=== PATIENT | female | born 1950 | race Caucasian/White ===

== ENCOUNTER 2022-01-20 09:20 | Outpatient (CLI) | payer MEDICARE, SELFPAY | END 2022-01-20 09:21 | disposition home or self-care (01) | LOC: FBOREF 09:20 | PROVIDERS: PCP Family Medicine; Visit Provider Family Medicine | DX: N39.0 Urinary tract infection, site not specified (principal); R30.0 Dysuria | CPT/HCPCS: 87086; 87186 ==

== ENCOUNTER 2022-02-18 11:13 | Outpatient (RCR) | payer MEDICARE, SELFPAY ==
[2022-02-18 11:55] LABS: Creatinine* 0.9 mg/dL (0.5-1.5); Est. Creatinine Clearance* 36.53; Estimated Glomerular Filt Rate 68 ml/min
[2022-02-18 11:56] LABS: Calcium* 9.9 mg/dL (8.4-10.6)
[2022-02-18] MEDS: DENOSUMAB 60 MG/ML SYRINGE SUBCUT (12:21)
== END 2022-08-17 23:59 | disposition home or self-care (01) ==
LOC: CCIC 11:13
PROVIDERS: PCP Family Medicine; Referring Provider Family Medicine; Visit Provider Family Medicine
DX: M81.0 Age-related osteoporosis without current pathological fracture (principal)
CPT/HCPCS: 36415; 82310; 82565; 96372; J0897

== ENCOUNTER 2022-03-12 14:23 | Outpatient (CLI) | payer MEDICARE, SELFPAY ==
--- NOTE | 2022-02-12 09:32 | ONC.NURNOTE ---
Diagnosis: Osteoporosis
--- NOTE | 2022-03-12 14:40 | CRLHL7_ITS ---
For Patients: As a result of the Century Cures Act, medical imaging exams and procedure reports are released immediately into your electronic medical record. You may view this report before your referring provider. If you have questions, please contact your health care provider. BILATERAL SCREENING MAMMOGRAM WITH COMPUTER-AIDED DETECTION TECHNIQUE: CC and MLO views were obtained. These mammographic images have been obtained using full-field digital technique. These mammographic images were interpreted with the benefit of computer-aided detection. COMPARISON FILM: 12/03/20, 08/02/18, 08/08/17. FINDINGS: There are scattered areas of fibroglandular density IMPRESSION: There is no radiographic evidence for malignancy. ASSESSMENT: BI-RADS Category 1: Negative RECOMMENDATION: Routine screening mammogram in 1 year. A lay language report of this examination will be provided to the patient. Chris Paez M.D. Diagnostic Radiologist [email or web address] KATI/gerry Transcribed: 7:44 p.m. ANABELA/Dictated by: Chris Paez MD @ 03/16/2022 11:46:00 AM (Electronically Signed)
== END 2022-03-12 14:24 | disposition home or self-care (01) ==
LOC: MAMMO 14:24
PROVIDERS: PCP Family Medicine; Referring Provider Family Medicine; Visit Provider Family Medicine
DX: Z12.31 Encounter for screening mammogram for malignant neoplasm of breast (principal)
CPT/HCPCS: 77067

== ENCOUNTER 2022-08-24 06:18 | Day surgery (SDC) | payer BC, SELFPAY ==
[2022-08-24] VITALS (11 sets, daily range): BP systolic 129–157; BP diastolic 71–83; PULSE 59–69; RESP 16–20; TEMP 36.9–37; O2SAT 94–97; BMI 31.0
[2022-08-24] MEDS: lidocaine HCL 2 % MULTIDOSE 20 ML VIAL INJECTION (07:20)
[2022-08-24] MEDS: BUPIVACAINE 0.5% 30 ML INJECTION (07:20)
--- NOTE | 2022-08-24 07:51 | PM.ORPRC ---
Procedure Note Date of procedure: 08/24/22 Procedure: Preop diagnosis: Right upper extremity carpal tunnel syndrome, right hand middle finger stenosing tenosynovitis Postop diagnosis: Right upper extremity carpal tunnel syndrome, right hand middle finger stenosing tenosynovitis Procedure: Right upper extremity carpal tunnel release, right hand middle finger A1 rj release Anesthesia: Local Surgeon: Leonardo Jaffe MD operations administrative assistant: NARESH Van EBL: 5 mL Complications: None Specimens: None Drains: None Indications: The patient has a history of right upper extremity carpal tunnel syndrome symptoms. Additionally, there is painful catching and locking of the middle finger. Despite appropriate nonoperative management consisting of nighttime bracing and occupational therapy they continue to have symptoms. Operative intervention was recommended. The risks, benefits alternatives and expected outcomes were discussed in detail. These included but were not limited to: Infection, bleeding, injury to blood vessel or nerve, venous thromboembolism. All questions were answered to their satisfaction. The patient was placed supine on the operating room table. Local anesthesia was established with 0.5% Marcaine without epinephrine and 2% lidocaine without epinephrine. The hand was prepped and draped in usual sterile fashion. The limb was elevated the forearm pneumatic tourniquet was inflated to 250 mm of mercury. A longitudinal incision was made centered over the radial border of the ring finger at the base of the palm. Subcutaneous dissection was sharply taken through the palmar fascia and the palmaris brevis to the transverse carpal ligament. The ligament was divided in line with the incision. Proximal and distal dissection was carried with tenotomy and Metzenbaum scissors for a wide decompression of the carpal tunnel. Attention was then turned to the middle finger. A transverse incision was made centered over the base of the middle finger in the distal palmar crease. Subcutaneous dissection was taken through the palmar fascia to the flexor tendons with the tenotomy scissors. The A1 rj was released with the 15 blade and a tenotomy scissors. Active flexion and extension of the finger shows no catching or locking, no bowstringing of the flexor tendons. The tourniquet was released , bleeding was controlled with direct pressure. The wounds were closed with a 3-0 nylon. A bulky dry dressing was applied, sponge and needle counts were correct x 2. The patient tolerated the procedure well, there were no apparent complications. They were sent to same day surgery in satisfactory condition. Plan: Use of the hand as tolerates. Discontinue the intraoperative dressing on postoperative day 3 and may get the wound wet as tolerates. Follow up in the office in 2 weeks for a wound check and suture removal.
== END 2022-08-24 08:30 | disposition home or self-care (01) ==
PROVIDERS: PCP Family Medicine; Visit Provider Orthopaedic Surgery
PROC: (CPT 64721; principal; 2022-08-24 07:15)
DX: G56.01 Carpal tunnel syndrome, right upper limb (principal); M65.331 Trigger finger, right middle finger; M65.841 Other synovitis and tenosynovitis, right hand
CPT/HCPCS: 64721; 26055; J3490

== ENCOUNTER 2022-09-16 15:18 | Outpatient (CLI) | payer BC, MEDICARE, SELFPAY ==
--- NOTE | 2022-09-16 15:30 | CRLHL7_ITS ---
For Patients: As a result of the Century Cures Act, medical imaging exams and procedure reports are released immediately into your electronic medical record. You may view this report before your referring provider. If you have questions, please contact your health care provider. DXA BONE MINERAL DENSITY STUDY Reason for exam: Osteoporosis. History of spinal rods and left wrist fracture. Current height (in): 59.0 Weight (lb): 155.0. Menopause age: 35 Ethnicity: White 1. Have you had a previous hip or vertebral fracture? No. 2. Have you had any fractures during your adult life which did not result from significant trauma (e.g., auto accident)? Yes. 3. Did either of your parents have a hip fracture? No. 4. Do you smoke? No. 5. Have you ever taken Glucocorticoids? No. 6. Do you have rheumatoid arthritis? No. 7. Do you have secondary osteoporosis? No. 8. Do you drink 3 or more alcoholic drinks per day? No. 9. Are you being treated for osteoporosis? Yes. 10. Have you ever taken any of the following medications: Actonel, Evista, Fosamax, Miacalcin, Reclast, Boniva, Forteo, HRT (i.e. estrogen/hormone therapy), Protelos, Prolia, Vitamin D, Calcium, other ??? please specify. ANSWER: Yes, Fosamax, vitamin D, Prolia, Calcium, Tymlos. 11. Do you have any of the following medical conditions: Anorexia or bulimia, asthma or emphysema, end stage renal disease, hyperparathyroidism, any seizure disorders, cancer, inflammatory bowel diseases, hysterectomy, other ??? please specify. ANSWER: Yes, hysterectomy. 12. What was your maximum height (inches)? 60.5. 13. Do you perform weight bearing exercise regularly? No. 14. Do you regularly consume dairy products? Yes. 15. Do you drink caffeinated beverages? Yes. 16. At what age did your period start? 11. 17. Are you premenopausal? No. 18. How many full term pregnancies have you had? 4 19. Have you ever missed your period for more than 6 months in a row (not including or menopause)? No. TECHNIQUE: Bone mineral density study was performed using the [employer]. FINDINGS: The results of the study expressed as bone mineral density (BMD) are as follows: Neck Left: BMD: 0.673 g/cm2. T-score: -1.6. Z-score: 0.4. Right: BMD: 0.746 g/cm2. T-score: -0.9. Z-score: 1.0. Total Left: BMD: 0.849 g/cm2. T-score: -0.8. Z-score: 0.9. Right: BMD: 0.884 g/cm2. T-score: -0.5. Z-score: 1.2 Radius Right 05/04: BMD: 0.559 g/cm2. T-score: -2.3. Z-score: 0.1 IMPRESSION: Osteopenia. *Comparison exams done prior to 10/2019 were performed on different unit, [facility]. Chris Paez M.D. Diagnostic Radiologist [email or web address] KATI/ti PT/Dictated by: Chris Paez MD @ 09/17/2022 8:50:00 AM (Electronically Signed)
== END 2022-09-16 15:19 | disposition home or self-care (01) ==
PROVIDERS: PCP Family Medicine; Visit Provider Family Medicine
DX: M81.0 Age-related osteoporosis without current pathological fracture (principal)
CPT/HCPCS: 77080

== ENCOUNTER 2022-10-21 14:53 | Outpatient (RCR) | payer BC, SELFPAY ==
--- NOTE | 2022-08-20 14:27 | ONC.NURNOTE ---
Insurance denied prolia injection. Primary care office notified. Will await further instruction.
--- NOTE | 2022-09-29 16:01 | PC.NURSE ---
Called pt today to let her know that [facility] continues to work with Dr. Toledo's office regarding Prolia coverage. Pt shared that she is actually going to see Dr. Lyndsey Palacios, original prescriber of Prolia, [facility]. Pt is hoping that MD can clarify her need for Prolia and make sure all is documented correctly to get this drug covered for her. Maria A would prefer to have infusions at [facility] but will have them done at [facility] if that is what it will take. Supportive listening provided. Will check in next week.
--- NOTE | 2022-10-04 14:12 | PC.NURSE ---
Called pt today in follow-up after [facility] appt. Maria A shares that she is going to have an infusion at the [facility] and will have a repeat DEXA scan in 2 years. Pt has no care needs at [facility] at this time. Will cancel the PA for Prolia. Support offered.
--- NOTE | 2022-10-11 15:52 | URNOTE ---
Request received for authorization for?Zoledronic Acid (Reclast) ([id number]). Prior authorization is approved Reclast 5mg/100ml quintin. billable 5units from 10/08/22 to 10/08/23, Ref#[id number].
--- NOTE | 2022-10-12 14:27 | ONC.NURNOTE ---
Called patient to scheduled Reclast. Patient will need calcium and creatinine prior to infusion. She is coming in on 10/20 for these labs per her request. Patient will come on 10/21 for infusion.
[2022-10-20 14:39] LABS: Estimated Glomerular Filt Rate 60 ml/min
[2022-10-21 10:37] VITALS: BP 115/69; PULSE 71; RESP 18; TEMP 36.6; O2SAT 96
[2022-10-21 11:24] VITALS: BP 129/69; PULSE 57; RESP 16; O2SAT 96
== END 2023-04-18 23:59 | disposition home or self-care (01) ==
LOC: CCIC 14:53
PROVIDERS: PCP Family Medicine; Referring Provider Family Medicine; Visit Provider Family Medicine
DX: M81.0 Age-related osteoporosis without current pathological fracture (principal)
CPT/HCPCS: 36415; 82310; 82565; 96365; J3489

== ENCOUNTER 2022-11-09 10:52 | Outpatient (CLI) | payer BC, SELFPAY | END 2022-11-09 10:53 | disposition home or self-care (01) | LOC: NFLDREF 11-10 09:54 | PROVIDERS: PCP Family Medicine; Referring Provider Family Medicine; Visit Provider Family Medicine | DX: E78.5 Hyperlipidemia, unspecified (principal) | CPT/HCPCS: 80061 ==

== ENCOUNTER 2023-03-25 14:17 | Outpatient (CLI) | payer BC, SELFPAY ==
--- NOTE | 2023-03-25 14:40 | CRLHL7_ITS ---
For Patients: As a result of the Century Cures Act, medical imaging exams and procedure reports are released immediately into your electronic medical record. You may view this report before your referring provider. If you have questions, please contact your health care provider. BILATERAL SCREENING MAMMOGRAM WITH COMPUTER-AIDED DETECTION TECHNIQUE: CC and MLO views were obtained. These mammographic images have been obtained using full-field digital technique. These mammographic images were interpreted with the benefit of computer-aided detection. COMPARISON FILM: 03/12/22, 12/03/20, 12/03/19. FINDINGS: There are scattered areas of fibroglandular density IMPRESSION: There is no radiographic evidence for malignancy. ASSESSMENT: BI-RADS Category 2: Benign RECOMMENDATION: Routine screening mammogram in 1 year. A lay language report of this examination will be provided to the patient. Jack Yeh M.D. Diagnostic/Nuclear Medicine Radiologist [email or web address] ANABELA/Dictated by: Jack Yeh MD @ 03/28/2023 8:25:00 AM (Electronically Signed)
== END 2023-03-25 14:18 | disposition home or self-care (01) ==
LOC: MAMMO 14:18
PROVIDERS: PCP Family Medicine; Visit Provider Family Medicine
DX: Z12.31 Encounter for screening mammogram for malignant neoplasm of breast (principal)
CPT/HCPCS: 77067

== ENCOUNTER 2023-09-01 08:44 | Outpatient (CLI) | payer BC, SELFPAY ==
--- OUTSIDE RECORDS SUMMARY | 2023-09-01 08:49 | XMS_ITS | Encounter Summary ---
Author Name Unknown Organization [place] Address [address] [facility] [place] [address] Care Team Providers Care Code Clerk Name Role Phone Chris Toledo MD Primary Care Provider Beba Munoz PA-C Unavailable [phone] Chris Gilbert MD Unavailable [phone] Ivette Rasmussen RN Unavailable Evelyn Alvarado MD Unavailable [phone] Lyndsey Palacios MD PhD Unavailable + [phone] Lyndsey Palacios MD PhD Unavailable + [phone] Ivon De Leon [facility] Unavailable Chris Burroughs PA-C Unavailable [phone] Encounter Details Date Type Department Care Team (Latest Contact Info) Description 07/30/2023 Travel Social History Tobacco Use Types Packs/Day Years Used Date Smoking Tobacco: Never Smokeless Tobacco: Never Alcohol Use Standard Drinks/Week Comments Yes 0 (1 standard drink = 0.6 oz pur e alcohol) rare PHQ-2 Answer Date Recorded PHQ-2 Score 1 10/04/2022 Exercise Vital Sign Answer Date Recorde d On average, how many days pe r week do you engage in moderate to strenuous exercise (like a brisk walk)? 0 days 07/05/2023 On average, how many minutes do you engage in exercise at this level? 0 min 07/05/2023 Adolescent Education Answer Date Record ed Getting School Help Needed Not on file 02/15 Sex and Gender Information Value Date Recorded Sex Assigned at Female 06/26/2019 9:26 AM IV TECHNICIAN Gender Identity Female 06/26/2019 9:25 AM IV TECHNICIAN Sexual Orientation Straight 06/26/2019 9: 25 AM IV TECHNICIAN documented as of this encounter Plan of Treatment Upcoming Encounters Date Type Department Care Team (Late st Contact Info) Description 09/06/2023 1:20 PM CDT Office Visit [facility] [place] [address] [place] [address] [place] [address] [place] [address] documented as of this encounter Visit Diagnoses Not on filedocumented in this encounter Additional Health Concerns Assessment Noted Time PHQ-9 Depression Total Score: 4 06/04/19 20 1:21 PM IV TECHNICIAN documented as of this encounter Care Teams Code Clerk Relationship Specialty Start Date End Date Chris Toledo MD PCP - General Family Practice 12/07/17 Beba Munoz PA-C [facility] [address] [facility] [address] [place] [address] Physician Braze Operator Physician Braze Operator 12/07/17 Chris Gilbert MD [address] [place] [address] Orthopedics 12/07/17 Ivette Rasmussen, RN Registered Nurse Nurse 01/12/18 Evelyn Alvarado MD [address] [place], [place] [id number] Family Medicine - Sports Medicine 01/08/19 Lyndsey Palacios MD PhD [address] [place] [id number] Assigned PCP 08/08/20 Lyndsey Palacios MD PhD [address] [place] [id number] Family Medicine 09/29/22 Ivon De Leon, [facility] [address] [address] Pharmacist Pharmacist 10/07/22 Chris Burroughs PA-C [address] [place] [id number] Assigned Musculoskeletal Provider 07/15/23 documented as of this encounter
--- OUTSIDE RECORDS SUMMARY | 2023-09-01 08:49 | XMS_ITS | Encounter Summary ---
Author Name Unknown Organization [facility] [place] Address [address] [facility] [place] [address] Care Team Providers Care Stone Repairer Name Role Phone Chris Toledo MD Primary Care Provider Beba Munoz PA-C Unavailable [phone] Chris Gilbert MD Unavailable [phone] Ivette Rasmussen RN Unavailable Evelyn Alvarado MD Unavailable [phone] Lyndsey Palacios MD PhD Unavailable + [phone] Lyndsey Palacios MD PhD Unavailable + [phone] Ivno De Leon [facility] Unavailable Chris Burroughs PA-C Unavailable [phone] Encounter Details Date Type Department Care Team (Latest Contact Info) Description 08/17/2023 Travel Social History Tobacco Use Types Packs/Day [...] Sex Assigned at Female 06/26/2019 9:26 AM TIRE BAGGER Gender Identity Female 06/26/2019 9:25 AM TIRE BAGGER Sexual Orientation Straight 06/26/2019 9: 25 AM TIRE BAGGER documented as of this encounter Plan of Treatment Upcoming Encounters Date Type Department Care Team (Late st Contact Info) Description 09/06/2023 1:20 PM CDT Office Visit [facility] [place] [address] [place] [address] [place] [address] [place] [address] documented as of this encounter Visit Diagnoses Not on filedocumented in this encounter Additional Health Concerns Assessment Noted Time PHQ-9 Depression Total Score: 4 06/04/19 20 1:21 PM TIRE BAGGER documented as of this encounter Care Teams Stone Repairer Relationship Specialty Start Date End Date Chris Toledo MD PCP - General Family Practice 12/07/17 Beba Munoz PA-C [facility] [address] [facility] [address] [place] [address] Physician Senior Data Integration Developer Physician Senior Data Integration Developer 12/07/17 Chris Gilbert MD [address] [place] [address] Orthopedics 12/07/17 Ivette Rasmussen, RN Registered Nurse Nurse 01/12/18 Evelyn Alvarado MD [address] [place], [place] [address] Family Medicine - Sports Medicine 01/08/19 Lyndsey Palacios MD PhD [address] [place] [id number] Assigned PCP 08/08/20 Lyndsey Palacios MD PhD [address] [place] [id number] Family Medicine 09/29/22 Ivon De Leon, [facility] [address] [address] Pharmacist Pharmacist 10/07/22 Chris Burroughs PA-C [address] [place] [id number] Assigned Musculoskeletal Provider 07/15/23 documented as of this encounter
--- OUTSIDE RECORDS SUMMARY | 2023-09-01 08:49 | XMS_ITS | Clinical Summary ---
Author Name Unknown Organization [facility] Address [address] [facility] [place] [address] Care Team Providers Care Clinical Psychology Teacher Name Role Phone Chris Toledo MD Primary Care Provider Beba Munoz PA-C Unavailable [phone] Chris Gilbert MD Unavailable [phone] Ivette Rasmussen RN Unavailable Evelyn Alvarado MD Unavailable [phone] Lyndsey Palacios MD PhD Unavailable Lyndsey Palacios MD PhD Unavailable Ivon De Leon [facility] Unavailable [phone] Chris Burroughs PA-C Unavailable [phone] Allergies Active Allergy Reactions Criticality Noted Date Comments Other (Do Not Use) Unknown 07/08/2019 cough Shellfish Allergy 08/16/2022 Simvastatin Muscle Pain (Myalgia) 10/02/2006 Medications Medication Sig Dispensed Refills Start Date End Date Status albuterol (PROAIR HFA/PROVENTIL HFA/VENTOLIN HFA) 108 (90 Base) MCG/ACT inhaler Inhale 2 puffs into the lungs every 4 hours as needed 06/22/2013 Active azelastine (ASTELIN) 0.1 % nasal spray Yancey 2 sprays into both nostrils 2 times daily 3 01/17/2018 Active cetirizine (ZYRTEC) 10 MG tablet Take 10 mg by mouth every evening 03/30/2011 Active cycloSPORINE (RESTASIS) 0.05 % ophthalmic emulsion Place 1 drop into both eyes every morning 06/22/2013 Active EPINEPHrine (EPIPEN/ADRENACLIC K/OR ANY BX GENERIC EQUIV) 0.3 MG/0.3ML injection 2-pack Inject 0.3 mg into the muscle as needed 2 06/16/2017 Active fluticasone (FLOVENT HFA) 110 MCG/ACT inhaler Inhale 1 puff into the lungs 2 times daily 08/05/2015 Active fluticasone (FLONASE) 50 MCG/ACT nasal spray Yancey 2 sprays into both nostrils 2 times daily 03/29/2012 Active montelukast (SINGULAIR) 10 MG tablet Take 10 mg by mouth At Bedtime 11/15/2012 Active omeprazole (PRILOSEC) [address] capsule Take 20 mg by mouth every morning 09/23/2006 Active calcium carbonate 600 mg-vitamin D 400 units (CALTRATE) 600-400 MG-UNIT per tablet Take 1 tablet by mouth 2 times daily Active melatonin 5 MG tablet Take 5 mg by mouth At Bedtime Active [place]-3 Fatty Acids (FISH OIL) 1200 MG capsule Take 1,200 mg by mouth daily Active cholecalciferol (VITAMIN D3) 5000 units (125 mcg) capsule Take 5,000 Units by mouth every evening Active lisinopril (PRINIVIL/ZESTRIL) 10 MG tablet Take 10 mg by mouth every morning Active medical cannabis (Patient's own supply) Take 1 Dose by mouth 2 times daily (The purpose of this order is to document that the patient reports taking medical cannabis. This is not a prescription, and is not used to certify that the patient has a qualifying medical condition.) Active acetaminophen (TYLENOL) 325 MG tabletIndications: H/O Spinal surgery Take 2 tablets (650 mg) by mouth every 4 hours as needed for pain 100 tablet 1 08/24/2018 Active gabapentin (NEURONTIN) 600 MG tabletIndications: H/O Spinal surgery Take 1 tablet (600 mg) by mouth 3 times daily 90 tablet 08/24/2018 Active Additional Information Patient taking differently:600 mg Oral2 TIMES DAILY, Reported on 08/18/2020 HYDROcodone-acetam inophen (NORCO) 7.5-325 MG per tablet Take 1 tablet by mouth At Bedtime 0 07/31/2018 Active atorvastatin (LIPITOR) 10 MG tablet Take 10 mg by mouth daily Active diclofenac (VOLTAREN) 1 % topical gelIndications: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 Place 2 g onto the skin 2 times daily as needed for moderate pain (knuckles) 100 g 10/11/2019 Active Additional Information Patient not taking.Reported on 07/05/2023 UNABLE TO FIND MEDICATION NAME: focous 1 tab twice daily Active fenofibrate (TRIGLIDE/LOFIBRA) 160 MG tablet Take 1 tablet by mouth daily at 2 pm 08/10/2022 Active potassium 99 MG TABS 08/04/2020 Active Cyanocobalamin (VITAMIN B 12) 100 MCG LOZG 08/01/2020 Active celecoxib (CELEBREX) 200 MG capsule Take 200 mg by mouth 2 times daily Active predniSONE (DELTASONE) 20 MG tabletIndications: Bilateral hip pain Take 3 tabs by mouth daily x 3 days, then 2 tabs daily x 3 days, then 1 tab daily x 3 days, then 1/2 tab daily x 3 days. 20 tablet 07/05/2023 Active Hospital, Clinic, or Other Facility Administered Medication Ordered Dose Route Frequency Start Date End Date Status lidocaine (PF) (XYLOCAINE) 1 % injection 6 mLIndications:Bursitis of pelvic region, right 6 mL 10/04/2018 Acti ve triamcinolone (KENALOG-40) injection 20 mgIndications:Bursitis of pelvic region, right 20 mg 10/04/2018 Acti ve lidocaine (PF) (XYLOCAINE) 1 % injection 2 mLIndications:Hamstring tendinitis at origin 2 mL 12/07/2018 Acti ve lidocaine (PF) (XYLOCAINE) 1 % injection 2 mLIndications:Hamstring tendinitis at origin 2 mL 10/11/2019 Acti ve lidocaine 1 % injection 8 mLIndications:Primary osteoarthritis of right hip 8 mL 08/23/2023 Active methylPREDNISolone (DEPO-Medrol) injection 40 mgIndications:Primary osteoarthritis of right hip 40 mg 08/23/2023 Active 4 mL ropivacaine (NAROPIN) injection 5 mg/mLIndications:Primary osteoarthritis of right hip 4 mL 08/23/2023 Active Active Problems Problem Noted Date Diagnosed Date Senile osteoporosis 06/04/2019 Flatback syndrome 05/11/2018 Severe scoliosis 05/11/2018 Osteoporosis 05/11/2018 Essential hypertension 12/19/2017 Issue of repeat prescription 06/24/2015 Allergic rhinitis due to pollen 05/03/2015 Controlled substance agreement signed 05/03/2015 Osteoarthrosis 03/31/2015 Sensorineural hearing loss (SNHL) 08/05/2010 Adjustment disorder with mixed anxiety and depre ssed mood 06/23/2008 Hyperlipidemia 07/27/2006 Encounters Date Type Department Care Team Description 08/23/2023 1:20 PM CDT Office Visit [facility] [address] [address] Sylvester Joe MD Primary osteoarthritis of right hip (Primary Dx); Primary localized osteoarthritis of left hip; Hx of spinal surgery-thoracic and lumbar Walsh rods for scoliosis age 50 and 68; Osteoarthritis of left sacroiliac joint (H24); Osteoarthritis of right sacroiliac joint (H24) 08/23/2023 Travel 08/17/2023 Travel 07/30/2023 Travel 07/27/2023 Telephone [facility] [address] [phone] Chris Burroughs PA-C Call Back 07/07/2023 Telephone [facility] [place] [id number] [phone] Chris Burroughs PA-C 07/05/2023 1:30 PM PARTS DATA WRITER Ancillary Procedure [facility] [address] [address] Chris Burroughs PA-C Bilateral hip pain 07/05/2023 1:20 PM PARTS DATA WRITER Office Visit [facility] [address] [address] Chris Burroughs PA-C Bilateral hip pain (Primary Dx); Hx of spinal surgery-thoracic and lumbar Walsh rods for scoliosis age 50 and 68; Osteopenia, unspecified location 07/05/2023 Travel 07/01/2023 Travel 06/30/2023 MyC Medical Advice [facility] [address] 4[address] [place] [address] Chris Gilbert MD Clinic Care Coordination - Follow-up from Last 3 Months Immunizations Name Administration Dates Next Due COVID-19 MONOVALENT 12+ (Pfizer) 022,01/30/2021,07/25/2020,2020 DTaP, Unspecified 09/01/2012 A6p2-86 Novel Flu 05/22/2009 Influenza (H1N1) 05/22/2009 Influenza (High Dose) 3 enmanuel nt vaccine 02/13/2019,03/08/2018,03/18/2017,2015,01/13/2015,01/05/2014 Influenza (IIV3) PF 01/04/2014, 3,01/19/2012,2009,01/22/2010,02/05/2009,02/21/2008,1 ,03/07/2006,02/24/2005, 003 Influenza Vaccine 65+ (FLUAD) 01/05/2022, 021,01/29/2020 Influenza Vaccine >6 months,quad, PF 09/2021,01/30/2021,01/29/2020,2018,03/08/2018,03/18/2017,02/14/2016,0 12/22/2015,01/23/2015,01/13/2015, 014,01/16/2013,01/19/2012,02/09/2011,,05/22/2009,02/05/2009,02/21/20 08,02/22/2007,02/24/2005,02/20/2003 Influenza, seasonal, injectable, PF 02/09/2011,0 01/22/2010 Pneumo Conj 13-V (2010&after) 10/05/2016 Pneumococcal 23 valent 04/28/2015 TDAP (Adacel,Boostrix) 09/01/2012 Td (Adult), Adsorbed 02/20/2003 Zoster recombinant adjuvante d (SHINGRIX) 01/22/2019,11/20/2018 Zoster vaccine, live 08/08/2014 Family History Medical History Relation Comments Cancer Father kidney, mets to the lung and brain Other - See Comments Mother heart valve issue Ovarian Cancer Mother Relation Status Comments Father Mother Social History Tobacco Use Types Packs/Day Years [...] Sex Assigned at Female 06/26/2019 9:26 AM PARTS DATA WRITER Gender Identity Female 06/26/2019 9:25 AM PARTS DATA WRITER Sexual Orientation Straight 06/26/2019 9: 25 AM PARTS DATA WRITER Last Filed Vital Signs Vital Sign Reading Time Taken Comments Blood Pressure 137/88 08/23/2023 1:13 PM CDT Pulse 81 10/04/2022 9:52 AM CDT Temperature 36.9 ??C (98.4 ??F) 06/29/2019 8:58 AM CS T Respiratory Rate 16 11/17/2018 1:29 PM CDT Oxygen Saturation 93% 06/29/2019 8:58 AM PARTS DATA WRITER Inhaled Oxygen Concentration - - Weight 73.9 kg (163 lb) 08/23/2023 1:13 PM CDT Height 152.4 cm (5') 08/23/2023 1:13 PM CDT Body Mass Index 31.83 08/23/2023 1:13 PM CDT Plan of Treatment Upcoming Encounters Date Type Department Care Team (Late st Contact Info) Description 09/06/2023 1:20 PM CDT Office Visit [facility] [id number] [place] [address] [address] [place] [address] [place] [address] [address] [place], [place] [phone] Health Maintenance Due Date Last Done Comments ADVANCE CARE PLANNING 1950 ANNUAL REVIEW OF HM ORDERS 1950 CT COLONOGRAPHY 1950 FIT 1950 FLEX SIG 1950 LIPID 1950 sDNA (Cologuard) 1950 HEPATITIS C SCREENING 01/02/1968 RSV VACCINE ( & 60+) (1 - 1-dose 60+ series) 2010 FALL RISK ASSESSMENT 2015 MEDICARE ANNUAL WELLNESS VISIT 2015 DTAP/TDAP/TD IMMUNIZATION (3 - Td or Tdap) 09/01/2022 09/01/2012, 09/01/2012, 02/20/2003 GLUCOSE 01/24/2023 01/25/2020, 08/01, 08/23/2018, Additional history exists PHQ-2 (once per calendar year) 2023 10/04/2022, 09/03/2021, 08/18/2020, Additional history exists COVID-19 Vaccine ( season) 2023 02/02/2023, 01/05/2022, 08/08/2021, Additional history exists MAMMO SCREENING 03/12/2024 03/12/2022, 0807/2020, 12/03/2019, Additional history exists COLONOSCOPY 06/30/2026 06/30/2016 COLORECTAL CANCER SCREENING 06/30/2026 DEXA 09/16/2037 09/16/2022, 06/02, 06/12/2020, Additional history exists Pneumococcal Vaccine: 65+ Years Completed 10/05/2016, 04/28/2015 ZOSTER IMMUNIZATION Completed 01/22/2019, 11/20/2018, 08/08/2014 INFLUENZA VACCINE Completed 02/01/2023, , 01/05/2022, Additional history exists HPV IMMUNIZATION Aged Out No longer e ligible based on patient's age to complete this topic IPV IMMUNIZATION Aged Out No longer e ligible based on patient's age to complete this topic MENINGITIS IMMUNIZATION Aged Out No l onger eligible based on patient's age to complete this topic RSV MONOCLONAL ANTIBODY Aged Out No l onger eligible based on patient's age to complete this topic Medical Devices Implanted Type Area Advertising Supervisor Device Identifier Shelf Expiration Date Model / Serial / Lot Graft Bone Crush Canc 30ml [id number] Implanted:Qty : 1 on 08/21/2018 by Chris Gilbert MD at [facility] Bone/Tissu e/Biologic N/A: Spine Lumbar MUSCULOSKELETAL CAMPOS 04/28/2021 [id number] / [id number] / Graft Bone Crush Canc 30ml [id number] Implanted:Qty : 1 on 08/21/2018 by Chris Gilbert MD at [facility] Bone/Tissu e/Biologic N/A: Spine Lumbar MUSCULOSKELETAL CAMPOS 06/02/2021 [id number] / [id number] Imp Scr Medt 5.5/6.0mm Solera 6.5x55mm Ma [id number] Implanted:Qty : 2 on 08/21/2018 by Chris Gilbert MD at [facility] Metallic Hardware/A nchor N/A: Spine Lumbar [employer] [id number] / / [id number] Imp Scr Medt 5.5/6.0mm Solera 5.5x50mm Ma [id number] Implanted:Qty : 2 on 08/21/2018 by Chris Gilbert MD at [facility] Metallic Hardware/A nchor N/A: Spine Lumbar [employer] [id number] / / [id number] Imp Scr Medt 5.5/6.0mm Solera 5.5x55mm Ma [id number] Implanted:Qty : 2 on 08/21/2018 by Chris Gilbert MD at [facility] Metallic Hardware/A nchor N/A: Spine Lumbar [employer] [id number] / / [id number] Imp Scr Medt 5.5/6.0mm Solera 6.5x45mm Ma [id number] Implanted:Qty : 2 on 08/21/2018 by Chris Gilbert MD at [facility] Metallic Hardware/A nchor N/A: Spine Lumbar [employer] [id number] / / [id number] Imp Scr Medt 5.5/6.0mm Solera 6.5x40mm Ma [id number] Implanted:Qty : 1 on 08/21/2018 by Chris Gilbert MD at [facility] Metallic Hardware/A nchor N/A: Spine Lumbar [employer] [id number] / / [id number] Imp Scr Medt 5.5/6.0mm Solera 5.5x40mm Ma [id number] Implanted:Qty : 3 on 08/21/2018 by Chris Gilbert MD at [facility] Metallic Hardware/A nchor N/A: Spine Lumbar [employer] [id number] / / [id number] Imp Scr Medt 5.5/6.0mm Solera 5.0x35mm Ma [id number] Implanted:Qty : 1 on 08/21/2018 by Chris Gilbert MD at [facility] Metallic Hardware/A nchor N/A: Spine Lumbar [employer] [id number] / / [id number] Imp Scr Medt 5.5/6.0mm Solera 4.5x35mm Ma [id number] Implanted:Qty : 1 on 08/21/2018 by Chris Gilbert MD at [facility] Metallic Hardware/A nchor N/A: Spine Lumbar [employer] [id number] / / [id number] Imp Scr Medt 5.5/6.0mm Solera 5.0x40mm Ma [id number] Implanted:Qty : 1 on 08/21/2018 by Chris Gilbert MD at [facility] Metallic Hardware/A nchor N/A: Spine Lumbar [employer] [id number] / / [id number] Imp Scr Medt 5.5/6.0mm Solera 4.5x40mm Ma [id number] Implanted:Qty : 1 on 08/21/2018 by Chris Gilbert MD at [facility] Metallic Hardware/A nchor N/A: Spine Lumbar [employer] [id number] / / [id number] Imp Dao Medt Solera Lined 5.9a998mz Chr [id number] Implanted:Qty : 3 on 08/21/2018 by Chris Gilbert MD at [facility] Metallic Hardware/A nchor N/A: Spine Lumbar [employer] [id number] / / [id number] Imp Scr Set Medt Solera Break Off 5.5mm Ti [id number] Implanted:Qty : 26 on 08/21/2018 by Chris Gilbert MD at [facility] Metallic Hardware/A nchor N/A: Spine Lumbar [employer] [id number] / [id number] / Imp Scr Medt 5.5/6.0mm Solera 7.5x40mm Ma [id number] Implanted:Qty : 2 on 08/21/2018 by Chris Gilbert MD at [facility] Metallic Hardware/A nchor N/A: Spine Lumbar [employer] [id number] / / [id number] Imp Scr Medt 5.5/6.0mm Solera 7.5x50mm Ma [id number] Implanted:Qty : 4 on 08/21/2018 by Chris Gilbert MD at [facility] Metallic Hardware/A nchor N/A: Spine Lumbar [employer] [id number] / / [id number] Imp Scr Medt 5.5/6.0mm Solera 7.5x55mm Ma [id number] Implanted:Qty : 2 on 08/21/2018 by Chris Gilbert MD at [facility] Metallic Hardware/A nchor N/A: Spine Lumbar [employer] [id number] / / [id number] Ballast Screw Implanted:Qty : 1 on 08/21/2018 by Chris Gilbert MD at [facility] N/A: Spine Lumbar [id number] / / [id number] Ballast Screw 9.5 X 90 Mm Implanted:Qty : 1 on 08/21/2018 by Chris Gilbert MD at [facility] N/A: Spine Lumbar [id number] / / [id number] Variable Angle [place] Implanted:Qty : 2 on 08/21/2018 by Janel Guillory MD at [facility] N/A: Spine Lumbar 07/14/2023 [id number] / / [id number] Capstone Control 10 X 22 Implanted:Qty : 1 on 08/21/2018 by Chris Gilbert MD at [facility] N/A: Spine Lumbar [employer] [id number] / / Explanted Type Area Advertising Supervisor Device Identifier Shelf Expiration Date Model / Serial / Lot Imp Scr Set Medt Solera Break Off 5.5mm Ti [id number] Explanted:Qty: 3 on 08/21/2018 at [facility] Metallic Hardware/Anc hor N/A: Spine Lumbar [employer] [id number] / / [id number] [place] Screws Explanted:Qty: 1 on 08/21/2018 by Chris Gilbert MD at [facility] Bilateral : Spine Lumbar Description:ALL ISOLA SPINE HARDWARE REMOVED LUMBAR AND THORACIC. Procedures Procedure Name Priority Date/Time Associated Diagnosis Comments VT ARTHROCENTESIS ASPIR&/INJ MAJOR JT/BURSA W/US Routine 08/23/2023 1:57 PM CDT Primary osteoarthritis of right hip XR PELVIS AND HIP BILATERAL 1 VIEW Routine 07/05/2023 1:50 PM PARTS DATA WRITER Bilateral hip pain DEXA - HIM SCAN 09/16/2022 12:00 AM CDT MA EXTERNAL IMAGING 2D SCREENING Routine 03/12/2022 12:00 AM PARTS DATA WRITER BASIC METABOLIC PANEL Routine 01/25/2020 10:57 AM CDT Senile osteoporosis from Last 3 Months or Most Recently Relevant to Health Maintenance Results * VT ARTHROCENTESIS ASPIR&/INJ MAJOR JT/BURSA W/US (08/23/2023 1:57 PM CDT) Narrative Sylvester Joe MD - 08/23/2023 1:57 PM CDT Sylvester Joe MD ? 08/23/2023 ??5:07 PM Large Joint Injection/Arthocentesis: R hip joint Date/Time: 08/23/2023 1:57 PM Performed by: Sylvester Joe MD Authorized by: Sylvester Joe MD ?? Indications: ??Pain and osteoarthritis Needle Size: ??22 G Guidance: ultrasound ?? Approach: ??Anterior Location: ??Hip Site: ??R hip joint Medications: ??40 mg methylPREDNISolone 40 MG/ML; 8 mL lidocaine 1 %; 4 mL ROPivacaine 5 MG/ML Outcome: ??Tolerated well, no immediate complications Procedure discussed: discussed risks, benefits, and alternatives ?? Consent Given by: ??Patient Timeout: timeout called immediately prior to procedure ?? Prep: patient was prepped and draped in usual sterile fashion ?? Ultrasound was used to ensure safe and accurate needle placement and injection. Ultrasound images of the procedure were permanently stored. Sylvester Joe MD PROCEDURE/MINOR SURG ICAL ORDERABLES * XR Pelvis and Hip Bilateral 1 View (07/05/2023 1:50 PM PARTS DATA WRITER) Anatomical Region Laterality Modality Pelvis Bilateral Computed Radiogr aphy Impressions 07/05/2023 3:26 PM PARTS DATA WRITER IMPRESSION: There are mild arthritic changes involving both hips. Prior lumbosacral fusion. There is no evidence of an acute displaced fracture on either side. No dislocation. 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 BENJA ZULUAGA MD SYSTEM ID: ??[id number] Narrative 07/05/2023 3:26 PM PARTS DATA WRITER PELVIS AND BILATERAL HIPS, ONE VIEW 07/05/2023 1:50 PM HISTORY: Bilateral hip pain. COMPARISON: 11/21/2018 MRI. Procedure Note Benja Zuluaga MD - 07/05/2023 PELVIS AND BILATERAL HIPS, ONE VIEW 07/05/2023 1:50 PM HISTORY: Bilateral hip pain. COMPARISON: 11/21/2018 MRI. IMPRESSION: There are mild arthritic changes involving both hips. Prior lumbosacral fusion. There is no evidence of an acute displaced fracture on either side. No dislocation. 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 BENJA ZULUAGA MD SYSTEM ID: [id number] Chris Burroughs PA-C IMG DIAGNOSTIC IM AGING ORDERABLES * DEXA - HIM SCAN (09/16/2022 12:00 AM CDT) Anatomical Region Laterality Modality Other 09/16/2022 Provider Outside IMG DEXA ORDERABLES * MA External Imaging 2D Screening (03/12/2022 12:00 AM PARTS DATA WRITER) Narrative Service Account, Ob Barbiek - 10/14/2022 3:18 PM CDT Images were obtained from an external facility. ??Click PACS Images hyperlink to view images. ??Textual results have been scanned into the media tab. Radiology Non-Fv Credentialed Provider I MG EXTERNAL IMAGING ORDERABLES * (ABNORMAL) Basic Metabolic Panel (01/25/2020 10:57 AM CDT) Sodium 139 133 - 144 mmol/L 01/25/2020 11:23 AM CDT [facility] Potassium 4.2 3.4 - 5.3 mmol/L 01/25/2020 11:23 AM CDT [facility] Chloride 108 94 - 109 mmol/L 01/25/2020 11:23 AM CDT [facility] Carbon Dioxide 24 20 - 32 mmol/L 01/25/2020 11:29 AM CDT [facility] Anion Gap 7 3 - 14 mmol/L 01/25/2020 11:29 AM CDT [facility] Glucose 106(H) 70 - 99 mg/dL 01/25/2020 11:29 AM CDT [facility] Urea Nitrogen 15 7 - 30 mg/dL 01/25/2020 11:29 AM CDT [facility] Creatinine 0.92 0.52 - 1.04 mg/dL 01/25/2020 11:29 AM CDT [facility] GFR Estimate 63 >60 mL/min/{1 .73_m2} 01/25/2020 11:29 AM CDT [facility] Comment: Non GFR Calc Starting 04/18/2018, serum creatinine based estimated GFR (eGFR) will be calculated using the Chronic Kidney Disease Epidemiology Collaboration (CKD-EPI) equation. GFR Estimate If Black 73 >60 mL/min/{1 .73_m2} 01/25/2020 11:29 AM CDT [facility] Comment: GFR Calc Starting 04/18/2018, serum creatinine based estimated GFR (eGFR) will be calculated using the Chronic Kidney Disease Epidemiology Collaboration (CKD-EPI) equation. Calcium 9.6 8.5 - 10.1 mg/dL 01/25/2020 11:29 AM CDT [facility] Blood specimen (specimen) 01/25/2020 10:57 AM CDT 01/25/2020 10:58 AM CDT Lyndsey Palacios MD PhD LAB - BLOOD OR DERABLES [facility] [address] [place] [address] from Last 3 Months or Most Recently Relevant to Health Maintenance Care Teams Clinical Psychology Teacher Relationship Specialty Start Date End Date Chris Toledo MD PCP - General Family Practice 12/07/17 Beba Munoz PA-C [facility] [address] [place] [address] Physician Gang Mower Operator Physician Gang Mower Operator 12/07/17 Chris Gilbert MD [facility] [id number] [place] [address] Orthopedics 12/07/17 Ivette Rasmussen, RN Registered Nurse Nurse 01/12/18 Evelyn Alvarado MD [address] [place] [address] [id number] Family Medicine - Sports Medicine 01/08/19 Lyndsey Palacios MD PhD [address] [place] [address] [id number] Assigned PCP 08/08/20 Lyndsey Palacios MD PhD [address] [place] [address] [id number] Family Medicine 09/29/22 Ivon De Leon, [facility] [facility] [address] [place] [address] Pharmacist Pharmacist 10/07/22 Chris Burroughs PA-C [facility] [address] [address] Assigned Musculoskeletal Provider 07/15/23
--- OUTSIDE RECORDS SUMMARY | 2023-09-01 08:49 | XMS_ITS | Encounter Summary ---
Author Name Unknown Organization [facility] Address [address] [facility] [place] [address] Care Team Providers Care Plaster Machine Operator Name Role Phone Chris Toledo MD Primary Care Provider Beba Munoz PA-C Unavailable [phone] Chris Gilbert MD Unavailable Ivette Rasmussen RN Unavailable Donovan ePterson RN Unavailable Evelyn Alvarado MD Unavailable [phone] Lyndsey Palacios MD PhD Unavailable [phone] Lyndsey Palacios MD PhD Unavailable [phone] Ivon De Leon [facility] Unavailable Encounter Details Date Type Department Care Team (Late st Contact Info) Description 07/07/2023 Telephone [facility] [place] [address] [facility] [address] [place] [address] Chris Burroughs PA-C [address] [place] [address] Social History Tobacco Use Types Packs/Day Years [...] Sex Assigned at Female 06/26/2019 9:26 AM CRIME PREVENTION WORKER Gender Identity Female 06/26/2019 9:25 AM CRIME PREVENTION WORKER Sexual Orientation Straight 06/26/2019 9: 25 AM CRIME PREVENTION WORKER documented as of this encounter Plan of Treatment Upcoming Encounters Date Type Department Care Team (Late st Contact Info) Description 09/06/2023 1:20 PM CDT Office Visit [facility] [address] [place] [address] [place] [address] [facility] [address] [place] [address] documented as of this encounter Visit Diagnoses Not on filedocumented in this encounter Additional Health Concerns Assessment Noted Time PHQ-9 Depression Total Score: 4 06/04/19 20 1:21 PM CRIME PREVENTION WORKER documented as of this encounter Care Teams Plaster Machine Operator Relationship Specialty Start Date End Date Chris Toledo MD PCP - General Family Practice 12/07/17 Beba Munoz PA-C [facility] [address] [facility] [address] [place] [address] Physician Equipment Operat0R Physician Equipment Operat0R 12/07/17 Chris Gilbert MD [address] [place] [address] Orthopedics 12/07/17 Ivette Rasmussen, RN Registered Nurse Nurse 01/12/18 Donovan Peterson, RN Specialty Revenue Cycle Specialist Neurological Surgery 05/29/18 07/07/23 Evelyn Alvarado MD [address] [place] [address] [id number] Family Medicine - Sports Medicine 01/08/19 Lyndsey Palacios MD PhD [address] [place] [address] [phone] Assigned PCP 08/08/20 Lyndsey Palacios MD PhD [address] [place] [address] [id number] Family Medicine 09/29/22 Ivon De Leon, [facility] [address] [place] [address] [phone] Pharmacist Pharmacist 10/07/22 documented as of this encounter
--- OUTSIDE RECORDS SUMMARY | 2023-09-01 08:49 | XMS_ITS | Encounter Summary ---
Author Name Unknown Organization [place] Address [address] [facility] [place] [address] Care Team Providers Care Rental Clerk Tool And Equipment Name Role Phone Chris Toledo MD Primary Care Provider Beba Munoz PA-C Unavailable [phone] Chris Gilbert MD Unavailable [phone] Ivette Rasmussen RN Unavailable Evelyn Alvarado MD Unavailable [phone] Lyndsey Palacios MD PhD Unavailable + [phone] Lyndsey Palacios MD PhD Unavailable [phone] Ivon De Leon [facility] Unavailable [phone] Chris Burroughs PA-C Unavailable [phone] Encounter Details Date Type Department Care Team (Latest Contact Info) Description 08/23/2023 Travel Social History Tobacco Use Types Packs/Day [...] Sex Assigned at Female 06/26/2019 9:26 AM REGISTERED VASCULAR TECHNOLOGIST (RVT) Gender Identity Female 06/26/2019 9:25 AM REGISTERED VASCULAR TECHNOLOGIST (RVT) Sexual Orientation Straight 06/26/2019 9: 25 AM REGISTERED VASCULAR TECHNOLOGIST (RVT) documented as of this encounter Plan of Treatment Upcoming Encounters Date Type Department Care Team (Late st Contact Info) Description 09/06/2023 1:20 PM CDT Office Visit [facility] [place] [address] [place] [address] [place] [address] [place] [address] documented as of this encounter Visit Diagnoses Not on filedocumented in this encounter Additional Health Concerns Assessment Noted Time PHQ-9 Depression Total Score: 4 06/04/19 20 1:21 PM REGISTERED VASCULAR TECHNOLOGIST (RVT) documented as of this encounter Care Teams Rental Clerk Tool And Equipment Relationship Specialty Start Date End Date Chris Toledo MD PCP - General Family Practice 12/07/17 Beba Munoz PA-C [facility] [address] [facility] [address] [place] [address] Physician Oil Field Equipment Mechanic Supervisor Physician Oil Field Equipment Mechanic Supervisor 12/07/17 Chris Gilbert MD [address] [place] [address] Orthopedics 12/07/17 Ivette Rasmussen, RN Registered Nurse Nurse 01/12/18 Evelyn Alvarado MD [address] [place], [place] [address] Family Medicine - Sports Medicine 01/08/19 Lyndsey Palacios MD PhD [address] [place] [address] Assigned PCP 08/08/20 Lyndsey Palacios MD PhD [address] [place] [address] Family Medicine 09/29/22 Ivon De Leon, [facility] [address] [address] Pharmacist Pharmacist 10/07/22 Chris Burroughs PA-C [address] [place] [address] Assigned Musculoskeletal Provider 07/15/23 documented as of this encounter
--- OUTSIDE RECORDS SUMMARY | 2023-09-01 08:49 | XMS_ITS | Encounter Summary ---
Author Name Unknown Organization [place] Address [address] [facility] [place] [address] Care Team Providers Care Policy Checker Name Role Phone Chris Toledo MD Primary Care Provider [phone] Beba Munoz PA-C Unavailable [phone] Chris Gilbert MD Unavailable Ivette Rasmussen RN Unavailable Evelyn Alvarado MD Unavailable Lyndsey Palacios MD PhD Unavailable [phone] Lyndsey Palacios MD PhD Unavailable [phone] Ivon De Leon [facility] Unavailable Chris Mendoza PA-C Unavailable [phone] Reason for Visit * Reason Comments Follow Up Follow Up * Consultation (Routine) - Pending Review Specialty Diagnoses / Procedures Referred By Rishabh t Referred To Contact Diagnoses Bilateral hip pain Chris Gilbert MD [address] [place] [address] Chris Mendoza PA-C [facility] [address] [place] [id number] Referral ID Status Reason Start Date Expiration Date V isits Requested Visits Authorized [id number] Pending Review 07/01/2023 06/30/2024 1 1 Encounter Details Date Type Department Care Team (Late st Contact Info) Description 08/23/2023 1:20 PM CDT Office Visit [facility] [place] [address] [facility] [address] [place] [address] [place] [address] [place] [address] Primary osteoarthritis of right hip (Primary Dx); Primary localized osteoarthritis of left hip; Hx of spinal surgery-thoracic and lumbar Walsh rods for scoliosis age 50 and 68; Osteoarthritis of left sacroiliac joint (H24); Osteoarthritis of right sacroiliac joint (H24) Social History Tobacco Use Types Packs/Day Years [...] Sex Assigned at Female 06/26/2019 9:26 AM CORRECTIONS OFFICER Gender Identity Female 06/26/2019 9:25 AM CORRECTIONS OFFICER Sexual Orientation Straight 06/26/2019 9: 25 AM CORRECTIONS OFFICER documented as of this encounter Last Filed Vital Signs Vital Sign Reading Time Taken Comments Blood Pressure 137/88 08/23/2023 1:13 PM CDT Pulse - - Temperature - - Respiratory Rate - - Oxygen Saturation - - Inhaled Oxygen Concentration - - Weight 73.9 kg (163 lb) 08/23/2023 1:13 PM CDT Height 152.4 cm (5') 08/23/2023 1:13 PM CDT Body Mass Index 31.83 08/23/2023 1:13 PM CDT documented in this encounter Patient Instructions * Patient Instructions* Sylvester Joe MD - 08/23/2023 1:20 PM CDT 1. Primary osteoarthritis of right hip 2. Primary localized osteoarthritis of left hip 3. Hx of spinal surgery-thoracic and lumbar Walsh rods for scoliosis age 50 and 68 4. Osteoarthritis of left sacroiliac joint (H24) 5. Osteoarthritis of right sacroiliac joint (H24) -Patient has chronic bilateral posterior and lateral glutes pain likely due to referred pain from her hip joints, as well as bursitis and possibly radiation from the lumbar spine and SI joint -I reviewed patient's previous notes with Chris mendoza and discussed with the patient. -Patient has multiple potential pain generators for her ongoing pain -Patient had received trochanteric bursa cortisone injections in her hips which improved part of her pain but not all of her pain -Patient was referred to try hip joint injections to be both diagnostic and therapeutic. After thorough discussion of all her treatment options, patient decided to proceed with a diagnostic and therapeutic cortisone injection of the right hip today. -Patient tolerated right hip intra-articular cortisone injections today without complications. Patient was given postprocedure instructions. Patient reports her pain to be 0 after the procedure -Patient will follow-up in 1 to 2 weeks to administer a left hip intra-articular cortisone injection -Call direct clinic number [[phone]] at any time with questions or concerns. Sylvester Joe MD [facility] Orth[facility]ics and Sports Medicine [facility] [place] documented in this encounter Progress Notes * Sylvester Joe MD - 08/23/2023 1:20 PM CDTAssociated Order(s): Large Joint Injection/Arthocentesis: R hip joint Post-Procedure Diagnose(s): Primary osteoarthritis of right hip ASSESSMENT & PLAN Patient Instructions 1. Primary osteoarthritis of right hip 2. Primary localized osteoarthritis of left hip 3. Hx of spinal surgery-thoracic and lumbar Walsh rods for scoliosis age 50 and 68 4. Osteoarthritis of left sacroiliac joint (H24) 5. Osteoarthritis of right sacroiliac joint (H24) -Patient has chronic bilateral posterior and lateral glutes pain likely due to referred pain from her hip joints, as well as bursitis and possibly radiation from the lumbar spine and SI joint -I reviewed patient's previous notes with Chris mendoza and discussed with the patient. -Patient has multiple potential pain generators for her ongoing pain -Patient had received trochanteric bursa cortisone injections in her hips which improved part of her pain but not all of her pain -Patient was referred to try hip joint injections to be both diagnostic and therapeutic. After thorough discussion of all her treatment options, patient decided to proceed with a diagnostic and therapeutic cortisone injection of the right hip today. -Patient tolerated right hip intra-articular cortisone injections today without complications. Patient was given postprocedure instructions. Patient reports her pain to be 0 after the procedure -Patient will follow-up in 1 to 2 weeks to administer a left hip intra-articular cortisone injection -Call direct clinic number [[phone]] at any time with questions or concerns. Sylvester Joe MD [facility] Orthopedics and Sports [facility] ----- SUBJECTIVE: Giselle Esposito is a 73 year old female who is seen in follow-up for bilateral hip pain.They were last seen 07/05/2023 by Chris Mendoza PA-C. Since their last visit reports 0% - (About the same as last time). They indicate that their currentpain level is 6/10. They have tried rest/activity avoidance, Tylenol, Celebrex, and Hydrocodone. They note that they had been walking more due to their being in the hospital. They noticed increased pain when carrying weight such as a backpack. They report feelings of instability on their right hip. The patient is seen by themselves. Patient's past medical, surgical, social, and family histories were reviewed today and no changes are noted. REVIEW OF SYSTEMS: Constitutional: NEGATIVE for fever, chills, change in weight Skin: NEGATIVE for worrisome rashes, moles or lesions GI/: NEGATIVE for bowel or bladder changes Neuro: NEGATIVE for weakness, dizziness or paresthesias OBJECTIVE: BP 137/88 Ht 1.524 m (5') Wt 73.9 kg (163 lb) BMI 31.83 kg/m?? General: healthy, alert and in no distress HEENT: no scleral icterus or conjunctival erythema Skin: no suspicious lesions or rash. No jaundice. CV: regular rhythm by palpation, no pedal edema Resp: normal respiratory effort without conversational dyspnea Psych: normal mood and affect Gait: normal steady gait with appropriate coordination and balance Neuro: normal light touch sensory exam of the extremities. MSK: BILATERAL HIP Inspection: No swelling, bruising, discoloration, or obvious deformity or asymmetry Palpation: Tender about the anterior groin/joint line and greater trochanteric region. Otherwise all other landmarks are nontender. Crepitus is Absent Active Range of Motion: Flexion limited slightly by pain, extension within normal limits / IR within normal limits / ER within normal limits Strength: Flexion grossly intact / extension grossly intact / adduction grossly intact / abduction grossly intact Special Tests: Positive: none Negative: Logroll, resisted gluteus medius provocation, GABE, anterior impingement (FADIR), posterior impingement (EX/AB/ER) Independent visualization of the below image: Results for orders placed or performed in visit on 07/05/23 XR Pelvis and Hip Bilateral 1 View Narrative PELVIS AND BILATERAL HIPS, ONE VIEW 07/05/2023 1:50 PM HISTORY: Bilateral hip pain. COMPARISON: 11/21/2018 MRI. Impression IMPRESSION: There are mild arthritic changes involving both hips. Prior lumbosacral fusion. There is no evidence of an acute displaced fracture on either side. No dislocation. 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 DARRIUS ZULUAGA MD SYSTEM ID: [id number] Large Joint Injection/Arthocentesis: R hip joint Date/Time: 08/23/2023 1:57 PM Performed by: Sylvester Joe MD Authorized by: Sylvester Joe MD Indications: Pain and osteoarthritis Needle Size: 22 G Guidance: ultrasound Approach: Anterior Location: Hip Site: R hip joint Medications: 40 mg methylPREDNISolone 40 MG/ML; 8 mL lidocaine 1 %; 4 mL ROPivacaine 5 MG/ML Outcome: Tolerated well, no immediate complications Procedure discussed: discussed risks, benefits, and alternatives Consent Given by: Patient Timeout: timeout called immediately prior to procedure Prep: patient was prepped and draped in usual sterile fashion Ultrasound was used to ensure safe and accurate needle placement and injection. Ultrasound images of the procedure were permanently stored. Sylvester Joe MD, CAQ[facility] documented in this encounter Plan of Treatment Upcoming Encounters Date Type Department Care Team (Late st Contact Info) Description 09/06/2023 1:20 PM CDT Office Visit [facility] [address] [facility] [address] [place] [address] [place] [address] [place] [address] documented as of this encounter Procedures Procedure Name Priority Date/Time Associated Diagnosis Comments AL ARTHROCENTESIS ASPIR&/INJ MAJOR JT/BURSA W/US Routine 08/23/2023 1:57 PM CDT Primary osteoarthritis of right hip documented in this encounter Results * AL ARTHROCENTESIS ASPIR&/INJ MAJOR JT/BURSA W/US (08/23/2023 1:57 [...] Sylvester Joe MD PROCEDURE/MINOR SURG ICAL ORDERABLES documented in this encounter Visit Diagnoses Diagnosis Primary osteoarthritis of right hip- Primary Primary localized osteoarthrosis, pelvic region and thigh Primary localized osteoarthritis of left hip Hx of spinal surgery-thoracic and lumbar Walsh rods for scoliosis age 50 and 68 Other postprocedural status 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) documented in this encounter Administered Medications Active Administered Medications - up to 3 most recent administrations Medication Order MAR Action Action Date Dose Rate Site 4 mL ropivacaine (NAROPIN) injection 5 mg/mL 4 mL, Starting on Tue08/23/23 at 1357 $Given 08/23/2023 1:57 PM CDT 4 mLs lidocaine 1 % injection 8 mL 8 mL, Starting on Tue08/23/23 at 1357 $Given 08/23/2023 1:57 PM CDT 8 mLs methylPREDNISolone (DEPO-Medrol) injection 40 mg 40 mg, Starting on Tue08/23/23 at 1357 $Given 08/23/2023 1:57 PM CDT 40 mg documented in this encounter Additional Health Concerns Assessment Noted Time PHQ-9 Depression Total Score: 4 06/04/19 20 1:21 PM CORRECTIONS OFFICER documented as of this encounter Care Teams Policy Checker Relationship Specialty Start Date End Date Chris Toledo MD PCP - General Family Practice 12/07/17 Beba Munoz PA-C [facility] [address] [place] [address] Physician Casework Specialist Physician Casework Specialist 12/07/17 Chris Gilbert MD [address] [place], [place] [id number] [place], [place] [address] Orthopedics 12/07/17 Ivette Rasmussen, JACKIE Registered Nurse Nurse 01/12/18 Evelyn Alvarado MD [address] [place] [address] Family Medicine - Sports Medicine 01/08/19 Lyndsey Palacios MD PhD [address] [place] [address] Assigned PCP 08/08/20 Lyndsey Palacios MD PhD [address] [place] [address] Family Medicine 09/29/22 Ivon De Leon [facility] [address] [place] [id number] Pharmacist Pharmacist 10/07/22 Chris Mendoza PA-C [address] [place] [address] Assigned Musculoskeletal Provider 07/15/23 documented as of this encounter
--- OUTSIDE RECORDS SUMMARY | 2023-09-01 08:49 | XMS_ITS | Referral Summary ---
Author Name Unknown Organization [place] Address [address] [place] [address] Care Team Providers Care Tax Intern Name Role Phone Chris Toledo MD Primary Care Provider [phone] Beba Munoz PA-C Unavailable [phone] Chris Gilbert MD Unavailable [phone] Ivette Rasmussen RN Unavailable Evelyn Alvarado MD Unavailable [phone] Lyndsey Palacios MD PhD Unavailable + [phone] Lyndsey Palacios MD PhD Unavailable [phone] Ivon De Leon [facility] Unavailable Chris Burroughs PA-C Unavailable [phone] Encounters Date Type Department Care Team Description 08/23/2023 Travel 08/23/2023 1:20 PM CDT Office Visit [facility] [place] [address] [address] [place] [address] Sylvester Joe MD Primary osteoarthritis of right hip (Primary Dx); Primary localized osteoarthritis of left hip; Hx of spinal surgery-thoracic and lumbar Walsh rods for scoliosis age 50 and 68; Osteoarthritis of left sacroiliac joint (H24); Osteoarthritis of right sacroiliac joint (H24) 08/17/2023 Travel 07/30/2023 Travel 07/27/2023 Telephone [facility] [address] [phone] Chris Burroughs PA-C Call Back 07/07/2023 Telephone [facility] [address] [phone] Chris Burroughs PA-C 07/05/2023 1:30 PM SOLAR SALES Ancillary Procedure [facility] [place] [address] [address] [place] [address] Chris Burroughs PA-C Bilateral hip pain 07/05/2023 Travel 07/05/2023 1:20 PM SOLAR SALES Office Visit [facility] [place] [address] [place] [address] Chris Burroughs PA-C Bilateral hip pain (Primary Dx); Hx of spinal surgery-thoracic and lumbar Walsh rods for scoliosis age 50 and 68; Osteopenia, unspecified location 07/01/2023 Travel 06/30/2023 MyC Medical Advice [facility] [address] [phone] Chris Gilbert MD Clinic Care Coordination - Follow-up from Last 3 Months Allergies Active Allergy Reactions Criticality Noted Date Comments Other (Do Not Use) Unknown 07/08/2019 cough Shellfish Allergy 08/16/2022 Simvastatin Muscle Pain (Myalgia) 10/02/2006 Medications Medication Sig Dispensed Refills Start Date End Date Status albuterol (PROAIR HFA/PROVENTIL HFA/VENTOLIN HFA) 108 (90 Base) MCG/ACT inhaler Inhale 2 puffs into the lungs every 4 hours as needed 06/22/2013 Active azelastine (ASTELIN) 0.1 % nasal spray [place] 2 sprays into both nostrils 2 times [...] Active fluticasone (FLONASE) 50 MCG/ACT nasal spray [place] 2 sprays into both nostrils 2 times [...] 5 mg by mouth At Bedtime Active [place]-3 Fatty Acids (FISH OIL) 1200 MG capsule [...] on 07/05/2023 UNABLE TO FIND MEDICATION NAME: jeb 1 tab twice daily Active fenofibrate (TRIGLIDE/LOFIBRA) [...] and depre ssed mood 06/23/2008 Hyperlipidemia 07/27/2006 Immunizations Name Administration Dates Next Due COVID-19 MONOVALENT 12+ (Pfizer) 022,01/30/2021,07/25/2020,2020 DTaP, Unspecified 09/01/2012 [id number] Novel Flu 05/22/2009 Influenza (H1N1) 05/22/2009 Influenza [...] d (SHINGRIX) 01/22/2019,11/20/2018 Zoster vaccine, live 08/08/2014 Social History Tobacco Use Types Packs/Day Years [...] Sex Assigned at Female 06/26/2019 9:26 AM SOLAR SALES Gender Identity Female 06/26/2019 9:25 AM SOLAR SALES Sexual Orientation Straight 06/26/2019 9: 25 AM SOLAR SALES Last Filed Vital Signs Vital Sign Reading Time Taken Comments Blood Pressure 137/88 08/23/2023 1:13 PM CDT Pulse 81 10/04/2022 9:52 AM CDT Temperature 36.9 ??C (98.4 ??F) 06/29/2019 8:58 AM CS T Respiratory Rate 16 11/17/2018 1:29 PM CDT Oxygen Saturation 93% 06/29/2019 8:58 AM SOLAR SALES Inhaled Oxygen Concentration - - Weight 73.9 kg (163 lb) 08/23/2023 1:13 PM CDT Height 152.4 cm (5') 08/23/2023 1:13 PM CDT Body Mass Index 31.83 08/23/2023 1:13 PM CDT Plan of Treatment Upcoming Encounters Date Type Department Care Team (Late st Contact Info) Description 09/06/2023 1:20 PM CDT Office Visit [facility] [place] [id number] [place] [address] [address] [place], [place] [phone] [place] [address] [place], [place] [address] Medical Devices Implanted Type Area School Clerk Device Identifier Shelf Expiration Date Model / Serial / Lot Graft Bone Crush Canc 30ml [id number] Implanted:Qty : 1 on 08/21/2018 by Chris Gilbert MD at [facility] Bone/Tissu e/Biologic N/A: Spine Lumbar MUSCULOSKELETAL CAMPOS 04/28/2021 [id number] / [id number] / Graft Bone Crush Canc 30ml [id number] Implanted:Qty : 1 on 08/21/2018 by Chris Gilbert MD at [facility] Bone/Tissu e/Biologic N/A: Spine Lumbar MUSCULOSKELETAL CAMPOS 06/02/2021 [id number] / [id number] / [id number] Imp Scr Medt 5.5/6.0mm Solera 6.5x55mm Ma [id number] Implanted:Qty : 2 on 08/21/2018 by Chris Gilbert MD at [facility] Metallic Hardware/A nchor N/A: Spine Lumbar [employer] [id number] / / [id number] Imp Scr Medt 5.5/6.0mm Solera 5.5x50mm Ma [id number] Implanted:Qty : 2 on 08/21/2018 by Chris Gilbert MD at [facility] Metallic Hardware/A nchor N/A: Spine Lumbar [employer] [id number] / / [id number] Imp Scr Medt 5.5/6.0mm Solera 5.5x55mm Ma [id number] Implanted:Qty : 2 on 08/21/2018 by Chris Gilbert MD at [facility] Metallic Hardware/A nchor N/A: Spine Lumbar [employer] [id number] / / [id number] Imp Scr Medt 5.5/6.0mm Solera 6.5x45mm Ma [id number] Implanted:Qty : 2 on 08/21/2018 by Chris Gilbert MD at [facility] Metallic Hardware/A nchor N/A: Spine Lumbar [employer] [id number] / / [id number] Imp Scr Medt 5.5/6.0mm Solera 6.5x40mm Ma [id number] Implanted:Qty : 1 on 08/21/2018 by Chris Gilbert MD at [facility] Metallic Hardware/A nchor N/A: Spine Lumbar [employer] [id number] / / [id number] Imp Scr Medt 5.5/6.0mm Solera 5.5x40mm Ma [id number] Implanted:Qty : 3 on 08/21/2018 by Chris Gilbert MD at [facility] Metallic Hardware/A nchor N/A: Spine Lumbar [employer] [id number] / / [id number] Imp Scr Medt 5.5/6.0mm Solera 5.0x35mm Ma [id number] Implanted:Qty : 1 on 08/21/2018 by Chris Gilbert MD at [facility] Metallic Hardware/A nchor N/A: Spine Lumbar [employer] [id number] / / [id number] Imp Scr Medt 5.5/6.0mm Solera 4.5x35mm Ma [id number] Implanted:Qty : 1 on 08/21/2018 by Chris Gilbert MD at [facility] Metallic Hardware/A nchor N/A: Spine Lumbar [employer] [id number] / / [id number] Imp Scr Medt 5.5/6.0mm Solera 5.0x40mm Ma [id number] Implanted:Qty : 1 on 08/21/2018 by Chris Gilbert MD at [facility] Metallic Hardware/A nchor N/A: Spine Lumbar [employer] [id number] / / [id number] Imp Scr Medt 5.5/6.0mm Solera 4.5x40mm Ma [id number] Implanted:Qty : 1 on 08/21/2018 by Chris Gilbert MD at [facility] Metallic Hardware/A nchor N/A: Spine Lumbar [employer] [id number] / / [id number] Imp Dao Medt Solera Lined 5.4e136wi Chr [id number] Implanted:Qty : 3 on 08/21/2018 by Chris Gilbert MD at [facility] Metallic Hardware/A nchor N/A: Spine Lumbar [employer] [id number] / / [id number] Imp Scr Set Medt Solera Break Off 5.5mm Ti [id number] Implanted:Qty : 26 on 08/21/2018 by Chris Gilbert MD at [facility] Metallic Hardware/A nchor N/A: Spine Lumbar [employer] [id number] / [id number] / Imp Scr Medt 5.5/6.0mm Solera 7.5x40mm Ma [id number] Implanted:Qty : 2 on 08/21/2018 by Chris Gilbert MD at [facility] Metallic Hardware/A nchor N/A: Spine Lumbar [employer] [id number] / / [id number] Imp Scr Medt 5.5/6.0mm Solera 7.5x50mm Ma [id number] Implanted:Qty : 4 on 08/21/2018 by Chris Gilbert MD at [facility] Metallic Hardware/A nchor N/A: Spine Lumbar [employer] [id number] / / [id number] Imp Scr Medt 5.5/6.0mm Solera 7.5x55mm Ma [id number] Implanted:Qty : 2 on 08/21/2018 by Chris Gilbert MD at [facility] Metallic Hardware/A nchor N/A: Spine Lumbar [employer] [id number] / / [id number] Ballast Screw Implanted:Qty : 1 on 08/21/2018 by Chris Gilbert MD at [facility] N/A: Spine Lumbar [id number] / / [id number] Ballast Screw 9.5 X 90 Mm Implanted:Qty : 1 on 08/21/2018 by Chris Gilbert MD at [facility] N/A: Spine Lumbar [id number] / / [id number] Variable Angle [place] Implanted:Qty : 2 on 08/21/2018 by Janel Guillory MD at [facility] N/A: Spine Lumbar 07/14/2023 [id number] / / [id number] Capstone Control 10 X 22 Implanted:Qty : 1 on 08/21/2018 by Chris Gilbert MD at [facility] N/A: Spine Lumbar [employer] [id number] / / Explanted Type Area School Clerk Device Identifier Shelf Expiration Date Model / Serial / Lot Imp Scr Set Medt Solera Break Off 5.5mm Ti [id number] Explanted:Qty: 3 on 08/21/2018 at [facility] Metallic Hardware/Anc hor N/A: Spine Lumbar [employer] [id number] / / [id number] [place] Screws Explanted:Qty: 1 on 08/21/2018 by Chris Gilbert MD at [facility] Bilateral : Spine Lumbar Description:ALL ISOLA SPINE HARDWARE REMOVED LUMBAR AND THORACIC. Procedures Procedure Name Priority Date/Time Associated Diagnosis Comments [place] ARTHROCENTESIS ASPIR&/INJ MAJOR JT/BURSA W/US Routine 08/23/2023 1:57 PM CDT Primary osteoarthritis of right hip XR PELVIS AND HIP BILATERAL 1 VIEW Routine 07/05/2023 1:50 PM [employer]AR SALES Bilateral hip pain DEXA - HIM SCAN 09/16/2022 12:00 AM CDT MA EXTERNAL IMAGING 2D SCREENING Routine 03/12/2022 12:00 AM [employer] SALES BASIC METABOLIC PANEL Routine 01/25/2020 10:57 AM CDT Senile osteoporosis from Last 3 Months or Most Recently Relevant to Health Maintenance Results * IL ARTHROCENTESIS ASPIR&/INJ MAJOR JT/BURSA W/US (08/23/2023 1:57 [...] Hip Bilateral 1 View (07/05/2023 1:50 PM [employer] SALES) Anatomical Region Laterality Modality Pelvis Bilateral Computed Radiogr aphy Impressions 07/05/2023 3:26 PM [employer] SALES IMPRESSION: There are mild arthritic changes involving both hips. Prior lumbosacral fusion. There is no evidence of an acute displaced fracture on either side. No dislocation. 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 BENJA ZULUAGA MD SYSTEM ID: ??[id number] Narrative 07/05/2023 3:26 PM SOLAR SALES PELVIS AND BILATERAL HIPS, ONE VIEW 07/05/2023 [...] pubic symphysis. BENJA ZULUAGA MD SYSTEM ID: [id number] Chris Burroughs PA-C IMG DIAGNOSTIC IM AGING ORDERABLES * DEXA - HIM SCAN (09/16/2022 12:00 AM CDT) Anatomical Region Laterality Modality Other 09/16/2022 Provider Outside IMG DEXA ORDERABLES * MA External Imaging 2D Screening (03/12/2022 12:00 AM [employer] SALES) Narrative Service Account, Ob Sue - 10/14/2022 3:18 PM CDT Images were obtained from an external facility. ??Click PACS Images hyperlink to view images. ??Textual results have been scanned into the media tab. Radiology Non-Fv Credentialed Provider I MG EXTERNAL IMAGING ORDERABLES * (ABNORMAL) Basic Metabolic Panel (01/25/2020 10:57 AM CDT) Sodium 139 133 - 144 mmol/L 01/25/2020 11:23 AM CDT [facility] Potassium 4.2 3.4 - 5.3 mmol/L 01/25/2020 11:23 AM CDT [facility] Chloride 108 94 - 109 mmol/L 01/25/2020 11:23 AM CDT [facility] Carbon Dioxide 24 20 - 32 mmol/L 01/25/2020 11:29 AM CDT [facility] Anion Gap 7 3 - 14 mmol/L 01/25/2020 11:29 AM T [facility] Glucose 106(H) 70 - 99 mg/dL 01/25/2020 11:29 AM CDT [facility] Urea Nitrogen 15 7 - 30 mg/dL 01/25/2020 11:29 AM CDT [facility] Creatinine 0.92 0.52 - 1.04 mg/dL 01/25/2020 11:29 AM T [facility] GFR Estimate 63 >60 mL/min/{1 .73_m2} 01/25/2020 11:29 AM CDT [facility] Comment: Non GFR Calc Starting 04/18/2018, serum creatinine based estimated GFR (eGFR) will be calculated using the Chronic Kidney Disease Epidemiology Collaboration (CKD-EPI) equation. GFR Estimate If Black 73 >60 mL/min/{1 .73_m2} 01/25/2020 11:29 AM CDT [facility] Comment: GFR Calc Starting 04/18/2018, serum creatinine based estimated GFR (eGFR) will be calculated using the Chronic Kidney Disease Epidemiology Collaboration (CKD-EPI) equation. Calcium 9.6 8.5 - 10.1 mg/dL 01/25/2020 11:29 AM CDT [facility] Blood specimen (specimen) 01/25/2020 10:57 AM CDT 01/25/2020 10:58 AM CDT Lyndsey Palacios MD PhD LAB - BLOOD OR DERABLES [facility] [address] [place] [address] from Last 3 Months or Most Recently Relevant to Health Maintenance Care Teams Tax Intern Relationship Specialty Start Date End Date Chris Toledo MD PCP - General Family Practice 12/07/17 Beba Munoz PA-C [facility] [address] [place] [address] Physician Fruit Packer Face And Fill Physician Fruit Packer Face And Fill 12/07/17 Chris Gilbert MD [address] [place] [address] [address] [place] [address] Orthopedics 12/07/17 Ivette Rasmussen, RN Registered Nurse Nurse 01/12/18 Evelyn Alvarado MD [address] [place] [phone] Family Medicine - Sports Medicine 01/08/19 Lyndsey Palacios MD PhD [address] [place] [id number] Assigned PCP 08/08/20 Lyndsey Palacios MD PhD [address] [place] [id number] Family Medicine 09/29/22 Ivon De Leon, [facility] [address] [place] [address] Pharmacist Pharmacist 10/07/22 Chris Burroughs PA-C [address] [place] [id number] Assigned Musculoskeletal Provider 07/15/23
--- OUTSIDE RECORDS SUMMARY | 2023-09-01 08:49 | XMS_ITS | Encounter Summary ---
Author Name Unknown Organization [place] Address [address] [facility] [place] [address] Care Team Providers Care Insurance Adviser Name Role Phone Chris Toledo MD Primary Care Provider [phone] Beba Munoz PA-C Unavailable Chris Gilbert MD Unavailable [phone] Ivette Rasmussen RN Unavailable Donovan Peterson RN Unavailable Evelyn Alvarado MD Unavailable [phone] Lyndsey Palacios MD PhD Unavailable [phone] Lyndsey Palacios MD PhD Unavailable [phone] Ivon De Leon [facility] Unavailable Reason for Visit * Diagnostic Imaging XR (Routine) - Pending Review Specialty Diagnoses / Procedures Referred By Contac t Referred To Contact Radiology. Diagnoses Bilateral hip pain Procedures XR Pelvis and Hip Bilateral 1 View Chris Burroughs PA-C [address] [place] [address] Referral ID Status Reason Start Date Expiration Date V isits Requested Visits Authorized [id number] Pending Review 07/05/2023 07/04/2024 1 1 Encounter Details Date Type Department Care Team (Latest Contact Info) Description 07/05/2023 1:30 PM POWERHOUSE LABORER Ancillary Procedure [facility] [employer] [address] [address] [place] [address] Chris Burroughs PA-C [address] [place] [address] Bilateral hip pain Social History Tobacco Use Types Packs/Day Years [...] Sex Assigned at Female 06/26/2019 9:26 AM POWERHOUSE LABORER Gender Identity Female 06/26/2019 9:25 AM POWERHOUSE LABORER Sexual Orientation Straight 06/26/2019 9: 25 AM POWERHOUSE LABORER documented as of this encounter Plan of Treatment Upcoming Encounters Date Type Department Care Team (Late st Contact Info) Description 09/06/2023 1:20 PM CDT Office Visit [facility] [address] [place] [address] [place] [id number] [place] [address] [address] [place] [address] documented as of this encounter Procedures Procedure Name Priority Date/Time Associated Diagnosis Comments XR PELVIS AND HIP BILATERAL 1 VIEW Routine 07/05/2023 1:50 PM POWERHOUSE LABORER Bilateral hip pain documented in this encounter Results * XR Pelvis and Hip Bilateral 1 View (07/05/2023 1:50 PM POWERHOUSE LABORER) Anatomical Region Laterality Modality Pelvis Bilateral Computed Radiogr aphy Impressions 07/05/2023 3:26 PM POWERHOUSE LABORER IMPRESSION: There are mild arthritic changes involving both hips. Prior lumbosacral fusion. There is no evidence of an acute displaced fracture on either side. No dislocation. 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 BENJA ZULUAGA MD SYSTEM ID: ??[id number] Narrative 07/05/2023 3:26 PM POWERHOUSE LABORER PELVIS AND BILATERAL HIPS, ONE VIEW 07/05/2023 [...] pubic symphysis. BENJA ZULUAGA MD SYSTEM ID: [id number] Chris Burroughs PA-C IMG DIAGNOSTIC IM AGING ORDERABLES documented in this encounter Visit Diagnoses Diagnosis Bilateral hip pain Pain in joint, pelvic region and thigh documented in this encounter Additional Health Concerns Assessment Noted Time PHQ-9 Depression Total Score: 4 06/04/19 20 1:21 PM POWERHOUSE LABORER documented as of this encounter Care Teams Insurance Adviser Relationship Specialty Start Date End Date Chris Toledo MD PCP - General Family Practice 12/07/17 Beba Munoz PA-C [facility] [address] [place] [address] Physician Stone Banker Physician Stone Banker 12/07/17 Chris Gilbert MD [address] [place] [address] Orthopedics 12/07/17 Ivette Rasmussen RN Registered Nurse Nurse 01/12/18 Donovan Peterson, RN Specialty Quality Engineer Medical Device Neurological Surgery 05/29/18 07/07/23 Evelyn Alvarado MD [address] [place] [phone] Family Medicine - Sports Medicine 01/08/19 Lyndsey Palacios MD PhD [address] [place] [address] [phone] Assigned PCP 08/08/20 Lyndsey Palacios MD PhD [address] [place] [address] [phone] Family Medicine 09/29/22 Ivon De Leon, [facility] [address] [place] [phone] Pharmacist Pharmacist 10/07/22 documented as of this encounter
--- OUTSIDE RECORDS SUMMARY | 2023-09-01 08:49 | XMS_ITS | Clinical Summary ---
Author Name Unknown Organization [facility] Address [place], [place] [address] Care Team Providers Care Computed Tomography Technologist Name Role Phone Chris Toledo MD Primary Care Provider + Allergies Active Allergy Reactions Criticality Noted Date Comments Simvastatin Myalgia 10/02/2006 Medications Medication Sig Dispensed Refills Start Date End Date Status MELATONIN 300 MCG TAB 1 at bedtime 0 09/23/2006 A ctive PRILOSEC 20 MG CAP take 1 capsule (20 mg) by oral route once daily before a meal 0 09/23/2006 Active GLUCOSAMINE-CHONDROITI N 500 MG-400 MG CAP twice daily 0 06/01/2007 Acti ve calcium 600 mg capsule Take 1 capsule by mouth 2 times daily with meals. 0 09/04/2009 Active omega-3 fatty acids-vitamin E (FISH OIL) 1,000 mg Cap Take by mouth. 0 06/12/2010 Act lamar cetirizine (ZYRTEC) 10 mg tablet Take 1 tablet by mouth once daily. 30 tablet 12 03/30/2011 Active fluticasone, 50 mcg per actuation, nasal (FLONASE) spray Inhale 2 Sprays into both nostrils 2 times daily. 1 Bottle 0 03/29/2012 Active montelukast (SINGULAIR) 10 mg tabletIndications:Javier rgic rhinitis,Wheezing Take 1 tablet by mouth at bedtime. 30 tablet 0 11/15/2012 Active cycloSPORINE (RESTASIS) 0.05 % ophthalmic emulsion 1 Drop every 12 hours. 0 06/22/2013 Active albuterol HFA (VENTOLIN HFA) 90 mcg/actuation inhalerIndications:Cou gh Inhale 2 Puffs by mouth every 4 hours if needed. 1 Inhaler 4 06/22/2013 Active azelastine 137 mcg/actuation (ASTELIN) nasal spray Inhale 1 [place] in the nostril(s) 2 times daily. 1 Bottle 2 12/10/2014 Active fluticasone (FLOVENT HFA) 110 mcg/Actuation inhaler Inhale 1 Puff by mouth 2 times daily. 0 08/05/2015 Active lisinopril-hydrochloro thiazide 20-12.5 mg tablet (PRINZIDE)Indications: Essential hypertension Take 0.5 tablets by mouth once daily. 45 tablet 1 03/06/2018 Active HYDROcodone-acetaminop hen, 7.5-325 mg, (NORCO 7.5-325) 7.5-325 mg per tabletIndications:Oste oarthritis, unspecified osteoarthritis type, unspecified site Take 1 tablet by mouth every 6 hours if needed Earliest Fill Date: 05/12/18 150 tablet 05/12/2018 Active gabapentin (NEURONTIN) 600 mg tabletIndications:Solutions Specialist bennett bilateral low back pain without sciatica Take 1 tablet by mouth 3 times daily. 270 tablet 3 05/15/2018 Active fenofibrate 160 mg tabletIndications:Hype rlipidemia, unspecified hyperlipidemia type TAKE ONE TABLET BY MOUTH EVERY DAY WITH A MEAL 30 tablet 08/22/2018 Active atorvastatin (LIPITOR) 20 mg tabletIndications:Hype rlipidemia TAKE ONE TABLET BY MOUTH EVERY DAY 90 tablet 06/14/2019 Active TYMLOS 80 mcg (3,120 mcg/1.56 mL) pnij 05/30/2019 Active acetaminophen (TYLENOL) 325 mg tablet Take 650 mg by mouth. 08/24/2018 Active calcium carbonate-vit D3, 600 mg-400 units, (CALTRATE PLUS 600 MG-400 UNIT TABLET) tablet Take 1 Tab by mouth. Active cholecalciferol (VITAMIN D3) 5,000 unit capsule Take 5,000 Units by mouth. Active EPINEPHrine (EPIPEN) 0.3 mg/0.3 mL injection Inject 0.3 mg intramuscular. 06/16/2017 Active hydroxyzine HCL (ATARAX) 25 mg tablet TAKE ONE TABLET BY MOUTH EVERY 6 HOURS NEEDED FOR ADJUVANT PAIN, MUSCLE SPASM 11/01/2018 Active lisinopril (PRINIVIL; ZESTRIL) 10 mg tablet 06/13/2019 Act lamar Insulin Ashley, Disposable, (BD INSULIN PEN NEEDLE UF MINI) 31 gauge x 3/16 Use once daily as directed with Tymlos 05/18/2019 Active sennosides-docusate, 8.6-50 mg, (SENOKOT S) 8.6-50 mg tablet Take 2 Tabs by mouth. 08/24/2018 Active benzonatate (TESSALON) 100 mg capsuleIndications:Fev er, unspecified fever cause Take 1-2 capsules by mouth 3 times daily if needed for Cough. 30 capsule 06/26/2019 Active medication order composer Take 1 Dose by mouth. medical cannibus Active Active Problems Problem Noted Date Diagnosed Date Essential hypertension 12/19/2017 Issue of repeat prescription 06/24/2015 Allergic rhinitis due to pollen 05/03/2015 Controlled substance agreement signed 05/03/2015 Osteoarthritis 03/31/2015 Sensorineural hearing loss, bilateral 08/05/2010 Adjustment disorder with mixed anxiety and depre ssed mood 06/23/2008 Hyperlipidemia 07/27/2006 Resolved Problems Problem Noted Date Diagnosed Date Resolved Date Hypertension 01/22/2017 12/19/2017 Controlled substance agreeme nt signed and scanned 10/03/13 02/11/2014 05/03/2015 Issue of repeat prescriptions 12/02/2010 05/03/2015 Overview: OSTEOARTHRITIS - taking Vicodin ES Routine general medical exam ination at a health care facility 10/02/2006 05/03/2015 Overview: Colonoscopy due 06/18 Osteoarthrosis, unspecified whether generalized or localized, unspecified site 07/27/2006 03/31/2015 Esophageal reflux 07/27/2006 04/28/2015 Allergic rhinitis 07/27/2006 05/03/2015 Immunizations Name Administration Dates Next Due AMB Influenza, IIV3 (Age 6-3 5 mos) Preserve Free (Flu Clinic Only) 02/09/2011 AMB Influenza, IIV3 (Age >=3 years)(Flu Clinic Only) 01/19/2012,02/05/2009,02/21/2008 Influenza A (H1N1), Inactiva radha (Age >=3 Years) 05/22/2009 Influenza, High-dose Inactivated 03/18/2017,09/2013 Influenza, IIV3 (Age >=3 years) 01/06/20 14,01/17/2013,02/13/2010,2009,02/22/2007,03/07/2006 Influenza, IIV4 02/14/2016,01/23/2015,01/13/2015 Pneumococcal Poly,23-Valent (Pneumovax) 04/28/2015 Pneumococcal conj 13-Valent (Prevnar 13) 10/05/2016 Td (Age >=7 Years) 01/30/2003 Tdap 09/01/2012 Zoster (Zostavax-ZVL, live) 08/08/2014 Family History Medical History Relation Name Comments Allergies Brother Asthma Brother Hyperlipidemia Brother Good Health Daughter 1 Hyperlipidemia Daughter 1 Good Health Daughter 2 Hyperlipidemia Daughter 2 Cancer Father Renal Cell Diabetes Maternal Grandfather Diabetes Maternal Grandmother Cancer Mother Ovarian Heart Disease Mother Valvular Thyroid Disease Mother Hypo Asthma Sister 1 Hypertension Sister 1 Allergies Sister 2 Arthritis Sister 3 Good Health Son Hyperlipidemia Son Cancer-breast No Family History Relation Name Status Comments Brother Alive Daughter 1 Alive Daughter 2 Alive Father Maternal Grandfather Maternal Grandmother Mother Sister 1 Alive Sister 2 Alive Sister 3 Alive Son Alive Social History Tobacco Use Types Packs/Day Years Used Date Smoking Tobacco: Never Smokeless Tobacco: Never Tobacco Cessation:Counseling Given: Yes Alcohol Use Standard Drinks/Week Comments No 0 (1 standard drink = 0.6 oz pur e alcohol) PHQ-2 Answer Date Recorded PHQ-2 Score 0 07/01/2018 Sex and Gender Information Value Date Recorded Sex Assigned at Not on file Gender Identity Not on file Sexual Orientation Not on file Obstetrics History Last Filed Vital Signs Vital Sign Reading Time Taken Comments Blood Pressure 124/80 01/31/2022 12:40 PM CDT Pulse 64 01/31/2022 12:40 PM CDT Temperature 36.3 ??C (97.3 ??F) 01/31/2022 12:40 PM C DT Respiratory Rate 16 01/31/2022 12:40 PM CDT Oxygen Saturation 97% 01/31/2022 12:40 PM CDT Inhaled Oxygen Concentration - - Weight 74.1 kg (163 lb 6.4 oz) 01/31/2022 12:40 PM CDT Height 149.9 cm (4' 11.02) 05/15/2018 2:[address] Body Mass Index 32.98 05/15/2018 2:17 PM MOBILE SALES EXPERT Plan of Treatment Health Maintenance Due Date Last Done Comments Hepatitis C screening for ag e 18-79 01/02/1968 Zoster (shingles) series for age 50+ (2 of 3) 10/03/2014 08/08/2014 Mammogram for age 45-75 08/08/2018 08/09/19 18, 08/06/2016, 08/05/2015, Additional history exists Medicare Wellness for age 65+ 12/02/2018 12/01/2017, 04/28/2015 Depression screening for age 12+ 02/07/2019 02/07/2018, 12/01/2017, 12/01/2017, Additional history exists BMI (ht and wt on same day) for age 18+ 05/15/2019 05/15/2018, 02/07/2018, 12/01/2017, Additional history exists Lipids for age 45-75 04/18/2022 04/18/2017, 06/23/2016, 04/28/2015, Additional history exists Tetanus booster 09/01/2022 09/01/2012, 01/30/2003 COVID-19 vaccine series ( season) 2022 01/05/2022, 08/08/2021, 01/30/2021, Additional history exists Influenza for age 65+ 2024 03/18/2017 , 02/14/2016, 01/23/2015 (Completed outside of [facility]), Additional history exists Colonoscopy through age 75 06/30/202606/30, 06/30/2016, 06/30/2016, Additional history exists Tdap Completed 09/01/2012 DEXA/DXA scan for age 65+ Completed 04/28/2015 Pneumococcal series for age 65+ Completed 7, 04/28/2015 Goals Goal Patient Goal Type Associated Problems Recent Progress Patient-Stated? Author Housing - Increase Stability General Lidya Nieto, RN Note: Goal identified during: Initial Screening Status: In Progress Barriers to goal achievement: waiting to close on [place]. Patient steps toward goal achievement: In process of purchasing [employer]. Navigator steps to support goal achievement: Advised patient if she has concerns about house to contact clinic. Patient has no concerns for housing currently. Proposed timeline for goal completion: December 2017 is anticipated move in to her [place]. Notes: Patient has no housing concerns currently. She is staying with friends temporarily during divorce process. She is in process of buying town home and anticipates moving into [place] in the next 4 to 6 weeks. Date of follow up: no follow up needed. Patient will contact clinic if she has housing issues/concerns. Lidya Taveras RN ............... 12/01/2017 12:49 PM Procedures Procedure Name Priority Date/Time Associated Diagnosis Comments XR MAMMO BILAT SCREENING Routine 08/08/2017 9:21 AM CDT Screening breast examination LIPID PANEL W REFLEX MEASURED LDL Routine 04/18/2017 11:23 AM MOBILE SALES EXPERT Hyperlipidemia, unspecified hyperlipidemia type COLONOSCOPY SCREENING Routine 06/30/2016 Screening XR DXA BONE DENSITY 2 SITES AXIAL Routine 04/28/2015 10:50 AM MOBILE SALES EXPERT Osteoporosis from Last 3 Months or Most Recently Relevant to Health Maintenance Results * XR MAMMO BILAT SCREENING (08/08/2017 9:21 AM CDT) Anatomical Region Laterality Modality BREASTS, Breast Left, Breast Right Bilateral Mammography Impressions 08/08/2017 1:33 PM CDT ??There is no radiographic evidence for malignancy. ??Recommend annual mammograms. A lay language report of this examination will be provided to the patient. MAMMOGRAM ASSESSMENT: ??ACR 2 Benign Narrative 08/08/2017 1:33 PM CDT XR MAMMO BILAT SCREENING [[id number]] CLINICAL HISTORY: ??This is an asymptomatic 67 y.o. patient. INDICATION FOR EXAM: Mammogram Screening. TECHNIQUE: CC & MLO views were obtained. ??This digital study was evaluated with the assistance of Computer-Aided Detection. COMPARISON FILMS: Yes 08/06/16 [facility] FINDINGS: ??Mammographically, the breast tissue is almost entirely fat. No suspicious masses or microcalcifications. ??Benign appearing calcifications within both breasts. Chris Toledo MD MAMMO * LIPID PANEL W REFLEX MEASURED LDL (04/18/2017 11:23 AM MOBILE SALES EXPERT) CHOLESTEROL,TOTAL 163 100 - 199 mg/dL 04/18/2017 12:19 PM MOBILE SALES EXPERT [facility] TRIGLYCERIDES 135 <150 mg/dL 04/18/2017 12:19 PM MOBILE SALES EXPERT [facility] HDL CHOLESTEROL 59 >40 mg/dL 7 12:19 PM MOBILE SALES EXPERT [facility] NON-HDL CHOLESTEROL 104 <145 mg/dl 04/18/2017 12:19 PM MOBILE SALES EXPERT [facility] CHOL/HDL RATIO 2.76 <4.50 04/18/2017 12:19 PM MOBILE SALES EXPERT [facility] LDL CHOLESTEROL 77 <=130 mg/dL 04/18/2017 12:19 PM MOBILE SALES EXPERT [facility] PROVIDER ORDERED STATUS RANDOM 04/18/2017 12:19 PM MOBILE SALES EXPERT [facility] Blood BLOOD SPECIMEN / Unknown Venipuncture / Unknown 04/18/2017 11:23 AM MOBILE SALES EXPERT 04/18/2017 11:23 AM MOBILE SALES EXPERT Chris Toledo MD CHEMISTRY [facility] [address] [place] [address] * COLONOSCOPY SCREENING (06/30/2016) Edgar Acuna MD GI PROCEDURE ORD * (ABNORMAL) XR DXA BONE DENSITY 2 SITES (04/28/2015 10:50 AM MOBILE SALES EXPERT) Anatomical Region Laterality Modality Spine, HIPS, HIPL, HIPR Bone Den sitometry Narrative 04/30/2015 1:55 PM MOBILE SALES EXPERT Please see scanned document for results of this study. Chris Toledo MD DEXA from Last 3 Months or Most Recently Relevant to Health Maintenance Advance Directives Documents on File Type Date Recorded Patient Grievance Coordinator Expl anation Healthcare Directive 08/18/2017 3:34 PM Healthcare Directive 06/28/2016 4:48 PM Healthcare Directive 12/21/2011 12:00 AM A DVANCED DIRECTIVE Healthcare Directive 05/29/2009 12:00 AM A DVANCE DIRECTIVE Care Teams Computed Tomography Technologist Relationship Specialty Start Date End Date Chris Toledo MD [address] [place] [address] PCP - General Family Practice 10/11/18
--- OUTSIDE RECORDS SUMMARY | 2023-09-01 08:49 | XMS_ITS | Encounter Summary ---
Author Name Unknown Organization [place] Address [address] [facility] [place] [address] Care Team Providers Care Mortgage Processing Manager Name Role Phone Chris Toledo MD Primary Care Provider Beba Munoz PA-C Unavailable Chris Gilbert MD Unavailable [phone] Ivette Rasmussen RN Unavailable Evelyn Alvarado MD Unavailable Lyndsey Palacios MD PhD Unavailable [phone] Lyndsey Palacios MD PhD Unavailable Ivon De Leon [facility] Unavailable Chris Burroughs PA-C Unavailable [phone] Reason for Visit * Reason Onset Date Comments Call Back 07/27/2023 Encounter Details Date Type Department Care Team (Late st Contact Info) Description 07/27/2023 Telephone [facility] [place] [address] [facility] [address] 4th [place] [address] Chris Burroughs PA-C [address] [place], [place] [id number] Call Back Social History Tobacco Use Types Packs/Day Years [...] Sex Assigned at Female 06/26/2019 9:26 AM SIGNAL CIRCUIT DESIGNER Gender Identity Female 06/26/2019 9:25 AM SIGNAL CIRCUIT DESIGNER Sexual Orientation Straight 06/26/2019 9: 25 AM SIGNAL CIRCUIT DESIGNER documented as of this encounter Miscellaneous Notes * Telephone Encounter - Gloria Calvillo ATC - 07/27/2023 12:33 PM CDT Rescheduled patient with Dr. Joe for 08/05/23 at 1:00 pm. Gloria Calvillo ATC * Telephone Encounter - Mare Roberson - 07/27/2023 12:25 PM CDT [facility] Call Center Phone Message May a detailed message be left on voicemail: yes Reason for Call: Other: Patient is returning our call to reschedule appointment. The schedule for Chris SOLOMON does not pull for [facility] no solutions. Patient would prefer to schedule there if possible. Please call her back at [phone]. Action Taken: Message routed to: Other: [phone] Travel Screening: Not Applicable documented in this encounter Plan of Treatment Upcoming Encounters Date Type Department Care Team (Late st Contact Info) Description 09/06/2023 1:20 PM CDT Office Visit [facility] [id number] [place] [address] [place] [address] [place] [address] [address] [place] [address] documented as of this encounter Visit Diagnoses Not on filedocumented in this encounter Additional Health Concerns Assessment Noted Time PHQ-9 Depression Total Score: 4 06/04/19 20 1:21 PM SIGNAL CIRCUIT DESIGNER documented as of this encounter Care Teams Mortgage Processing Manager Relationship Specialty Start Date End Date Chris Toledo MD PCP - General Family Practice 12/07/17 Beba Munoz PA-C [facility] [address] [facility] [address] [place], [place] [id number] Physician Robotype Operator Physician Robotype Operator 12/07/17 Chris Gilbert MD [address] [place], [place] [address] [place] [address] Orthopedics 12/07/17 Ivette Rasmussen, RN Registered Nurse Nurse 01/12/18 Evelyn Alvarado MD [address] [place] [address] Family Medicine - Sports Medicine 01/08/19 Lyndsey Palacios MD PhD [address] [place] [address] Assigned PCP 08/08/20 Lyndsey Palacios MD PhD [address] [place] [address] Family Medicine 09/29/22 Ivon De Leon, [facility] [address] [place] [address] Pharmacist Pharmacist 10/07/22 Chris Burroughs PA-C [address] [place] [address] [id number] Assigned Musculoskeletal Provider 07/15/23 documented as of this encounter
--- OUTSIDE RECORDS SUMMARY | 2023-09-01 08:50 | XMS_ITS | Encounter Summary ---
Author Name Unknown Organization [place] Address [address] [facility] [place] [address] Care Team Providers Care Aluminum Boats Assembler Name Role Phone Chris Toledo MD Primary Care Provider Beba Munoz PA-C Unavailable [phone] Chris Gilbert MD Unavailable [phone] Ivette Rasmussen RN Unavailable Kirsten Pardo RN Unavailable Donovan Peterson RN Unavailable Evelyn Alvarado MD Unavailable [phone] Chris Gilbert MD Unavailable [phone] Lyndsey Palacios MD PhD Unavailable + [phone] Chris Gilbert MD Unavailable [phone] Lyndsey Palacios MD PhD Unavailable [phone] Ivon De Leon [facility] Unavailable Chris Burroughs PA-C Unavailable [phone] Reason for Visit * Reason Onset Date Comments Appointment 04/10/2018 Urodynamics - pr e surgery Encounter Details Date Type Department Care Team (Late st Contact Info) Description 04/10/2018 Telephone [facility]rology and [facility] for Prostate and Urologic Cancers [address] [facility] 4th [place] [address] None Appointment (Urodynamics - pre surgery) Social History Tobacco Use Types Packs/Day Years Used Date Smoking Tobacco: Never Assessed Sex and Gender Information Value Date Recorded Sex Assigned at Female 06/26/2019 9:26 AM FOREST FIRE PREVENTION MANAGER Gender Identity Female 06/26/2019 9:25 AM FOREST FIRE PREVENTION MANAGER Sexual Orientation Straight 06/26/2019 9: 25 AM FOREST FIRE PREVENTION MANAGER documented as of this encounter Miscellaneous Notes * Telephone Encounter - Dionne Plaza - 04/10/2018 8:55 AM CST [facility] Call Center Phone Message May a detailed message be left on voicemail: yes Reason for Call: Other: Patient called in to make an appointment prior to a surgery she said she issupposed to have sometime in May with Dr. Gilbert in orthopedics. Referral for Urodynamic Flow Study Fluroscopy in Epic. Pt asked me to send a message to the care team for any possible appts in Decor May since we are booked out a ways. Please call pt to discuss/schedule. Thank you. Action Taken: Message routed to: [facility] Urology ST FIRE PREVENTION MANAGER documented in this encounter Plan of Treatment Upcoming Encounters Date Type Department Care Team (Late st Contact Info) Description 09/06/2023 1:20 PM CDT Office Visit [facility] Sports Medicine [address] [place] [address] Sylvester Joe MD [address] [place] [address] [address] documented as of this encounter Visit Diagnoses Not on filedocumented in this encounter Care Teams Aluminum Boats Assembler Relationship Specialty Start Date End Date Chris Toledo MD PCP - General Family Practice 12/07/17 Beba Munoz PA-C [facility] [address] [place] [address] Physician Motor Coach Tour Operator Physician Motor Coach Tour Operator 12/07/17 Chris Gilbert MD [facility] [address] Orthopedics 12/07/17 Ivette Rasmussen, RN Registered Nurse Nurse 01/12/18 Kirsten Pardo, RN Registered Nurse Urology 04/12/18 12/01/21 Donovan Peterson, RN Specialty Floorleader Neurological Surgery 05/29/18 07/07/23 Evelyn Alvarado MD [address] [place] [address] Family Medicine - Sports Medicine 01/08/19 Chris Gilbert MD [facility] [address] [address] Assigned Musculoskeletal Provider 02/22/20 04/25/21 Lyndsey Palacios MD PhD [address] [place] [address] Assigned PCP 08/08/20 Chris Gilbert MD [address] [address] Assigned Musculoskeletal Provider 09/06/21 03/11/23 Lyndsey Palacios MD PhD [address] [place] [address] Family Medicine 09/29/22 Ivon De Leon, [facility] [address] [address] Pharmacist Pharmacist 10/07/22 Chris Burroughs PA-C [address] [address] Assigned Musculoskeletal Provider 07/15/23 documented as of this encounter
--- OUTSIDE RECORDS SUMMARY | 2023-09-01 08:50 | XMS_ITS | Encounter Summary ---
Author Name Unknown Organization [place] Address [address] [facility] [place] [address] Care Team Providers Care Pick Pack Worker Name Role Phone Chris Toledo MD Primary Care Provider Beba Munoz PA-C Unavailable [phone] Chris Gilbert MD Unavailable [phone] Ivette Rasmussen RN Unavailable Kirsten Pardo RN Unavailable Donovan Peterson RN Unavailable Evelyn Alvarado MD Unavailable [phone] Lyndesy Palacios MD PhD Unavailable [phone] Chris Gilbert MD Unavailable [phone] Lyndsey Palacios MD PhD Unavailable [phone] Ivon De Leon [facility] Unavailable Chris Burroughs PA-C Unavailable [phone] Encounter Details Date Type Department Care Team (Late st Contact Info) Description 08/27/2021 MyC Medical Advice [facility] [address] 4th [place] [address] Lo Watkins LPN Social History Tobacco Use Types Packs/Day Years Used Date Smoking Tobacco: Never Smokeless Tobacco: Never Alcohol Use Standard Drinks/Week Comments Yes 0 (1 standard drink = 0.6 oz pur e alcohol) rare PHQ-2 Answer Date Recorded PHQ-2 Score 0 08/18/2020 Sex and Gender Information Value Date Recorded Sex Assigned at Female 06/26/2019 9:26 AM CHILDREN TEACHER Gender Identity Female 06/26/2019 9:25 AM CHILDREN TEACHER Sexual Orientation Straight 06/26/2019 9: 25 AM CHILDREN TEACHER COVID-19 Exposure Response Date Recorded In the last 10 days, have kristen u been in contact with someone who was confirmed or suspected to have Coronavirus/COVID-19? No / Unsure 08/27/2021 10:01 AM CDT documented as of this encounter Plan of Treatment Upcoming Encounters Date Type Department Care Team (Late st Contact Info) Description 09/06/2023 1:20 PM CDT Office Visit [facility] [place] [id number] [place] [address] [address] [place] [address] [place] [address] [facility] [address] [place] [address] documented as of this encounter Visit Diagnoses Not on filedocumented in this encounter Additional Health Concerns Assessment Noted Time PHQ-9 Depression Total Score: 4 06/04/19 20 1:21 PM CHILDREN TEACHER documented as of this encounter Care Teams Pick Pack Worker Relationship Specialty Start Date End Date Chris Toledo MD PCP - General Family Practice 12/07/17 Beba Munoz PA-C [facility] [address] [place] [address] Physician Mold Runner Physician Mold Runner 12/07/17 Chris Gilbert MD [address] [place] [address] Orthopedics 12/07/17 Ivette Rasmussen, RN Registered Nurse Nurse 01/12/18 Kirsten Pardo, RN Registered Nurse Urology 04/12/18 12/01/21 Donovan Peterson, RN Specialty Pharmacy Order Entry Technician Neurological Surgery 05/29/18 07/07/23 Evelyn Alvarado MD [address] [place] [address] Family Medicine - Sports Medicine 01/08/19 Lyndsey Palacios MD PhD [address] [place] [address] Assigned PCP 08/08/20 Chris Gilbert MD [address] [place] [address] Assigned Musculoskeletal Provider 09/06/21 03/11/23 Lyndsey Palacios MD PhD [address] [place] [address] Family Medicine 09/29/22 Ivon De Leon, [facility] [address] [place] [address] Pharmacist Pharmacist 10/07/22 Chris Burroughs PA-C [facility] [address] [address] Assigned Musculoskeletal Provider 07/15/23 documented as of this encounter
--- OUTSIDE RECORDS SUMMARY | 2023-09-01 08:50 | XMS_ITS | Encounter Summary ---
Author Name Unknown Organization [place] Address [address] [facility] [place] [address] Care Team Providers Care Import Manager Name Role Phone Chris Toledo MD Primary Care Provider Beba Munoz PA-C Unavailable [phone] Chris Gilbert MD Unavailable [phone] Ivette Rasmussen RN Unavailable Kirsten Pardo RN Unavailable Donovan Peterson RN Unavailable Evelyn Alvarado MD Unavailable [phone] Chris Gilbert MD Unavailable [phone] Lyndsey Palacios MD PhD Unavailable + [phone] Chris Gilbert MD Unavailable [phone] Lyndsey Palacios MD PhD Unavailable [phone] Ivon De Leon [facility] Unavailable Chris Burroughs PA-C Unavailable [phone] Reason for Visit * Reason Onset Date Comments Medication Question 01/08/2019 Patient's ph ysican wants her to start prednisone. Encounter Details Date Type Department Care Team (Late st Contact Info) Description 01/08/2019 Telephone [facility] Orthopaedic Clinic [address] [facility] 4th [place] [phone] Evelyn Alvarado MD [address] [place] [id number] Medication Question (Patient's physican wants her to start prednisone.) Social History Tobacco Use Types Packs/Day Years Used Date Smoking Tobacco: Never Smokeless Tobacco: Never Alcohol Use Standard Drinks/Week Comments Yes 0 (1 standard drink = 0.6 oz pur e alcohol) rare PHQ-2 Answer Date Recorded PHQ-2 Score 1 10/04/2018 Sex and Gender Information Value Date Recorded Sex Assigned at Female 06/26/2019 9:26 AM NAPHTHALENE STILL OPERATOR Gender Identity Female 06/26/2019 9:25 AM NAPHTHALENE STILL OPERATOR Sexual Orientation Straight 06/26/2019 9: 25 AM NAPHTHALENE STILL OPERATOR documented as of this encounter Miscellaneous Notes * Telephone Encounter - Nessa Carrasquillo ATC - 01/10/2019 9:12 AM CDT I informed patient that Dr. Alvarado states that prednisone would not be indicated for flat back syndrome if that is why its being prescribed. I relayed message that she can take prednisone for otherissues and provided some side effects. The patient states that she has flare of pain in her fingers, and she had lab work done to determine if she has RA, and prednisone was prescribed for the flare.I instructed patient to follow up with her PCP on the labs and further treatment. Will let Dr. Alvarado know if she has anything further to say. The patient would also like to mention to Dr. Douglass she has been walking without a cane since receiving the PRP injection. * Telephone Encounter - Evelyn Alvarado MD - 01/10/2019 8:38 AM CDT If it's for other issues she can take prednisone. There are possible side effects such as increasedglucoses, increased appetite, lack of sleep etc. * Telephone Encounter - Loren Alcantara - 01/08/2019 11:09 AM CDT [facility] Call Center Phone Message May a detailed message be left on voicemail: yes Reason for Call: Other: Patient called as her physician wants her to start prednisone, due to some arthritis issues. He wanted her to check with Dr. Alvarado to make sure that would be okay. Please follow up with patient. Thank you! Action Taken: Message routed to: [facility] documented in this encounter Plan of Treatment Upcoming Encounters Date Type Department Care Team (Late st Contact Info) Description 09/06/2023 1:20 PM CDT Office Visit [facility] Sports Medicine [address] [place] [address] [place] [id number] [place] [address] [address] [place] [address] documented as of this encounter Visit Diagnoses Not on filedocumented in this encounter Additional Health Concerns Assessment Noted Time PHQ-9 Depression Total Score: 7 05/29/19 19 10:09 AM NAPHTHALENE STILL OPERATOR documented as of this encounter Care Teams Import Manager Relationship Specialty Start Date End Date Chris Toledo MD PCP - General Family Practice 12/07/17 Beba Munoz PA-C [facility] [address] [place] [address] Physician Administrative Technician Physician Administrative Technician 12/07/17 Chris Gilbert MD [address] [place] [address] Orthopedics 12/07/17 Ivette Rasmussen, RN Registered Nurse Nurse 01/12/18 Kirsten Pardo, RN Registered Nurse Urology 04/12/18 12/01/21 Donovan Peterson, RN Specialty Developmental Behavioral Physician Neurological Surgery 05/29/18 07/07/23 Evelyn Alvarado MD [address] [place] [address] Family Medicine - Sports Medicine 01/08/19 Chris Gilbert MD [address] [place] [address] Assigned Musculoskeletal Provider 02/22/20 04/25/21 Lyndsey Palacios MD PhD [address] [place] [address] Assigned PCP 08/08/20 Chris Gilbert MD [address] [place] [address] Assigned Musculoskeletal Provider 09/06/21 03/11/23 Lyndsey Palacios MD PhD [address] [place] [address] Family Medicine 09/29/22 Ivon De Leon, [facility] [address] [place] [address] Pharmacist Pharmacist 10/07/22 Chris Burroughs PA-C [facility] [address] [address] Assigned Musculoskeletal Provider 07/15/23 documented as of this encounter
--- OUTSIDE RECORDS SUMMARY | 2023-09-01 08:50 | XMS_ITS | Encounter Summary ---
Author Name Unknown Organization [place] Address [address] [facility] [place] [address] Care Team Providers Care Upholstery Covers Inspector Name Role Phone Chris Toledo MD Primary Care Provider Beba Munoz PA-C Unavailable [phone] Chris Gilbert MD Unavailable Ivette Rasmussen RN Unavailable Kirsten Pardo RN Unavailable Donovan Peterson RN Unavailable Evelyn Alvarado MD Unavailable [phone] Chris Gilbert MD Unavailable [phone] Lyndsey Palacios MD PhD Unavailable + [phone] Chris Gilbert MD Unavailable [phone] Lyndsey Palacios MD PhD Unavailable [phone] Ivon De Leon [facility] Unavailable Chris Burroughs PA-C Unavailable [phone] Reason for Visit * Reason Onset Date Comments Prior Auth - Medication 09/05/2018 hydrOXYz ine (ATARAX) 25 MG tablet-PA approved Encounter Details Date Type Department Care Team (Late st Contact Info) Description 09/05/2018 Telephone [facility] Orthopaedic Clinic [address] [facility] 4th [place] [address] Surendra Adams MD [address] [place], [place] 114[address] Prior Auth - Medication (hydrOXYzine (ATARAX) 25 MG tablet-PA approved) Social History Tobacco Use Types Packs/Day Years Used Date Smoking Tobacco: Never Smokeless Tobacco: Never Alcohol Use Standard Drinks/Week Comments Yes 0 (1 standard drink = 0.6 oz pur e alcohol) rare PHQ-2 Answer Date Recorded PHQ-2 Score 2 05/09/2018 Sex and Gender Information Value Date Recorded Sex Assigned at Female 06/26/2019 9:26 AM MATRIX REPAIRER Gender Identity Female 06/26/2019 9:25 AM MATRIX REPAIRER Sexual Orientation Straight 06/26/2019 9: 25 AM MATRIX REPAIRER documented as of this encounter Miscellaneous Notes * Telephone Encounter - Shobha Lancaster - 09/07/2018 9:10 AM CDT Images from the original note were not included. Prior Authorization Approval Authorization Effective Date: 04/30/2018 Authorization Expiration Date: 05/01/2019 Medication: hydrOXYzine (ATARAX) 25 MG tablet-PA approved Approved Dose/Quantity: Reference #: Insurance Company: [employer] [phone] Expected CoPay: CoPay Card Available: Foundation Assistance Needed: Which Pharmacy is filling the prescription (Not needed for infusion/clinic administered): [facility] [place] [facility] [address] Pharmacy Notified: Yes Patient Notified: No-Pharmacy will contact * Telephone Encounter - Shobha Lancaster - 09/06/2018 2:36 PM CDT Provided additional information to insurance via phone. * Telephone Encounter - Shobha Lancaster - 09/06/2018 11:37 AM CDT Images from the original note were not included. Central Prior Authorization Team PA Initiation Medication: hydrOXYzine (ATARAX) 25 MG tablet-PA initiated Insurance Company: [employer] Income - Pharmacy Filling the Rx: [facility], [place] - [address] Filling Pharmacy Filling Pharmacy Fax: Start Date: 09/06/2018 * Telephone Encounter - Dafne Harris - 09/05/2018 3:56 PM CDT Images from the original note were not included. Central Prior Authorization Team documented in this encounter Plan of Treatment Upcoming Encounters Date Type Department Care Team (Late st Contact Info) Description 09/06/2023 1:20 PM CDT Office Visit [facility] [place] [address] [facility] [address] [place] [address] [place] [address] [facility] [address] [place] [address] documented as of this encounter Visit Diagnoses Not on filedocumented in this encounter Additional Health Concerns Assessment Noted Time PHQ-9 Depression Total Score: 7 05/29/19 19 10:09 AM MATRIX REPAIRER documented as of this encounter Care Teams Upholstery Covers Inspector Relationship Specialty Start Date End Date Chris Toledo MD PCP - General Family Practice 12/07/17 Beba Munoz PA-C [facility] [address] [facility] [address] [place] [address] Physician Material Damage Appraiser Physician Material Damage Appraiser 12/07/17 Chris Gilbert MD [address] [place] [address] Orthopedics 12/07/17 Ivette Rasmussen, RN Registered Nurse Nurse 01/12/18 Kirsten Pardo, RN Registered Nurse Urology 04/12/18 12/01/21 Donovan Peterson, RN Specialty Log Haul Chain Feeder Neurological Surgery 05/29/18 07/07/23 Evelyn Alvarado MD [address] [place] [address] Family Medicine - Sports Medicine 01/08/19 Chris Gilbert MD [facility] [address] [address] Assigned Musculoskeletal Provider 02/22/20 04/25/21 Lyndsey Palacios MD PhD [address] [place] [address] Assigned PCP 08/08/20 Chris Gilbert MD [address] [address] Assigned Musculoskeletal Provider 09/06/21 03/11/23 Lyndsey Palacios MD PhD [address] [place] [address] Family Medicine 09/29/22 Ivon De Leon, [facility] [address] [place] [address] Pharmacist Pharmacist 10/07/22 Chris Burroughs PA-C [address] [place] [address] 746164 Assigned Musculoskeletal Provider 07/15/23 documented as of this encounter
--- OUTSIDE RECORDS SUMMARY | 2023-09-01 08:50 | XMS_ITS | Encounter Summary ---
Author Name Unknown Organization [place] Address [address] [facility] [place] [address] Care Team Providers Care International Account Manager Name Role Phone Chris Toledo MD Primary Care Provider Beba Munoz PA-C Unavailable [phone] Chris Gilbert MD Unavailable Ivette Rasmussen RN Unavailable Kirsten Pardo RN Unavailable Donovan Peterson RN Unavailable Evelyn Alvarado MD Unavailable [phone] Chris Gilbert MD Unavailable [phone] Lyndsey Palacios MD PhD Unavailable + [phone] Chris Gilbert MD Unavailable [phone] Lyndsey Palacios MD PhD Unavailable [phone] Ivon De Leon [facility] Unavailable Chris Burroughs PA-C Unavailable [phone] Reason for Visit * Reason Onset Date Comments Forms 08/16/2018 Additional clini paola information needed for PA Encounter Details Date Type Department Care Team (Late st Contact Info) Description 08/16/2018 Telephone [facility] Orthopaedic Clinic [address] [facility] [address] 4th [place] [phone] Chris Gilbert MD [address] [place] [address] Forms (Additional clinical information needed for PA) Social History Tobacco Use Types Packs/Day Years Used Date Smoking Tobacco: Never Smokeless Tobacco: Never Alcohol Use Standard Drinks/Week Comments Yes 0 (1 standard drink = 0.6 oz pur e alcohol) rare PHQ-2 Answer Date Recorded PHQ-2 Score 2 05/09/2018 Sex and Gender Information Value Date Recorded Sex Assigned at Female 06/26/2019 9:26 AM DESILVERIZER Gender Identity Female 06/26/2019 9:25 AM DESILVERIZER Sexual Orientation Straight 06/26/2019 9: 25 AM DESILVERIZER documented as of this encounter Miscellaneous Notes * Telephone Encounter - Alla Teixeira - 08/16/2018 3:18 PM CDT [facility] Call Center Phone Message May a detailed message be left on voicemail: yes Reason for Call: Other: Lillian with pt's insurance company calling to f/u on a letter they had sentearlier this week regarding a PA for pt's surgery. She states they received a request from the clinic and had needed additional information. Lillian requests their form be filled out and faxed to [facility] [phone], attn Precertification. Please advise. Action Taken: Message routed to: [facility] Ortho documented in this encounter Plan of Treatment Upcoming Encounters Date Type Department Care Team (Late st Contact Info) Description 09/06/2023 1:20 PM CDT Office Visit [facility] Sports Medicine Clinic [place] [address] [facility] [address] [place] [address] [place] [address] [place] [address] documented as of this encounter Visit Diagnoses Not on filedocumented in this encounter Additional Health Concerns Assessment Noted Time PHQ-9 Depression Total Score: 7 05/29/19 19 10:09 AM DESILVERIZER documented as of this encounter Care Teams International Account Manager Relationship Specialty Start Date End Date Chris Toledo MD PCP - General Family Practice 12/07/17 Beba Munoz PA-C [facility] [address] [place] [address] Physician Distribution Specialist Physician Distribution Specialist 12/07/17 Chris Gilbert MD [facility] [place] [address] Orthopedics 12/07/17 Ivette Rasmussen, RN Registered Nurse Nurse 01/12/18 Kirsten Pardo, RN Registered Nurse Urology 04/12/18 12/01/21 Donovan Peterson, RN Specialty Area Representative Neurological Surgery 05/29/18 07/07/23 Evelyn Alvarado MD [address] [place] [address] Family Medicine - Sports Medicine 01/08/19 Chris Gilbert MD [address] [place] [address] Assigned Musculoskeletal Provider 02/22/20 04/25/21 Lyndsey Palacios MD PhD [address] [place] [address] Assigned PCP 08/08/20 Chris Gilbert MD [facility] [address] [place] [address] Assigned Musculoskeletal Provider 09/06/21 03/11/23 Lyndsey Palacios MD PhD [address] [place] [address] Family Medicine 09/29/22 Ivon De Leon, [facility] [address] [place] [address] Pharmacist Pharmacist 10/07/22 Chris Burroughs PA-C [facility] [address] [address] Assigned Musculoskeletal Provider 07/15/23 documented as of this encounter
--- OUTSIDE RECORDS SUMMARY | 2023-09-01 08:50 | XMS_ITS | Encounter Summary ---
Author Name Unknown Organization [place] Address [address] [facility] [place] [address] Care Team Providers Care Garden Equipment Mechanic Name Role Phone Chris Toledo MD Primary Care Provider Beba Munoz PA-C Unavailable [phone] Chris Gilbert MD Unavailable [phone] Ivette Rasmussen RN Unavailable Donovan Peterson RN Unavailable Evelyn Alvarado MD Unavailable [phone] Lyndsey Palacios MD PhD Unavailable [phone] Lyndsey Palacios MD PhD Unavailable [phone] Ivon De Leon [facility] Unavailable Reason for Referral * Consultation (Routine) - Pending Review Specialty Diagnoses / Procedures Referred By Contshira t Referred To Contact Diagnoses Bilateral hip pain Chris Gilbert MD [address] [place] [address] Chris Burroughs PA-C [facility] [address] [place] [address] Referral ID Status Reason Start Date Expiration Date V isits Requested Visits Authorized [id number] Pending Review 07/01/2023 06/30/2024 1 1 Question Answer Consult Type: Hip Type: Non-Surgical Ortho/Sports Med My clinical question is: Bilat Hip pain relieved by injections by Primary provider Scheduling Instructions: [facility] Orthopedic Utility Accounts Director will call you to coordinate your care as prescribed by your provider. A student services representative will call you within 2 business days to help you schedule your appointment, or you may contact the Utility Accounts Director Fiscal Clerk at: . Comments Please be aware that coverage of these services is subject to the terms and limitations of your health insurance plan. Call member services at your health plan with any benefit or coverage questions. [facility] Orthopedic Utility Accounts Director will call you to coordinate your care as prescribed by your provider. A student services representative will call you within 2 business days to help you schedule your appointment, or you may contact the Utility Accounts Director Fiscal Clerk at: . T OFFICER Reason for Visit * Reason Onset Date Comments Clinic Care Coordination - Follow-up 06/30/2023 Encounter Details Date Type Department Care Team (Latest Contact Info) Description 06/30/2023 MyC Medical Advice [facility] [place] [address] [facility] [address] 4th [place] [address] Chris Gilbert MD [address] [place] [address] Clinic Care Coordination - Follow-up Social History Tobacco Use Types Packs/Day Years Used Date Smoking Tobacco: Never Smokeless Tobacco: Never Alcohol Use Standard Drinks/Week Comments Yes 0 (1 standard drink = 0.6 oz pur e alcohol) rare PHQ-2 Answer Date Recorded PHQ-2 Score 1 10/04/2022 Adolescent Education Answer Date Record ed Getting School Help Needed Not on file 02/15 Sex and Gender Information Value Date Recorded Sex Assigned at Female 06/26/2019 9:[address] OFFICER Gender Identity Female 06/26/2019 9:[address] OFFICER Sexual Orientation Straight 06/26/2019 9: [address] OFFICER documented as of this encounter Miscellaneous Notes * Telephone Encounter - Ivette Rasmussen RN - 07/01/2023 4:35 PM CST See My Chart message from pt C/O Bilat Hip pain relieved by Hip injections by Primary provider. I called pt & informed pt that is retiring this year & transferring pts to his partners. Pt not seen since 2021. I informed pt that should see a nonoperative provider for eval of Hips since pt has not had any XR of hips done & pt agreed & will call [phone] to schedule with sports provider. I informed pt I will place consult order. Call back prn. Pt agreed. Ivette Rasmussen RN. T OFFICER documented in this encounter Plan of Treatment Upcoming Encounters Date Type Department Care Team (Late st Contact Info) Description 09/06/2023 1:20 PM CDT Office Visit [facility] Medicine [facility] [place] [address] [place] [address] [address] [place], [place] [address] [place] [address] [facility] [address] [place] [address] Scheduled Referrals Name Type Priority Associated Diagnoses Orde r Schedule Orthopedic Utility Accounts Director Referral Referral Routine Bilateral hip pain Expected: 07/01/2023 (Approximate), Expires: 06/30/2024 documented as of this encounter Visit Diagnoses Diagnosis Bilateral hip pain- Primary Pain in joint, pelvic region and thigh documented in this encounter Additional Health Concerns Assessment Noted Time PHQ-9 Depression Total Score: 4 06/04/19 20 1:[address] OFFICER documented as of this encounter Care Teams Garden Equipment Mechanic Relationship Specialty Start Date End Date Chris Toledo MD PCP - General Family Practice 12/07/17 Beba Munoz PA-C [facility] [address] [facility] [address] [place] [address] Physician Input Output Clerk Physician Input Output Clerk 12/07/17 Chris Gilbert MD [address] [place] [address] Orthopedics 12/07/17 Ivette Rasmussen, RN Registered Nurse Nurse 01/12/18 Donovan Peterson, RN Specialty Ornament Setter Neurological Surgery 05/29/18 07/07/23 Evelyn Alvarado MD [address] [place] [address] 444585 Family Medicine - Sports Medicine 01/08/19 Lyndsey Palacios MD PhD [address] [place] [address] [phone] Assigned PCP 08/08/20 Lyndsey Palacios MD PhD [address] [place] [address] 880635 Family Medicine 09/29/22 Ivon De Leon, [facility] [address] [place], [place] [phone] [place], [place] [address] Pharmacist Pharmacist 10/07/22 documented as of this encounter
--- OUTSIDE RECORDS SUMMARY | 2023-09-01 08:50 | XMS_ITS | Encounter Summary ---
Author Name Unknown Organization [place] Address [address] [facility] [place] [address] Care Team Providers Care Business Architect Name Role Phone Chris Toledo MD Primary Care Provider Beba Munoz PA-C Unavailable [phone] Chris Gilbert MD Unavailable [phone] Ivette Rasmussen RN Unavailable Donovan Peterson RN Unavailable Evelyn Alvarado MD Unavailable [phone] Lyndsey Palacios MD PhD Unavailable + [phone] Lyndsey Palacios MD PhD Unavailable [phone] Ivon De Leon [facility] Unavailable Encounter Details Date Type Department Care Team (Latest Contact Info) Description 07/05/2023 Travel Social History Tobacco Use Types Packs/Day [...] Sex Assigned at Female 06/26/2019 9:26 AM ECONOMIC ANALYST Gender Identity Female 06/26/2019 9:25 AM ECONOMIC ANALYST Sexual Orientation Straight 06/26/2019 9: 25 AM ECONOMIC ANALYST documented as of this encounter Plan of Treatment Upcoming Encounters Date Type Department Care Team (Late st Contact Info) Description 09/06/2023 1:20 PM CDT Office Visit [facility] Sports Medicine [facility] [address] [place] [address] [place] [address] [place] [address] [place] [address] documented as of this encounter Visit Diagnoses Not on filedocumented in this encounter Additional Health Concerns Assessment Noted Time PHQ-9 Depression Total Score: 4 06/04/19 20 1:21 PM ECONOMIC ANALYST documented as of this encounter Care Teams Business Architect Relationship Specialty Start Date End Date Chris Toledo MD PCP - General Family Practice 12/07/17 Beba Munoz PA-C [facility] [address] [place] [address] Physician Supervisor Final Physician Supervisor Final 12/07/17 Chris Gilbert MD [address] [facility] [address] [place] [address] Orthopedics 12/07/17 Ivette Rasmussen, RN Registered Nurse Nurse 01/12/18 Donovan Peterson, JACKIE Specialty Watch Engineer Neurological Surgery 05/29/18 07/07/23 Evelyn Alvarado MD [address] [place] [address] Family Medicine - Sports Medicine 01/08/19 Lyndsey Palacios MD PhD [address] [place] [address] 543015 Assigned PCP 08/08/20 Lyndsey Palacios MD PhD [address] [place] [address] 500695 Family Medicine 09/29/22 Ivon De Leon, [facility] [address] [place] [address] Pharmacist Pharmacist 10/07/22 documented as of this encounter
--- OUTSIDE RECORDS SUMMARY | 2023-09-01 08:50 | XMS_ITS | Encounter Summary ---
Author Name Unknown Organization [place] Address [address] [facility] [place] [address] Care Team Providers Care Sound Designer Name Role Phone Chris Toledo MD Primary Care Provider Beba Munoz PA-C Unavailable [phone] Chris Gilbert MD Unavailable Ivette Rasmussen RN Unavailable Donovan Peterson RN Unavailable Evelyn Alvarado MD Unavailable [phone] Lyndsey Palcaios MD PhD Unavailable + [phone] Chris Gilbert MD Unavailable [phone] Lyndsey Palacios MD PhD Unavailable + [phone] Ivon De Leon [facility] Unavailable Chris Burroughs PA-C Unavailable [phone] Encounter Details Date Type Department Care Team (Late st Contact Info) Description 10/07/2022 [facility] PROFESSIONAL BLD [address] [place] [address] Ivon De Leon, [facility] [address] [place] [address] Social History Tobacco Use Types Packs/Day Years Used Date Smoking Tobacco: Never Smokeless Tobacco: Never Alcohol Use Standard Drinks/Week Comments Yes 0 (1 standard drink = 0.6 oz pur e alcohol) rare PHQ-2 Answer Date Recorded PHQ-2 Score 1 10/04/2022 Sex and Gender Information Value Date Recorded Sex Assigned at Female 06/26/2019 9:26 AM ALARM INSTALLER Gender Identity Female 06/26/2019 9:25 AM ALARM INSTALLER Sexual Orientation Straight 06/26/2019 9: 25 AM ALARM INSTALLER COVID-19 Exposure Response Date Recorded In the last 10 days, have yo u been in contact with someone who was confirmed or suspected to have Coronavirus/COVID-19? No / Unsure 10/04/2022 9:14 AM CDT documented as of this encounter Plan of Treatment Upcoming Encounters Date Type Department Care Team (Late st Contact Info) Description 09/06/2023 1:20 PM CDT Office Visit [facility] Sports Medicine [facility] [address] [place] [address] [place] [address] [facility] [address] [place] [address] documented as of this encounter Visit Diagnoses Not on filedocumented in this encounter Additional Health Concerns Assessment Noted Time PHQ-9 Depression Total Score: 4 06/04/19 20 1:21 PM ALARM INSTALLER documented as of this encounter Care Teams Sound Designer Relationship Specialty Start Date End Date Chris Toledo MD PCP - General Family Practice 12/07/17 Beba Munoz PA-C [facility] [address] [place] [address] Physician Mica Miner Blasting Physician Mica Miner Blasting 12/07/17 Chris Gilbert MD [facility] [place] [address] Orthopedics 12/07/17 Ivette Rasmussen, RN Registered Nurse Nurse 01/12/18 Donovan Peterson, RN Specialty Mall Manager Neurological Surgery 05/29/18 07/07/23 Evelyn Alvarado MD [address] [place] [address] [id number] Family Medicine - Sports Medicine 01/08/19 Lyndsey Palacios MD PhD [address] [place] [address] [id number] Assigned PCP 08/08/20 Chris Gilbert MD [facility] [place] [address] [id number] Assigned Musculoskeletal Provider 09/06/21 03/11/23 Lyndsey Palacios MD PhD [address] [place] [address] [id number] Family Medicine 09/29/22 Ivon De Leon, [facility] [address] [place] [address] [phone] Pharmacist Pharmacist 10/07/22 Chris Burroughs PA-C [address] [place] [id number] Assigned Musculoskeletal Provider 07/15/23 documented as of this encounter
--- OUTSIDE RECORDS SUMMARY | 2023-09-01 08:50 | XMS_ITS | Encounter Summary ---
Author Name Unknown Organization [place] Address [address] [address] [place] [address] Care Team Providers Care Sodder Name Role Phone Chris Toledo MD Primary Care Provider Beba Munoz PA-C Unavailable [phone] Chris Gilbert MD Unavailable [phone] Ivette Rasmussen RN Unavailable Kirsten Pardo RN Unavailable Donovan Peterson RN Unavailable Evelyn Alvarado MD Unavailable [phone] Lyndsey Palacios MD PhD Unavailable + [phone] Chris Gilbert MD Unavailable [phone] Lyndsey Palacios MD PhD Unavailable [phone] Ivon De Leon [facility] Unavailable Chris Burroughs PA-C Unavailable [phone] Encounter Details Date Type Department Care Team (Late st Contact Info) Description 08/27/2021 MyC Medical Advice Initial Department Khalif Castillo Social History Tobacco Use Types Packs/Day Years Used Date Smoking Tobacco: Never Smokeless Tobacco: Never Alcohol Use Standard Drinks/Week Comments Yes 0 (1 standard drink = 0.6 oz pur e alcohol) rare PHQ-2 Answer Date Recorded PHQ-2 Score 0 08/18/2020 Sex and Gender Information Value Date Recorded Sex Assigned at Female 06/26/2019 9:26 AM CERAMIC ENGINEER Gender Identity Female 06/26/2019 9:25 AM CERAMIC ENGINEER Sexual Orientation Straight 06/26/2019 9: 25 AM CERAMIC ENGINEER COVID-19 Exposure Response Date Recorded In the last 10 days, have yo u been in contact with someone who was confirmed or suspected to have Coronavirus/COVID-19? No / Unsure 08/27/2021 10:01 AM CDT documented as of this encounter Plan of Treatment Upcoming Encounters Date Type Department Care Team (Late st Contact Info) Description 09/06/2023 1:20 PM CDT Office Visit [facility] [place] [id number] [place] [address] [address] [place], [place] [address] [place] [address] [facility] [address] [place], [place] [phone] documented as of this encounter Visit Diagnoses Not on filedocumented in this encounter Additional Health Concerns Assessment Noted Time PHQ-9 Depression Total Score: 4 06/04/19 20 1:21 PM CERAMIC ENGINEER documented as of this encounter Care Teams Sodder Relationship Specialty Start Date End Date Chris Toledo MD PCP - General Family Practice 12/07/17 Beba Munoz PA-C [facility] [address] [place] [address] Physician Reliability Technician Physician Reliability Technician 12/07/17 Chris Gilbert MD [facility][note 3][address] [facility] [address] [place], [place] [phone] Orthopedics 12/07/17 Ivette Rasmussen, RN Registered Nurse Nurse 01/12/18 Kirsten Pardo RN Registered Nurse Urology 04/12/18 12/01/21 Donovan Peterson, RN Specialty Internet Ecommerce Specialist Neurological Surgery 05/29/18 07/07/23 Evelyn Alvarado MD [address] [place], [place] [id number] Family Medicine - Sports Medicine 01/08/19 Lyndsey Palacios MD PhD [address] [place] [address] [id number] Assigned PCP 08/08/20 Chris Gilbert MD [facility][note 3][address] [id number] Assigned Musculoskeletal Provider 09/06/21 03/11/23 Lyndsey Palacios MD PhD [address] [place] [address] [id number] Family Medicine 09/29/22 Ivon De Leon, [facility] [address] [place] [address] [address] [place], [place] [phone] Pharmacist Pharmacist 10/07/22 Chris Burroughs PA-C [facility][note 3][address] [place] [id number] Assigned Musculoskeletal Provider 07/15/23 documented as of this encounter
--- OUTSIDE RECORDS SUMMARY | 2023-09-01 08:50 | XMS_ITS | Encounter Summary ---
Author Name Unknown Organization [place] Address [address] [facility] [place] [address] Care Team Providers Care Accounting Software Specialist Name Role Phone Chris Toledo MD Primary Care Provider Beba Munoz PA-C Unavailable [phone] Chris Gilbert MD Unavailable Ivette Rasmussen RN Unavailable Donovan Peterson RN Unavailable Evelyn Alvarado MD Unavailable Lyndsey Palacios MD PhD Unavailable Lyndsey Palacios MD PhD Unavailable [phone] Ivon De Leon [facility] Unavailable Reason for Referral * Diagnostic Imaging XR (Routine) - Pending Review Specialty Diagnoses / Procedures Referred By Contac t Referred To Contact Radiology. Diagnoses Bilateral hip pain Procedures XR Pelvis and Hip Bilateral 1 View Chris Burroughs PA-C [address] [place] [address] Referral ID Status Reason Start Date Expiration Date V isits Requested Visits Authorized [id number] Pending Review 07/05/2023 07/04/2024 1 1 INUOUS PROCESS TANNER ROTARY DRUM Reason for Visit * Reason Comments Pain Pain * Consultation (Routine) - Pending Review Specialty Diagnoses / Procedures Referred By Contshira t Referred To Contact Diagnoses Bilateral hip pain Chris Gilbert MD [address] [place] [address] Chris Burroughs PA-C [facility] [address] [place] [address] Referral ID Status Reason Start Date Expiration Date V isits Requested Visits Authorized [id number] Pending Review 07/01/2023 06/30/2024 1 1 Encounter Details Date Type Department Care Team (Late st Contact Info) Description 07/05/2023 1:20 PM CONTINUOUS PROCESS TANNER ROTARY DRUM Office Visit [facility] [place] [id number] [place] [address] [address] [place] [address] Chris Burroughs PA-C [address] [place] [address] Bilateral hip pain (Primary Dx); Hx of spinal surgery-thoracic and lumbar Walsh rods for scoliosis age 50 and 68; Osteopenia, unspecified location Social History Tobacco Use Types Packs/Day Years [...] Sex Assigned at Female 06/26/2019 9:26 AM CONTINUOUS PROCESS TANNER ROTARY DRUM Gender Identity Female 06/26/2019 9:25 AM CONTINUOUS PROCESS TANNER ROTARY DRUM Sexual Orientation Straight 06/26/2019 9: 25 AM CONTINUOUS PROCESS TANNER ROTARY DRUM documented as of this encounter Last Filed Vital Signs Vital Sign Reading Time Taken Comments Blood Pressure 110/65 07/05/2023 1:09 PM CONTINUOUS PROCESS TANNER ROTARY DRUM Pulse - - Temperature - - Respiratory Rate - - Oxygen Saturation - - Inhaled Oxygen Concentration - - Weight 72.1 kg (159 lb) 07/05/2023 1:09 PM CONTINUOUS PROCESS TANNER ROTARY DRUM Height 152.4 cm (5') 07/05/2023 1:09 PM CONTINUOUS PROCESS TANNER ROTARY DRUM Body Mass Index 31.05 07/05/2023 1:09 PM CONTINUOUS PROCESS TANNER ROTARY DRUM documented in this encounter Patient Instructions * Patient Instructions* Chris Burroughs PA-C - 07/05/2023 1:20 PM CONTINUOUS PROCESS TANNER ROTARY DRUM Today we discussed the underlying etiology/pathology of patient's 1. Bilateral hip pain 2. Hx of spinal surgery-thoracic and lumbar Walsh rods for scoliosis age 50 and 68 3. Osteopenia, unspecified location -We discussed the patient has a very long history in regards to her spine with Walsh rods placed x 2. This has also resulted in stabilization/fusion of her SI joints bilaterally with complete fusion on the left and incomplete fusion on the right side noted inferiorly radiographically. Patient has not seen her spine provider since probably 2019. - Her acute symptoms began about 6 weeks ago with what she describes as left knee pain. X-rays wereobtained showing some arthritis but no particular treatment was done. Subsequently she was having left hemipelvic pain and was injected with corticosteroid in the left hip bursa and was told to rest.She states some of her symptoms improved but she did not rest. - She describes some numbness and tingling affecting her lower extremities at times. - Now she has symptoms involving her right side hemipelvic region. - Exam shows decreased internal rotation of her right hip consistent with osteoarthritis with hemipelvic pain reproducible with rotation of her hip. Previous advanced imaging of her pelvis in 2019 already showed moderate bilateral hip DJD. X-rays today do not show significant advancement and arthrit ic findings. - Patient also is diffusely tender over the left hip greater trochanter as well as along the IT band distally on the left side. She shows some hemipelvic tenderness around the low back region. -At this time I believe patient is likely having an osteoarthritic flare of bilateral hips. She certainly may be having some radicular component causing some numbness and tingling of her lower extremities. - Patient is already on chronic narcotics using hydrocodone nightly, gabapentin 300 mg twice daily,medical cannabis and Celebrex 200 mg daily. - At this time we will place the patient on oral prednisone taper to help try to decrease inflammation and get her through her trip to [place] that she leaves for on Tuesday - I like to see her back when she returns to the [facility] for repeat assessment. We did discuss that with the complete fusion of her thoracic and lumbar spine including her SI joints that this will transmit a huge amount of stress to her pelvis and hip joints. Advanced imaging of her pelvis and hips may be warranted if she does not get appropriate response from prednisone taper or consideration forintra-articular ultrasound-guided cortisone injection for diagnostic and therapeutic purposes couldbe utilized. - Patient already has osteopenia and understood that oral prednisone will have some side effects associated with increased risk of osteoporosis, skin thinning, weight gain, etc. Chris Burroughs PA-C [facility] INUOUS PROCESS TANNER ROTARY DRUM documented in this encounter Progress Notes * Chris Burroughs PA-C - 07/05/2023 1:20 PM CST ASSESSMENT & PLAN Today we discussed the underlying etiology/pathology of patient's 1. Bilateral hip pain 2. Hx of spinal surgery-thoracic and lumbar Walsh rods for scoliosis age 50 and 68 3. Osteopenia, unspecified location -We discussed the patient has a very long history in regards to her spine with Walsh rods placed x 2. This has also resulted in stabilization/fusion of her SI joints bilaterally with complete fusion on the left and incomplete fusion on the right side noted inferiorly radiographically. Patient has not seen her spine provider since probably 2019. - Her acute symptoms began about 6 weeks ago with what she describes as left knee pain. X-rays wereobtained showing some arthritis but no particular treatment was done. Subsequently she was having left hemipelvic pain and was injected with corticosteroid in the left hip bursa and was told to rest.She states some of her symptoms improved but she did not rest. - She describes some numbness and tingling affecting her lower extremities at times. - Now she has symptoms involving her right side hemipelvic region. - Exam shows decreased internal rotation of her right hip consistent with osteoarthritis with hemipelvic pain reproducible with rotation of her hip. Previous advanced imaging of her pelvis in 2019 already showed moderate bilateral hip DJD. X-rays today do not show significant advancement and arthrit ic findings. - Patient also is diffusely tender over the left hip greater trochanter as well as along the IT band distally on the left side. She shows some hemipelvic tenderness around the low back region. -At this time I believe patient is likely having an osteoarthritic flare of bilateral hips. She certainly may be having some radicular component causing some numbness and tingling of her lower extremities. - Patient is already on chronic narcotics using hydrocodone nightly, gabapentin 300 mg twice daily,medical cannabis and Celebrex 200 mg daily. - At this time we will place the patient on oral prednisone taper to help try to decrease inflammation and get her through her trip to [place] that she leaves for on Tuesday - I like to see her back when she returns to the [facility] for repeat assessment. We did discuss that with the complete fusion of her thoracic and lumbar spine including her SI joints that this will transmit a huge amount of stress to her pelvis and hip joints. Advanced imaging of her pelvis and hips may be warranted if she does not get appropriate response from prednisone taper or consideration forintra-articular ultrasound-guided cortisone injection for diagnostic and therapeutic purposes couldbe utilized. - Patient already has osteopenia and understood that oral prednisone will have some side effects associated with increased risk of osteoporosis, skin thinning, weight gain, etc. Chris Burroughs PA-C [facility] SUBJECTIVE Giselle Esposito is a/an 73 year old female who is seen in consultation at the request of Chris Gilbert M.D. for evaluation of bilateral hip pain. The patient is seen with their . Onset: 1-2 month(s) ago. Patient describes injury as cleaning her son's apartment for one week recently and reports being on her knees and on stairs a lot while cleaning and carrying heavy bags whichmay have produced the pain. Pt was previously very active and has now become more sedentary due to pain. Pt and are leaving on 07/08/23 to go to [place] for 3 weeks. Patient currently is utilizing a single-point cane in her right hand to help offload her left hip. Patient initially thought her symptoms began in her left knee. She saw her PCP and x-rays were obtained showing some osteoarthritic findings but nothing severe. Subsequently she was developing some left hemipelvic pain and was diagnosed with a left hip greater trochanter bursitis and received a cortisone injection which did relieve some of her symptoms. She was told to rest but patient did not rest. She now is developed right hemipelvic pain also. Patient uses chronic hydrocodone nightly for chronic back pain. She has had Walsh rods x 2 with improvement of her chronic flatback syndrome with second surgery done at age 68. She has not had follow-up with her spine provider since 2019. Patient also chronically is on Celebrex 200 mg daily, gabapentin 300 mg twice daily as well as medical cannabis. Location of Pain: bilateral hip - lateral hips and middle buttocks (R>L); mild groin pain bilaterally; radiating pain on anterior thigh and into the tailbone; mild tingling into the upper leg and occasionally the toes/feet Rating of Pain at worst: 9/10 Rating of Pain Currently: 6/10 sitting; 8/10 walking Worsened by: walking, stairs, turning the torso, stepping to the side with one leg, stairs, sleeping on sides or back, Better with: recliner with feet up, switching sides while sleeping Treatments tried: rest/activity avoidance, elevation, heat, Tylenol, and other medications: Hydrocodone/Acetaminophen (Vicodin/[place]) and cannabis tablets at night, CSI L hip bursa on 05/2023 with PCP with mild relief of symptoms from Dr. Cruz at [facility]. Patient also has had PRP injections to the right ischial tuberosity for partial hamstring tearing without any significant improvement after documentation of partial hamstring injury noted in 2019 on MRI. Quality: constant aching, occasional sharp, stabbing, shooting pricking Associated symptoms: swelling, tingling, weakness of the legs/hip with ambulation, and feeling of instability Orthopedic history: NO Relevant surgical history: YES - Date: 07/2018 - posterior spinal fusion Thoracic 3-Pelvis Social history: social history: retired; active with house, neighborhood, druze, community kitchen Past Medical History: Diagnosis Date Adjustment disorder with mixed anxiety and depressed mood Allergic rhinitis Asthma Flat back syndrome Hyperlipidemia Hypertension Osteoarthrosis Other osteoporosis without current pathological fracture Other secondary scoliosis, thoracolumbar region Sensorineural hearing loss, bilateral Social History Socioeconomic History Marital status: Tobacco Use Smoking status: Never Smokeless tobacco: Never Substance and Sexual Activity Alcohol use: Yes Comment: rare Drug use: No Patient's past medical, surgical, social, and family histories were personally reviewed today and no changes are noted. REVIEW OF SYSTEMS: 10 point ROS is negative other than symptoms noted above in HPI, Past Medical History or as stated below Constitutional: NEGATIVE for fever, chills, change in weight Skin: NEGATIVE for worrisome rashes, moles or lesions GI/: NEGATIVE for bowel or bladder changes Neuro: NEGATIVE for weakness, dizziness or paresthesias OBJECTIVE: Vital signs as noted in EPIC for 07/05/2023 General: healthy, alert and in no distress HEENT: no scleral icterus or conjunctival erythema Skin: no suspicious lesions or rash. No jaundice. CV: no pedal edema Resp: normal respiratory effort without conversational dyspnea Psych: normal mood and affect Gait: normal steady gait with appropriate coordination and balance Neuro: Normal light sensory exam of lower extremity MSK: Exam shows well-nourished 73-year-old female who ambulates full weightbearing with a single collapsible cane in her right hand. She is accompanied by her . Patient is alert and orientated x 3.Patient spine shows previous surgical incisions consistent with Walsh jovita procedure. In a seated position patient grossly states that she is neurovascularly intact normal sensation symmetricallyfrom L2-S1 bilaterally. No significant lower extremity edema. Here has been removed secondary to shaving. In a seated position patient has decreased internal rotation of the right hip reproducing right hemipelvic pain but she is able to cross her right leg over her left leg as well as has pain-freeexternal rotation of the right hip. Left hip shows adequate internal and external rotation in neutral position but with impingement testing this reproduces left hemipelvic pain. Both times pain is largely in the groin as well as the low back region. Hip flexion against resistance generates hemipelvic pain bilaterally. Adequate motor tone is noted on the right but slightly decreased active hip flexion noted on the left. Patient is tender on the left hip greater trochanter tissue and nontender onthe right. Tenderness is noted along the distal IT band of the left thigh but not on the right. Slight tenderness noted on the left iliac crest and to a lesser degree in the right iliac crest. Independent visualization of the below image: 2 view x-ray of the patient's pelvis and right hip are obtained and reviewed showing mild degenerative changes of bilateral hips. Pubic symphysis degeneration noted. Hardware is noted of the lumbar spine crossing over the SI joints with complete fusion of the left SI joint and incomplete fusion of the right side with inferior aspect still noted joint space. No evidence of acute fracture or dislocation. Patient does have sclerotic line noted across the right femoral head neck junction which likely is physeal scar. No evidence of lytic lesion or AVN. Patient's conditions were thoroughly discussed during today's visit with total time reviewing patient's previous medical records/history/radiology, [id number] examination and discussion and plan ofcare with the patient and documentation being 60 minutes. Chris Burroughs PA-C [facility] This note was completed in part using a voice recognition software, any grammatical or context distortion are unintentional and inherent to the software. INUOUS PROCESS TANNER ROTARY DRUM documented in this encounter Plan of Treatment Upcoming Encounters Date Type Department Care Team (Late st Contact Info) Description 09/06/2023 1:20 PM CDT Office Visit [facility] [place] [id number] [place] [address] [address] [place], [place] [id number] [place] [address] [place] [address] documented as of this encounter Results * XR Pelvis and Hip Bilateral 1 View (07/05/2023 1:50 PM CONTINUOUS PROCESS TANNER ROTARY DRUM) Anatomical Region Laterality Modality Pelvis Bilateral Computed Radiogr aphy Impressions 07/05/2023 3:26 PM CONTINUOUS PROCESS TANNER ROTARY DRUM IMPRESSION: There are mild arthritic changes involving both hips. Prior lumbosacral fusion. There is no evidence of an acute displaced fracture on either side. No dislocation. 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 BENJA ZULUAGA MD SYSTEM ID: ??[id number] Narrative 07/05/2023 3:26 PM CONTINUOUS PROCESS TANNER ROTARY DRUM PELVIS AND BILATERAL HIPS, ONE VIEW 07/05/2023 [...] pubic symphysis. BENJA ZULUAGA MD SYSTEM ID: [id number] Chris Burroughs PA-C [facility]ST[facility] IM AGING ORDERABLES documented in this encounter Visit Diagnoses Diagnosis Bilateral hip pain- Primary Pain in joint, pelvic region and thigh Hx of spinal surgery-thoracic and lumbar Walsh rods for scoliosis age 50 and 68 Other postprocedural status Osteopenia, unspecified location Bilateral hip pain Pain in joint, pelvic region and thigh documented in this encounter Additional Health Concerns Assessment Noted Time PHQ-9 Depression Total Score: 4 06/04/19 20 1:21 PM CONTINUOUS PROCESS TANNER ROTARY DRUM documented as of this encounter Care Teams Accounting Software Specialist Relationship Specialty Start Date End Date Chris Toledo MD PCP - General Family Practice 12/07/17 Beba Munoz PA-C [facility] [address] [place] [address] Physician Vice Admiral Physician Vice Admiral 12/07/17 Chris Gilbert MD [facility] [facility] [address] [place] [address] Orthopedics 12/07/17 Ivette Rasmussen, RN Registered Nurse Nurse 01/12/18 Donovan Peterson, RN Specialty Interior Plant Caretaker Neurological Surgery 05/29/18 07/07/23 Evelyn Alvarado MD [address] [place] [id number] Family Medicine - Sports Medicine 01/08/19 Lyndsey Palacios MD PhD [address] [place] [address] [id number] Assigned PCP 08/08/20 Lyndsey Palacios MD PhD [address] [place] [address] [id number] Family Medicine 09/29/22 Ivon De Leon, [facility] [address] [place] [id number] Pharmacist Pharmacist 10/07/22 documented as of this encounter
--- OUTSIDE RECORDS SUMMARY | 2023-09-01 08:50 | XMS_ITS | Encounter Summary ---
Author Name Unknown Organization [place] Address [address] [facility] [place] [address] Care Team Providers Care Oil Inspector Name Role Phone Chris Toledo MD Primary Care Provider [phone] Beba Munoz PA-C Unavailable [phone] Chris Gilbert MD Unavailable [phone] Ivette Rasmussen RN Unavailable Kirsten Pardo RN Unavailable Donovan Peterson RN Unavailable Evelyn Alvarado MD Unavailable [phone] Lyndsey Palacios MD PhD Unavailable [phone] Chris Gilbert MD Unavailable [phone] Lyndsey Palacios MD PhD Unavailable Ivon De Leon [facility] Unavailable Chris Burroughs PA-C Unavailable [phone] Reason for Visit * Reason Onset Date Comments Injections 06/25/2021 Prolia Encounter Details Date Type Department Care Team (Late st Contact Info) Description 06/25/2021 Telephone [facility] [address] [facility] [address] [place] [phone] Education, [facility] Nurse Injections (Prolia) Social History Tobacco Use Types Packs/Day Years Used Date Smoking Tobacco: Never Smokeless Tobacco: Never Alcohol Use Standard Drinks/Week Comments Yes 0 (1 standard drink = 0.6 oz pur e alcohol) rare PHQ-2 Answer Date Recorded PHQ-2 Score 0 08/18/2020 Sex and Gender Information Value Date Recorded Sex Assigned at Female 06/26/2019 9:26 AM TIGHT BARREL INSPECTOR Gender Identity Female 06/26/2019 9:25 AM TIGHT BARREL INSPECTOR Sexual Orientation Straight 06/26/2019 9: 25 AM TIGHT BARREL INSPECTOR documented as of this encounter Miscellaneous Notes * Telephone Encounter - BrownIvette - 06/25/2021 1:37 PM CST [facility] Phone Message May a detailed message be left on voicemail: yes Reason for Call: Patient would like to schedule her prolia injection. Please reach out to patient. Action Taken: Message routed to: [facility] Travel Screening: Not Applicable T BARREL INSPECTOR documented in this encounter Plan of Treatment Upcoming Encounters Date Type Department Care Team (Late st Contact Info) Description 09/06/2023 1:20 PM CDT Office Visit [facility] [id number] [place] [address] [address] [place] [address] [place] [address] [facility] [address] [place] [address] documented as of this encounter Visit Diagnoses Not on filedocumented in this encounter Additional Health Concerns Assessment Noted Time PHQ-9 Depression Total Score: 4 06/04/19 20 1:21 PM TIGHT BARREL INSPECTOR documented as of this encounter Care Teams Oil Inspector Relationship Specialty Start Date End Date Chris Toledo MD PCP - General Family Practice 12/07/17 Beba Munoz PA-C [facility] [address] [facility] [address] [place] [address] Physician Hot Box Operator Physician Hot Box Operator 12/07/17 Chris Gilbert MD [address] [place] [id number] Orthopedics 12/07/17 Ivette Rasmussen, RN Registered Nurse Nurse 01/12/18 Kirsten Pardo, RN Registered Nurse Urology 04/12/18 12/01/21 Donovan Peterson, RN Specialty Wood Turning Lathe Operator Neurological Surgery 05/29/18 07/07/23 Evelyn Alvarado MD [address] [place] [address] Family Medicine - Sports Medicine 01/08/19 Lyndsey Palacios MD PhD [address] [place] [address] [id number] Assigned PCP 08/08/20 Chris Gilbert MD [address] [address] Assigned Musculoskeletal Provider 09/06/21 03/11/23 Lyndsey Palacios MD PhD [address] [place] [address] Family Medicine 09/29/22 Ivon De Leon, [facility] [address] [facility] [place] [address] Pharmacist Pharmacist 10/07/22 Chris Burroughs PA-C [address] [place] [id number] Assigned Musculoskeletal Provider 07/15/23 documented as of this encounter
--- OUTSIDE RECORDS SUMMARY | 2023-09-01 08:50 | XMS_ITS | Encounter Summary ---
Author Name Unknown Organization [place] Address [address] [facility] [place] [address] Care Team Providers Care Laundry Washer Name Role Phone Chris Toledo MD Primary Care Provider Beba Munoz PA-C Unavailable [phone] Chris Gilbert MD Unavailable [phone] Ivette Rasmussen RN Unavailable Donovan Peterson RN Unavailable Evelyn Alvarado MD Unavailable [phone] Lyndsey Palacios MD PhD Unavailable [phone] Lyndsey Palacios MD PhD Unavailable + [phone] Ivon De Leon [facility] Unavailable Encounter Details Date Type Department Care Team (Latest Contact Info) Description 07/01/2023 Travel Social History Tobacco Use Types Packs/Day [...] Sex Assigned at Female 06/26/2019 9:26 AM CROWN PERFORATOR OPERATOR Gender Identity Female 06/26/2019 9:25 AM CROWN PERFORATOR OPERATOR Sexual Orientation Straight 06/26/2019 9: 25 AM CROWN PERFORATOR OPERATOR documented as of this encounter Plan of Treatment Upcoming Encounters Date Type Department Care Team (Late st Contact Info) Description 09/06/2023 1:20 PM CDT Office Visit [facility] [address] [place] [address] [place] [address] [facility] [address] [place] [address] documented as of this encounter Visit Diagnoses Not on filedocumented in this encounter Additional Health Concerns Assessment Noted Time PHQ-9 Depression Total Score: 4 06/04/19 20 1:21 PM CROWN PERFORATOR OPERATOR documented as of this encounter Care Teams Laundry Washer Relationship Specialty Start Date End Date Chris Toledo MD PCP - General Family Practice 12/07/17 Beba Munoz PA-C [facility] [address] [facility] [address] [place] [address] Physician Cloth Folder Machine Physician Cloth Folder Machine 12/07/17 Chris Gilbert MD [id number] [place] [address] Orthopedics 12/07/17 Ivette Rasmussen, RN Registered Nurse Nurse 01/12/18 Donovan Peterson, RN Specialty Training And Development Project Leader Neurological Surgery 05/29/18 07/07/23 Evelyn Alvarado MD [address] [place] [address] Family Medicine - Sports Medicine 01/08/19 Lyndsey Palacios MD PhD [address] [place] [address] Assigned PCP 08/08/20 Lyndsey Palacios MD PhD [address] [place] [address] Family Medicine 09/29/22 Ivon De Leon, [facility] [address] [place] [address] Pharmacist Pharmacist 10/07/22 documented as of this encounter
--- OUTSIDE RECORDS SUMMARY | 2023-09-01 08:50 | XMS_ITS | Encounter Summary ---
Author Name Unknown Organization [place] Address [address] [facility] [place] [address] Care Team Providers Care General Utility Maintenance Repairer Name Role Phone Chris Toledo MD Primary Care Provider Beba Munoz PA-C Unavailable [phone] Chris Gilbert MD Unavailable Ivette Rasmussen RN Unavailable Kirsten Pardo RN Unavailable Donovan Peterson RN Unavailable Evelyn Alvarado MD Unavailable Chris Gilbert MD Unavailable [phone] Lyndsey Palacios MD PhD Unavailable + [phone] Chris Gilbert MD Unavailable [phone] Lyndsey Palacios MD PhD Unavailable [phone] Ivon De Leon [facility] Unavailable [phone] Chris Burroughs PA-C Unavailable [phone] Encounter Details Date Type Department Care Team (Late st Contact Info) Description 05/30/2018 [facility] [address] [facility] [address] 4[address] [place] [address] Lyndsey Palacios MD PhD [address] [place] [address] Social History Tobacco Use Types Packs/Day Years Used Date Smoking Tobacco: Never Smokeless Tobacco: Never PHQ-2 Answer Date Recorded PHQ-2 Score 2 05/09/2018 Sex and Gender Information Value Date Recorded Sex Assigned at Female 06/26/2019 9:26 AM STEAM TURBINE OPERATOR Gender Identity Female 06/26/2019 9:25 AM STEAM TURBINE OPERATOR Sexual Orientation Straight 06/26/2019 9: 25 AM STEAM TURBINE OPERATOR documented as of this encounter Plan of Treatment Upcoming Encounters Date Type Department Care Team (Late st Contact Info) Description 09/06/2023 1:20 PM CDT Office Visit [facility] [id number] [place] [address] [address] [place] [address] [place] [address] [facility] [address] [place] [address] documented as of this encounter Visit Diagnoses Not on filedocumented in this encounter Additional Health Concerns Assessment Noted Time PHQ-9 Depression Total Score: 7 05/29/19 19 10:09 AM STEAM TURBINE OPERATOR documented as of this encounter Care Teams General Utility Maintenance Repairer Relationship Specialty Start Date End Date Chris Toledo MD PCP - General Family Practice 12/07/17 Beba Munoz PA-C [facility] [address] [facility] [address] [place] [address] Physician Cook Dessert Physician [facility] 12/07/17 Chris Gilbert MD [id number] [place] [address] Orthopedics 12/07/17 Ivette Rasmussen, JACKIE Registered Nurse Nurse 01/12/18 Kirsten Pardo RN Registered Nurse Urology 04/12/18 12/01/21 Donovan Peterson, RN Specialty Socket Welder Helper Neurological Surgery 05/29/18 07/07/23 Evelyn Alvarado MD [address] [place] [address] Family Medicine - Sports Medicine 01/08/19 Chris Gilbert MD [facility] [place] [address] Assigned Musculoskeletal Provider 02/22/20 04/25/21 Lyndsey Palacios MD PhD [address] [place] [address] Assigned PCP 08/08/20 Chris Gilbert MD [facility] [place] [address] Assigned Musculoskeletal Provider 09/06/21 03/11/23 Lyndsey Palacios MD PhD [address] [place] [address] Family Medicine 09/29/22 Ivon De Leon, [facility] [address] Pharmacist Pharmacist 10/07/22 Chris Burroughs PA-C [address] [place] [address] Assigned Musculoskeletal Provider 07/15/23 documented as of this encounter
== END 2023-09-01 08:45 | disposition home or self-care (01) ==
PROVIDERS: PCP Family Medicine; Visit Provider Family Medicine
DX: R60.0 Localized edema (principal); R79.89 Other specified abnormal findings of blood chemistry
CPT/HCPCS: 80048; 83880; 85379

== ENCOUNTER 2023-09-05 10:58 | Outpatient (CLI) | payer MEDICARE, SELFPAY ==
--- OUTSIDE RECORDS SUMMARY | 2023-09-05 11:03 | XMS_ITS | Clinical Summary ---
Author Name Unknown Organization [facility] Address [place], [place] [address] Care Team Providers Care Vault Person Name Role Phone Chris Toledo MD Primary [...] 137 mcg/actuation (ASTELIN) nasal spray Inhale 1 [place] in the nostril(s) 2 times daily. 1 [...] tablet 05/12/2018 Active gabapentin (NEURONTIN) 600 mg tabletIndications:Autism Motor Specialist bennett bilateral low back pain without [...] 10 mg tablet 06/13/2019 Act lamar Insulin [place], Disposable, (BD INSULIN PEN NEEDLE UF MINI) [...] Body Mass Index 32.98 05/15/2018 2:17 PM SANDER MACHINE Plan of Treatment Health Maintenance Due Date [...] 03/18/2017 , 02/14/2016, 01/23/2015 (Completed outside of [facility]), Additional history exists Colonoscopy through age 75 [...] to goal achievement: waiting to close on [email or web address]. Patient steps toward goal achievement: In process of purchasing [email or web address]. Navigator steps to support goal achievement: Advised patient if she has concerns about house to contact clinic. Patient has no concerns for housing currently. Proposed timeline for goal completion: December 2017 is anticipated move in to her [place]. Notes: Patient has no housing concerns currently. She is staying with friends temporarily during divorce process. She is in process of buying town home and anticipates moving into town [place] in the next 4 to 6 weeks. Date of follow up: no follow up needed. Patient will contact clinic if she has housing issues/concerns. Lidya Taveras RN ............... 12/01/2017 12:49 PM Procedures Procedure Name Priority Date/Time Associated Diagnosis Comments XR MAMMO BILAT SCREENING Routine 08/08/2017 9:21 AM CDT Screening breast examination LIPID PANEL W REFLEX MEASURED LDL Routine 04/18/2017 11:23 AM SANDER MACHINE Hyperlipidemia, unspecified hyperlipidemia type COLONOSCOPY SCREENING Routine 06/30/2016 Screening XR DXA BONE DENSITY 2 SITES AXIAL Routine 04/28/2015 10:50 AM SANDER MACHINE Osteoporosis from Last 3 Months or Most [...] 1:33 PM CDT XR MAMMO BILAT SCREENING [[id number]] CLINICAL HISTORY: ??This is an asymptomatic 67 y.o. patient. INDICATION FOR EXAM: Mammogram Screening. TECHNIQUE: CC & MLO views were obtained. ??This digital study was evaluated with the assistance of Computer-Aided Detection. COMPARISON FILMS: Yes 08/06/16 [facility] FINDINGS: ??Mammographically, the breast tissue is almost entirely fat. No suspicious masses or microcalcifications. ??Benign appearing calcifications within both breasts. Chris Toledo MD MAMMO * LIPID PANEL W REFLEX MEASURED LDL (04/18/2017 11:23 AM SANDER MACHINE) CHOLESTEROL,TOTAL 163 100 - 199 mg/dL 04/18/2017 12:19 PM SANDER MACHINE [facility] TRIGLYCERIDES 135 <150 mg/dL 04/18/2017 12:19 PM SANDER MACHINE [facility] HDL CHOLESTEROL 59 >40 mg/dL 7 12:19 PM SANDER MACHINE [facility] NON-HDL CHOLESTEROL 104 <145 mg/dl 04/18/2017 12:19 PM SANDER MACHINE [facility] CHOL/HDL RATIO 2.76 <4.50 04/18/2017 12:19 PM SANDER MACHINE [facility] LDL CHOLESTEROL 77 <=130 mg/dL 04/18/2017 12:19 PM SANDER MACHINE [facility] PROVIDER ORDERED STATUS RANDOM 04/18/2017 12:19 PM SANDER MACHINE [facility] Blood BLOOD SPECIMEN / Unknown Venipuncture / Unknown 04/18/2017 11:23 AM SANDER MACHINE 04/18/2017 11:23 AM SANDER MACHINE Chris Toledo MD CHEMISTRY [facility] [address] [place] [address] * COLONOSCOPY SCREENING (06/30/2016) Edgar Acuna MD GI PROCEDURE ORD * (ABNORMAL) XR DXA BONE DENSITY 2 SITES (04/28/2015 10:50 AM SANDER MACHINE) Anatomical Region Laterality Modality Spine, HIPS, HIPL, HIPR Bone Den sitometry Narrative 04/30/2015 1:55 PM SANDER MACHINE Please see scanned document for results of this study. Chris Toledo MD DEXA from Last 3 Months or Most Recently Relevant to Health Maintenance Advance Directives Documents on File Type Date Recorded Patient Chop Saw Operator Expl anation Healthcare Directive 08/18/2017 3:34 PM Healthcare Directive 06/28/2016 4:48 PM Healthcare Directive 12/21/2011 12:00 AM A DVANCED DIRECTIVE Healthcare Directive 05/29/2009 12:00 AM A DVANCE DIRECTIVE Care Teams Vault Person Relationship Specialty Start Date End Date Chris Toledo MD [address] [place] [address] PCP - General Family Practice 10/11/18
--- NOTE | 2023-09-05 11:15 | US_ITS ---
Patient: KATE MARKS Facility:?[facility] Patient ID:?[id number] Site Patient ID:?[id number]. Site :?[id number] Study:?US-Extremity Bilateral venous-09/05/2023 11:58:47 AM Ordering Physician:Chris Waldron Final Report: INDICATION: Lower extremity edema TECHNIQUE: Sandoval-scale two-dimensional ultrasound without and with compression as well as color-flow and spectral Doppler of the lower extremity veins bilaterally. COMPARISON: None. FINDINGS: Normal compressibility of and flow within the common femoral, superficial femoral, popliteal, posterior tibial, profunda, and greater saphenous veins is demonstrated bilaterally. No thrombus is identified. IMPRESSION: Negative bilateral lower extremity venous Doppler study. Dictated by Ryne Shirley MD @ 09/05/2023 4:44:34 PM Signed by:?Ryne Shirley MD @09/05/2023 4:44:34 PM (Electronic Signature)
== END 2023-09-05 10:59 | disposition home or self-care (01) ==
PROVIDERS: PCP Family Medicine; Visit Provider Family Medicine
DX: R60.9 Edema, unspecified (principal); R79.89 Other specified abnormal findings of blood chemistry
CPT/HCPCS: 93970

== ENCOUNTER 2023-09-12 12:48 | Outpatient (CLI) | payer MEDICARE, SELFPAY ==
--- OUTSIDE RECORDS SUMMARY | 2023-09-12 12:54 | XMS_ITS | Clinical Summary ---
Author Name Unknown Organization [facility] Address [place], [place] [address] Care Team Providers Care Platen Press Operator Name Role Phone Chris Toledo MD [...] 0 03/29/2012 Active montelukast (SINGULAIR) 10 mg tabletIndications:Javeir rgic rhinitis,Wheezing Take 1 tablet by mouth at bedtime. 30 tablet 0 11/15/2012 Active cycloSPORINE (RESTASIS) 0.05 % ophthalmic emulsion 1 Drop every 12 hours. 0 06/22/2013 Active albuterol HFA (VENTOLIN HFA) 90 mcg/actuation inhalerIndications:Cou gh Inhale 2 Puffs by mouth every 4 hours if needed. 1 Inhaler 4 06/22/2013 Active azelastine 137 mcg/actuation (ASTELIN) nasal spray Inhale 1 [place] in the nostril(s) 2 times daily. 1 [...] tablet 05/12/2018 Active gabapentin (NEURONTIN) 600 mg tabletIndications:Correctional Captain bennett bilateral low back pain without sciatica [...] 10 mg tablet 06/13/2019 Act lamar Insulin [place], Disposable, (BD INSULIN PEN NEEDLE UF MINI) [...] Value Date Recorded Sex Assigned at Female 09/10/2023 11:07 AM CDT Gender Identity Female 09/10/2023 11:07 AM CDT Sexual Orientation Straight 09/10/2023 11 :07 AM CDT Obstetrics History Last Filed Vital Signs Vital [...] Body Mass Index 32.98 05/15/2018 2:17 PM COUNTY PROGRAM TECHNICIAN Plan of Treatment Upcoming Encounters Date Type Department Care Team (Late st Contact Info) Description 09/12/2023 1:00 PM CDT Ancillary Procedure [facility] [address] [place] [address] Health Maintenance Due Date Last Done Comments [...] 03/18/2017 , 02/14/2016, 01/23/2015 ([facility] Additional history exists Colonoscopy through age 75 06/30/202606/30, 06/30/2016, 06/30/2016, Additional history exists Tdap Completed 09/01/2012 DEXA/DXA scan for age 65+ Completed 04/28/2015 Pneumococcal series for age 65+ Completed 7, 04/28/2015 Goals Goal Patient Goal Type Associated Problems Recent Progress Patient-Stated? Author Housing - Increase Stability General No Lidya Taveras RN Note: Goal identified during: Initial Screening Status: In Progress Barriers to goal achievement: waiting to close on [place]. Patient steps toward goal achievement: In process of purchasing [place] [employer]. Navigator steps to support goal achievement: Advised patient if she has concerns about house to contact clinic. Patient has no concerns for housing currently. Proposed timeline for goal completion: December 2017 is anticipated move in to her townhouse. Notes: Patient has no housing concerns currently. She is staying with friends temporarily during divorce process. She is in process of buying town home and anticipates moving into town [place] in the next 4 to 6 weeks. Date of follow up: no follow up needed. Patient will contact clinic if she has housing issues/concerns. Liday Taveras RN ............... 12/01/2017 12:49 PM Procedures Procedure Name Priority Date/Time Associated Diagnosis Comments XR MAMMO BILAT SCREENING Routine 08/08/2017 9:21 AM CDT Screening breast examination LIPID PANEL W REFLEX MEASURED LDL Routine 04/18/2017 11:23 AM COUNTY PROGRAM TECHNICIAN Hyperlipidemia, unspecified hyperlipidemia type COLONOSCOPY SCREENING Routine 06/30/2016 Screening XR DXA BONE DENSITY 2 SITES AXIAL Routine 04/28/2015 10:50 AM COUNTY PROGRAM TECHNICIAN Osteoporosis from Last 3 Months or Most [...] 1:33 PM CDT XR MAMMO BILAT SCREENING [[id number]] CLINICAL HISTORY: ??This is an asymptomatic 67 y.o. patient. INDICATION FOR EXAM: Mammogram Screening. TECHNIQUE: CC & MLO views were obtained. ??This digital study was evaluated with the assistance of Computer-Aided Detection. COMPARISON FILMS: Yes 08/06/16 [facility] FINDINGS: ??Mammographically, the breast tissue is almost entirely fat. No suspicious masses or microcalcifications. ??Benign appearing calcifications within both breasts. Chris Toledo MD MAMMO * LIPID PANEL W REFLEX MEASURED LDL (04/18/2017 11:23 AM COUNTY PROGRAM TECHNICIAN) CHOLESTEROL,TOTAL 163 100 - 199 mg/dL 04/18/2017 12:19 PM COUNTY PROGRAM TECHNICIAN [facility] TRIGLYCERIDES 135 <150 mg/dL 04/18/2017 12:19 PM COUNTY PROGRAM TECHNICIAN [facility] HDL CHOLESTEROL 59 >40 mg/dL 7 12:19 PM COUNTY PROGRAM TECHNICIAN [facility] NON-HDL CHOLESTEROL 104 <145 mg/dl 04/18/2017 12:19 PM COUNTY PROGRAM TECHNICIAN [facility] CHOL/HDL RATIO 2.76 <4.50 04/18/2017 12:19 PM COUNTY PROGRAM TECHNICIAN [facility] LDL CHOLESTEROL 77 <=130 mg/dL 04/18/2017 12:19 PM COUNTY PROGRAM TECHNICIAN [facility] PROVIDER ORDERED STATUS RANDOM 04/18/2017 12:19 PM COUNTY PROGRAM TECHNICIAN [facility] Blood BLOOD SPECIMEN / Unknown Venipuncture / Unknown 04/18/2017 11:23 AM COUNTY PROGRAM TECHNICIAN 04/18/2017 11:23 AM COUNTY PROGRAM TECHNICIAN Chris Toledo MD CHEMISTRY Performing Organization Address City/State/[facility] [place] [address] * COLONOSCOPY SCREENING (06/30/2016) Edgar Acuna MD GI PROCEDURE ORD * (ABNORMAL) XR DXA BONE DENSITY 2 SITES (04/28/2015 10:50 AM COUNTY PROGRAM TECHNICIAN) Anatomical Region Laterality Modality Spine, HIPS, HIPL, HIPR Bone Den sitometry Narrative 04/30/2015 1:55 PM COUNTY PROGRAM TECHNICIAN Please see scanned document for results of this study. Chris Toledo MD DEXA from Last 3 Months or Most Recently Relevant to Health Maintenance Advance Directives Documents on File Type Date Recorded Patient Media Aid Expl anation Healthcare Directive 08/18/2017 3:34 PM Healthcare Directive 06/28/2016 4:48 PM Healthcare Directive 12/21/2011 12:00 AM A DVANCED DIRECTIVE Healthcare Directive 05/29/2009 12:00 AM A DVANCE DIRECTIVE Care Teams Platen Press Operator Relationship Specialty Start Date End Date Chris Toledo MD [address] [place] [address] PCP - General Family Practice 10/11/18
--- OUTSIDE RECORDS SUMMARY | 2023-09-12 12:55 | XMS_ITS | Referral Summary ---
Author Name Unknown Organization [place] Address [address] [facility] [place] [address] Care Team Providers Care Lab Pack Chemist Name Role Phone Chris Toledo MD Primary Care Provider Beba Munoz PA-C Unavailable [phone] Chris Gilbert MD Unavailable Ivette Rasmussen RN Unavailable Evelyn Alvarado MD Unavailable [phone] Lyndsey Palacios MD PhD Unavailable [phone] Lyndsey Palacios MD PhD Unavailable [phone] Ivon De Leon [facility] Unavailable [phone] Chris Burroughs PA-C Unavailable [phone] Encounters Date Type Department Care Team Description 09/06/2023 Travel 09/06/2023 1:20 PM CDT Office Visit [address] [id number] Sylvester Joe MD Primary localized osteoarthritis of left hip (Primary Dx) 09/05/2023 Travel 08/23/2023 Travel 08/23/2023 1:20 PM CDT Office Visit [address] [place] [address] Sylvester Joe MD Primary osteoarthritis of right hip (Primary Dx); Primary localized osteoarthritis of left hip; Hx of spinal surgery-thoracic and lumbar Walsh rods for scoliosis age 50 and 68; Osteoarthritis of left sacroiliac joint (H24); Osteoarthritis of right sacroiliac joint (H24) 08/17/2023 Travel 07/30/2023 Travel 07/27/2023 Telephone [facility] [address] [phone] Chris Burroughs PA-C Call Back 07/07/2023 Telephone [facility] [address] [phone] Chris Burroughs PA-C 07/05/2023 1:30 PM RIM FIRE PRIMING OPERATOR Ancillary Procedure [facility] [address] [place] [address] Chris Burroughs PA-C Bilateral hip pain 07/05/2023 Travel 07/05/2023 1:20 PM RIM FIRE PRIMING OPERATOR Office Visit [facility] [address] [place] [address] Chris Burroughs PA-C Bilateral hip pain (Primary Dx); Hx of spinal surgery-thoracic and lumbar Walsh rods for scoliosis age 50 and 68; Osteopenia, unspecified location 07/01/2023 Travel 06/30/2023 MyC Medical Advice [facility] [address] [phone] Chris Gilbert MD Clinic Care Coordination - [...] Active azelastine (ASTELIN) 0.1 % nasal spray Higden 2 sprays into both nostrils 2 times [...] Active fluticasone (FLONASE) 50 MCG/ACT nasal spray Higden 2 sprays into both nostrils 2 times [...] 5 mg by mouth At Bedtime Active [place]-3 Fatty Acids (FISH OIL) 1200 MG capsule [...] of right hip 4 mL 08/23/2023 Active lidocaine 1 % injection 8 mLIndications:Primary localized osteoarthritis of left hip 8 mL 09/06/2023 Active methylPREDNISolone (DEPO-Medrol) injection 40 mgIndications:Primary localized osteoarthritis of left hip 40 mg 09/06/2023 Active 4 mL ropivacaine (NAROPIN) injection 5 mg/mLIndications:Primary localized osteoarthritis of left hip 4 mL 09/06/2023 Active Active Problems Problem Noted Date Diagnosed [...] MONOVALENT 12+ (Pfizer) 022,01/30/2021,07/25/2020,2020 DTaP, Unspecified 09/01/2012 X0p3-22 Novel Flu 05/22/2009 Influenza (H1N1) 05/22/2009 Influenza [...] Sex Assigned at Female 06/26/2019 9:26 AM RIM FIRE PRIMING OPERATOR Gender Identity Female 06/26/2019 9:25 AM RIM FIRE PRIMING OPERATOR Sexual Orientation Straight 06/26/2019 9: 25 AM RIM FIRE PRIMING OPERATOR Last Filed Vital Signs Vital Sign Reading Time Taken Comments Blood Pressure 137/88 08/23/2023 1:13 PM CDT Pulse 81 10/04/2022 9:52 AM CDT Temperature 36.9 ??C (98.4 ??F) 06/29/2019 8:58 AM CS T Respiratory Rate 16 11/17/2018 1:29 PM CDT Oxygen Saturation 93% 06/29/2019 8:58 AM RIM FIRE PRIMING OPERATOR Inhaled Oxygen Concentration - - Weight 73.9 kg (163 lb) 08/23/2023 1:13 PM CDT Height 152.4 cm (5') 08/23/2023 1:13 PM CDT Body Mass Index 31.83 08/23/2023 1:13 PM CDT Plan of Treatment Not on file Medical Devices Implanted Type Area Art Therapy Certified Supervisor Device Identifier Shelf Expiration Date Model / Serial / Lot Graft Bone Crush Canc 30ml [id number] Implanted:Qty : 1 on 08/21/2018 by Chris Gilbert MD at [facility] Bone/Tissu e/Biologic N/A: Spine Lumbar MUSCULOSKELETAL CAMPOS 04/28/2021 [id number] / [id number] / Graft Bone Crush Canc 30ml [id number] Implanted:Qty : 1 on 08/21/2018 by Chris Gilbert MD at [facility] Bone/Tissu e/Biologic N/A: Spine Lumbar MUSCULOSKELETAL CAMPOS 06/02/2021 [id number] / [id number] / [id number] Imp Scr Medt 5.5/6.0mm Solera 6.5x55mm Ma [id number] Implanted:Qty : 2 on 08/21/2018 by Chris Gilbert MD at [facility] Metallic Hardware/A nchor N/A: Spine Lumbar [employer] [id number] / / [id number] Imp Scr Medt 5.5/6.0mm Solera 5.5x50mm Ma [id number] Implanted:Qty : 2 on 08/21/2018 by Chris Gilbert MD at [facility] Metallic Hardware/A nchor N/A: Spine Lumbar [employer] [id number] / / [id number] Imp Scr Medt 5.5/6.0mm Solera 5.5x55mm Ma [id number] Implanted:Qty : 2 on 08/21/2018 by Chris Gilbert MD at [facility] Metallic Hardware/A nchor N/A: Spine Lumbar [employer] [id number] / / [id number] Imp Scr Medt 5.5/6.0mm Solera 6.5x45mm Ma [id number] Implanted:Qty : 2 on 08/21/2018 by Chris Gilbert MD at [facility] Metallic Hardware/A nchor N/A: Spine Lumbar [employer] [id number] / / [id number] Imp Scr Medt 5.5/6.0mm Solera 6.5x40mm Ma [id number] Implanted:Qty : 1 on 08/21/2018 by Chris Gilbert MD at [facility] Metallic Hardware/A nchor N/A: Spine Lumbar [employer] [id number] / / [id number] Imp Scr Medt 5.5/6.0mm Solera 5.5x40mm Ma [id number] Implanted:Qty : 3 on 08/21/2018 by Chris Gilbert MD at [facility] Metallic Hardware/A nchor N/A: Spine Lumbar [employer] [id number] / / [id number] Imp Scr Medt 5.5/6.0mm Solera 5.0x35mm Ma [id number] Implanted:Qty : 1 on 08/21/2018 by Chris Gilbert MD at [facility] Metallic Hardware/A nchor N/A: Spine Lumbar [employer] [id number] / / [id number] Imp Scr Medt 5.5/6.0mm Solera 4.5x35mm Ma [id number] Implanted:Qty : 1 on 08/21/2018 by Chris Gilbert MD at [facility] Metallic Hardware/A nchor N/A: Spine Lumbar [employer] [id number] / / [id number] Imp Scr Medt 5.5/6.0mm Solera 5.0x40mm Ma [id number] Implanted:Qty : 1 on 08/21/2018 by Chris Gilbert MD at [facility] Metallic Hardware/A nchor N/A: Spine Lumbar [employer] [id number] / / [id number] Imp Scr Medt 5.5/6.0mm Solera 4.5x40mm Ma [id number] Implanted:Qty : 1 on 08/21/2018 by Chris Gilbert MD at [facility] Metallic Hardware/A nchor N/A: Spine Lumbar [employer] [id number] / / [id number] Imp Dao Medt Solera Lined 5.1i872dr Chr [id number] Implanted:Qty : 3 on 08/21/2018 by Chris Gilbert MD at [facility] Metallic Hardware/A nchor N/A: Spine Lumbar [employer] [id number] / / [id number] Imp Scr Set Medt Solera Break Off 5.5mm Ti [id number] Implanted:Qty : 26 on 08/21/2018 by Chris Gilbert MD at [facility] Metallic Hardware/A nchor N/A: Spine Lumbar [employer] [id number] / [id number] / Imp Scr Medt 5.5/6.0mm Solera 7.5x40mm Ma [id number] Implanted:Qty : 2 on 08/21/2018 by Chris Gilbert MD at [facility] Metallic Hardware/A nchor N/A: Spine Lumbar [employer] [id number] / / [id number] Imp Scr Medt 5.5/6.0mm Solera 7.5x50mm Ma [id number] Implanted:Qty : 4 on 08/21/2018 by Chris Gilbert MD at [facility] Metallic Hardware/A nchor N/A: Spine Lumbar [employer] [id number] / / [id number] Imp Scr Medt 5.5/6.0mm Solera 7.5x55mm Ma [id number] Implanted:Qty : 2 on 08/21/2018 by Chris Gilbert MD at [facility] Metallic Hardware/A nchor N/A: Spine Lumbar [employer] [id number] / / [id number] Ballast Screw Implanted:Qty : 1 on 08/21/2018 by Chris Gilbert MD at [facility] N/A: Spine Lumbar [id number] / / [id number] Ballast Screw 9.5 X 90 Mm Implanted:Qty : 1 on 08/21/2018 by Chris Gilbert MD at [facility] N/A: Spine Lumbar [id number] / / [id number] Variable Angle [place] Implanted:Qty : 2 on 08/21/2018 by Janel Guillory MD at [facility] N/A: Spine Lumbar 07/14/2023 [id number] / / [id number] Capstone Control 10 X 22 Implanted:Qty : 1 on 08/21/2018 by Chris Gilbert MD at [facility] N/A: Spine Lumbar [employer] [id number] / / Explanted Type Area Art Therapy Certified Supervisor Device Identifier Shelf Expiration Date Model / Serial / Lot Imp Scr Set Medt Solera Break Off 5.5mm Ti [id number] Explanted:Qty: 3 on 08/21/2018 at [facility] Metallic Hardware/Anc hor N/A: Spine Lumbar [employer] [id number] / / [id number] Bostic Screws Explanted:Qty: 1 on 08/21/2018 by Chris Gilbert MD at [facility] Bilateral : Spine Lumbar Description:ALL ISOLA SPINE HARDWARE REMOVED LUMBAR AND THORACIC. Procedures Procedure Name Priority Date/Time Associated Diagnosis Comments OR ARTHROCENTESIS ASPIR&/INJ MAJOR JT/BURSA W/US Routine 09/06/2023 1:21 PM CDT Primary localized osteoarthritis of left hip OR ARTHROCENTESIS ASPIR&/INJ MAJOR JT/BURSA W/US Routine 08/23/2023 1:57 PM CDT Primary osteoarthritis of right hip XR PELVIS AND HIP BILATERAL 1 VIEW Routine 07/05/2023 1:50 PM RIM FIRE PRIMING OPERATOR Bilateral hip pain DEXA - HIM SCAN 09/16/2022 12:00 AM CDT MA EXTERNAL IMAGING 2D SCREENING Routine 03/12/2022 12:00 AM RIM FIRE PRIMING OPERATOR BASIC METABOLIC PANEL Routine 01/25/2020 10:57 AM CDT Senile osteoporosis from Last 3 Months or Most Recently Relevant to Health Maintenance Results * OR ARTHROCENTESIS ASPIR&/INJ MAJOR JT/BURSA W/US (09/06/2023 1:21 PM CDT) Narrative Sylvester Joe MD - 09/06/2023 1:21 PM CDT Sylvester Joe MD ? 09/06/2023 ??2:47 PM Large Joint Injection/Arthocentesis: L hip joint Date/Time: 09/06/2023 1:21 PM Performed by: Sylvester Joe MD Authorized by: Sylvester Joe MD ?? Indications: ??Pain and osteoarthritis Needle Size: ??22 G Guidance: ultrasound ?? Approach: ??Anterior Location: ??Hip Site: ??L hip joint Medications: ??8 mL lidocaine 1 %; 4 mL ROPivacaine 5 MG/ML; 40 mg methylPREDNISolone 40 MG/ML Outcome: ??Tolerated well, no immediate complications [...] Joe MD PROCEDURE/MINOR SURG ICAL ORDERABLES * OR ARTHROCENTESIS ASPIR&/INJ MAJOR JT/BURSA W/US (08/23/2023 1:57 [...] Hip Bilateral 1 View (07/05/2023 1:50 PM RIM FIRE PRIMING OPERATOR) Anatomical Region Laterality Modality Pelvis Bilateral Computed Radiogr aphy Impressions 07/05/2023 3:26 PM RIM FIRE PRIMING OPERATOR IMPRESSION: There are mild arthritic changes involving both hips. Prior lumbosacral fusion. There is no evidence of an acute displaced fracture on either side. No dislocation. 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 BENJA ZULUAGA MD SYSTEM ID: ??[id number] Narrative 07/05/2023 3:26 PM RIM FIRE PRIMING OPERATOR PELVIS AND BILATERAL HIPS, ONE VIEW 07/05/2023 [...] pubic symphysis. BENJA ZULUAGA MD SYSTEM ID: [id number] Chris Burroughs PA-C IMG DIAGNOSTIC IM AGING ORDERABLES * DEXA - HIM SCAN (09/16/2022 12:00 AM CDT) Anatomical Region Laterality Modality Other 09/16/2022 Provider Outside IMG DEXA ORDERABLES * MA External Imaging 2D Screening (03/12/2022 12:00 AM RIM FIRE PRIMING OPERATOR) Narrative Service Account, Ob [place] - 10/14/2022 3:18 PM CDT Images were obtained from an external facility. ??Click PACS Images hyperlink to view images. ??Textual results have been scanned into the media tab. Radiology Non-Fv Credentialed Provider I MG EXTERNAL IMAGING ORDERABLES * (ABNORMAL) Basic Metabolic Panel (01/25/2020 10:57 AM CDT) Sodium 139 133 - 144 mmol/L 01/25/2020 11:23 AM CDT [facility] Potassium 4.2 3.4 - 5.3 mmol/L 01/25/2020 11:23 AM CDT [facility] Chloride 108 94 - 109 mmol/L 01/25/2020 11:23 AM T [facility] Carbon Dioxide 24 20 - 32 mmol/L 01/25/2020 11:29 AM T [facility] Anion Gap 7 3 - 14 mmol/L 01/25/2020 11:29 AM T [facility] Glucose 106(H) 70 - 99 mg/dL 01/25/2020 11:29 AM T [facility] Urea Nitrogen 15 7 - 30 mg/dL 01/25/2020 11:29 AM T [facility] Creatinine 0.92 0.52 - 1.04 mg/dL 01/25/2020 11:29 AM T [facility] GFR Estimate 63 >60 mL/min/{1 .73_m2} 01/25/2020 11:29 AM T [facility] Comment: Non GFR Calc Starting 04/18/2018, serum creatinine based estimated GFR (eGFR) will be calculated using the Chronic Kidney Disease Epidemiology Collaboration (CKD-EPI) equation. GFR Estimate If Black 73 >60 mL/min/{1 .73_m2} 01/25/2020 11:29 AM T [facility] Comment: GFR Calc Starting 04/18/2018, serum creatinine based estimated GFR (eGFR) will be calculated using the Chronic Kidney Disease Epidemiology Collaboration (CKD-EPI) equation. Calcium 9.6 8.5 - 10.1 mg/dL 01/25/2020 11:29 AM CDT [facility] Blood specimen (specimen) 01/25/2020 10:57 AM CDT 01/25/2020 10:58 AM CDT Lyndsey Palacios MD PhD LAB - BLOOD OR DERABLES [facility] [address] [place] [address] from Last 3 Months or Most Recently Relevant to Health Maintenance Care Teams Lab Pack Chemist Relationship Specialty Start Date End Date Chris Toledo MD PCP - General Family Practice 12/07/17 Beba Munoz PA-C [facility] [address] [place] [address] Physician Wireless Internet Installer Physician Wireless Internet Installer 12/07/17 Chris Gilbert MD [address] [place] [address] [address] [place] [address] Orthopedics 12/07/17 Ivette Rasmussen, RN Registered Nurse Nurse 01/12/18 Evelyn Alvarado MD [address] [place] [address] [phone] Family Medicine - Sports Medicine 01/08/19 Lyndsey Palacios MD PhD [address] [place] [address] [id number] Assigned PCP 08/08/20 Lyndsey Palacios MD PhD [address] [place] [phone] Family Medicine 09/29/22 Ivon De Leon, [facility] [address] [place] [phone] Pharmacist Pharmacist 10/07/22 Chris Burroughs PA-C [address] [address] Assigned Musculoskeletal Provider 07/15/23
--- OUTSIDE RECORDS SUMMARY | 2023-09-12 12:55 | XMS_ITS | Encounter Summary ---
Author Name Unknown Organization [place] Address [address] [facility] [address] Care Team Providers Care Senior Business Analyst Name Role Phone Chris Toledo MD Primary Care Provider Beba Munoz PA-C Unavailable Chris Gilbert MD Unavailable [phone] Ivette Rasmussen RN Unavailable Donovan Peterson RN Unavailable Evelyn Alvarado MD Unavailable Lyndsey Palacios MD PhD Unavailable [phone] Lyndsey Palacios MD PhD Unavailable Ivon De Leon [facility] Unavailable Reason for Visit * Diagnostic Imaging XR (Routine) - Pending Review Specialty Diagnoses / Procedures Referred By Contac t Referred To Contact Radiology. Diagnoses Bilateral hip pain Procedures XR Pelvis and Hip Bilateral 1 View Chris Burroughs PA-C [address] [place] [address] Referral ID Status Reason Start Date Expiration Date V isits Requested Visits Authorized [id number] Pending Review 07/05/2023 07/04/2024 1 1 Encounter Details Date Type Department Care Team (Latest Contact Info) Description 07/05/2023 1:30 PM BUTADIENE CONVERTOR OPERATOR Ancillary Procedure [facility] Care Dresser [address] [facility] [address] [place] [address] Chris Burroughs PA-C [address] [place] [address] Bilateral hip pain Social History Tobacco Use [...] Sex Assigned at Female 06/26/2019 9:26 AM BUTADIENE CONVERTOR OPERATOR Gender Identity Female 06/26/2019 9:25 AM BUTADIENE CONVERTOR OPERATOR Sexual Orientation Straight 06/26/2019 9: 25 AM BUTADIENE CONVERTOR OPERATOR documented as of this encounter Plan of Treatment Not on file documented as of this encounter Procedures Procedure Name Priority Date/Time Associated Diagnosis Comments XR PELVIS AND HIP BILATERAL 1 VIEW Routine 07/05/2023 1:50 PM BUTADIENE CONVERTOR OPERATOR Bilateral hip pain documented in this encounter Results * XR Pelvis and Hip Bilateral 1 View (07/05/2023 1:50 PM BUTADIENE CONVERTOR OPERATOR) Anatomical Region Laterality Modality Pelvis Bilateral Computed Radiogr aphy Impressions 07/05/2023 3:26 PM BUTADIENE CONVERTOR OPERATOR IMPRESSION: There are mild arthritic changes involving both hips. Prior lumbosacral fusion. There is no evidence of an acute displaced fracture on either side. No dislocation. 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 BENJA ZULUAGA MD SYSTEM ID: ??[id number] Narrative 07/05/2023 3:26 PM BUTADIENE CONVERTOR OPERATOR PELVIS AND BILATERAL HIPS, ONE VIEW [...] pubic symphysis. BENJA ZULUAGA MD SYSTEM ID: [id number] Chris Burroughs PA-C IMG DIAGNOSTIC IM AGING ORDERABLES documented in this encounter Visit Diagnoses Diagnosis Bilateral hip pain Pain in joint, pelvic region and thigh documented in this encounter Additional Health Concerns Assessment Noted Time PHQ-9 Depression Total Score: 4 06/04/19 20 1:21 PM BUTADIENE CONVERTOR OPERATOR documented as of this encounter Care Teams Senior Business Analyst Relationship Specialty Start Date End Date Chris Toledo MD PCP - General Family Practice 12/07/17 Beba Munoz PA-C [facility] [address] [place] [address] Physician Outpatient Dietitian Physician Outpatient Dietitian 12/07/17 Chris Gilbert MD [address] [place] [address] Orthopedics 12/07/17 Ivette Rasmussen, RN Registered Nurse Nurse 01/12/18 Donovan Peterson, JACKIE Specialty Global Vp Creative + Content Marketing Neurological Surgery 05/29/18 07/07/23 Evelyn Alvarado MD [address] [place] [address] Family Medicine - Sports Medicine 01/08/19 Lyndsey Palacios MD PhD [address] [place] [address] Assigned PCP 08/08/20 Lyndsey Palacios MD PhD [address] [place] [address] Family Medicine 09/29/22 Ivon De Leon, [facility] [address] [place] [address] Pharmacist Pharmacist 10/07/22 documented as of this encounter
--- OUTSIDE RECORDS SUMMARY | 2023-09-12 12:55 | XMS_ITS | Encounter Summary ---
Author Name Unknown Organization [place] Address [address] [facility] [place] [address] Care Team Providers Care Facility Specialist Name Role Phone Chris Toledo MD Primary Care Provider Beba Munoz PA-C Unavailable [phone] Chris Gilbert MD Unavailable [phone] Ivette Rasmussen RN Unavailable Evelyn Alvarado MD Unavailable [phone] Lyndsey Palacios MD PhD Unavailable [phone] Lyndsey Palacios MD PhD Unavailable [phone] Ivon De Leon [facility] Unavailable Chris Burroughs PA-C Unavailable [phone] Encounter Details Date Type Department Care Team (Latest Contact Info) Description 09/05/2023 Travel Social History Tobacco Use Types Packs/Day [...] Sex Assigned at Female 06/26/2019 9:26 AM LAB DIRECTOR Gender Identity Female 06/26/2019 9:25 AM LAB DIRECTOR Sexual Orientation Straight 06/26/2019 9: 25 AM LAB DIRECTOR documented as of this encounter Plan of Treatment Not on file documented as of this encounter Visit Diagnoses Not on filedocumented in this encounter Additional Health Concerns Assessment Noted Time PHQ-9 Depression Total Score: 4 06/04/19 20 1:21 PM LAB DIRECTOR documented as of this encounter Care Teams Facility Specialist Relationship Specialty Start Date End Date Chris Toledo MD PCP - General Family Practice 12/07/17 Beba Munoz PA-C [facility] [address] [facility] [address] [place] [address] Physician Addictions Counselor Assistant Physician Addictions Counselor Assistant 12/07/17 Chris Gilbert MD [address] [place] [id number] Orthopedics 12/07/17 Ivette Rasmussen, RN Registered Nurse Nurse 01/12/18 Evelny Alvarado MD [address] [place] [address] [phone] Family Medicine - Sports Medicine 01/08/19 Lyndsey Palacios MD PhD [address] [place] [address] Assigned PCP 08/08/20 Lyndsey Palacios MD PhD [address] [place] [address] Family Medicine 09/29/22 Ivon De Leon [facility] [address] [address] Pharmacist Pharmacist 10/07/22 Chris Burroughs PA-C [address] [address] Assigned Musculoskeletal Provider 07/15/23 documented as of this encounter
--- OUTSIDE RECORDS SUMMARY | 2023-09-12 12:55 | XMS_ITS | Encounter Summary ---
Author Name Unknown Organization [place] Address [address] [facility] [place] [address] Care Team Providers Care Marine Engine Machinist Apprentice Name Role Phone Chris Toledo MD Primary Care Provider Beba Munoz PA-C Unavailable Chris Gilbert MD Unavailable Ivette Rasmussen RN Unavailable Evelyn Alvarado MD Unavailable Lyndsey Palacios MD PhD Unavailable Lyndsey Palacios MD PhD Unavailable Ivon De Leon [facility] Unavailable Chris Burroughs PA-C Unavailable [phone] Reason for Visit * Reason Onset Date Comments Call Back 07/27/2023 Encounter Details Date Type Department Care Team (Late st Contact Info) Description 07/27/2023 Telephone [facility] [place] [address] [facility] [address] [place] [address] Chris Burroughs PA-C [address] [place], [place] [address] Call Back Social History Tobacco Use Types [...] Sex Assigned at Female 06/26/2019 9:26 AM INTERNATIONAL CONTROLLER Gender Identity Female 06/26/2019 9:25 AM INTERNATIONAL CONTROLLER Sexual Orientation Straight 06/26/2019 9: 25 AM INTERNATIONAL CONTROLLER documented as of this encounter Miscellaneous Notes * Telephone Encounter - Gloria Calvillo ATC - 07/27/2023 12:33 PM CDT Rescheduled patient with Dr. Joe for 08/05/23 at 1:00 pm. Gloria Calvillo ATC * Telephone Encounter - Mare Roberson - 07/27/2023 12:25 PM CDT [facility] Call Center Phone Message May a detailed message be left on voicemail: yes Reason for Call: Other: Patient is returning our call to reschedule appointment. The schedule for Chris SOLOMON does not pull for [facility] no solutions. Patient would prefer to schedule there if possible. Please call her back at [phone]. Action Taken: Message routed to: Other: [id number] Travel Screening: Not Applicable documented in this encounter Plan of Treatment Not on file documented as of this encounter Visit Diagnoses Not on filedocumented in this encounter Additional Health Concerns Assessment Noted Time PHQ-9 Depression Total Score: 4 06/04/19 20 1:21 PM INTERNATIONAL CONTROLLER documented as of this encounter Care Teams Marine Engine Machinist Apprentice Relationship Specialty Start Date End Date Chris Toledo MD PCP - General Family Practice 12/07/17 Beba Munoz PA-C [facility] [address] [place] [address] Physician Marine Fitter Physician Marine Fitter 12/07/17 Chris Gilbert MD [facility] [address] [place] [address] Orthopedics 12/07/17 Ivette Rasmussen, JACKIE Registered Nurse Nurse 01/12/18 Evelyn Alvarado MD [address] [place] [address] [phone] Family Medicine - Sports Medicine 01/08/19 Lyndsey Palacios MD PhD [address] [place] [address] [phone] Assigned PCP 08/08/20 Lyndsey Palacios MD PhD [address] [place] [address] Family Medicine 09/29/22 Ivon De Leon, [facility] [address] [facility] [address] [place] [address] Pharmacist Pharmacist 10/07/22 Chris Burroughs PA-C [facility] [address] [address] Assigned Musculoskeletal Provider 07/15/23 documented as of this encounter
--- OUTSIDE RECORDS SUMMARY | 2023-09-12 12:55 | XMS_ITS | Encounter Summary ---
Author Name Unknown Organization [place] Address [address] [facility] [place] [address] Care Team Providers Care Plant Operations Coordinator Name Role Phone Chris Toledo MD Primary Care Provider Beba Munoz PA-C Unavailable [phone] Chris Gilbert MD Unavailable [phone] Ivette Rasmussen RN Unavailable Evelyn Alvarado MD Unavailable [phone] Lyndsey Palacios MD PhD Unavailable + [phone] Lyndsey Palacios MD PhD Unavailable + [phone] Ivon De Leon [facility] Unavailable Chris Burroughs PA-C Unavailable [phone] Encounter Details Date Type Department Care Team (Latest Contact Info) Description 09/06/2023 Travel Social History Tobacco Use Types Packs/Day [...] Sex Assigned at Female 06/26/2019 9:26 AM ERCO MACHINE OPERATOR Gender Identity Female 06/26/2019 9:25 AM ERCO MACHINE OPERATOR Sexual Orientation Straight 06/26/2019 9: 25 AM ERCO MACHINE OPERATOR documented as of this encounter Plan of Treatment Not on file documented as of this encounter Visit Diagnoses Not on filedocumented in this encounter Additional Health Concerns Assessment Noted Time PHQ-9 Depression Total Score: 4 06/04/19 20 1:21 PM ERCO MACHINE OPERATOR documented as of this encounter Care Teams Plant Operations Coordinator Relationship Specialty Start Date End Date Chris Toledo MD PCP - General Family Practice 12/07/17 Beba Munoz PA-C [facility] [address] [place] [address] Physician Operations Manager Assistant Physician Operations Manager Assistant 12/07/17 Chris Gilbert MD [address] [place] [address] [id number] Orthopedics 12/07/17 Ivette Rasmussen, RN Registered Nurse Nurse 01/12/18 Evelyn Alvarado MD [address] [place] [address] 484385 Family Medicine - Sports Medicine 01/08/19 Lyndsey Palacios MD PhD [address] [place] [address] Assigned PCP 08/08/20 Lyndsey Palacios MD PhD [address] [place] [address] Family Medicine 09/29/22 Ivon De Leon [facility] [address] [address] Pharmacist Pharmacist 10/07/22 Chris Burroughs PA-C [address] [address] Assigned Musculoskeletal Provider 07/15/23 documented as of this encounter
--- OUTSIDE RECORDS SUMMARY | 2023-09-12 12:55 | XMS_ITS | Encounter Summary ---
Author Name Unknown Organization [place] Address [address] [facility] [place] [address] Care Team Providers Care Electric Milkers Installer Name Role Phone Chris Toledo MD Primary Care Provider Beba Munoz PA-C Unavailable [phone] Chrsi Gilbert MD Unavailable Ivette Rasmussen RN Unavailable Evelyn Alvarado MD Unavailable Lyndsey Palacios MD PhD Unavailable [phone] Lyndsey Palacios MD PhD Unavailable [phone] Ivon De Leon [facility] Unavailable Chris Mendoza PA-C Unavailable [phone] Reason for Visit * Reason Comments Follow Up Follow Up * Consultation (Routine) - Pending Review Specialty Diagnoses / Procedures Referred By Rishabh t Referred To Contact Diagnoses Bilateral hip pain Chris Gilbert MD [address] [place] [address] Chris Mendoza PA-C [facility] [address] [place] [address] Referral ID Status Reason Start Date Expiration Date V isits Requested Visits Authorized [id number] Pending Review 07/01/2023 06/30/2024 1 1 Encounter Details Date Type Department Care Team (Late st Contact Info) Description 08/23/2023 1:20 PM CDT Office Visit [facility] [place] [address] [facility] [address] [place] [address] [place] [address] [place] [address] Primary osteoarthritis of right hip (Primary Dx); [...] Sex Assigned at Female 06/26/2019 9:26 AM EXECUTIVE KITCHEN MANAGER Gender Identity Female 06/26/2019 9:25 AM EXECUTIVE KITCHEN MANAGER Sexual Orientation Straight 06/26/2019 9: 25 AM EXECUTIVE KITCHEN MANAGER documented as of this encounter Last Filed [...] intra-articular cortisone injection -Call direct clinic number [[phone]] at any time with questions or concerns. Sylvester Joe MD [facility] Orth[facility] and [facility] Medicine [facility] [place] documented in this encounter Progress Notes * [...] intra-articular cortisone injection -Call direct clinic number [[phone]] at any time with questions or concerns. Sylvester Joe MD [facility] Orthopedics and Sports Medicine [facility] ----- SUBJECTIVE: Giselle Esposito is a 73 [...] pubic symphysis. DARRIUS ZULUAGA MD SYSTEM ID: [id number] Large Joint Injection/Arthocentesis: R hip joint Date/Time: [...] were permanently stored. Sylvester Joe MD, CAQSM [facility] documented in this encounter Plan of Treatment Not on file documented as of this encounter Procedures Procedure Name Priority Date/Time Associated Diagnosis Comments OH ARTHROCENTESIS ASPIR&/INJ MAJOR JT/BURSA W/US Routine 08/23/2023 1:57 PM CDT Primary osteoarthritis of right hip documented in this encounter Results * OH ARTHROCENTESIS ASPIR&/INJ MAJOR JT/BURSA W/US (08/23/2023 1:57 [...] Total Score: 4 06/04/19 20 1:21 PM EXECUTIVE KITCHEN MANAGER documented as of this encounter Care Teams Electric Milkers Installer Relationship Specialty Start Date End Date Chris Toledo MD PCP - General Family Practice 12/07/17 Beba Munoz PA-C [facility] [address] [facility] [address] [place] [address] Physician Music Industry Internship Physician Music Industry Internship 12/07/17 Chris Gilbert MD [address] [place] [address] Orthopedics 12/07/17 Ivette Rasmussen, RN Registered Nurse Nurse 01/12/18 Evelyn Alvarado MD [address] [place] [address] [phone] Family Medicine - Sports Medicine 01/08/19 Lyndsey Palacios MD PhD [address] [place] [address] [phone] Assigned PCP 08/08/20 Lyndsey Palacios MD PhD [address] [place] [address] Family Medicine 09/29/22 Ivon De Leon, [facility] [address] [address] Pharmacist Pharmacist 10/07/22 Chris Mendoza PA-C [address] [place] [address] Assigned Musculoskeletal Provider 07/15/23 documented as of this encounter
--- OUTSIDE RECORDS SUMMARY | 2023-09-12 12:55 | XMS_ITS | Clinical Summary ---
Author Name Unknown Organization [place] Address [address] [facility] [address] Care Team Providers Care Tool And Die Maker Apprentice Name Role Phone Chris Toledo MD Primary Care Provider Beba Munoz PA-C Unavailable [phone] Chris Gilbert MD Unavailable Ivette Rasmussen RN Unavailable Evelyn Alvarado MD Unavailable [phone] Lyndsey Palacios MD PhD Unavailable [phone] Lyndsey Palacios MD PhD Unavailable [phone] Ivon De Leon [facility] Unavailable Chris Burroughs PA-C Unavailable [phone] Allergies Active Allergy Reactions Criticality Noted Date Comments Other (Do Not Use) Unknown 07/08/2019 cough Shellfish Allergy 08/16/2022 Simvastatin Muscle Pain (Myalgia) 10/02/2006 Medications Medication Sig Dispensed Refills Start Date End Date Status albuterol (PROAIR HFA/PROVENTIL HFA/VENTOLIN HFA) 108 (90 Base) MCG/ACT inhaler Inhale 2 puffs into the lungs every 4 hours as needed 06/22/2013 Active azelastine (ASTELIN) 0.1 % nasal spray [place] 2 sprays into both nostrils 2 times [...] Active fluticasone (FLONASE) 50 MCG/ACT nasal spray [place] 2 sprays into both nostrils 2 times [...] 5 mg by mouth At Bedtime Active Aubrey-3 Fatty Acids (FISH OIL) 1200 MG capsule [...] Date Type Department Care Team Description 09/06/2023 1:20 PM CDT Office Visit [address] [address] Sylvester Joe MD Primary localized osteoarthritis of left hip (Primary Dx) 09/06/2023 Travel 09/05/2023 Travel 08/23/2023 1:20 PM CDT Office Visit [address] [address] Sylvester Joe MD Primary osteoarthritis of right hip (Primary Dx); Primary localized osteoarthritis of left hip; Hx of spinal surgery-thoracic and lumbar Walsh rods for scoliosis age 50 and 68; Osteoarthritis of left sacroiliac joint (H24); Osteoarthritis of right sacroiliac joint (H24) 08/23/2023 Travel 08/17/2023 Travel 07/30/2023 Travel 07/27/2023 Telephone [facility] [address] [address] Chris Burroughs PA-C Call Back 07/07/[address] [address] Chris Burroughs PA-C 07/05/2023 1:30 PM PANTOGRAPH MACHINE SET UP OPERATOR Ancillary Procedure [facility] Care [address] [place] [address] Chris Burroughs PA-C Bilateral hip pain 07/05/2023 1:20 PM PANTOGRAPH MACHINE SET UP OPERATOR Office Visit [facility] [address] [place] [address] Chris Burroughs PA-C Bilateral hip pain (Primary Dx); Hx of spinal surgery-thoracic and lumbar Walsh rods for scoliosis age 50 and 68; Osteopenia, unspecified location 07/05/2023 Travel 07/01/2023 Travel 06/30/2023 MyC Medical Advice [facility] Clinic [address] 4th [place] [phone] Chris Gilbert MD Clinic Care Coordination - Follow-up from Last 3 Months Immunizations Name Administration Dates Next Due COVID-19 MONOVALENT 12+ (Pfizer) 022,01/30/2021,07/25/2020,2020 DTaP, Unspecified 09/01/2012 [id number] Novel Flu 05/22/2009 Influenza (H1N1) 05/22/2009 Influenza [...] Sex Assigned at Female 06/26/2019 9:26 AM PANTOGRAPH MACHINE SET UP OPERATOR Gender Identity Female 06/26/2019 9:25 AM PANTOGRAPH MACHINE SET UP OPERATOR Sexual Orientation Straight 06/26/2019 9: 25 AM PANTOGRAPH MACHINE SET UP OPERATOR Last Filed Vital Signs Vital Sign Reading Time Taken Comments Blood Pressure 137/88 08/23/2023 1:13 PM CDT Pulse 81 10/04/2022 9:52 AM CDT Temperature 36.9 ??C (98.4 ??F) 06/29/2019 8:58 AM CS T Respiratory Rate 16 11/17/2018 1:29 PM CDT Oxygen Saturation 93% 06/29/2019 8:58 AM PANTOGRAPH MACHINE SET UP OPERATOR Inhaled Oxygen Concentration - - Weight 73.9 kg (163 lb) 08/23/2023 1:13 PM CDT Height 152.4 cm (5') 08/23/2023 1:13 PM CDT Body Mass Index 31.83 08/23/2023 1:13 PM CDT Plan of Treatment Health Maintenance Due Date [...] 09/03/2021, 08/18/2020, Additional history exists COVID-19 Vaccine (2022- season) 2023 02/02/2023, 01/05/2022, 08/08/2021, Additional history exists MAMMO SCREENING 03/12/2024 03/12/2022, 08/0 07/2020, 12/03/2019, Additional history exists COLONOSCOPY 06/30/2026 06/30/2016 [...] this topic Medical Devices Implanted Type Area Cord Cutter Device Identifier Shelf Expiration Date Model / Serial / Lot Graft Bone Crush Canc 30ml [id number] Implanted:Qty : 1 on 08/21/2018 by Chris Gilbert MD at [facility] Bone/Tissu e/Biologic N/A: Spine Lumbar MUSCULOSKELETAL CAMPOS 04/28/2021 [id number] / [id number] / Graft Bone Crush Canc 30ml [id number] Implanted:Qty : 1 on 08/21/2018 by Chris Gilbert MD at [facility] Bone/Tissu e/Biologic N/A: Spine Lumbar MUSCULOSKELETAL CAMPOS 06/02/2021 [id number] / [id number] / [id number] Imp Scr Medt 5.5/6.0mm Solera 6.5x55mm Ma [id number] Implanted:Qty : 2 on 08/21/2018 by Chris Gilbert MD at [facility] Metallic Hardware/A nchor N/A: Spine Lumbar [employer] [id number] / / [id number] Imp Scr Medt 5.5/6.0mm Solera 5.5x50mm Ma [id number] Implanted:Qty : 2 on 08/21/2018 by Chris Gilbert MD at [facility] Metallic Hardware/A nchor N/A: Spine Lumbar [employer] [id number] / / [id number] Imp Scr Medt 5.5/6.0mm Solera 5.5x55mm Ma [id number] Implanted:Qty : 2 on 08/21/2018 by Chris Gilbert MD at [facility] Metallic Hardware/A nchor N/A: Spine Lumbar [employer] [id number] / / [id number] Imp Scr Medt 5.5/6.0mm Solera 6.5x45mm Ma [id number] Implanted:Qty : 2 on 08/21/2018 by Chris Gilbert MD at [facility] Metallic Hardware/A nchor N/A: Spine Lumbar [employer] [id number] / / [id number] Imp Scr Medt 5.5/6.0mm Solera 6.5x40mm Ma [id number] Implanted:Qty : 1 on 08/21/2018 by Chris Gilbert MD at [facility] Metallic Hardware/A nchor N/A: Spine Lumbar [employer] [id number] / / [id number] Imp Scr Medt 5.5/6.0mm Solera 5.5x40mm Ma [id number] Implanted:Qty : 3 on 08/21/2018 by Chris Gilbert MD at [facility] Metallic Hardware/A nchor N/A: Spine Lumbar [employer] [id number] / / [id number] Imp Scr Medt 5.5/6.0mm Solera 5.0x35mm Ma [id number] Implanted:Qty : 1 on 08/21/2018 by Chris Gilbert MD at [facility] Metallic Hardware/A nchor N/A: Spine Lumbar [employer] [id number] / / [id number] Imp Scr Medt 5.5/6.0mm Solera 4.5x35mm Ma [id number] Implanted:Qty : 1 on 08/21/2018 by Chris Gilbert MD at [facility] Metallic Hardware/A nchor N/A: Spine Lumbar [employer] [id number] / / [id number] Imp Scr Medt 5.5/6.0mm Solera 5.0x40mm Ma [id number] Implanted:Qty : 1 on 08/21/2018 by Chris Gilbert MD at [facility] Metallic Hardware/A nchor N/A: Spine Lumbar [employer] [id number] / / [id number] Imp Scr Medt 5.5/6.0mm Solera 4.5x40mm Ma [id number] Implanted:Qty : 1 on 08/21/2018 by Chris Gilbert MD at [facility] Metallic Hardware/A nchor N/A: Spine Lumbar [employer] [id number] / / [id number] Imp Dao Medt Solera Lined 5.6q019vp Chr [id number] Implanted:Qty : 3 on 08/21/2018 by Chris Gilbert MD at [facility] Metallic Hardware/A nchor N/A: Spine Lumbar [employer] [id number] / / [id number] Imp Scr Set Medt Solera Break Off 5.5mm Ti [id number] Implanted:Qty : 26 on 08/21/2018 by Chris Gilbert MD at [facility] Metallic Hardware/A nchor N/A: Spine Lumbar [employer] [id number] / [id number] / Imp Scr Medt 5.5/6.0mm Solera 7.5x40mm Ma [id number] Implanted:Qty : 2 on 08/21/2018 by Chris Gilbert MD at [facility] Metallic Hardware/A nchor N/A: Spine Lumbar [employer] [id number] / / [id number] Imp Scr Medt 5.5/6.0mm Solera 7.5x50mm Ma [id number] Implanted:Qty : 4 on 08/21/2018 by Chris Gilbert MD at [facility] Metallic Hardware/A nchor N/A: Spine Lumbar [employer] [id number] / / [id number] Imp Scr Medt 5.5/6.0mm Solera 7.5x55mm Ma [id number] Implanted:Qty : 2 on 08/21/2018 by Chris Gilbert MD at [facility] Metallic Hardware/A nchor N/A: Spine Lumbar [employer] [id number] / / [id number] Ballast Screw Implanted:Qty : 1 on 08/21/2018 by Chris Gilbert MD at [facility] N/A: Spine Lumbar [id number] / / [id number] Ballast Screw 9.5 X 90 Mm Implanted:Qty : 1 on 08/21/2018 by Chris Gilbert MD at [facility] N/A: Spine Lumbar [id number] / / [id number] Variable Angle [place] Implanted:Qty : 2 on 08/21/2018 by Janel Guillory MD at [facility] N/A: Spine Lumbar 07/14/2023 [id number] / / [id number] Capstone Control 10 X 22 Implanted:Qty : 1 on 08/21/2018 by Chris Gilbert MD at [facility] N/A: Spine Lumbar [employer] [id number] / / Explanted Type Area Cord Cutter Device Identifier Shelf Expiration Date Model / Serial / Lot Imp Scr Set Medt Solera Break Off 5.5mm Ti [id number] Explanted:Qty: 3 on 08/21/2018 at [facility] Metallic Hardware/Anc hor N/A: Spine Lumbar [employer] [id number] / / [id number] Eure Screws Explanted:Qty: 1 on 08/21/2018 by Chris Gilbert MD at [facility] Bilateral : Spine Lumbar Description:ALL ISOLA SPINE HARDWARE REMOVED LUMBAR AND THORACIC. Procedures Procedure Name Priority Date/Time Associated Diagnosis Comments ID ARTHROCENTESIS ASPIR&/INJ MAJOR JT/BURSA W/US Routine 09/06/2023 1:21 PM CDT Primary localized osteoarthritis of left hip ID ARTHROCENTESIS ASPIR&/INJ MAJOR JT/BURSA W/US Routine 08/23/2023 1:57 PM CDT Primary osteoarthritis of right hip XR PELVIS AND HIP BILATERAL 1 VIEW Routine 07/05/2023 1:50 PM PANTOGRAPH MACHINE SET UP OPERATOR Bilateral hip pain DEXA - HIM SCAN 09/16/2022 12:00 AM CDT MA EXTERNAL IMAGING 2D SCREENING Routine 03/12/2022 12:00 AM PANTOGRAPH MACHINE SET UP OPERATOR BASIC METABOLIC PANEL Routine 01/25/2020 10:57 AM CDT Senile osteoporosis from Last 3 Months or Most Recently Relevant to Health Maintenance Results * ID ARTHROCENTESIS ASPIR&/INJ MAJOR JT/BURSA W/US (09/06/2023 1:21 [...] Joe MD PROCEDURE/MINOR SURG ICAL ORDERABLES * ID ARTHROCENTESIS ASPIR&/INJ MAJOR JT/BURSA W/US (08/23/2023 1:57 [...] Hip Bilateral 1 View (07/05/2023 1:50 PM PANTOGRAPH MACHINE SET UP OPERATOR) Anatomical Region Laterality Modality Pelvis Bilateral Computed Radiogr aphy Impressions 07/05/2023 3:26 PM PANTOGRAPH MACHINE SET UP OPERATOR IMPRESSION: There are mild arthritic changes involving both hips. Prior lumbosacral fusion. There is no evidence of an acute displaced fracture on either side. No dislocation. 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 BENJA ZULUAGA MD SYSTEM ID: [id number] Narrative 07/05/2023 3:26 PM PANTOGRAPH MACHINE SET UP OPERATOR PELVIS AND BILATERAL HIPS, ONE VIEW [...] pubic symphysis. BENJA ZULUAGA MD SYSTEM ID: [id number] Chris Burroughs PA-C IMG DIAGNOSTIC IM AGING ORDERABLES * DEXA - HIM SCAN (09/16/2022 12:00 AM CDT) Anatomical Region Laterality Modality Other 09/16/2022 Provider Outside IMG DEXA ORDERABLES * MA External Imaging 2D Screening (03/12/2022 12:00 AM PANTOGRAPH MACHINE SET UP OPERATOR) Narrative Service Account, Zeke Rogers - 10/14/2022 3:18 PM CDT Images were obtained from an external facility. ??Click PACS Images hyperlink to view images. ??Textual results have been scanned into the media tab. Radiology Non-Fv Credentialed Provider I MG EXTERNAL IMAGING ORDERABLES * (ABNORMAL) Basic Metabolic Panel (01/25/2020 10:57 AM CDT) Sodium 139 133 - 144 mmol/L 01/25/2020 11:23 AM CDT [facility] Potassium 4.2 3.4 - 5.3 mmol/L 01/25/2020 11:23 AM CDT [facility] Chloride 108 94 - 109 mmol/L 01/25/2020 11:23 AM CDT [facility] Carbon Dioxide 24 20 - 32 mmol/L 01/25/2020 11:29 AM CDT [facility] Anion Gap 7 3 - 14 mmol/L 01/25/2020 11:29 AM CDT [facility] Glucose 106(H) 70 - 99 mg/dL 01/25/2020 11:29 AM CDT [facility] Urea Nitrogen 15 7 - 30 mg/dL 01/25/2020 11:29 AM CDT [facility] Creatinine 0.92 0.52 - 1.04 mg/dL 01/25/2020 11:29 AM CDT [facility] GFR Estimate 63 >60 mL/min/{1 .73_m2} 01/25/2020 11:29 AM CDT [facility] Comment: Non GFR Calc Starting 04/18/2018, serum creatinine based estimated GFR (eGFR) will be calculated using the Chronic Kidney Disease Epidemiology Collaboration (CKD-EPI) equation. GFR Estimate If Black 73 >60 mL/min/{1 .73_m2} 01/25/2020 11:29 AM CDT [facility] Comment: GFR Calc Starting 04/18/2018, serum creatinine based estimated GFR (eGFR) will be calculated using the Chronic Kidney Disease Epidemiology Collaboration (CKD-EPI) equation. Calcium 9.6 8.5 - 10.1 mg/dL 01/25/2020 11:29 AM CDT [facility] Blood specimen (specimen) 01/25/2020 10:57 AM CDT 01/25/2020 10:58 AM CDT Lyndsey Palacios MD PhD LAB - BLOOD OR DERABLES [facility] [address] [place] [address] from Last 3 Months or Most Recently Relevant to Health Maintenance Care Teams Tool And Die Maker Apprentice Relationship Specialty Start Date End Date Chris Toledo MD PCP - General Family Practice 12/07/17 Beba Munoz PA-C [facility] [address] [place] [address] Physician Instructor Dramatic Arts Physician Instructor Dramatic Arts 12/07/17 Chris Gilbert MD [facility] [address] [address] Orthopedics 12/07/17 Ivette Rasmussen, RN Registered Nurse Nurse 01/12/18 Evelyn Alvarado MD [address] [place] [address] Family Medicine - Sports Medicine 01/08/19 Lyndsey Palacios MD PhD [address] [place] [address] Assigned PCP 08/08/20 Lyndsey Palacios MD PhD [address] [place] [address] Family Medicine 09/29/22 Ivon De Leon, [facility] [address] [place] [address] Pharmacist Pharmacist 10/07/22 Chris Burroughs PA-C [address] [place] [address] Assigned Musculoskeletal Provider 07/15/23
--- OUTSIDE RECORDS SUMMARY | 2023-09-12 12:55 | XMS_ITS | Encounter Summary ---
Author Name Unknown Organization [place] Address [address] [facility] [place] [address] Care Team Providers Care Pin Cleaner Name Role Phone Chris Toledo MD Primary Care Provider Beba Munoz PA-C Unavailable [phone] Chris Gilbert MD Unavailable [phone] Ivette Rasmussen RN Unavailable Evelyn Alvarado MD Unavailable [phone] Lyndsey Palacios MD PhD Unavailable [phone] Lyndsey Palacios MD PhD Unavailable [phone] Ivon De Leon [facility] Unavailable Chris Burroughs PA-C Unavailable [phone] Encounter Details Date Type Department Care Team [...] Sex Assigned at Female 06/26/2019 9:26 AM RUSSET REPAIRER Gender Identity Female 06/26/2019 9:25 AM RUSSET REPAIRER Sexual Orientation Straight 06/26/2019 9: 25 AM RUSSET REPAIRER documented as of this encounter Plan of Treatment Not on file documented as of this encounter Visit Diagnoses Not on filedocumented in this encounter Additional Health Concerns Assessment Noted Time PHQ-9 Depression Total Score: 4 06/04/19 20 1:21 PM RUSSET REPAIRER documented as of this encounter Care Teams Pin Cleaner Relationship Specialty Start Date End Date Chris Toledo MD PCP - General Family Practice 12/07/17 Beba Munoz PA-C [facility] [address] [facility] [address] [place] [address] Physician Curatorial Specialist Physician Curatorial Specialist 12/07/17 Chris Gilbert MD [address] [place] [address]304 Orthopedics 12/07/17 Ivette Rasmussen, RN Registered Nurse Nurse 01/12/18 Evelyn Alvarado MD [address] [place] [address] 606195 Family Medicine - Sports Medicine 01/08/19 Lyndsey Palacios MD PhD [address] [place] [address] Assigned PCP 08/08/20 Lyndsey Palacios MD PhD [address] [place] [address] Family Medicine 09/29/22 Ivon De Leon [facility] [address] [address] Pharmacist Pharmacist 10/07/22 Chris Burroughs PA-C [address] [address] Assigned Musculoskeletal Provider 07/15/23 documented as of this encounter
--- OUTSIDE RECORDS SUMMARY | 2023-09-12 12:55 | XMS_ITS | Encounter Summary ---
Author Name Unknown Organization [place] Address [address] [place] [address] Care Team Providers Care Gun Numberer Name Role Phone Chris Toledo MD Primary Care Provider Beba Munoz PA-C Unavailable [phone] Chris Gilbert MD Unavailable Ivette Rasmussen RN Unavailable Donovan [place] RN Unavailable Evelyn Alvarado MD Unavailable [phone] Lyndsey Palacios MD PhD Unavailable [phone] Lyndsey Palacios MD PhD Unavailable + [phone] Ivon De Leon [facility] Unavailable Encounter Details Date Type Department Care Team (Late st Contact Info) Description 07/07/[address] [facility] [place] [address] [facility] [address] 4[address] [place] [address] Chris Burroughs PA-C [address] [place] [address] Social History Tobacco Use Types Packs/Day Years [...] Sex Assigned at Female 06/26/2019 9:26 AM HELMET HAT SWEATBAND PUNCHER Gender Identity Female 06/26/2019 9:25 AM HELMET HAT SWEATBAND PUNCHER Sexual Orientation Straight 06/26/2019 9: 25 AM HELMET HAT SWEATBAND PUNCHER documented as of this encounter Plan of Treatment Not on file documented as of this encounter Visit Diagnoses Not on filedocumented in this encounter Additional Health Concerns Assessment Noted Time PHQ-9 Depression Total Score: 4 06/04/19 20 1:21 PM HELMET HAT SWEATBAND PUNCHER documented as of this encounter Care Teams Gun Numberer Relationship Specialty Start Date End Date hCris Toledo MD PCP - General Family Practice 12/07/17 Beba Munoz PA-C [facility] [address] [place] [address] Physician Military Science Instructor Physician Military Science Instructor 12/07/17 Chris Gilbert MD [address] [place], [place] [id number] [place] [address] Orthopedics 12/07/17 Ivette Rasmussen, RN Registered Nurse Nurse 01/12/18 Donovan [place], JACKIE Specialty Web Publisher Neurological Surgery 05/29/18 07/07/23 Evelyn Alvarado MD [address] [place] [address] Family Medicine - Sports Medicine 01/08/19 Lyndsey Palacios MD PhD [address] [place] [address] Assigned PCP 08/08/20 Lyndsey Palacios MD PhD [address] [place] [address] Family Medicine 09/29/22 Ivon De Leon, [facility] [address] [place] [address] Pharmacist Pharmacist 10/07/22 documented as of this encounter
--- OUTSIDE RECORDS SUMMARY | 2023-09-12 12:55 | XMS_ITS | Encounter Summary ---
Author Name Unknown Organization [place] Address [address] [place] [address] Care Team Providers Care Windows Server Engineer Name Role Phone Chris Toledo MD Primary Care Provider Beba Munoz PA-C Unavailable [phone] Chris Gilbert MD Unavailable [phone] Ivette Rasmussen RN Unavailable Evelyn Alvarado MD Unavailable +[phone] Lyndsey Palacios MD PhD Unavailable + [phone] Lyndsey Palacios MD PhD Unavailable + [phone] Ivon De Leon [facility] Unavailable [phone] Chris Burroughs PA-C Unavailable [phone] Encounter Details Date Type Department Care Team [...] Sex Assigned at Female 06/26/2019 9:26 AM RFP WRITER Gender Identity Female 06/26/2019 9:25 AM RFP WRITER Sexual Orientation Straight 06/26/2019 9: 25 AM RFP WRITER documented as of this encounter Plan of Treatment Not on file documented as of this encounter Visit Diagnoses Not on filedocumented in this encounter Additional Health Concerns Assessment Noted Time PHQ-9 Depression Total Score: 4 06/04/19 20 1:21 PM RFP WRITER documented as of this encounter Care Teams Windows Server Engineer Relationship Specialty Start Date End Date Chris Toledo MD PCP - General Family Practice 12/07/17 Beba Munoz PA-C [facility] [address] [facility] [address] [place] [address] Physician Instrument Repairer Steam Plant Physician Instrument Repairer Steam Plant 12/07/17 Chris Gilbert MD [address] [place] [address] [phone] Orthopedics 12/07/17 Ivette Rasmussen, RN Registered Nurse Nurse 01/12/18 Evelyn Alvarado MD [address] [place] [address] [phone] Family Medicine - Sports Medicine 01/08/19 Lyndsey Palacios MD PhD [address] [place] [address] Assigned PCP 08/08/20 Lyndsey Palacios MD PhD [address] [place] [address] Family Medicine 09/29/22 Ivon De Leon [facility] [address] [address] Pharmacist Pharmacist 10/07/22 Chris Burroughs PA-C [address] [address] Assigned Musculoskeletal Provider 07/15/23 documented as of this encounter
--- OUTSIDE RECORDS SUMMARY | 2023-09-12 12:55 | XMS_ITS | Encounter Summary ---
Author Name Unknown Organization [place] Address [address] [facility] [place] [address] Care Team Providers Care Sewer Bricklayer Name Role Phone Chris Toledo MD Primary Care Provider Beba Munoz PA-C Unavailable [phone] Chris Gilbert MD Unavailable [phone] Ivette Rasmussen RN Unavailable Donovan [place] RN Unavailable Evelyn Alvarado MD Unavailable [phone] Lyndsey Palacios MD PhD Unavailable + [phone] Lyndsey Palacios MD PhD Unavailable + [phone] Ivon De Leon [facility] Unavailable Encounter Details Date Type Department Care [...] Sex Assigned at Female 06/26/2019 9:26 AM POLITICAL ADVISOR Gender Identity Female 06/26/2019 9:25 AM POLITICAL ADVISOR Sexual Orientation Straight 06/26/2019 9: 25 AM POLITICAL ADVISOR documented as of this encounter Plan of Treatment Not on file documented as of this encounter Visit Diagnoses Not on filedocumented in this encounter Additional Health Concerns Assessment Noted Time PHQ-9 Depression Total Score: 4 06/04/19 20 1:21 PM POLITICAL ADVISOR documented as of this encounter Care Teams Sewer Bricklayer Relationship Specialty Start Date End Date Chris Toledo MD PCP - General Family Practice 12/07/17 Beba Munoz PA-C [facility] [address] [facility] [address] [place], [place] [phone] Physician Administrative Director Physician Administrative Director 12/07/17 Chris Gilbert MD [address] [place] [address] [id number] Orthopedics 12/07/17 Ivette Rasmussen, JACKIE Registered Nurse Nurse 01/12/18 Donovan [place], JACKIE Specialty Pin Setter Neurological Surgery 05/29/18 07/07/23 Evelyn Alvarado MD [address] [place] [address] [phone] Family Medicine - Sports Medicine 01/08/19 Lyndsey Palacios MD PhD [address] [place] [address] [phone] Assigned PCP 08/08/20 Lyndsey Palacios MD PhD [address] [place] [address] Family Medicine 09/29/22 Ivon De Leon, [facility] [address] [phone] Pharmacist Pharmacist 10/07/22 documented as of this encounter
--- OUTSIDE RECORDS SUMMARY | 2023-09-12 12:55 | XMS_ITS | Encounter Summary ---
Author Name Unknown Organization [place] Address [address] [place] [address] Care Team Providers Care Real Estate Inspector Name Role Phone Chris Toledo MD Primary Care Provider Beba Munoz PA-C Unavailable Chris Gilbert MD Unavailable Ivette Rasmussen RN Unavailable Donovan [place] RN Unavailable Evelyn Alvarado MD Unavailable Lyndsey Palacios MD PhD Unavailable [phone] Lyndsey Palacios MD PhD Unavailable Ivon De Leon [facility] Unavailable Reason for Referral * Diagnostic Imaging XR (Routine) - Pending Review Specialty Diagnoses / Procedures Referred By Contac t Referred To Contact Radiology. Diagnoses Bilateral hip pain Procedures XR Pelvis and Hip Bilateral 1 View Chris Burroughs PA-C [address] [place] [address] Referral ID Status Reason Start Date Expiration Date V isits Requested Visits Authorized [id number] Pending Review 07/05/2023 07/04/2024 1 1 ET CUTTER Reason for Visit * Reason Comments Pain Pain * Consultation (Routine) - Pending Review Specialty Diagnoses / Procedures Referred By Contshira t Referred To Contact Diagnoses Bilateral hip pain Chris Gilbert MD [address] [place] [address] Crhis Burroughs PA-C [facility] [address] [facility] [place] [address] Referral ID Status Reason Start Date Expiration Date V isits Requested Visits Authorized [id number] Pending Review 07/01/2023 06/30/2024 1 1 Encounter Details Date Type Department Care Team (Late st Contact Info) Description 07/05/2023 1:20 PM BILLET CUTTER Office Visit [facility] [place] [id number] [place] [address] [address] [place] [address] Chris Burroughs PA-C [address] [place] [address] Bilateral hip pain (Primary Dx); Hx of [...] Sex Assigned at Female 06/26/2019 9:26 AM BILLET CUTTER Gender Identity Female 06/26/2019 9:25 AM BILLET CUTTER Sexual Orientation Straight 06/26/2019 9: 25 AM BILLET CUTTER documented as of this encounter Last Filed Vital Signs Vital Sign Reading Time Taken Comments Blood Pressure 110/65 07/05/2023 1:09 PM BILLET CUTTER Pulse - - Temperature - - Respiratory Rate - - Oxygen Saturation - - Inhaled Oxygen Concentration - - Weight 72.1 kg (159 lb) 07/05/2023 1:09 PM BILLET CUTTER Height 152.4 cm (5') 07/05/2023 1:09 PM BILLET CUTTER Body Mass Index 31.05 07/05/2023 1:09 PM BILLET CUTTER documented in this encounter Patient Instructions * Patient Instructions* Chris Burroughs PA-C - 07/05/2023 1:20 PM BILLET CUTTER Today we discussed the underlying etiology/pathology of [...] and get her through her trip to [place] that she leaves for on Tuesday - I like to see her back when she returns to the [facility] for repeat assessment. We did discuss [...] thinning, weight gain, etc. Chris Burroughs PA-C [facility] ET CUTTER documented in this encounter Progress Notes * [...] and get her through her trip to [place] that she leaves for on Tuesday - I like to see her back when she returns to the [facility] for repeat assessment. We did discuss [...] thinning, weight gain, etc. Chris Burroughs PA-C [facility] SUBJECTIVE Giselle Esposito [...] are leaving on 07/08/23 to go to [place] for 3 weeks. Patient currently is utilizing [...] elevation, heat, Tylenol, and other medications: Hydrocodone/Acetaminophen (Vicodin/Gomer) and cannabis tablets at night, CSI L hip bursa on 05/2023 with PCP with mild relief of symptoms from Dr. Cruz at [facility]. Patient also has had PRP injections to [...] social history: retired; active with house, neighborhood, zoroastrianism, community kitchen Past Medical History: Diagnosis Date [...] total time reviewing patient's previous medical records/history/radiology, [id number] examination and discussion and plan ofcare with the patient and documentation being 60 minutes. Chrsi Burroughs PA-C [facility] This note was completed in part using a voice recognition software, any grammatical or context distortion are unintentional and inherent to the software. ET CUTTER documented in this encounter Plan of Treatment Not on file documented as of this encounter Results * XR Pelvis and Hip Bilateral 1 View (07/05/2023 1:50 PM BILLET CUTTER) Anatomical Region Laterality Modality Pelvis Bilateral Computed Radiogr aphy Impressions 07/05/2023 3:26 PM BILLET CUTTER IMPRESSION: There are mild arthritic changes involving both hips. Prior lumbosacral fusion. There is no evidence of an acute displaced fracture on either side. No dislocation. 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 BENJA ZULUAGA MD SYSTEM ID: [id number] Narrative 07/05/2023 3:26 PM BILLET CUTTER PELVIS AND BILATERAL HIPS, ONE VIEW 07/05/2023 [...] pubic symphysis. BENJA ZULUAGA MD SYSTEM ID: [id number] Chris Burroughs PA-C IMG DIAGNOSTIC IM AGING [...] Total Score: 4 06/04/19 20 1:21 PM BILLET CUTTER documented as of this encounter Care Teams Real Estate Inspector Relationship Specialty Start Date End Date Chris Toledo MD PCP - General Family Practice 12/07/17 Beba Munoz PA-C [facility] [address] [facility] [address] [place], [place] [id number] Physician Top Lift Cutter Physician Top Lift Cutter 12/07/17 Chris Gilbert MD [address] [place] [address] [phone] Orthopedics 12/07/17 Ivette Rasmussen, JACKIE Registered Nurse Nurse 01/12/18 Donovan [place], JACKIE [facility] Neurological Surgery 05/29/18 07/07/23 Evelyn Alvarado MD [address] [place] [address] [phone] Family Medicine - Sports Medicine 01/08/19 Lyndsey Palacios MD PhD [address] [place] [address] [phone] Assigned PCP 08/08/20 Lyndsey Palacios MD PhD [address] [place] [address] Family Medicine 09/29/22 Ivon De Leon, [facility] [address] [address] Pharmacist Pharmacist 10/07/22 documented as of this encounter
--- OUTSIDE RECORDS SUMMARY | 2023-09-12 12:55 | XMS_ITS | Encounter Summary ---
Author Name Unknown Organization [place] Address [address] [facility] [address] Care Team Providers Care Cigar Wrapper Tender Automatic Name Role Phone Chris Toledo MD Primary Care Provider Beba Munoz PA-C Unavailable [phone] Chris Gilbert MD Unavailable [phone] Ivette Rasmussen RN Unavailable Evelyn Alvarado MD Unavailable Lyndsey Palacios MD PhD Unavailable [phone] Lyndsey Palacios MD PhD Unavailable [phone] Ivon De Leon [facility] Unavailable Chris Burroughs PA-C Unavailable [phone] Reason for Visit * Reason Comments Follow Up * Consultation (Routine) - Pending Review Specialty Diagnoses / Procedures Referred By Rishabh t Referred To Contact Diagnoses Bilateral hip pain Chris Gilbert MD [address] [place] [address] Chris Burroughs PA-C [facility] [address] [facility] [place] [place] [address] Referral ID Status Reason Start Date Expiration Date V isits Requested Visits Authorized [id number] Pending Review 07/01/2023 06/30/2024 1 1 Encounter Details Date Type Department Care Team (Late st Contact Info) Description 09/06/2023 1:20 PM CDT Office Visit [facility] [address] [facility] [address] [place] [address] [place] [address] [place], [place] [phone] Primary localized osteoarthritis of left hip (Primary Dx) Social History Tobacco Use Types Packs/Day Years [...] Sex Assigned at Female 06/26/2019 9:26 AM PATIENT SITTER Gender Identity Female 06/26/2019 9:25 AM PATIENT SITTER Sexual Orientation Straight 06/26/2019 9: 25 AM PATIENT SITTER documented as of this encounter Patient Instructions * Patient Instructions* Sylvester Joe MD - 09/06/2023 1:20 PM CDT 1. Primary localized osteoarthritis of left hip -Patient is following up for left hip pain due to arthritis -Patient tolerated left hip intra-articular cortisone injection today without complications. Patient was given postprocedure instructions -Patient will follow-up when pain returns -Call direct clinic number [[phone]] at any time with questions or concerns. Sylvester Joe MD [facility] documented in this encounter Progress Notes * Sylvester Joe MD - 09/06/2023 1:20 PM CDTAssociated Order(s): Large Joint Injection/Arthocentesis: L hip joint Post-Procedure Diagnose(s): Primary localized osteoarthritis of left hip ASSESSMENT & PLAN Patient Instructions 1. Primary localized osteoarthritis of left hip -Patient is following up for left hip pain due to arthritis -Patient tolerated left hip intra-articular cortisone injection today without complications. Patient was given postprocedure instructions -Patient will follow-up when pain returns -Call direct clinic number [[phone]] at any time with questions or concerns. Sylvester Joe MD [facility] Sports [facility] ----- SUBJECTIVE: Giselle Esposito is a 73 year old female who is seen for left intra articular hip injection. Patient rates pain as 7.5/10 pre-procedure. Patient rates pain as 2/10 post-procedure. Large Joint Injection/Arthocentesis: L hip joint Date/Time: 09/06/2023 1:21 PM Performed by: Sylvester Joe MD Authorized by: Sylvester Joe MD Indications: Pain and osteoarthritis Needle Size: 22 G Guidance: ultrasound Approach: Anterior Location: Hip Site: L hip joint Medications: 8 mL lidocaine 1 %; 4 mL ROPivacaine 5 MG/ML; 40 mg methylPREDNISolone 40 MG/ML Outcome: Tolerated well, no immediate complications Procedure discussed: discussed risks, benefits, and alternatives Consent Given by: Patient Timeout: timeout called immediately prior to procedure Prep: patient was prepped and draped in usual sterile fashion Ultrasound was used to ensure safe and accurate needle placement and injection. Ultrasound images of the procedure were permanently stored. Sylvester Joe MD, [facility] documented in this encounter Plan of Treatment Not on file documented as of this encounter Procedures Procedure Name Priority Date/Time Associated Diagnosis Comments IL ARTHROCENTESIS ASPIR&/INJ MAJOR JT/BURSA W/US Routine 09/06/2023 1:21 PM CDT Primary localized osteoarthritis of left hip documented in this encounter Results * IL ARTHROCENTESIS ASPIR&/INJ MAJOR JT/BURSA W/US (09/06/2023 1:21 [...] in this encounter Visit Diagnoses Diagnosis Primary localized osteoarthritis of left hip- Primary documented in this encounter Administered Medications Active Administered Medications - up to 3 most recent administrations Medication Order MAR Action Action Date Dose Rate Site 4 mL ropivacaine (NAROPIN) injection 5 mg/mL 4 mL, Starting on Tue09/06/23 at 1321 $Given 09/06/2023 1:21 PM CDT 4 mLs lidocaine 1 % injection 8 mL 8 mL, Starting on Tue09/06/23 at 1321 $Given 09/06/2023 1:21 PM CDT 8 mLs methylPREDNISolone (DEPO-Medrol) injection 40 mg 40 mg, Starting on Tue09/06/23 at 1321 $Given 09/06/2023 1:21 PM CDT 40 mg documented in this encounter Additional Health Concerns Assessment Noted Time PHQ-9 Depression Total Score: 4 06/04/19 20 1:21 PM PATIENT SITTER documented as of this encounter Care Teams Cigar Wrapper Tender Automatic Relationship Specialty Start Date End Date Chris Toledo MD PCP - General Family Practice 12/07/17 Beba Munoz PA-C [facility] [address] [place] [address] Physician Customer Care Coordinator Physician Customer Care Coordinator 12/07/17 Chris Gilbert MD [facility] [address] Orthopedics 12/07/17 Ivette Rasmussen, JACKIE Registered Nurse Nurse 01/12/18 Evelyn Alvarado MD [address] [place] [phone] Family Medicine - Sports Medicine 01/08/19 Lyndsey Palacios MD PhD [address] [place] [address] [id number] Assigned PCP 08/08/20 Lyndsey Palacios MD PhD [address] [place] [address] Family Medicine 09/29/22 Ivon De Leon, [facility] [address] [facility] [facility] [place] [address] Pharmacist Pharmacist 10/07/22 Chris Burroughs PA-C [facility] [address] [address] Assigned Musculoskeletal Provider 07/15/23 documented as of this encounter
--- OUTSIDE RECORDS SUMMARY | 2023-09-12 12:55 | XMS_ITS | Encounter Summary ---
Author Name Unknown Organization [place] Address [address] [facility] [place] [address] Care Team Providers Care Weaver [employer] Name Role Phone Chris Toledo MD Primary Care Provider Beba Munoz PA-C Unavailable [phone] Chris Gilbert MD Unavailable [phone] Ivette Rasmussen RN Unavailable Evelyn Alvarado MD Unavailable [phone] Lyndsey Palacios MD PhD Unavailable + [phone] Lyndsey Palacios MD PhD Unavailable + [phone] Ivon De Leon [facility] Unavailable Chris Burroughs PA-C Unavailable [phone] Encounter Details Date Type Department Care Team [...] Sex Assigned at Female 06/26/2019 9:26 AM TRAFFIC CONTROL OFFICER Gender Identity Female 06/26/2019 9:25 AM TRAFFIC CONTROL OFFICER Sexual Orientation Straight 06/26/2019 9: 25 AM TRAFFIC CONTROL OFFICER documented as of this encounter Plan of Treatment Not on file documented as of this encounter Visit Diagnoses Not on filedocumented in this encounter Additional Health Concerns Assessment Noted Time PHQ-9 Depression Total Score: 4 06/04/19 20 1:21 PM TRAFFIC CONTROL OFFICER documented as of this encounter Care Teams Weaver [employer] Relationship Specialty Start Date End Date Chris Toledo MD PCP - General Family Practice 12/07/17 Beba Munoz PA-C [facility] [address] [facility] [address] [place] [address] Physician Front Desk Assistant Physician Front Desk Assistant 12/07/17 Chris Gilbert MD [address] [place] [phone] Orthopedics 12/07/17 Ivette Rasmussen, RN Registered Nurse Nurse 01/12/18 Evelyn Alvarado MD [address] [place] [address] [phone] Family Medicine - Sports Medicine 01/08/19 Lyndsey Palacios MD PhD [address] [place] [address] Assigned PCP 08/08/20 Lyndsey Palacios MD PhD [address] [place] [address] Family Medicine 09/29/22 Ivon De Leon [facility] [address] [address] Pharmacist Pharmacist 10/07/22 Chris Burroughs PA-C [address] [address] Assigned Musculoskeletal Provider 07/15/23 documented as of this encounter
--- OUTSIDE RECORDS SUMMARY | 2023-09-12 12:56 | XMS_ITS | Encounter Summary ---
Author Name Unknown Organization [place] Address [address] [facility] [place] [address] Care Team Providers Care Flag Football Coach Name Role Phone Chris Toledo MD Primary Care Provider Beba Munoz PA-C Unavailable [phone] Chris Gilbert MD Unavailable Ivette Rasmussen RN Unavailable Kirsten Pardo RN Unavailable Donovan Peterson RN Unavailable Evelyn Alvarado MD Unavailable Chris Gilbert MD Unavailable [phone] Lyndsey Palacios MD PhD Unavailable + [phone] Chris Gilbert MD Unavailable [phone] Lyndsey Palacios MD PhD Unavailable [phone] Ivon De Leon [facility] Unavailable Chris Burroughs PA-C Unavailable +[phone] Encounter Details Date Type Department Care Team (Late st Contact Info) Description 05/30/2018 [facility] [address] [facility] [address] 4th [place] [address] Lyndsey Palacios MD PhD [address] [place], [place] [address] Social History Tobacco Use Types Packs/Day Years Used Date Smoking Tobacco: Never Smokeless Tobacco: Never PHQ-2 Answer Date Recorded PHQ-2 Score 2 05/09/2018 Sex and Gender Information Value Date Recorded Sex Assigned at Female 06/26/2019 9:26 AM OFFICE COMMUNICATION PROFESSOR Gender Identity Female 06/26/2019 9:25 AM OFFICE COMMUNICATION PROFESSOR Sexual Orientation Straight 06/26/2019 9: 25 AM OFFICE COMMUNICATION PROFESSOR documented as of this encounter Plan of Treatment Not on file documented as of this encounter Visit Diagnoses Not on filedocumented in this encounter Additional Health Concerns Assessment Noted Time PHQ-9 Depression Total Score: 7 05/29/19 19 10:09 AM OFFICE COMMUNICATION PROFESSOR documented as of this encounter Care Teams Flag Football Coach Relationship Specialty Start Date End Date Chris Toledo MD PCP - General Family Practice 12/07/17 Beba Munoz PA-C [facility] [address] [place] [address] Physician Physical Instructor Physician Physical Instructor 12/07/17 Chris Gilbert MD [facility] [address] [address] [address] Orthopedics 12/07/17 Ivette Rasmussen, RN Registered Nurse Nurse 01/12/18 Kirsten Pardo, RN Registered Nurse Urology 04/12/18 12/01/21 Donovan Peterson, RN Specialty Cardiac Cath Technologist Neurological Surgery 05/29/18 07/07/23 Evelyn Alvarado MD [address] [place] [address] 572957 Family Medicine - Sports Medicine 01/08/19 Chris Gilbert MD [address] [address] Assigned Musculoskeletal Provider 02/22/20 04/25/21 Lyndsey Palacios MD PhD [address] [place] [address] Assigned PCP 08/08/20 Chris Gilbert MD [facility] [address] [address] Assigned Musculoskeletal Provider 09/06/21 03/11/23 Lyndsey Palacios MD PhD [address] [place] [address] Family Medicine 09/29/22 Ivon De Leon, [facility] [address] [place] [address] Pharmacist Pharmacist 10/07/22 Chris Burroughs PA-C [address] [place] [address] Assigned Musculoskeletal Provider 07/15/23 documented as of this encounter
--- OUTSIDE RECORDS SUMMARY | 2023-09-12 12:56 | XMS_ITS | Encounter Summary ---
Author Name Unknown Organization [place] Address [address] [facility] [place] [address] Care Team Providers Care Feedlot Manager Name Role Phone Chris Toledo MD Primary Care Provider Beba Munoz PA-C Unavailable [phone] Chris Gilbert MD Unavailable Ivette Rasmussen RN Unavailable Kirsten Pardo RN Unavailable Donovan Peterson RN Unavailable Evelyn Alvarado MD Unavailable +[phone] Chris Gilbert MD Unavailable [phone] Lyndsey Palacios MD PhD Unavailable + [phone] Chris Gilbert MD Unavailable [phone] Lyndsey Palacios MD PhD Unavailable [phone] Ivon De Leon [facility] Unavailable Chris Burroughs PA-C Unavailable [phone] Reason for Visit * Reason Onset Date Comments Forms 08/16/2018 Additional clini paola information needed for PA Encounter Details Date Type Department Care Team (Late st Contact Info) Description 08/16/2018 Telephone [facility] [address] [facility] 4th [place] [address] Chris Gilbert MD [address] [place] [address] Forms (Additional clinical information needed for PA) Social History Tobacco Use Types Packs/Day Years Used Date Smoking Tobacco: Never Smokeless Tobacco: Never Alcohol Use Standard Drinks/Week Comments Yes 0 (1 standard drink = 0.6 oz pur e alcohol) rare PHQ-2 Answer Date Recorded PHQ-2 Score 2 05/09/2018 Sex and Gender Information Value Date Recorded Sex Assigned at Female 06/26/2019 9:26 AM SENIOR GOVERNMENT PROGRAM ANALYST Gender Identity Female 06/26/2019 9:25 AM SENIOR GOVERNMENT PROGRAM ANALYST Sexual Orientation Straight 06/26/2019 9: 25 AM SENIOR GOVERNMENT PROGRAM ANALYST documented as of this encounter Miscellaneous Notes * Telephone Encounter - Alla Teixeira - 08/16/2018 3:18 PM CDT [facility] Call Center Phone Message May a detailed [...] filled out and faxed to [facility] [phone], attn Precertification. Please advise. Action Taken: Message routed to: [facility] Ortho documented in this encounter Plan of Treatment Not on file documented as of this encounter Visit Diagnoses Not on filedocumented in this encounter Additional Health Concerns Assessment Noted Time PHQ-9 Depression Total Score: 7 05/29/19 19 10:09 AM SENIOR GOVERNMENT PROGRAM ANALYST documented as of this encounter Care Teams Feedlot Manager Relationship Specialty Start Date End Date Chris Toledo MD PCP - General Family Practice 12/07/17 Beba Munoz PA-C [facility] [address] [place] [address] Physician Station Usher Physician Station Usher 12/07/17 Chris Gilbert MD [facility] [address] [address] Orthopedics 12/07/17 Ivette Rasmussen, RN Registered Nurse Nurse 01/12/18 Kirsten Pardo, RN Registered Nurse Urology 04/12/18 12/01/21 Donovan Peterson, RN Specialty Pan Washer Neurological Surgery 05/29/18 07/07/23 Evelyn Alvarado MD [address] [place] [address] Family Medicine - Sports Medicine 01/08/19 Chris Gilbert MD [facility] [address] Assigned Musculoskeletal Provider 02/22/20 04/25/21 Lyndsey Palacios MD PhD [address] [place] [address] Assigned PCP 08/08/20 Chris Gilbert MD [address] [address] Assigned Musculoskeletal Provider 09/06/21 03/11/23 Lyndsey Palacios MD PhD [address] [place] [address] Family Medicine 09/29/22 Ivon De Leon, [facility] [address] [phone] Pharmacist Pharmacist 10/07/22 Chris Burroughs PA-C [address] [place] [address] Assigned Musculoskeletal Provider 07/15/23 documented as of this encounter
--- OUTSIDE RECORDS SUMMARY | 2023-09-12 12:56 | XMS_ITS | Encounter Summary ---
Author Name Unknown Organization [place] Address [address] [facility] [place] [address] Care Team Providers Care Auto Refinisher Name Role Phone Chris Toledo MD Primary Care Provider Beba Munoz PA-C Unavailable [phone] Chris Gilbert MD Unavailable [phone] Ivette Rasmussen RN Unavailable Donovan Peterson RN Unavailable Evelyn Alvarado MD Unavailable [phone] Lyndsey Palacios MD PhD Unavailable [phone] Lyndsey Palacios MD PhD Unavailable + [phone] Ivon De Leon [facility] Unavailable Reason for Referral * Consultation (Routine) - Pending Review Specialty Diagnoses / Procedures Referred By Contshira t Referred To Contact Diagnoses Bilateral hip pain Chris Gilbert MD [address] [place] [address] Chris Burroughs PA-C [facility] [address] [facility] [place] [address] Referral ID Status Reason Start Date Expiration Date V isits Requested Visits Authorized [id number] Pending Review 07/01/2023 06/30/2024 1 1 Question Answer Consult Type: Hip Type: Non-Surgical Ortho/Sports Med My clinical question is: Bilat Hip pain relieved by injections by Primary provider Scheduling Instructions: [facility] Orthopedic Supervisor Operations will call you to coordinate your care as prescribed by your provider. A sales representative raw fibers will call you within 2 business days to help you schedule your appointment, or you may contact the Supervisor Operations City Designer at: . Comments Please be aware that coverage of these services is subject to the terms and limitations of your health insurance plan. Call member services at your health plan with any benefit or coverage questions. [facility] Orthopedic Supervisor Operations will call you to coordinate your care as prescribed by your provider. A sales representative raw fibers will call you within 2 business days to help you schedule your appointment, or you may contact the Supervisor Operations City Designer at: . ICAL DATA PROGRAMMER Reason for Visit * Reason Onset Date Comments Clinic Care Coordination - Follow-up 06/30/2023 Encounter Details Date Type Department Care Team (Latest Contact Info) Description 06/30/2023 MyC Medical Advice [facility] [place] [address] [facility] [address] 4th [place] [address] Chris Gilbert MD [address] [place] [address] Clinic Care Coordination - Follow-up Social History [...] Sex Assigned at Female 06/26/2019 9:26 AM CLINICAL DATA PROGRAMMER Gender Identity Female 06/26/2019 9:25 AM CLINICAL DATA PROGRAMMER Sexual Orientation Straight 06/26/2019 9: 25 AM CLINICAL DATA PROGRAMMER documented as of this encounter Miscellaneous Notes [...] done & pt agreed & will call [phone] to schedule with sports provider. I informed pt I will place consult order. Call back prn. Pt agreed. Ivette Rasmussen RN. ICAL DATA PROGRAMMER documented in this encounter Plan of Treatment Scheduled Referrals Name Type Priority Associated Diagnoses Orde r Schedule Orthopedic Supervisor Operations Referral Referral Routine Bilateral hip pain Expected: 07/01/2023 (Approximate), Expires: 06/30/2024 documented as of this encounter Visit Diagnoses Diagnosis Bilateral hip pain- Primary Pain in joint, pelvic region and thigh documented in this encounter Additional Health Concerns Assessment Noted Time PHQ-9 Depression Total Score: 4 06/04/19 20 1:21 PM CLINICAL DATA PROGRAMMER documented as of this encounter Care Teams Auto Refinisher Relationship Specialty Start Date End Date Chris Toledo MD PCP - General Family Practice 12/07/17 Beba Munoz PA-C [facility] [address] [place] [address] Physician Senior Data Architect Physician Senior Data Architect 12/07/17 Chris Gilbert MD [facility] [facility] [address] [place] [address] Orthopedics 12/07/17 Ivette Rasmussen RN Registered Nurse Nurse 01/12/18 Donovan Peterson RN Specialty Coating Machine Operator Helper Neurological Surgery 05/29/18 07/07/23 Evelyn Alvarado MD [address] [place] [id number] Family Medicine - Sports Medicine 01/08/19 Lyndsey Palacios MD PhD [address] [place] [id number] Assigned PCP 08/08/20 Lyndsey Palacios MD PhD [address] [place] [address] [id number] Family Medicine 09/29/22 Ivon De Leon, [facility] [address] [place] [address] Pharmacist Pharmacist 10/07/22 documented as of this encounter
--- OUTSIDE RECORDS SUMMARY | 2023-09-12 12:56 | XMS_ITS | Encounter Summary ---
Author Name Unknown Organization [place] Address [address] [facility] [place] [place] [address] Care Team Providers Care Pattern Marker Name Role Phone Chris Toledo MD Primary Care Provider Beba Munoz PA-C Unavailable [phone] Chris Gilbert MD Unavailable [phone] Ivette Rasmussen RN Unavailable Donovan Peterson RN Unavailable Evelyn Alvarado MD Unavailable [phone] Lyndsey Palacios MD PhD Unavailable [phone] Lyndsey Palacios MD PhD Unavailable + [phone] Ivon De Leon [facility] Unavailable Encounter Details Date Type [...] Sex Assigned at Female 06/26/2019 9:26 AM RADIOLOGY SCHEDULER Gender Identity Female 06/26/2019 9:25 AM RADIOLOGY SCHEDULER Sexual Orientation Straight 06/26/2019 9: 25 AM RADIOLOGY SCHEDULER documented as of this encounter Plan of Treatment Not on file documented as of this encounter Visit Diagnoses Not on filedocumented in this encounter Additional Health Concerns Assessment Noted Time PHQ-9 Depression Total Score: 4 06/04/19 20 1:21 PM RADIOLOGY SCHEDULER documented as of this encounter Care Teams Pattern Marker Relationship Specialty Start Date End Date Chris Toledo MD PCP - General Family Practice 12/07/17 Beba Munoz PA-C [facility] [address] [facility] [address] [place] [address] Physician Automobile Relocation Engineer Physician Automobile Relocation Engineer 12/07/17 Chris Gilbert MD [address] [place] [address] Orthopedics 12/07/17 Ivette Rasmussen, RN Registered Nurse Nurse 01/12/18 Donovan Peterson, RN Specialty Chlorination Operator Neurological Surgery 05/29/18 07/07/23 Evelyn Alvarado MD [address] [place] [address] Family Medicine - Sports Medicine 01/08/19 Lyndsey Palacios MD PhD [address] [place] [address] Assigned PCP 08/08/20 Lyndsey Palacios MD PhD [address] [place] [address] Family Medicine 09/29/22 Ivon De Leon, [facility] [address] [address] Pharmacist Pharmacist 10/07/22 documented as of this encounter
--- OUTSIDE RECORDS SUMMARY | 2023-09-12 12:56 | XMS_ITS | Encounter Summary ---
Author Name Unknown Organization [place] Address [address] [facility] [place] [address] Care Team Providers Care Riveting Machine Operator Tape Control Name Role Phone Chris Toledo MD Primary Care Provider Beba Munoz PA-C Unavailable [phone] Chris Gilbert MD Unavailable Ivette Rasmussen RN Unavailable Kirsten Pardo RN Unavailable Donovan Peterson RN Unavailable Evelyn Alvarado MD Unavailable [phone] Chris Gilbert MD Unavailable [phone] Lyndsey Palacios MD PhD Unavailable + [phone] Chris Gilbert MD Unavailable [phone] Lyndsey Palacios MD PhD Unavailable [phone] Ivon De Leon [facility] Unavailable Chris Burroughs PA-C Unavailable [phone] Reason for Visit * Reason Onset Date Comments Appointment 04/10/2018 Urodynamics - pr e surgery Encounter Details Date Type Department Care Team (Late st Contact Info) Description 04/10/[address] [facility] Urology and [facility] [address] [facility] [address] 4th [place] [address] None Appointment (Urodynamics - pre surgery) Social History Tobacco Use Types Packs/Day Years Used Date Smoking Tobacco: Never Assessed Sex and Gender Information Value Date Recorded Sex Assigned at Female 06/26/2019 9:26 AM BUSINESS OBJECTS Gender Identity Female 06/26/2019 9:25 AM BUSINESS OBJECTS Sexual Orientation Straight 06/26/2019 9: 25 AM BUSINESS OBJECTS documented as of this encounter Miscellaneous Notes * Telephone Encounter - Dionne Plaza - 04/10/2018 8:55 AM CST [facility] Call Center Phone Message May a detailed message be left on voicemail: yes Reason for Call: Other: Patient called in to make an appointment prior to a surgery she said she issupposed to have sometime in May with Dr. Gilbert in orthopedics. Referral for Urodynamic Flow Study Fluroscopy in [facility]. Pt asked me to send a message to the care team for any possible appts in Decor May since we are booked out a ways. Please call pt to discuss/schedule. Thank you. Action Taken: Message routed to: [facility] Urology NESS OBJECTS documented in this encounter Plan of Treatment Not on file documented as of this encounter Visit Diagnoses Not on filedocumented in this encounter Care Teams Riveting Machine Operator Tape Control Relationship Specialty Start Date End Date Chris Toledo MD PCP - General Family Practice 12/07/17 Beba Munoz PA-C [facility] [address] [place] [address] Physician Glove Wrapper Physician Glove Wrapper 12/07/17 Chris Gilbert MD [address] [place] [address] Orthopedics 12/07/17 Ivette Rasmussen, RN Registered Nurse Nurse 01/12/18 Kirsten Pardo, RN Registered Nurse Urology 04/12/18 12/01/21 Donovan Peterson, RN Specialty Truck Rental Service Attendant Neurological Surgery 05/29/18 07/07/23 Evelyn Alvarado MD [address] [place] [address] Family Medicine - Sports Medicine 01/08/19 Chris Gilbert MD [address] [place] [address] Assigned Musculoskeletal Provider 02/22/20 04/25/21 Lyndsey Palacios MD PhD [address] [place] [address] 646655 Assigned PCP 08/08/20 Chris Gilbert MD [address] [place] [address] Assigned Musculoskeletal Provider 09/06/21 03/11/23 Lyndsey Palacios MD PhD [address] [place] [address] Family Medicine 09/29/22 Ivon De Leon, [facility] [address] [place] [address] Pharmacist Pharmacist 10/07/22 Chris Burroughs PA-C [address] [place] [address]644 Assigned Musculoskeletal Provider 07/15/23 documented as of this encounter
--- OUTSIDE RECORDS SUMMARY | 2023-09-12 12:56 | XMS_ITS | Encounter Summary ---
Author Name Unknown Organization [place] Address [address] [place] [address] Care Team Providers Care Blanker Press Operator Name Role Phone Chris Toledo MD Primary Care Provider [phone] Beba Munoz PA-C Unavailable [phone] Chris Gilbert MD Unavailable [phone] Ivette Rasmussen RN Unavailable Kirsten Pardo RN Unavailable Donovan Peterson RN Unavailable Evelyn Alvarado MD Unavailable +[phone] Lyndsey Palacios MD PhD Unavailable [phone] Chris Gilbert MD Unavailable [phone] Lyndsey Palacios MD PhD Unavailable Ivon De Leon [facility] Unavailable Chris Burroughs PA-C Unavailable [phone] Reason for Visit * Reason Onset Date Comments Injections 06/25/2021 Prolia Encounter Details Date Type Department Care Team (Late st Contact Info) Description 06/25/2021 Telephone [facility] [address] 3[address] Floor,[address] [facility] [address] [place] [address] Education, p [facility] Nurse Injections (Prolia) Social History Tobacco Use Types Packs/Day Years Used Date Smoking Tobacco: Never Smokeless Tobacco: Never Alcohol Use Standard Drinks/Week Comments Yes 0 (1 standard drink = 0.6 oz pur e alcohol) rare PHQ-2 Answer Date Recorded PHQ-2 Score 0 08/18/2020 Sex and Gender Information Value Date Recorded Sex Assigned at Female 06/26/2019 9:26 AM FORMING PROCESS LINE WORKER Gender Identity Female 06/26/2019 9:25 AM FORMING PROCESS LINE WORKER Sexual Orientation Straight 06/26/2019 9: 25 AM FORMING PROCESS LINE WORKER documented as of this encounter Miscellaneous Notes * Telephone Encounter - Kevin Ivette - 06/25/2021 1:37 PM [facility] Call Center Phone Message May a detailed message be left on voicemail: yes Reason for Call: Patient would like to schedule her prolia injection. Please reach out to patient. Action Taken: Message routed to: [facility] Travel Screening: Not Applicable ING PROCESS LINE WORKER documented in this encounter Plan of Treatment Not on file documented as of this encounter Visit Diagnoses Not on filedocumented in this encounter Additional Health Concerns Assessment Noted Time PHQ-9 Depression Total Score: 4 06/04/19 20 1:21 PM FORMING PROCESS LINE WORKER documented as of this encounter Care Teams Blanker Press Operator Relationship Specialty Start Date End Date Chris Toledo MD PCP - General Family Practice 12/07/17 Beba Munoz PA-C [facility] [address] [place] [address] Physician Ink Grinder Physician Ink Grinder 12/07/17 Chris Gilbert MD [address] [place] [address] Orthopedics 12/07/17 Ivette Rasmussen, RN Registered Nurse Nurse 01/12/18 Kirsten Pardo, RN Registered Nurse Urology 04/12/18 12/01/21 Donovan Peterson, RN Specialty Poiser Balance Neurological Surgery 05/29/18 07/07/23 Evelyn Alvarado MD [address] [place] [address] Family Medicine - Sports Medicine 01/08/19 Lyndsey Palacios MD PhD [address] [place] [address] Assigned PCP 08/08/20 Chris Gilbert MD [facility] [address] [address] Assigned Musculoskeletal Provider 09/06/21 03/11/23 Lyndsey Palacios MD PhD [address] [place] [address] Family Medicine 09/29/22 Ivon De Leon, [facility] [address] [place] [address] Pharmacist Pharmacist 10/07/22 Chris Burroughs PA-C [facility] [address] [address] Assigned Musculoskeletal Provider 07/15/23 documented as of this encounter
--- OUTSIDE RECORDS SUMMARY | 2023-09-12 12:56 | XMS_ITS | Encounter Summary ---
Author Name Unknown Organization [place] Address [address] [facility] [place] [address] Care Team Providers Care Assembly Member Name Role Phone Chris Toledo MD Primary Care Provider Beba Munoz PA-C Unavailable [phone] Chris Gilbert MD Unavailable Ivette Rasmussen RN Unavailable Kirsten Pardo RN Unavailable Donovan Peterson RN Unavailable Evelyn Alvarado MD Unavailable [phone] Lyndsey Palacios MD PhD Unavailable [phone] Chris Gilbert MD Unavailable [phone] Lyndsey Palacios MD PhD Unavailable [phone] Ivon De Leon [facility] Unavailable [phone] Chris Burroughs PA-C Unavailable [phone] Encounter Details Date Type Department Care Team [...] Sex Assigned at Female 06/26/2019 9:26 AM COLD STRIP FEEDER Gender Identity Female 06/26/2019 9:25 AM COLD STRIP FEEDER Sexual Orientation Straight 06/26/2019 9: 25 AM COLD STRIP FEEDER COVID-19 Exposure Response Date Recorded In the [...] Total Score: 4 06/04/19 20 1:21 PM COLD STRIP FEEDER documented as of this encounter Care Teams Assembly Member Relationship Specialty Start Date End Date Chris Toledo MD PCP - General Family Practice 12/07/17 Beba Munoz PA-C [facility] [address] [place] [address] Physician Bleach Maker Physician Bleach Maker 12/07/17 Chris Gilbert MD [facility] [address] 7509[address] Orthopedics 12/07/17 Ivette Rasmussen, RN Registered Nurse Nurse 01/12/18 Kirsten Pardo, RN Registered Nurse Urology 04/12/18 12/01/21 Donovan Peterson, RN Specialty Photogrammetric Tech Neurological Surgery 05/29/18 07/07/23 Evelyn Alvarado MD [address] [place], [place] [address] Family Medicine - Sports Medicine 01/08/19 Lyndsey Palacios MD PhD [address] [place] [address] Assigned PCP 08/08/20 Chris Gilbert MD [facility] [id number] [place] [address] Assigned Musculoskeletal Provider 09/06/21 03/11/23 Lyndsey Plaacios MD PhD [address] [place] [address] Family Medicine 09/29/22 Ivon De Leon, [facility] [address] [place] [address] Pharmacist Pharmacist 10/07/22 Chris Burroughs PA-C [facility] [address] [address] Assigned Musculoskeletal Provider 07/15/23 documented as of this encounter
--- OUTSIDE RECORDS SUMMARY | 2023-09-12 12:56 | XMS_ITS | Encounter Summary ---
Author Name Unknown Organization [place] Address [address] [facility] [place] [address] Care Team Providers Care Sweet Pickle Maker Name Role Phone Chris Toledo MD Primary Care Provider [phone] Beba uMnoz PA-C Unavailable [phone] Chris Gilbert MD Unavailable Ivette Rasmussen RN Unavailable Kirsten Pardo RN Unavailable Donovan Peterson RN Unavailable Evelyn Alvarado MD Unavailable Chris Gilbert MD Unavailable [phone] Lyndsey Palacios MD PhD Unavailable + [phone] Chris Gilbert MD Unavailable [phone] Lyndsey Palacios MD PhD Unavailable [phone] Ivon De Leon [facility] Unavailable Chris Burroughs PA-C Unavailable [phone] Reason for Visit * Reason Onset Date Comments Prior Auth - Medication 09/05/2018 hydrOXYz ine (ATARAX) 25 MG tablet-PA approved Encounter Details Date Type Department Care Team (Late st Contact Info) Description 09/05/2018 Telephone [facility] [address] [facility] [address] [place] [address] Surendra Adams MD 9 [place], [place] [id number] Prior Auth - Medication (hydrOXYzine (ATARAX) 25 [...] Sex Assigned at Female 06/26/2019 9:26 AM DICE MANAGER Gender Identity Female 06/26/2019 9:25 AM DICE MANAGER Sexual Orientation Straight 06/26/2019 9: 25 AM DICE MANAGER documented as of this encounter Miscellaneous Notes * Telephone Encounter - Shobha Lancaster - 09/07/2018 9:10 AM CDT Images from the original note were not included. Prior Authorization Approval Authorization Effective Date: 04/30/2018 Authorization Expiration Date: 05/01/2019 Medication: hydrOXYzine (ATARAX) 25 MG tablet-PA approved Approved Dose/Quantity: Reference #: Insurance Company: [employer] - [employer] [phone] Expected CoPay: CoPay Card Available: Foundation Assistance Needed: Which Pharmacy is filling the prescription (Not needed for infusion/clinic administered): [facility], [facility] [address] [facility] Pharmacy Notified: Yes Patient Notified: No-Pharmacy will contact * Telephone Encounter - Shobha Lancaster - 09/06/2018 2:36 PM CDT Provided additional information to insurance via phone. * Telephone Encounter - Shobha Lancaster - 09/06/2018 11:37 AM CDT Images from the original note were not included. Central Prior Authorization Team PA Initiation Medication: hydrOXYzine (ATARAX) 25 MG tablet-PA initiated Insurance Company: [employer] - Pharmacy Filling the Rx: [facility], [place] - [address] [facility] Filling Pharmacy Filling Pharmacy Fax: Start Date: [...] Total Score: 7 05/29/19 19 10:09 AM DICE MANAGER documented as of this encounter Care Teams Sweet Pickle Maker Relationship Specialty Start Date End Date Chris Toledo MD PCP - General Family Practice 12/07/17 Beba Munoz PA-C [facility] [address] [place] [address] Physician Community Health Navigator Physician Community Health Navigator 12/07/17 Chris Gilbert MD [facility] [place] [address] Orthopedics 12/07/17 Ivette Rasmussen, RN Registered Nurse Nurse 01/12/18 Kirsten Pardo, JACKIE Registered Nurse Urology 04/12/18 12/01/21 Donovan Peterson, RN Specialty 1St Grade Teacher Neurological Surgery 05/29/18 07/07/23 Evelyn Alvarado MD 9 [place], [place] [phone] Family Medicine - Sports Medicine 01/08/19 Chris Gilbert MD [facility] [place] [address] [id number] Assigned Musculoskeletal Provider 02/22/20 04/25/21 Lyndsey Palacios MD PhD [address] [place] [address] [id number] Assigned PCP 08/08/20 Chris Gilbert MD [facility] [place] [address] [id number] Assigned Musculoskeletal Provider 09/06/21 03/11/23 Lyndsey Palacios MD PhD [address] [place] [address] [id number] Family Medicine 09/29/22 Ivon De Leon, [facility] [address] [id number] Pharmacist Pharmacist 10/07/22 Chris Burroughs PA-C [facility] [place] [address] Assigned Musculoskeletal Provider 07/15/23 documented as of this encounter
--- OUTSIDE RECORDS SUMMARY | 2023-09-12 12:56 | XMS_ITS | Encounter Summary ---
Author Name Unknown Organization [place] Address [address] [facility] [place] [address] Care Team Providers Care Plating Inspector Name Role Phone Chris Toledo MD Primary Care Provider Beba Munoz PA-C Unavailable [phone] Chris Gilbert MD Unavailable Ivette Rasmussen RN Unavailable Donovan Peterson RN Unavailable Evelyn Alvarado MD Unavailable [phone] Lyndsey Palacios MD PhD Unavailable [phone] Chris Gilbert MD Unavailable [phone] Lyndsey Palacios MD PhD Unavailable Ivon De Leon [facility] Unavailable [phone] Chris Burroughs PA-C Unavailable Encounter Details Date Type Department Care Team (Late st Contact Info) Description 10/07/2022 [facility] Women's [facility] PROFESSIONAL BLD [address] [place] [address] Ivon De Leon, [facility] [address] [place] [address] Social History Tobacco Use Types Packs/Day Years Used Date Smoking Tobacco: Never Smokeless Tobacco: Never Alcohol Use Standard Drinks/Week Comments Yes 0 (1 standard drink = 0.6 oz pur e alcohol) rare PHQ-2 Answer Date Recorded PHQ-2 Score 1 10/04/2022 Sex and Gender Information Value Date Recorded Sex Assigned at Female 06/26/2019 9:26 AM REPLACER Gender Identity Female 06/26/2019 9:25 AM REPLACER Sexual Orientation Straight 06/26/2019 9: 25 AM REPLACER COVID-19 Exposure Response Date Recorded In the [...] Total Score: 4 06/04/19 20 1:21 PM REPLACER documented as of this encounter Care Teams Plating Inspector Relationship Specialty Start Date End Date Chris Toledo MD PCP - General Family Practice 12/07/17 Beba Munoz PA-C [facility] [address] [place] [address] Physician Research Neuropsychologist Physician Research Neuropsychologist 12/07/17 Chris Gilbert MD [facility] [place] [address] Orthopedics 12/07/17 Ivette Rasmussen, RN Registered Nurse Nurse 01/12/18 Donovan Peterson, RN Specialty Glass Presser Neurological Surgery 05/29/18 07/07/23 Evelyn Alvarado MD [address] [place] [address] Family Medicine - Sports Medicine 01/08/19 Lyndsey Palacios MD PhD [address] [place] [address] Assigned PCP 08/08/20 Chris Gilbert MD [facility] [address] Assigned Musculoskeletal Provider 09/06/21 03/11/23 Lyndsey Palacios MD PhD [address] [place] [address] Family Medicine 09/29/22 Ivon De Leon, [facility] [address] [place] [address] Pharmacist Pharmacist 10/07/22 Chris Burroughs PA-C [address] [place] [address] Assigned Musculoskeletal Provider 07/15/23 documented as of this encounter
--- OUTSIDE RECORDS SUMMARY | 2023-09-12 12:56 | XMS_ITS | Encounter Summary ---
Author Name Unknown Organization [place] Address [address] [facility] [place] [address] Care Team Providers Care Entry Level Drafter Name Role Phone Chris Toledo MD Primary Care Provider Beba Munoz PA-C Unavailable [phone] Chris Gilbert MD Unavailable Ivette Rasmussen RN Unavailable Kirsten Pardo RN Unavailable Donovan Peterson RN Unavailable Evelyn Alvarado MD Unavailable [phone] Chris Gilbert MD Unavailable [phone] Lyndsey Palacios MD PhD Unavailable [phone] Chris Gilbert MD Unavailable [phone] Lyndsey Palacios MD PhD Unavailable [phone] Ivon De Leon [facility] Unavailable Chris Burroughs PA-C Unavailable [phone] Reason for Visit * Reason Onset Date Comments Medication Question 01/08/2019 Patient's ph ysican wants her to start prednisone. Encounter Details Date Type Department Care Team (Late st Contact Info) Description 01/08/2019 Telephone [facility] [address] [facility] [address] [place] [phone] Evelyn Alvarado MD [address] [place] [address] [phone] Medication Question (Patient's physican wants her to start prednisone.) Social History Tobacco Use Types Packs/Day Years Used Date Smoking Tobacco: Never Smokeless Tobacco: Never Alcohol Use Standard Drinks/Week Comments Yes 0 (1 standard drink = 0.6 oz pur e alcohol) rare PHQ-2 Answer Date Recorded PHQ-2 Score 1 10/04/2018 Sex and Gender Information Value Date Recorded Sex Assigned at Female 06/26/2019 9:26 AM GAME AGENT Gender Identity Female 06/26/2019 9:25 AM GAME AGENT Sexual Orientation Straight 06/26/2019 9: 25 AM GAME AGENT documented as of this encounter Miscellaneous Notes [...] Loren Alcantara - 01/08/2019 11:09 AM CDT [facility] Phone Message May a [...] routed to: [facility] Orth[facility] documented in this encounter Plan of Treatment Not on file documented as of this encounter Visit Diagnoses Not on filedocumented in this encounter Additional Health Concerns Assessment Noted Time PHQ-9 Depression Total Score: 7 05/29/19 19 10:09 AM GAME AGENT documented as of this encounter Care Teams Entry Level Drafter Relationship Specialty Start Date End Date Chris Toledo MD PCP - General Family Practice 12/07/17 Beba Munoz PA-C [facility] [address] [place] [address] Physician Communications Administrator Physician Communications Administrator 12/07/17 Chris Gilbert MD [facility] [place] [address] Orthopedics 12/07/17 Ivette Rasmussen, RN Registered Nurse Nurse 01/12/18 Kirsten Pardo, RN Registered Nurse Urology 04/12/18 12/01/21 Donovan Peterson, RN Specialty Carpet Sewer Neurological Surgery 05/29/18 07/07/23 Evelyn Alvarado MD 9 [place] [address] Family Medicine - Sports Medicine 01/08/19 Chris Gilbert MD [facility] [place] [address] Assigned Musculoskeletal Provider 02/22/20 04/25/21 Lyndsey Palacios MD PhD [address] [place] [address] Assigned PCP 08/08/20 Chris Gilbert MD [facility] [address] Assigned Musculoskeletal Provider 09/06/21 03/11/23 Lyndsey Palacios MD PhD [address] [place] [address] [phone] Family Medicine 09/29/22 Ivon De Leon, [facility] [address] [place] [address] Pharmacist Pharmacist 10/07/22 Chris Burroughs PA-C [facility] [address] Assigned Musculoskeletal Provider 07/15/23 documented as of this encounter
--- OUTSIDE RECORDS SUMMARY | 2023-09-12 12:56 | XMS_ITS | Encounter Summary ---
Author Name Unknown Organization [place] Address [address] [facility] [place] [address] Care Team Providers Care Driver Helper Name Role Phone Chris Toledo MD Primary Care Provider Beba Munoz PA-C Unavailable [phone] Chris Gilbert MD Unavailable [phone] Ivette Rasmussen RN Unavailable Kirsten Pardo RN Unavailable Donovan Peterson RN Unavailable Evelyn Alvarado MD Unavailable [phone] Lyndsey Palacios MD PhD Unavailable [phone] Chris Gilbert MD Unavailable [phone] Lyndsey Palacios MD PhD Unavailable [phone] Ivon De Leon [facility] Unavailable Chris Burroughs PA-C Unavailable [phone] Encounter Details Date Type Department Care Team (Late st Contact Info) Description 08/27/2021 [facility] Medical Advice [facility] [place] [id number] [facility] [address] [place] [address] Lo Waktins LPN Social History Tobacco Use Types Packs/Day Years Used Date Smoking Tobacco: Never Smokeless Tobacco: Never Alcohol Use Standard Drinks/Week Comments Yes 0 (1 standard drink = 0.6 oz pur e alcohol) rare PHQ-2 Answer Date Recorded PHQ-2 Score 0 08/18/2020 Sex and Gender Information Value Date Recorded Sex Assigned at Female 06/26/2019 9:26 AM HAIRSPRING TRUER Gender Identity Female 06/26/2019 9:25 AM HAIRSPRING TRUER Sexual Orientation Straight 06/26/2019 9: 25 AM HAIRSPRING TRUER COVID-19 Exposure Response Date Recorded In the [...] Total Score: 4 06/04/19 20 1:21 PM HAIRSPRING TRUER documented as of this encounter Care Teams Driver Helper Relationship Specialty Start Date End Date Chris Toledo MD PCP - General Family Practice 12/07/17 Beba Munoz PA-C [facility] [address] [place] [address] Physician Receiving Associate Store Physician Receiving Associate Store 12/07/17 Chris Gilbert MD Formerly named [facility] [place] [address] Orthopedics 12/07/17 Ivette Rasmussen, RN Registered Nurse Nurse 01/12/18 Kirsten Pardo, RN Registered Nurse Urology 04/12/18 12/01/21 Donovan Peterson, RN Specialty Glassware Maker Demonstrator Neurological Surgery 05/29/18 07/07/23 Evelyn Alvarado MD 9 [place] [address] Family Medicine - Sports Medicine 01/08/19 Lyndsey Palacios MD PhD [address] [place] [address] Assigned PCP 08/08/20 Chris Gilbert MD Formerly named [facility] [place] [address] Assigned Musculoskeletal Provider 09/06/21 03/11/23 Lyndsey Palacios MD PhD [address] [place] [address] Family Medicine 09/29/22 Ivon De Leon, [facility] [address] [place] [address] [phone] Pharmacist Pharmacist 10/07/22 Chris Burroughs PA-C Formerly named [facility] [address] Assigned Musculoskeletal Provider 07/15/23 documented as of this encounter
== END 2023-09-12 12:49 | disposition home or self-care (01) ==
LOC: RAD 12:50
PROVIDERS: PCP Family Medicine; Visit Provider Family Medicine
DX: R60.9 Edema, unspecified (principal); I34.0 Nonrheumatic mitral (valve) insufficiency
CPT/HCPCS: 93306

== ENCOUNTER 2023-11-23 09:05 | Outpatient (CLI) | payer MEDICARE, SELFPAY ==
--- OUTSIDE RECORDS SUMMARY | 2023-11-25 09:16 | XMS_ITS | Clinical Summary ---
Author Organization [facility] Address [place], [place] [address] Care Team Providers Care Mobile Manager Name Role Phone Shefali Schrader MD Primary Care Provider + Allergies Active [...] 137 mcg/actuation (ASTELIN) nasal spray Inhale 1 Radisson in the nostril(s) 2 times daily. 1 [...] tablet 05/12/2018 Active gabapentin (NEURONTIN) 600 mg tabletIndications:Product Merchandiser bennett bilateral low back pain without sciatica [...] 10 mg tablet 06/13/2019 Act lamar Insulin [place], Disposable, (BD INSULIN PEN NEEDLE UF MINI) [...] reflux 07/27/2006 04/28/2015 Allergic rhinitis 07/27/2006 05/03/2015 Encounters Date Type Department Care Team Description 09/12/2023 1:00 PM CDT Ancillary Procedure [facility] [address] [address] 09/12/2023 Travel from Last 3 Months Immunizations Name Administration Dates Next Due AMB Influenza, IIV3 (Age 6-3 5 mos) Preserve Free (Flu Clinic Only) 02/09/2011 AMB Influenza, IIV3 (Age >=3 years)(Flu Clinic Only) 01/19/2012,02/05/2009,02/21/2008 Influenza A (H1N1), Inactiva radha (Age >=3 Years) 05/22/2009 Influenza, High-dose Inactivated 03/18/2017,0909/2013 Influenza, IIV3 (Age >=3 years) 01/06/20 14,01/17/2013,02/13/2010,2009,02/22/2007,03/07/2006 [...] Body Mass Index 32.98 05/15/2018 2:17 PM FOURTH MATE Plan of Treatment Health Maintenance Due Date [...] 03/18/2017 , 02/14/2016, 01/23/2015 (Completed outside of [facility] [address]), Additional history exists Colonoscopy through age 75 [...] to goal achievement: waiting to close on townhouse. Patient steps toward goal achievement: In process of purchasing [place]. Navigator steps to support goal achievement: Advised [...] town home and anticipates moving into [place] in the next 4 to 6 weeks. Date of follow up: no follow up needed. Patient will contact clinic if she has housing issues/concerns. Lidya Taveras RN ............... 12/01/2017 12:49 PM Procedures Procedure Name Priority Date/Time Associated Diagnosis Comments ECHO TTE COMPLETE WO CONTRAST Routine 09/12/2023 1:31 PM CDT Edema, unspecified XR MAMMO BILAT SCREENING Routine 08/08/2017 9:21 AM CDT Screening breast examination LIPID PANEL W REFLEX MEASURED LDL Routine 04/18/2017 11:23 AM FOURTH MATE Hyperlipidemia, unspecified hyperlipidemia type COLONOSCOPY SCREENING Routine 06/30/2016 Screening XR DXA BONE DENSITY 2 SITES AXIAL Routine 04/28/2015 10:50 AM FOURTH MATE Osteoporosis from Last 3 Months or Most Recently Relevant to Health Maintenance Results * ECHO TTE COMPLETE WO CONTRAST (09/12/2023 1:31 PM CDT) AORTIC VALVE MEAN PG 3 mmHg EJECTION FRACTION 74 % PEAK TR VELOCITY 2.8 m/s LVEDD 4.8 cm Anatomical Region Laterality Modality Ultrasound 09/12/2023 1:13 PM CDT Narrative 09/12/2023 1:48 PM CDT ECHOCARDIOGRAM KATEPRIYANKA ESPOSITO ?Accession#: ?? [id number] : ?1950 73 years Study Date: ?? 09/12/2023 1:13:00 PM Gender: F ? BP: ? 112/63 mmHg Height: 130.00 cm ? BSA: ?1.53 m? ? ? Weight: 74.00 kg ?Tech: ? MSR ?Referring MD: SHEFALI SCHRADER Site: ? [facility] Reading Location: Mobile OP Patient Location: Outpatient. Procedure: 2D, Color Doppler and Spectral Doppler. Indication for study: Edema, unspecified Cardiac Rhythm: Regular.Study quality: Final Impressions: 1. Normal left ventricular size, normal wall thickness, normal global systolic function, calculated EF of 74 %. 2. Right ventricular cavity size is normal, global systolic RV function is normal. 3. The mitral valve is normal, mild mitral regurgitation. 4. The inferior vena cava is normal sized, respiratory size variation greater than 50%. 5. No pericardial effusion. Comparison There are no prior studies on this patient for comparison purposes. Chamber Sizes and Function Normal left ventricular size, normal wall thickness, normal global systolic function, calculated EF of 74 %. No definite resting regional wall motion abnormality seen. Left atrial size is normal. Right ventricular cavity size is normal, global systolic RV function is normal. RV wall thickness is normal. The right atrium is normal. The pulmonary artery is not well visualized. The sinus of Valsalva is normal sized. The ascending aorta is normal sized. Valves, RV Pressures and Diastolic Function The aortic valve is normal in structure and trileaflet, no stenosis and no regurgitation. The mitral valve is normal in structure, mild mitral regurgitation. Indeterminate pattern of LV diastolic filling. The tricuspid valve is normal in structure. Tricuspid regurgitation is mild regurgitation. The tricuspid regurgitant velocity is 2.8 m/s, the estimated right ventricular systolic pressure is 30 mmHg plus right atrial pressure. The pulmonic valve is not well visualized. No pulmonary regurgitation. Masses, Effusion, Shunts There is no pericardial effusion. The inferior vena cava is normal sized, respiratory size variation greater than 50%. Interatrial septum is not well visualized. MEASUREMENTS AND CALCULATIONS 2-D Measurements and LV Function: LVID (d) 4.8 cm Planimetered EF 74 % LVID (s) 3.0 cm LV FS% (2D) ? 38 % IVS (d) ??0.9 cm LVOT diameter ?? 2.0 cm LVPW (d) 1.0 cm HR ?68 bpm Ao Sinus 3.8 cm LA Vol index ?26 ml/m2 Asc Ao ?? 3.2 cm RV Max 4C (d) ?? 3.5 cm Diastology: Mitral ?Tissue Doppler E Peak 0.7 m/s ??e', Septum ? 0.06 m/s A Peak 1.0 m/s ??e', Lateral ?0.09 m/s E/A ?0.7 ?E/e' Average ?? 9.30 DT ? 226 msec Aortic Valve: Vmax ? 1.2 m/s ??TONYA (V) ?? 2.95 cm? ? ? VTI ?0.28 m ?? TONYA (I) ?? 2.63 cm? ? ? LVOT V max 1.1 m/s ??Max PG ?5 mmHg LVOT VTI ?? 0.23 m ?? Mean PG ?? 3 mmHg SV ? 73 ml ?Dim Index 0.84 SV index ?? 48 ml/m? ? ? CO ?4.9 l/min ?CI ?3.2 l/min/m? ? ? Mitral Valve: MVA ?3.4 cm? ? ? MV P 1/2 66 msec Tricuspid Valve and estimated PA pressures: TR Vmax 2.8 m/s TAPSE 1.9 cm TR maxG 30 mmHg . This study was interpreted by an [facility] accredited facility. CC: [facility] (med records) [facility]. ??Final ?? Procedure Note Donavan Felder MD - 09/12/2023 ECHOCARDIOGRAM KATE ESPOSITO : 1950 73 years Study Date: 09/12/2023 1:13:00 PM Gender: F BP: 112/63 mmHg Height: 130.00 cm BSA: 1.53 m? ? ? Weight: 74.00 kg Tech: WILLOW Referring MD: SHEFALI SCHRADER Site: [facility] Reading Location: Mobile OP Patient Location: Outpatient. Procedure: 2D, Color Doppler and Spectral Doppler. Indication for study: Edema, unspecified Cardiac Rhythm: Regular.Study quality: Final Impressions: 1. Normal left ventricular size, normal wall thickness, normal globalsystolic function, calculated EF of 74 %. 2. Right ventricular cavity size is normal, global systolic RV functionis normal. 3. The mitral valve is normal, mild mitral regurgitation. 4. The inferior vena cava is normal sized, respiratory size variationgreater than 50%. 5. No pericardial effusion. Comparison There are no prior studies on this patient for comparison purposes. Chamber Sizes and Function Normal left ventricular size, normal wall thickness, normal globalsystolic function, calculated EF of 74 %. No definite resting regionalwall motion abnormality seen. Left atrial size is normal. Rightventricular cavity size is normal, global systolic RV function is normal.RV wall thickness is normal. The right atrium is normal. The pulmonaryartery is not well visualized. The sinus of Valsalva is normal sized. Theascending aorta is normal sized. Valves, RV Pressures and Diastolic Function The aortic valve is normal in structure and trileaflet, no stenosis and noregurgitation. The mitral valve is normal in structure, mild mitralregurgitation. Indeterminate pattern of LV diastolic filling. Thetricuspid valve is normal in structure. Tricuspid regurgitation is mildregurgitation. The tricuspid regurgitant velocity is 2.8 m/s, theestimated right ventricular systolic pressure is 30 mmHg plus right atrialpressure. The pulmonic valve is not well visualized. No pulmonaryregurgitation. Masses, Effusion, Shunts There is no pericardial effusion. The inferior vena cava is normal sized,respiratory size variation greater than 50%. Interatrial septum is notwell visualized. MEASUREMENTS AND CALCULATIONS 2-D Measurements and LV Function: LVID (d) 4.8 cm Planimetered EF 74 % LVID (s) 3.0 cm LV FS% (2D) 38 % IVS (d) 0.9 cm LVOT diameter 2.0 cm LVPW (d) 1.0 cm HR 68 bpm Ao Sinus 3.8 cm LA Vol index 26 ml/m2 Asc Ao 3.2 cm RV Max 4C (d) 3.5 cm Diastology: Mitral Tissue Doppler E Peak 0.7 m/s e', Septum 0.06 m/s A Peak 1.0 m/s e', Lateral 0.09 m/s E/A 0.7 E/e' Average 9.30 DT 226 msec Aortic Valve: Vmax 1.2 m/s TONYA (V) 2.95 cm? ? ? VTI 0.28 m TONYA (I) 2.63 cm? ? ? LVOT V max 1.1 m/s Max PG 5 mmHg LVOT VTI 0.23 m Mean PG 3 mmHg SV 73 ml Dim Index 0.84 SV index 48 ml/m? ? ? CO 4.9 l/min CI 3.2 l/min/m? ? ? Mitral Valve: MVA 3.4 cm? ? ? MV P 1/2 66 msec Tricuspid Valve and estimated PA pressures: TR Vmax 2.8 m/s TAPSE 1.9 cm TR maxG 30 mmHg . This study was interpreted by an [facility] accredited facility. CC: [facility] ([facility]) [facility]. Final Shefali Schrader MD ECHO ORD * XR MAMMO BILAT SCREENING (08/08/2017 9:21 AM CDT) Anatomical Region Laterality Modality BREASTS, Breast Left, Breast Right Bilateral Mammography Impressions 08/08/2017 1:33 PM CDT ??There is no radiographic evidence for malignancy. ??Recommend annual mammograms. A lay language report of this examination will be provided to the patient. MAMMOGRAM ASSESSMENT: ??ACR 2 Benign Narrative 08/08/2017 1:33 PM CDT XR MAMMO BILAT SCREENING [[id number]] CLINICAL HISTORY: ??This is an asymptomatic 67 y.o. patient. INDICATION FOR EXAM: Mammogram Screening. TECHNIQUE: CC & MLO views were obtained. ??This digital study was evaluated with the assistance of Computer-Aided Detection. COMPARISON FILMS: Yes 08/06/16 [facility] FINDINGS: ??Mammographically, the breast tissue is almost entirely fat. No suspicious masses or microcalcifications. ??Benign appearing calcifications within both breasts. Shefali Schrader MD MAMMO * LIPID PANEL W REFLEX MEASURED LDL (04/18/2017 11:23 AM FOURTH MATE) CHOLESTEROL,TOTAL 163 100 - 199 mg/dL 04/18/2017 12:19 PM FOURTH MATE [facility] TRIGLYCERIDES 135 <150 mg/dL 04/18/2017 12:19 PM [facility] HDL CHOLESTEROL 59 >40 mg/dL 7 12:19 PM [facility] NON-HDL CHOLESTEROL 104 <145 mg/dl 04/18/2017 12:19 PM FOURTH MATE [facility] CHOL/HDL RATIO 2.76 <4.50 04/18/2017 12:19 PM [facility] LDL CHOLESTEROL 77 <=130 mg/dL 04/18/2017 12:19 PM FOURTH MATE [facility] PROVIDER ORDERED STATUS RANDOM 04/18/2017 12:19 PM FOURTH MATE [facility] Blood BLOOD SPECIMEN / Unknown Venipuncture / Unknown 04/18/2017 11:23 AM FOURTH MATE 04/18/2017 11:23 AM FOURTH MATE Shefali Schrader MD CHEMISTRY [address] [address] * COLONOSCOPY SCREENING (06/30/2016) Edgar Acuna MD GI PROCEDURE ORD * (ABNORMAL) XR DXA BONE DENSITY 2 SITES (04/28/2015 10:50 AM FOURTH MATE) Anatomical Region Laterality Modality Spine, HIPS, HIPL, HIPR Bone Den sitometry Narrative 04/30/2015 1:55 PM FOURTH MATE Please see scanned document for results of this study. Shefali Schrader MD DEXA from Last 3 Months or Most Recently Relevant to Health Maintenance Advance Directives Documents on File Type Date Recorded Patient Nuclear Monitoring Technician Expl anation Healthcare Directive 08/18/2017 3:34 PM Healthcare Directive 06/28/2016 4:48 PM Healthcare Directive 12/21/2011 12:00 AM A DVANCED DIRECTIVE Healthcare Directive 05/29/2009 12:00 AM A DVANCE DIRECTIVE Care Teams Mobile Manager Relationship Specialty Start Date End Date Shefali Schrader MD [address] [place] [id number] PCP - General Family Practice 10/11/18
--- OUTSIDE RECORDS SUMMARY | 2023-11-25 09:17 | XMS_ITS | Encounter Summary ---
Author Organization [facility] Address [address] [facility] [place] [address] Care Team Providers Care Satellite Communications Operator Name Role Phone Chris Toledo MD Primary Care Provider Beba Munoz PA-C Unavailable [phone] Chris Gilbert MD Unavailable Ivette Rasmussen RN Unavailable Evelyn Alvarado MD Unavailable Lyndsey Palacios MD PhD Unavailable [phone] Lyndsey Palacios MD PhD Unavailable [phone] Ivon De Leon [facility] Unavailable Chris Mendoza PA-C Unavailable Reason for Visit * Reason Comments Follow Up Follow Up * Consultation (Routine) - Pending Review Specialty Diagnoses / Procedures Referred By Rishabh t Referred To Contact Diagnoses Bilateral hip pain Chris Gilbert MD [address] [place] [address] Chris [facility]endoza PA-C [facility] [address] [place] [address] Referral ID Status Reason Start Date Expiration Date V isits Requested Visits Authorized [id number] Pending Review 07/01/2023 06/30/2024 1 1 Encounter Details Date Type Department Care Team (Late st Contact Info) Description 08/23/2023 1:20 PM CDT Office Visit [facility] Sports Medicine [facility] [address] [facility] [address] [place] [address] [place] [address] [place], [place] [address] Primary osteoarthritis of right hip (Primary Dx); [...] Sex Assigned at Female 06/26/2019 9:26 AM RECRUITING ADMINISTRATOR Gender Identity Female 06/26/2019 9:25 AM RECRUITING ADMINISTRATOR Sexual Orientation Straight 06/26/2019 9: 25 AM RECRUITING ADMINISTRATOR documented as of this encounter Last Filed [...] intra-articular cortisone injection -Call direct clinic number [[phone]] at any time with questions or concerns. Sylvester Joe MD [facility] Orthopedics and Sports Medicine [facility] documented in this encounter Progress Notes * [...] intra-articular cortisone injection -Call direct clinic number [[phone]] at any time with questions or concerns. Sylvester Joe MD [facility] Orthopedics and Sports Medicine [facility] ----- SUBJECTIVE: Giselle Esposito is a 73 [...] pubic symphysis. DARRIUS ZULUAGA MD SYSTEM ID: [id number] Large Joint Injection/Arthocentesis: R hip joint Date/Time: [...] procedure were permanently stored. Sylvester Joe MD, [facility] documented in this encounter Plan of Treatment Upcoming Encounters Date Type Department Care Team (Late st Contact Info) Description 12/03/2023 10:00 AM CDT Office Visit [facility] [place] [address] [place] [address] [place] [address] [place] [address] 10/10/2024 1:30 PM CDT Office Visit [facility] Clinic [address] [place] [address] Lyndsey Palacios MD [address] [address] documented as of this encounter Procedures Procedure Name Priority Date/Time Associated Diagnosis Comments ID ARTHROCENTESIS ASPIR&/INJ MAJOR JT/BURSA W/US Routine 08/23/2023 1:57 PM CDT Primary osteoarthritis of right hip documented in this encounter Results * ID ARTHROCENTESIS ASPIR&/INJ MAJOR JT/BURSA [...] injection 8 mL 8 mL, Starting on Tu08/23/23 at 1357 $Given 08/23/2023 1:57 PM CDT 8 mLs methylPREDNISolone (DEPO-Medrol) injection 40 mg 40 mg, Starting on Tue08/23/23 at 1357 $Given 08/23/2023 1:57 PM CDT 40 mg documented in this encounter Additional Health Concerns Assessment Noted Time PHQ-9 Depression Total Score: 4 06/04/19 20 1:21 PM RECRUITING ADMINISTRATOR documented as of this encounter Care Teams Satellite Communications Operator Relationship Specialty Start Date End Date Chris Toledo MD PCP - General Family Practice 12/07/17 Beba Munoz PA-C [facility] [address] [place] [address] Physician Telecommunications Specialist Physician Telecommunications Specialist 12/07/17 Chris Gilbert MD [facility] [address] [place] [address] Orthopedics 12/07/17 Ivette Rasmussen, RN Registered Nurse Nurse 01/12/18 Evelyn Alvarado MD [address] [place] [address] Family Medicine - Sports Medicine 01/08/19 Lyndsey Palacios MD PhD [address] [place] [address] [id number] Assigned PCP 08/08/20 Lyndsey Palacios MD PhD [address] [place] [address] Family Medicine 09/29/22 Ivon De Leon, [facility] [address] [place] [address] Pharmacist Pharmacist 10/07/22 Chris Mendoza PA-C [address] [place] [address] Assigned Musculoskeletal Provider 07/15/23 09/21/23 documented as of this encounter
--- OUTSIDE RECORDS SUMMARY | 2023-11-25 09:17 | XMS_ITS | Encounter Summary ---
Author Organization [facility] Address [address] [place] [address] Care Team Providers Care Director Workers Compensation Name Role Phone Chris Toledo MD Primary Care Provider Beba Munoz PA-C Unavailable [phone] Chris Gilbert MD Unavailable [phone] Ivette Rasmussen RN Unavailable Evelyn Alvarado MD Unavailable Lyndsey Palacios MD PhD Unavailable [phone] Lyndsey Palacios MD PhD Unavailable [phone] Ivon De Leon [facility] Unavailable Chris Burroughs PA-C Unavailable [phone] Reason for Visit * Reason Comments Follow Up * Consultation (Routine) - Pending Review Specialty Diagnoses / Procedures Referred By Rishabh t Referred To Contact Diagnoses Bilateral hip pain Chris Gilbert MD [address] [place] [address] Chris Burroughs PA-C [facility] [address] [place] [address] Referral ID Status Reason Start Date Expiration Date V isits Requested Visits Authorized [id number] Pending Review 07/01/2023 06/30/2024 1 1 Encounter Details Date Type Department Care Team (Late st Contact Info) Description 09/06/2023 1:20 PM CDT Office Visit [facility] [place] [address] [facility] [address] [place] [address] [place] [address] [place], [place] [phone] Primary localized osteoarthritis of left hip (Primary [...] Sex Assigned at Female 06/26/2019 9:26 AM DIAMOND BLENDER Gender Identity Female 06/26/2019 9:25 AM DIAMOND BLENDER Sexual Orientation Straight 06/26/2019 9: 25 AM DIAMOND BLENDER documented as of this encounter Patient Instructions * Patient Instructions* Sylvester Joe MD - 09/06/2023 1:20 PM CDT 1. Primary localized osteoarthritis of left hip -Patient is following up for left hip pain due to arthritis -Patient tolerated left hip intra-articular cortisone injection today without complications. Patient was given postprocedure instructions -Patient will follow-up when pain returns -Call direct clinic number [[phone]] at any time with questions or concerns. Sylvester Joe MD [facility] Orthopedics and Sports Medicine [facility] documented in this encounter Progress [...] when pain returns -Call direct clinic number [[phone]] at any time with questions or concerns. Sylvester Joe MD [facility] Orthopedics and Sports Medicine [facility] ----- SUBJECTIVE: Giselle Esposito is [...] procedure were permanently stored. Sylvester Joe MD, [facility] documented in this encounter Plan of Treatment Upcoming Encounters Date Type Department Care Team (Late st Contact Info) Description 12/03/2023 10:00 AM CDT Office Visit [address] [place] [address] [place] [id number] [place], [place] [address], [place] [address] 10/10/2024 1:30 PM CDT Office Visit [facility] [address] [place] [phone] Lyndsey Palacios MD PhD [address] [place] [phone] documented as of this encounter Procedures Procedure Name Priority Date/Time Associated Diagnosis Comments [place] ARTHROCENTESIS ASPIR&/INJ MAJOR JT/BURSA W/US Routine 09/06/2023 1:21 PM CDT Primary localized osteoarthritis of left hip documented in this encounter Results * [place] ARTHROCENTESIS ASPIR&/INJ MAJOR JT/BURSA W/US (09/06/2023 1:21 [...] Total Score: 4 06/04/19 20 1:21 PM DIAMOND BLENDER documented as of this encounter Care Teams Director Workers Compensation Relationship Specialty Start Date End Date Chris Toledo MD PCP - General Family Practice 12/07/17 Beba Munoz PA-C [facility] [address] [place] [address] Physician Therapeutic Recreation Assistant Physician Therapeutic Recreation Assistant 12/07/17 Chris Gilbert MD [facility] [place] [address] [place] [address] Orthopedics 12/07/17 Ivette Rasmussen, RN Registered Nurse Nurse 01/12/18 Evelyn Alvarado MD [address] [place] [address] [phone] Family Medicine - Sports Medicine 01/08/19 Lyndsey Palacios MD PhD [address] [place] [address] [phone] Assigned PCP 08/08/20 Lyndsey Palacios MD PhD [address] [place], [place] [address] Family Medicine 09/29/22 Ivon De Leon, [facility] [address] [address] Pharmacist Pharmacist 10/07/22 Chris Burroughs PA-C [address] [place] [address] Assigned Musculoskeletal Provider 07/15/23 09/21/23 documented as of this encounter
--- OUTSIDE RECORDS SUMMARY | 2023-11-25 09:17 | XMS_ITS | Encounter Summary ---
Author Organization [place] Address [address] [facility] [place] [address] Care Team Providers Care Vocational Nurse Lvn Name Role Phone Chris Toledo MD Primary Care Provider Beba Munoz PA-C Unavailable [phone] Chris Gilbert MD Unavailable Ivette Rasmussen RN Unavailable Kirsten Pardo RN Unavailable Donovan Peterson RN Unavailable Evelyn Alvarado MD Unavailable +[phone] Lyndsey Palacios MD PhD Unavailable + [phone] Chris Gilbert MD Unavailable [phone] Lyndsey Palacios MD PhD Unavailable [phone] Ivon De Leon [facility] Unavailable [phone] Chris Burroughs PA-C Unavailable [phone] Sylvester Joe MD Unavailable Encounter Details Date Type Department Care Team (Late st Contact Info) Description 08/27/2021 [facility] Orth[facility] [address] [facility] [address] 4th [place] [address] Lo Watkins LPN Social History Tobacco Use Types Packs/Day Years Used Date Smoking Tobacco: Never Smokeless Tobacco: Never Alcohol Use Standard Drinks/Week Comments Yes 0 (1 standard drink = 0.6 oz pur e alcohol) rare PHQ-2 Answer Date Recorded PHQ-2 Score 0 08/18/2020 Sex and Gender Information Value Date Recorded Sex Assigned at Female 06/26/2019 9:26 AM CAPTAIN FIRE PREVENTION BUREAU Gender Identity Female 06/26/2019 9:25 AM CAPTAIN FIRE PRE[employer]ION [employer]UREAU Sexual Orientation Straight 06/26/2019 9: 25 AM CAPTAIN FIRE PREVENTION BUREAU COVID-19 Exposure Response Date Recorded In the last 10 days, have yo u been in contact with someone who was confirmed or suspected to have Coronavirus/COVID-19? No / Unsure 08/27/2021 10:01 AM CDT documented as of this encounter Plan of Treatment Upcoming Encounters Date Type Department Care Team (Late st Contact Info) Description 12/03/2023 10:00 AM CDT Office Visit [facility] Sports Medicine [address] [place] [address] [place] [address] [address] 10/10/2024 1:30 PM CDT Office Visit [facility] [address] [phone] Lyndsey Palacios MD [address] [id number] documented as of this encounter Visit Diagnoses Not on filedocumented in this encounter Additional Health Concerns Assessment Noted Time PHQ-9 Depression Total Score: 4 06/04/19 20 1:21 PM CAPTAIN [employer]RE [employer]UREAU documented as of this encounter Care Teams Vocational Nurse Lvn Relationship Specialty Start Date End Date Chris Toledo MD PCP - General Family Practice 12/07/[address] PA-C [facility] [address] [place] [address] Physician Heavy Machinery Operator Physician Heavy Machinery Operator 12/07/17 Chris Gilbert MD [address] [place] [address] Orthopedics 12/07/17 Ivette Rasmussen, RN Registered Nurse Nurse 01/12/18 Kirsten Pardo, RN Registered Nurse Urology 04/12/18 12/01/21 Donovan Peterson, RN Specialty Television Cabinet Finisher Neurological Surgery 05/29/18 07/07/23 Evelyn Alvarado MD [address] [place] [address] Family Medicine - Sports Medicine 01/08/19 Lyndsey Palacios MD PhD [address] [place] [address] Assigned PCP 08/08/20 Chris Gilbert MD [address] [place] [address] Assigned Musculoskeletal Provider 09/06/21 03/11/23 Lyndsey Palacios MD PhD [address] [place] [address] Family Medicine 09/29/22 Ivon De Leon, [facility] [address] [facility] [address] [place] [address] Pharmacist Pharmacist 10/07/22 Chris Burroughs PA-C [address] [place] [address] Assigned Musculoskeletal Provider 07/15/23 09/21/23 [place] [address] [place] [address] [place] [address] Assigned Musculoskeletal Provider 09/22/23 documented as of this encounter
--- OUTSIDE RECORDS SUMMARY | 2023-11-25 09:17 | XMS_ITS | Encounter Summary ---
Author Organization [place] Address [address] [facility] [place] [address] Care Team Providers Care Concession Supervisor Name Role Phone Chris Toledo MD Primary Care Provider Beba Munoz PA-C Unavailable [phone] Chris Gilbert MD Unavailable [phone] Ivette Rasmussen RN Unavailable Evelyn Alvarado MD Unavailable +[phone] Lyndsey Palacios MD PhD Unavailable + [phone] Lyndsey Palacios MD PhD Unavailable + [phone] Ivon De Leon [facility] Unavailable Chris Burroughs PA-C Unavailable [phone] Encounter Details Date Type Department Care Team [...] Sex Assigned at Female 06/26/2019 9:26 AM INSPECTOR GENERAL Gender Identity Female 06/26/2019 9:25 AM INSPECTOR GENERAL Sexual Orientation Straight 06/26/2019 9: 25 AM INSPECTOR GENERAL documented as of this encounter Plan of Treatment Upcoming Encounters Date Type Department Care Team (Late st Contact Info) Description 12/03/2023 10:00 AM CDT Office Visit [facility] [place] [address] [place] [address] [place] [address] [facility] [address] [place] [address] 10/10/2024 1:30 PM CDT Office Visit [facility] [address] 4th [place] [phone] Lyndsey Palacios MD PhD [address] [place] [id number] documented as of this encounter Visit Diagnoses Not on filedocumented in this encounter Additional Health Concerns Assessment Noted Time PHQ-9 Depression Total Score: 4 06/04/19 20 1:21 PM INSPECTOR GENERAL documented as of this encounter Care Teams Concession Supervisor Relationship Specialty Start Date End Date Chris Toledo MD PCP - General Family Practice 12/07/17 Beba Munoz PA-C [facility] [address] [facility] [address] [place] [address] Physician Integration Engineer Physician Integration Engineer 12/07/17 Chris Gilbert MD [address] [place] [address] Orthopedics 12/07/17 Ivette Rasmussen, RN Registered Nurse Nurse 01/12/18 Evelyn Alvarado MD [address] [place] [address] Family Medicine - Sports Medicine 01/08/19 Lyndsey Palacios MD PhD [address] [place] [address] Assigned PCP 08/08/20 Lyndsey Palacios MD PhD [address] [place] [address] Family Medicine 09/29/22 Ivon De Leon, [facility] [address] [place] [address] Pharmacist Pharmacist 10/07/22 Chris Burroughs PA-C [address] [place] [address] Assigned Musculoskeletal Provider 07/15/23 09/21/23 documented as of this encounter
--- OUTSIDE RECORDS SUMMARY | 2023-11-25 09:17 | XMS_ITS | Clinical Summary ---
Author Organization [place] Address [address] [facility] [place] [address] Care Team Providers Care Carbide Operator Name Role Phone Chris Toledo MD Primary Care Provider Beba Munoz PA-C Unavailable [phone] Chris Gilbert MD Unavailable Ivette Rasmussen RN Unavailable Evelyn Alvarado MD Unavailable [phone] Lyndsey Palacios MD PhD Unavailable [phone] Lyndsey Palacios MD PhD Unavailable [phone] Ivon De Leon [facility] Unavailable Sylvester Joe MD Unavailable Allergies Active Allergy Reactions Criticality Noted Date Comments Other (Do Not Use) Unknown 07/08/2019 cough Shellfish Allergy 08/16/2022 Simvastatin Muscle Pain (Myalgia) 10/02/2006 Medications Medication Sig Dispensed Refills Start Date End Date Status albuterol (PROAIR HFA/PROVENTIL HFA/VENTOLIN HFA) 108 (90 Base) MCG/ACT inhaler Inhale 2 puffs into the lungs every 4 hours as needed 06/22/2013 Active azelastine (ASTELIN) 0.1 % nasal spray [place] 2 sprays into both nostrils 2 times [...] Active fluticasone (FLONASE) 50 MCG/ACT nasal spray [place] 2 sprays into both nostrils 2 times [...] 5 mg by mouth At Bedtime Active [place]-3 Fatty Acids (FISH OIL) 1200 MG capsule [...] Encounters Date Type Department Care Team Description 11/23/2023 2:00 PM CDT Office Visit [facility] [address] [place] [address] Lyndsey Palacios MD PhD Senile osteoporosis (Primary Dx) 11/23/2023 Travel 11/18/2023 Travel 09/06/2023 1:20 PM CDT Office Visit [facility] [address] [place] [address] Sylvester Joe MD Primary localized osteoarthritis of left hip (Primary Dx) 09/06/2023 Travel 09/05/2023 Travel from Last 3 Months Immunizations Name Administration Dates Next Due COVID-19 MONOVALENT 12+ (Pfizer) 022,01/30/2021,07/25/2020,2020 COVID-19 Monovalent 12+ (Pfizer 2021) 08/08/2021 DTaP, Unspecified 09/01/2012 [id number] Novel Flu 05/22/2009 Influenza (H1N1) 05/22/2009 Influenza (High Dose) 3 enmanuel nt vaccine 02/13/2019,03/08/2018,03/18/2017,2015,01/13/2015,01/05/2014 Influenza (IIV3) PF 01/04/2014, 3,01/19/2012,2009,01/22/2010,02/05/2009,02/21/2008,1 ,03/07/2006,02/24/2005, 003 Influenza Vaccine 65+ (FLUAD) 02/01/2023 ,01/05/2022,01/30/2021,2019 Influenza Vaccine >6 months,quad, PF 09/2021,01/30/2021,01/29/2020,2018,03/08/2018,03/18/2017,02/14/2016,0 12/22/2015,01/23/2015,01/13/2015, 014,01/16/2013,01/19/2012,02/09/2011,,05/22/2009,02/05/2009,02/21/20 08,02/22/2007,02/24/2005,02/20/2003 Influenza, seasonal, injectable, PF 02/09/2011,0 01/22/2010 Pneumo Conj 13-V (2010&after) 10/05/2016 Pneumococcal 23 valent 04/28/2015 RSV Vaccine (Abrysvo) 03/04/2023 TDAP (Adacel,Boostrix) 09/01/2012 Td (Adult), Adsorbed 02/20/2003 [...] PHQ-2 Answer Date Recorded PHQ-2 Score 2 11/23/2023 Exercise Vital Sign Answer Date Recorde d On average, how many days pe r week do you engage in moderate to strenuous exercise (like a brisk walk)? 0 days 07/05/2023 On average, how many minutes do you engage in exercise at this level? 0 min 07/05/2023 Adolescent Education Answer Date Record ed Getting School Help Needed Not on file 02/15 Interpersonal Safety Answer Date Record ed Do you feel physically and e motionally safe where you currently live? Yes 11/23/2023 Within the past 12 months, h ave you been hit, slapped, kicked or otherwise physically hurt by someone? No 11/23/2023 Within the past 12 months, h ave you been humiliated or emotionally abused in other ways by your partner or ex-partner? No 11/23/2023 Sex and Gender Information Value Date Recorded Sex Assigned at Female 06/26/2019 9:26 AM FIRE MARSHAL REFINERY Gender Identity Female 06/26/2019 9:25 AM FIRE MARSHAL REFINERY Sexual Orientation Straight 06/26/2019 9: 25 AM FIRE MARSHAL REFINERY Last Filed Vital Signs Vital Sign Reading Time Taken Comments Blood Pressure 124/75 11/23/2023 1:42 PM CDT Pulse 71 11/23/2023 1:42 PM CDT Temperature 36.9 ??C (98.4 ??F) 06/29/2019 8:58 AM CS T Respiratory Rate 16 11/17/2018 1:29 PM CDT Oxygen Saturation 97% 11/23/2023 1:42 PM CDT Inhaled Oxygen Concentration - - Weight 73.7 kg (162 lb 6.4 oz) 11/23/2023 1:42 P M CDT Height 152.4 cm (5') 08/23/2023 1:13 PM CDT Body Mass Index 31.72 08/23/2023 1:13 PM CDT Plan of Treatment Upcoming Encounters Date Type Department Care Team (Late st Contact Info) Description 12/03/2023 10:00 AM CDT Office Visit [facility] [place] [address] [place] [address] [address] [place] [address] [place] [address] [place] [address] 10/10/2024 1:30 PM CDT Office Visit [facility] Primary Care [address] 4th [place] [address] Lyndsey Palacios MD PhD [address] [place] [address] Health Maintenance Due Date Last Done Comments ADVANCE CARE PLANNING 1950 ANNUAL REVIEW OF HM ORDERS 1950 CT COLONOGRAPHY 1950 FIT 1950 FLEX SIG 1950 LIPID 1950 sDNA (Cologuard) 1950 HEPATITIS C SCREENING 01/02/1968 MEDICARE ANNUAL WELLNESS VISIT 2015 DTAP/TDAP/TD IMMUNIZATION (3 - Td or Tdap) 09/01/2022 09/01/2012, 09/01/2012, 02/20/2003 GLUCOSE 01/24/2023 01/25/2020, 08/01, 08/23/2018, Additional history exists COVID-19 Vaccine ( season) 2023 02/02/2023, 01/05/2022, 08/08/2021, Additional history exists INFLUENZA VACCINE (#1) 2024 , 01/05/2022, 01/05/2022, Additional history exists MAMMO SCREENING 03/12/2024 03/12/2022, 08/07/2020, 12/03/2019, Additional history exists FALL RISK ASSESSMENT 11/22/2024 11/23/2023 COLONOSCOPY 06/30/2026 06/30/2016 COLORECTAL CANCER SCREENING 06/30/2026 DEXA 09/16/2037 09/16/2022, 06/02, 06/12/2020, Additional history exists Pneumococcal Vaccine: 65+ Years Completed 10/05/2016, 04/28/2015 ZOSTER IMMUNIZATION Completed 01/22/2019, 11/20/2018, 08/08/2014 RSV VACCINE ( & 60+) Completed 03/04/2023 PHQ-2 (once per calendar year) Completed 11/23/2023, 10/04/2022, 09/03/2021, Additional history exists HPV IMMUNIZATION Aged Out [...] this topic Medical Devices Implanted Type Area Automotive Fleet Supervisor Device Identifier Shelf Expiration Date Model / Serial / Lot Graft Bone Crush Canc 30ml [id number] Implanted:Qty : 1 on 08/21/2018 by Chris Gilbert MD at [facility] Bone/Tissu e/Biologic N/A: Spine Lumbar MUSCULOSKELETAL CAMPOS 04/28/2021 [id number] / [id number] / Graft Bone Crush Canc 30ml [id number] Implanted:Qty : 1 on 08/21/2018 by Chris Gilbert MD at [facility] Bone/Tissu e/Biologic N/A: Spine Lumbar MUSCULOSKELETAL CAMPOS 06/02/2021 [id number] / [id number] / [id number] Imp Scr Medt 5.5/6.0mm Solera 6.5x55mm Ma [id number] Implanted:Qty : 2 on 08/21/2018 by Chris Gilbert MD at [facility] Metallic Hardware/A nchor N/A: Spine Lumbar [employer] [id number] / / [id number] Imp Scr Medt 5.5/6.0mm Solera 5.5x50mm Ma [id number] Implanted:Qty : 2 on 08/21/2018 by Chris Gilbert MD at [facility] Metallic Hardware/A nchor N/A: Spine Lumbar [employer] [id number] / / [id number] Imp Scr Medt 5.5/6.0mm Solera 5.5x55mm Ma [id number] Implanted:Qty : 2 on 08/21/2018 by Chris Gilbert MD at [facility] Metallic Hardware/A nchor N/A: Spine Lumbar [employer] [id number] / / [id number] Imp Scr Medt 5.5/6.0mm Solera 6.5x45mm Ma [id number] Implanted:Qty : 2 on 08/21/2018 by Chris Gilbert MD at [facility] Metallic Hardware/A nchor N/A: Spine Lumbar [employer] [id number] / / [id number] Imp Scr Medt 5.5/6.0mm Solera 6.5x40mm Ma [id number] Implanted:Qty : 1 on 08/21/2018 by Chris Gilbert MD at [facility] Metallic Hardware/A nchor N/A: Spine Lumbar [employer] [id number] / / [id number] Imp Scr Medt 5.5/6.0mm Solera 5.5x40mm Ma [id number] Implanted:Qty : 3 on 08/21/2018 by Chris Gilbert MD at [facility] Metallic Hardware/A nchor N/A: Spine Lumbar [employer] [id number] / / [id number] Imp Scr Medt 5.5/6.0mm Solera 5.0x35mm Ma [id number] Implanted:Qty : 1 on 08/21/2018 by Chris Gilbert MD at [facility] Metallic Hardware/A nchor N/A: Spine Lumbar [employer] [id number] / / [id number] Imp Scr Medt 5.5/6.0mm Solera 4.5x35mm Ma [id number] Implanted:Qty : 1 on 08/21/2018 by Chris Gilbert MD at [facility] Metallic Hardware/A nchor N/A: Spine Lumbar [employer] [id number] / / [id number] Imp Scr Medt 5.5/6.0mm Solera 5.0x40mm Ma [id number] Implanted:Qty : 1 on 08/21/2018 by Chris Gilbert MD at [facility] Metallic Hardware/A nchor N/A: Spine Lumbar [employer] [id number] / / [id number] Imp Scr Medt 5.5/6.0mm Solera 4.5x40mm Ma [id number] Implanted:Qty : 1 on 08/21/2018 by Chris Gilbert MD at [facility] Metallic Hardware/A nchor N/A: Spine Lumbar [employer] [id number] / / [id number] Imp Dao Medt Solera Lined 5.3p427rj Chr [id number] Implanted:Qty : 3 on 08/21/2018 by Chris Gilbert MD at [facility] Metallic Hardware/A nchor N/A: Spine Lumbar [employer] [id number] / / [id number] Imp Scr Set Medt Solera Break Off 5.5mm Ti [id number] Implanted:Qty : 26 on 08/21/2018 by Chris Gilbert MD at [facility] Metallic Hardware/A nchor N/A: Spine Lumbar [employer] [id number] / [id number] / Imp Scr Medt 5.5/6.0mm Solera 7.5x40mm Ma [id number] Implanted:Qty : 2 on 08/21/2018 by Chrsi Gilbert MD at [facility] Metallic Hardware/A nchor N/A: Spine Lumbar [employer] [id number] / / [id number] Imp Scr Medt 5.5/6.0mm Solera 7.5x50mm Ma [id number] Implanted:Qty : 4 on 08/21/2018 by Chris Gilbert MD at [facility] Metallic Hardware/A nchor N/A: Spine Lumbar [employer] [id number] / / [id number] Imp Scr Medt 5.5/6.0mm Solera 7.5x55mm Ma [id number] Implanted:Qty : 2 on 08/21/2018 by Chris Gilbert MD at [facility] Metallic Hardware/A nchor N/A: Spine Lumbar [employer] [id number] / / [id number] Ballast Screw Implanted:Qty : 1 on 08/21/2018 by Chris Gilbert MD at [facility] N/A: Spine Lumbar [id number] / / [id number] Ballast Screw 9.5 X 90 Mm Implanted:Qty : 1 on 08/21/2018 by Chris Gilbert MD at [facility] N/A: Spine Lumbar [id number] / / [id number] Variable Angle [place] Implanted:Qty : 2 on 08/21/2018 by Janel Guillory MD at [facility] N/A: Spine Lumbar 07/14/2023 [id number] / / [id number] Capstone Control 10 X 22 Implanted:Qty : 1 on 08/21/2018 by Chris Gilbert MD at [facility] N/A: Spine Lumbar [employer] [id number] / / Explanted Type Area Automotive Fleet Supervisor Device Identifier Shelf Expiration Date Model / Serial / Lot Imp Scr Set Medt Solera Break Off 5.5mm Ti [id number] Explanted:Qty: 3 on 08/21/2018 at [facility] Metallic Hardware/Anc hor N/A: Spine Lumbar [employer] [id number] / / [id number] [place] Screws Explanted:Qty: 1 on 08/21/2018 by Chris Gilbert MD at [facility] Bilateral : Spine Lumbar Description:ALL ISOLA SPINE HARDWARE REMOVED LUMBAR AND THORACIC. Procedures Procedure Name Priority Date/Time Associated Diagnosis Comments [place] ARTHROCENTESIS ASPIR&/INJ MAJOR JT/BURSA W/US Routine 09/06/2023 1:21 PM CDT Primary localized osteoarthritis of left hip DEXA - HIM SCAN 09/16/2022 12:00 AM CDT MA EXTERNAL IMAGING 2D SCREENING Routine 03/12/2022 12:00 AM FIRE MARSHAL REFINERY BASIC METABOLIC PANEL Routine 01/25/2020 10:57 AM CDT Senile osteoporosis from Last 3 Months or Most Recently Relevant to Health Maintenance Results * TN ARTHROCENTESIS ASPIR&/INJ MAJOR JT/BURSA W/US (09/06/2023 1:21 [...] Joe MD PROCEDURE/MINOR SURG ICAL ORDERABLES * DEXA - HIM SCAN (09/16/2022 12:00 AM CDT) Anatomical Region Laterality Modality Other 09/16/2022 Provider Outside IMG DEXA ORDERABLES * MA External Imaging 2D Screening (03/12/2022 12:00 AM FIRE MARSHAL REFINERY) Narrative Service Account, Ob Sue - 10/14/2022 [...] - 14 mmol/L 01/25/2020 11:29 AM CDT [facility] Glucose 106(H) 70 - 99 mg/dL 01/25/2020 11:29 AM CDT [facility] Urea Nitrogen 15 7 - 30 mg/dL 01/25/2020 11:29 AM CDT [facility] Creatinine 0.92 0.52 - 1.04 mg/dL 01/25/2020 11:29 AM CDT [facility] GFR Estimate 63 >60 mL/min/{1 [...] LAB - BLOOD OR DERABLES [facility] [address] [place] [address] from Last 3 Months or Most Recently Relevant to Health Maintenance Care Teams Carbide Operator Relationship Specialty Start Date End Date Chris Toledo MD PCP - General Family Practice 12/07/17 Beba Munoz PA-C [facility] [address] [place] [address] Physician Medical Claims Specialist Physician Medical Claims Specialist 12/07/17 Chris Gilbert MD [address] [place] [address] Orthopedics 12/07/17 Ivette Rasmussen, RN Registered Nurse Nurse 01/12/18 Evelyn Alvarado MD [address] [place] [address] [id number] Family Medicine - Sports Medicine 01/08/19 Lyndsey Palacios MD PhD [address] [place] [address] Assigned PCP 08/08/20 Lyndsey Palacios MD PhD [address] [place] [address] Family Medicine 09/29/22 Ivon De Leon, [facility] [address] [address] Pharmacist Pharmacist 10/07/22 [place] [address] [place] [address] Assigned Musculoskeletal Provider 09/22/23
--- OUTSIDE RECORDS SUMMARY | 2023-11-25 09:17 | XMS_ITS | Encounter Summary ---
Author Organization [place] Address [address] [facility] [place] [address] Care Team Providers Care Call Or Contact Centre Manager Name Role Phone Chris Toledo MD Primary Care Provider [phone] Beba Munoz PA-C Unavailable [phone] Chris Gilbert MD Unavailable [phone] Ivette Rasmussen RN Unavailable Kirsten Pardo RN Unavailable Donovan Peterson RN Unavailable Evelyn Alvarado MD Unavailable Lyndsey Palacios MD PhD Unavailable + [phone] Chris Gilbert MD Unavailable [phone] Lyndsey Palacios MD PhD Unavailable Ivon De Leon [facility] Unavailable [phone] Chris Burroughs PA-C Unavailable [phone] Sylvester Joe MD Unavailable Reason for Visit * Reason Onset Date Comments Injections 06/25/2021 Prolia Encounter Details Date Type Department Care Team (Late st Contact Info) Description 06/25/2021 Telephone [facility] [address] 3rd [address] [place] [facility] [address] [place] [phone] Education, p s Obgyn Nurse Injections (Prolia) Social History Tobacco Use Types Packs/Day Years Used Date Smoking Tobacco: Never Smokeless Tobacco: Never Alcohol Use Standard Drinks/Week Comments Yes 0 (1 standard drink = 0.6 oz pur e alcohol) rare PHQ-2 Answer Date Recorded PHQ-2 Score 0 08/18/2020 Sex and Gender Information Value Date Recorded Sex Assigned at Female 06/26/2019 9:26 AM CORPORATE DEVELOPMENT INTERN Gender Identity Female 06/26/2019 9:25 AM CORPORATE DEVELOPMENT INTERN Sexual Orientation Straight 06/26/2019 9: 25 AM CORPORATE DEVELOPMENT INTERN documented as of this encounter Miscellaneous Notes * Telephone Encounter - Ivette Brown - 06/25/2021 1:37 PM CST [facility] Call Center Phone Message May a detailed message be left on voicemail: yes Reason for Call: Patient would like to schedule her prolia injection. Please reach out to patient. Action Taken: Message routed to: [facility] Travel Screening: Not Applicable ORATE DEVELOPMENT INTERN documented in this encounter Plan of Treatment Upcoming Encounters Date Type Department Care Team (Late st Contact Info) Description 12/03/2023 10:00 AM CDT Office Visit [facility] [place] [address] [facility] [address] [place] [address] [place] [id number] [place] [address] [address] [place] [address] 10/10/2024 1:30 PM CDT Office Visit [facility] [address] 4th [place] [address] Lyndsey Palacios MD PhD [address] [place] [id number] documented as of this encounter Visit Diagnoses Not on filedocumented in this encounter Additional Health Concerns Assessment Noted Time PHQ-9 Depression Total Score: 4 02/03/20 20 1:21 PM CORPORATE DEVELOPMENT INTERN documented as of this encounter Care Teams Call Or Contact Centre Manager Relationship Specialty Start Date End Date Chris Toledo MD PCP - General Family Practice 12/07/17 Beba Munoz PA-C [facility] [address] [place] [address] Physician Risk Management Manager Physician Risk Management Manager 12/07/17 Chris Gilbert MD [address] [address] Orthopedics 12/07/17 Ivette Rasmussen, RN Registered Nurse Nurse 01/12/18 Kirsten Pardo, RN Registered Nurse Urology 04/12/18 12/01/21 Donovan Peterson, RN Specialty Parts Counter Specialist Neurological Surgery 05/29/18 07/07/23 Evelyn Alvarado MD [address] [place] [address] Family Medicine - Sports Medicine 01/08/19 Lyndsey Palacios MD PhD [address] [place] [address] Assigned PCP 08/08/20 Chris Gilbert MD [address] [place] [address] Assigned Musculoskeletal Provider 09/06/21 03/11/23 Lyndsey Palacios MD PhD [address] [place] [address] Family Medicine 09/29/22 Ivon De Leon, [facility] [address] [address] Pharmacist Pharmacist 10/07/22 Chris Burroughs PA-C [address] [place] [address] Assigned Musculoskeletal Provider 07/15/23 09/21/23 [place] [address] [place] [address] [place] [address] Assigned Musculoskeletal Provider 09/22/23 documented as of this encounter
--- OUTSIDE RECORDS SUMMARY | 2023-11-25 09:17 | XMS_ITS | Encounter Summary ---
Author Organization [place] Address [address] [facility] [place] [address] Care Team Providers Care Genetic Coordinator Name Role Phone Chris Toledo MD Primary Care Provider Beba Munoz PA-C Unavailable [phone] Chris Gilbert MD Unavailable Ivette Rasmussen RN Unavailable Evelyn Alvarado MD Unavailable [phone] Lyndsey Palacios MD PhD Unavailable + [phone] Lyndsey Palacios MD PhD Unavailable + [phone] Ivon De Leon [facility] Unavailable Sylvester Joe MD Unavailable Reason for Referral * Diagnostic Imaging Dexa (Routine) - Pending Review Specialty Diagnoses / Procedures Referred By Contac t Referred To Contact Radiology. Diagnoses Senile osteoporosis Procedures DX Bone Density Lyndsey Palacios MD PhD [address] [place] [address] Referral ID Status Reason Start Date Expiration Date V isits Requested Visits Authorized [id number] Pending Review 11/23/2023 11/22/2024 1 1 Reason for Visit * Reason Comments Follow Up Follow up on bone de nsity Osteoporosis Encounter Details Date Type Department Care Team (Late st Contact Info) Description 11/23/2023 2:00 PM CDT Office Visit [facility] [address] 4th [place] [address] Lyndsey Palacios MD PhD [address] [place] [address] Senile osteoporosis (Primary Dx) Social History Tobacco Use Types [...] Sex Assigned at Female 06/26/2019 9:26 AM PACKER DENTURE Gender Identity Female 06/26/2019 9:25 AM PACKER DENTURE Sexual Orientation Straight 06/26/2019 9: 25 AM PACKER DENTURE documented as of this encounter Last Filed Vital Signs Vital Sign Reading Time Taken Comments Blood Pressure 124/75 11/23/2023 1:42 PM CDT Pulse 71 11/23/2023 1:42 PM CDT Temperature - - Respiratory Rate - - Oxygen Saturation 97% 11/23/2023 1:42 PM CDT Inhaled Oxygen Concentration - - Weight 73.7 kg (162 lb 6.4 oz) 11/23/2023 1:42 P M CDT Height - - Body Mass Index 31.72 08/23/2023 1:13 PM CDT documented in this encounter Patient Instructions * Patient Instructions* Lyndsey Palacios MD PhD - 11/23/2023 2:00 PM CDT Get DXA next August 2024 See me after the DXA in September 2024 Patient should take 1200-1500mg of calcium/day in divided doses and vitamin D3 1000IU/day. documented in this encounter Progress Notes * Lyndsey Palacios MD PhD - 11/23/2023 2:00 PM CDT ASSESSMENT: This is a 73-year-old postmenopausal female who has osteoporosis by original T- scores of her wrist.She was on alendronate in the early for about 5 years. She was put on anabolic treatment prior to spine surgery and took Tymlos from June 2018 for the full 18 months. When she stopped it in December 2019 she then started Prolia and continued with Prolia until her insurance changed and in July 2022 they asked her to get a DEXA which showed osteopenia and they refused then to okay the Prolia. She subsequently had IV Reclast in September 2022. Her DEXA is not due till next August 2024. Her most recent T-scores are either normal or osteopenic. I discussed with her that we would not do IV Reclast again until 2 years or September 2024. So we will get her DEXA next August and decide after reviewing thisthe next treatment plan. PLAN: Get DXA next August 2024 See me after the DXA in September 2024 Patient should take 1200-1500mg of calcium/day in divided doses and vitamin D3 1000IU/day. Thank you for allowing me to participate in the care of your patient. Please do not hesitate to call with questions or concerns. Sincerely, Lyndsey Palacios MD, PhD CC Dr Chris Toledo Time note (e4, 30'): The total of my time (on the date of service) for this service was 32 minutes,including discussion/[id number], chart review, interpretation not otherwise reported, documentation, and updating of the computerized record. Giselle is a 73 year old female post menopausal] [GR5, B5727] that presents today for osteoporosis follow up patient was last seen 09/2022. She has a diagnosis of osteoporosis by original T-scores. She had been on alendronate in the early 1999's for about 5 years. She was initially seen here in 2018 for anabolic treatment prior to spine surgery. She was started on Tymlos June 2018 and had surgery 3 months later with a good result. She continued the full 18 months of Tymlos. When she stopped Tymlos in December 2019 she then started on Prolia. Her last shot of Prolia here was July 2020. She then started getting Prolia at [facility] closer to her home. Her insurance changed and when it came time for her July 2022 Prolia shot the insurance company wanted her to get a DEXA, which showed osteopenia. The insurance then refused the Prolia. She was therefore covered with IV reclast in September 2022. Referring Physician: Referred Dr Chris Toledo HPI Have you ever had a bone density test? Yes Where = [facility] When = 08/2022 Spine Tscore = hardware Left neck Tscore = -1.6 Total left hip Tscore = -0.8 Right neck Tscore = -0.9 Total Right hip Tscore = -0.5 radius 33% -2.3 Have you received any x-ray dye or contrast in the last ten days? No How many servings of dairy products do you consume per day? 3 Type: milk, cottage cheese, spinach, cheese Do you take a multi-vitamin daily? Yes Do you take a vitamin D supplement? Yes 2000IU/day Do you take a calcium supplement daily? Calcium carbonate 600mg 1/day Do you take a supplement containing strontium? No Are you exposed to natural sunlight at least 20 minutes three times a week? No Social History reports that she has never smoked. She has never used smokeless tobacco. She reports current alcohol use. She reports that she does not use drugs. Do you smoke cigarettes? No Do you exercise? Yes. Details: active - till 2 wks ago when hips started to cause pain Do you drink alcohol? No Medication History Have you used any of the following medications? Actonel (Risedronate): No Aredia (Pamidronate): No Boniva (Ibindronate): No Didronil (Etidronate): No Evista (Raloxifene): No Fosamax (Alendronate): 5 yrs In early 1999 Forteo (Parathyroid hormone) injections: No tymlos 06/2018-12/2019 HCTZ (Thiazide): No Calcitonin nasal spray: No Reclast or Zometa (Zolendronate): 09/2022 at [facility] (Denosumab): Jan 2020 - January 2022 Insurance refused the shot due in July 2022. Current Outpatient Medications Medication Sig Dispense Refill acetaminophen (TYLENOL) 325 MG tablet Take 2 tablets (650 mg) by mouth every 4 hours as needed for pain 100 tablet 1 albuterol (PROAIR HFA/PROVENTIL HFA/VENTOLIN HFA) 108 (90 Base) MCG/ACT inhaler Inhale 2 puffs intothe lungs every 4 hours as needed atorvastatin (LIPITOR) 10 MG tablet Take 10 mg by mouth daily azelastine (ASTELIN) 0.1 % nasal spray [place] 2 sprays into both nostrils 2 times daily 3 calcium carbonate 600 mg-vitamin D 400 units (CALTRATE) 600-400 MG-UNIT per tablet Take 1 tablet bymouth 2 times daily celecoxib (CELEBREX) 200 MG capsule Take 200 mg by mouth 2 times daily cetirizine (ZYRTEC) 10 MG tablet Take 10 mg by mouth every evening cholecalciferol (VITAMIN D3) 5000 units (125 mcg) capsule Take 5,000 Units by mouth every evening Cyanocobalamin (VITAMIN B 12) 100 MCG LOZG (Patient not taking: Reported on 07/05/2023) cycloSPORINE (RESTASIS) 0.05 % ophthalmic emulsion Place 1 drop into both eyes every morning diclofenac (VOLTAREN) 1 % topical gel Place 2 g onto the skin 2 times daily as needed for moderate pain (knuckles) (Patient not taking: Reported on 07/05/2023) 100 g 0 EPINEPHrine (EPIPEN/ADRENACLICK/OR ANY BX GENERIC EQUIV) 0.3 MG/0.3ML injection 2-pack Inject 0.3 mg into the muscle as needed (Patient not taking: Reported on 07/05/2023) 2 fenofibrate (TRIGLIDE/LOFIBRA) 160 MG tablet Take 1 tablet by mouth daily at 2 pm fluticasone (FLONASE) 50 MCG/ACT nasal spray [place] 2 sprays into both nostrils 2 times daily fluticasone (FLOVENT HFA) 110 MCG/ACT inhaler Inhale 1 puff into the lungs 2 times daily (Patient not taking: Reported on 07/05/2023) gabapentin (NEURONTIN) 600 MG tablet Take 1 tablet (600 mg) by mouth 3 times daily (Patient taking differently: Take 600 mg by mouth 2 times daily ) 90 tablet 0 HYDROcodone-acetaminophen (NORCO) 7.5-325 MG per tablet Take 1 tablet by mouth At Bedtime 0 lisinopril (PRINIVIL/ZESTRIL) 10 MG tablet Take 10 mg by mouth every morning medical cannabis (Patient's own supply) Take 1 Dose by mouth 2 times daily (The purpose of this order is to document that the patient reports taking medical cannabis. This is not a prescription, and is not used to certify that the patient has a qualifying medical condition.) melatonin 5 MG tablet Take 5 mg by mouth At Bedtime montelukast (SINGULAIR) 10 MG tablet Take 10 mg by mouth At Bedtime [place]-3 Fatty Acids (FISH OIL) 1200 MG capsule Take 1,200 mg by mouth daily omeprazole (PRILOSEC) [address] capsule Take 20 mg by mouth every morning potassium 99 MG TABS (Patient not taking: Reported on 07/05/2023) predniSONE (DELTASONE) 20 MG tablet Take 3 tabs by mouth daily x 3 days, then 2 tabs daily x 3 days, then 1 tab daily x 3 days, then 1/2 tab daily x 3 days. 20 tablet 0 UNABLE TO FIND MEDICATION NAME: focous 1 tab twice daily (Patient not taking: Reported on 07/05/2023) Allergies Allergen Reactions Other (Do Not Use) Unknown cough Shellfish Allergy Simvastatin Muscle Pain (Myalgia) Past Medical History Family History Problem Relation Age of Onset Other - See Comments Mother heart valve issue Ovarian Cancer Mother Cancer Father kidney, mets to the lung and brain ROS: General: weight gain Head/Eyes: none Ears/Nose/Throat: none Cardiovascular: none Respiratory: none Gastrointestinal: none Breast: none Genitourinary: none Sexual Function: none Musculoskeletal: hip pain - received injections and seeing Dr Joe - sports medicine - walking with a cane - 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 BMI= Body mass index is 31.72 kg/m??. Physical exam Constitutional: Well appearing woman in no acute distress. Psychological: appropriate mood. Neck: No thyroidmegaly. no carotid bruits. Cardiovascular: regular rate and rhythm, normal S1 and S2, no murmurs, rubs or gallops, peripheral pulses full and symmetric Respiratory: clear to auscultation, no wheezes or crackles, normal breath sounds. Musculoskeletal: no edema and motor strength is equal in the upper and lower extremities Spine: Curved, tender, Flexion umable , Extension unable , Lateral movement unable , Rotational movement unable Skin: no concerning lesions, no jaundice. Neurological: cranial nerves intact, normal strength, reflexes at patella and biceps normal, normalgait, no tremor. LAB Vertebra; Fracture Assessment: NA Dexa Scan: 08/2022 FRAX Assessment Tool: [N/A, Risk Factors: age, PM, T scores, Lyndsey Palacios MD, PhD Answers submitted by the patient for this visit: General Questionnaire (Submitted on 11/18/2023) Chief Complaint: Chronic problems general questions HPI Form What is the reason for your visit today? : Consultation for bone density. How many servings of fruits and vegetables do you eat daily?: 2-3 On average, how many sweetened beverages do you drink each day (Examples: soda, juice, sweet tea, etc. Do NOT count diet or artificially sweetened beverages)?: 0 How many minutes a day do you exercise enough to make your heart beat faster?: 9 or less How many days a week do you exercise enough to make your heart beat faster?: 7 How many days per week do you miss taking your medication?: 0 * Lyndsey Palacios MD PhD - 11/23/2023 2:00 PM CDT Subjective Maria A is a 73 year old, presenting for the following health issues: Follow Up (Follow up on bone density) and Osteoporosis 11/23/2023 1:37 PM Additional Questions Roomed by ARIELA GUIDRY History of Present Illness Reason for visit: Consultation for bone density. She eats 2-3 servings of fruits and vegetables daily.She consumes 0 sweetened beverage(s) daily.Sheexercises with enough effort to increase her heart rate 9 or less minutes per day. She exercises with enough effort to increase her heart rate 7 days per week. She is taking medications regularly. Objective BP 124/75 (BP Location: Right arm, Patient Position: Sitting, Cuff Size: Adult Regular) Pulse 71 Wt 73.7 kg (162 lb 6.4 oz) SpO2 97% BMI 31.72 kg/m?? Body mass index is 31.72 kg/m??. Physical Exam Signed Electronically by: Lyndsey Palacios MD PhD documented in this encounter Plan of Treatment Upcoming Encounters Date Type Department Care Team (Late st Contact Info) Description 12/03/2023 10:00 AM CDT Office Visit [facility] [place] [address] [place] [address] [address] [place] [address] [place] [address] [facility] [address] [place] [address] 10/10/2024 1:30 PM CDT Office Visit [facility] [address] [place] [address] Lyndsey Palacios MD PhD [address] [place] [id number] Scheduled Orders Name Type Priority Associated Diagnoses Orde r Schedule DX Bone Density Imaging Routine Senile osteoporosis Expected: 09/19/2024 (Approximate), Expires: 11/22/2024 documented as of this encounter Visit Diagnoses Diagnosis Senile osteoporosis- Primary documented in this encounter Additional Health Concerns Assessment Noted Time PHQ-9 Depression Total Score: 4 06/04/19 20 1:21 PM PACKER DENTURE documented as of this encounter Care Teams Genetic Coordinator Relationship Specialty Start Date End Date Chris Toledo MD PCP - General Family Practice 12/07/17 Beba Munoz PA-C [facility] [address] [facility] [address] [place] [address] Physician Double Corner Cutter Physician Double Corner Cutter 12/07/17 Chris Gilbert MD [facility] [place] [id number] [place], [place] [address] Orthopedics 12/07/17 Ivette Rasmussen, RN Registered Nurse Nurse 01/12/18 Evelyn Alvarado MD [address] [place] [address] Family Medicine - Sports Medicine 01/08/19 Lyndsey Palacios MD PhD [address] [place] [address] Assigned PCP 08/08/20 Lyndsey Palacios MD PhD [address] [place] [address] Family Medicine 09/29/22 Ivon De Leon, [facility] [address] [facility] [address] [place], [place] [phone] Pharmacist Pharmacist 10/07/22 [place] [address] [facility] [address] [place] [address] Assigned Musculoskeletal Provider 09/22/23 documented as of this encounter
--- OUTSIDE RECORDS SUMMARY | 2023-11-25 09:17 | XMS_ITS | Encounter Summary ---
Author Organization [place] Address [address] [facility] [place] [address] Care Team Providers Care Automotive Maintenance Technician Name Role Phone Chris Toledo MD Primary Care Provider Beba Munoz PA-C Unavailable [phone] Chris Gilbert MD Unavailable [phone] Ivette Rasmussen RN Unavailable Evelyn Alvarado MD Unavailable [phone] Lyndsey Palacios MD PhD Unavailable + [phone] Lyndsey Palacios MD PhD Unavailable [phone] Ivon De Leon [facility] Unavailable Chris Burroughs PA-C Unavailable [phone] Encounter Details Date Type Department Care Team [...] Sex Assigned at Female 06/26/2019 9:26 AM EMPLOYMENT INSTRUCTIONAL ASSOCIATE Gender Identity Female 06/26/2019 9:25 AM EMPLOYMENT INSTRUCTIONAL ASSOCIATE Sexual Orientation Straight 06/26/2019 9: 25 AM EMPLOYMENT INSTRUCTIONAL ASSOCIATE documented as of this encounter Plan of Treatment Upcoming Encounters Date Type Department Care Team (Late st Contact Info) Description 12/03/2023 10:00 AM CDT Office Visit [facility] [place] [address] [place] [address] [place] [address] [facility] [address] [place] [address] 10/10/2024 1:30 PM CDT Office Visit [facility] [address] 4th [place] [phone] Lyndsey Palacios MD PhD [address] [place] [phone] documented as of this encounter Visit Diagnoses Not on filedocumented in this encounter Additional Health Concerns Assessment Noted Time PHQ-9 Depression Total Score: 4 06/04/19 20 1:21 PM EMPLOYMENT INSTRUCTIONAL ASSOCIATE documented as of this encounter Care Teams Automotive Maintenance Technician Relationship Specialty Start Date End Date Chris Toledo MD PCP - General Family Practice 12/07/17 Beba Munoz PA-C [facility] [address] [facility] [address] [place] [address] Physician Water Sander Physician Water Sander 12/07/17 Chris Gilbert MD [address] [place] [address] Orthopedics 12/07/17 Ivette Rasmussen, RN Registered Nurse Nurse 01/12/18 Evelyn Alvarado MD [address] [place] [address] Family Medicine - Sports Medicine 01/08/19 Lyndsey Palacios MD PhD [address] [place] [address] Assigned PCP 08/08/20 Lyndsey Palacios MD PhD [address] [place] [address] Family Medicine 09/29/22 Ivon De Leon, [facility] [address] [place] [address] Pharmacist Pharmacist 10/07/22 Chris Burroughs PA-C [address] [place] [address] Assigned Musculoskeletal Provider 07/15/23 09/21/23 documented as of this encounter
--- OUTSIDE RECORDS SUMMARY | 2023-11-25 09:17 | XMS_ITS | Encounter Summary ---
Author Organization [place] Address [address] [facility] [place] [address] Care Team Providers Care Social Services Designee Name Role Phone Chris Toledo MD Primary Care Provider [phone] Beba Munoz PA-C Unavailable [phone] Chris Gilbert MD Unavailable [phone] Ivette Rasmussen RN Unavailable Evelyn Alvarado MD Unavailable +[phone] Lyndsey Palacios MD PhD Unavailable + [phone] Lyndsey Palacios MD PhD Unavailable + [phone] Ivon De Leon [facility] Unavailable Sylvester Joe MD Unavailable Encounter Details Date Type Department Care Team (Latest Contact Info) Description 11/23/2023 Travel Social History Tobacco Use Types Packs/Day [...] Sex Assigned at Female 06/26/2019 9:26 AM TICKER INSTALLER Gender Identity Female 06/26/2019 9:25 AM TICKER INSTALLER Sexual Orientation Straight 06/26/2019 9: 25 AM TICKER INSTALLER documented as of this encounter Plan of Treatment Upcoming Encounters Date Type Department Care Team (Late st Contact Info) Description 12/03/2023 10:00 AM CDT Office Visit [facility] [address] [place] [address] [place] [address] [facility] [address] [place] [address] 10/10/2024 1:30 PM CDT Office Visit [facility] [address] [address] Lyndsey Palacios MD [address] [id number] documented as of this encounter Visit Diagnoses Not on filedocumented in this encounter Additional Health Concerns Assessment Noted Time PHQ-9 Depression Total Score: 4 06/04/19 20 1:21 PM TICKER INSTALLER documented as of this encounter Care Teams Social Services Designee Relationship Specialty Start Date End Date Chris Toledo MD PCP - General Family Practice 12/07/17 Beba Munoz PA-C [facility] [address] [place] [address] Physician Puncher Physician Puncher 12/07/17 Chris Gilbert MD [address] [place] [address] Orthopedics 12/07/17 Ivette Rasmussen, RN Registered Nurse Nurse 01/12/18 Evelyn Alvarado MD [address] [place], [place] [address] Family Medicine - Sports Medicine 01/08/19 Lyndsey Palacios MD PhD [address] [place] [address] Assigned PCP 08/08/20 Lyndsey Palacios MD PhD [address] [place], [place] 407[address] Family Medicine 09/29/22 Ivon De Leon, [facility] [address] [place] [address] Pharmacist Pharmacist 10/07/22 [place] [address] [place] [address] Assigned Musculoskeletal Provider 09/22/23 documented as of this encounter
--- OUTSIDE RECORDS SUMMARY | 2023-11-25 09:17 | XMS_ITS | Referral Summary ---
Author Organization [place] Address [address] [facility] [place] [address] Care Team Providers Care Appliances Sample Maker Name Role Phone Chris Toledo MD Primary Care Provider Beba Munoz PA-C Unavailable [phone] Chris Gilbert MD Unavailable [phone] Ivette Rasmussen RN Unavailable Evelyn Alvarado MD Unavailable +[phone] Lyndsey Palacios MD PhD Unavailable + [phone] Lyndsey Palacios MD PhD Unavailable + [phone] Ivon De Leon [facility] Unavailable Sylvester Joe MD Unavailable Encounters Date Type Department Care Team Description 11/23/2023 Travel 11/23/2023 2:00 PM CDT Office Visit [facility] [place] [address] [facility] [address] 4th [place] [address] Lyndsey Palacios MD PhD Senile osteoporosis (Primary Dx) 11/18/2023 Travel 09/06/2023 Travel 09/06/2023 1:20 PM CDT Office Visit [facility] [address] [place], [place] [address] Sylvester Joe MD Primary localized osteoarthritis of left hip (Primary Dx) 09/05/2023 Travel from Last 3 Months Allergies Active Allergy [...] Active azelastine (ASTELIN) 0.1 % nasal spray [place] 2 sprays into both nostrils 2 times [...] Active fluticasone (FLONASE) 50 MCG/ACT nasal spray [place] 2 sprays into both nostrils 2 times [...] 5 mg by mouth At Bedtime Active Dahlgren-3 Fatty Acids (FISH OIL) 1200 MG capsule [...] 12+ (Pfizer 2021) 08/08/2021 DTaP, Unspecified 09/01/2012 [id number] Novel Flu 05/22/2009 Influenza (H1N1) 05/22/2009 Influenza [...] Sex Assigned at Female 06/26/2019 9:26 AM DEPARTMENT OF SOCIOLOGY CHAIR Gender Identity Female 06/26/2019 9:25 AM DEPARTMENT OF SOCIOLOGY CHAIR Sexual Orientation Straight 06/26/2019 9: 25 AM DEPARTMENT OF SOCIOLOGY CHAIR Last Filed Vital Signs Vital Sign Reading [...] Description 12/03/2023 10:00 AM CDT Office Visit [facility] [address] [place] [address] [place] [address] [facility] [address] [place] [address] 10/10/2024 1:30 PM CDT Office Visit [facility] Primary Care [address] 4th [place] [address] Lyndsey Palacios MD PhD [address] [place] [address] (work) Medical Devices Implanted Type Area Heel Seam Rubber Device Identifier Shelf Expiration Date Model / Serial / Lot Graft Bone Crush Canc 30ml [id number] Implanted:Qty : 1 on 08/21/2018 by Chris Gilbert MD at [facility] Bone/Tissu e/Biologic N/A: Spine Lumbar MUSCULOSKELETAL CAMPOS 04/28/2021 [id number] / [id number] / Graft Bone Crush Canc 30ml [id number] Implanted:Qty : 1 on 08/21/2018 by Chris Gilbert MD at [facility] Bone/Tissu e/Biologic N/A: Spine Lumbar MUSCULOSKELETAL CAMPOS 06/02/2021 [id number] / [id number] Imp Scr Medt 5.5/6.0mm Solera 6.5x55mm Ma [id number] Implanted:Qty : 2 on 08/21/2018 by Chris Gilbert MD at [facility] Metallic Hardware/A nchor N/A: Spine Lumbar [employer] [id number] / / [id number] Imp Scr Medt 5.5/6.0mm Solera 5.5x50mm Ma [id number] Implanted:Qty : 2 on 08/21/2018 by Chris Gilbert MD at [facility] Metallic Hardware/A nchor N/A: Spine Lumbar [employer] [id number] / / [id number] Imp Scr Medt 5.5/6.0mm Solera 5.5x55mm Ma [id number] Implanted:Qty : 2 on 08/21/2018 by Chris Gilbert MD at [facility] Metallic Hardware/A nchor N/A: Spine Lumbar [employer] [id number] / / [id number] Imp Scr Medt 5.5/6.0mm Solera 6.5x45mm Ma [id number] Implanted:Qty : 2 on 08/21/2018 by Chris Gilbert MD at [facility] Metallic Hardware/A nchor N/A: Spine Lumbar [employer] [id number] / / [id number] Imp Scr Medt 5.5/6.0mm Solera 6.5x40mm Ma [id number] Implanted:Qty : 1 on 08/21/2018 by Chris Gilbert MD at [facility] Metallic Hardware/A nchor N/A: Spine Lumbar [employer] [id number] / / [id number] Imp Scr Medt 5.5/6.0mm Solera 5.5x40mm Ma [id number] Implanted:Qty : 3 on 08/21/2018 by Chris Gilbert MD at [facility] Metallic Hardware/A nchor N/A: Spine Lumbar [employer] [id number] / / [id number] Imp Scr Medt 5.5/6.0mm Solera 5.0x35mm Ma [id number] Implanted:Qty : 1 on 08/21/2018 by Chris Gilbert MD at [facility] Metallic Hardware/A nchor N/A: Spine Lumbar [employer] [id number] / / [id number] Imp Scr Medt 5.5/6.0mm Solera 4.5x35mm Ma [id number] Implanted:Qty : 1 on 08/21/2018 by Chris Gilbert MD at [facility] Metallic Hardware/A nchor N/A: Spine Lumbar [employer] [id number] / / [id number] Imp Scr Medt 5.5/6.0mm Solera 5.0x40mm Ma [id number] Implanted:Qty : 1 on 08/21/2018 by Chris Gilbert MD at [facility] Metallic Hardware/A nchor N/A: Spine Lumbar [employer] [id number] / / [id number] Imp Scr Medt 5.5/6.0mm Solera 4.5x40mm Ma [id number] Implanted:Qty : 1 on 08/21/2018 by Chris Gilbert MD at [facility] Metallic Hardware/A nchor N/A: Spine Lumbar [employer] [id number] / / [id number] Imp Dao Medt Solera Lined 5.3k958je Chr [id number] Implanted:Qty : 3 on 08/21/2018 by Chris Gilbert MD at [facility] Metallic Hardware/A nchor N/A: Spine Lumbar [employer] [id number] / / [id number] Imp Scr Set Medt Solera Break Off 5.5mm Ti [id number] Implanted:Qty : 26 on 08/21/2018 by Chris Gilbert MD at [facility] Metallic Hardware/A nchor N/A: Spine Lumbar [employer] [id number] / [id number] / Imp Scr Medt 5.5/6.0mm Solera 7.5x40mm Ma [id number] Implanted:Qty : 2 on 08/21/2018 by Chris Gilbert MD at [facility] Metallic Hardware/A nchor N/A: Spine Lumbar [employer] [id number] / / [id number] Imp Scr Medt 5.5/6.0mm Solera 7.5x50mm Ma [id number] Implanted:Qty : 4 on 08/21/2018 by Chris Gilbert MD at [facility] Metallic Hardware/A nchor N/A: Spine Lumbar [employer] [id number] / / [id number] Imp Scr Medt 5.5/6.0mm Solera 7.5x55mm Ma [id number] Implanted:Qty : 2 on 08/21/2018 by Chris Gilbert MD at [facility] Metallic Hardware/A nchor N/A: Spine Lumbar [employer] [id number] / / [id number] Ballast Screw Implanted:Qty : 1 on 08/21/2018 by Chris Gilbert MD at [facility] N/A: Spine Lumbar [id number] / / [id number] Ballast Screw 9.5 X 90 Mm Implanted:Qty : 1 on 08/21/2018 by Chris Gilbert MD at [facility] N/A: Spine Lumbar [id number] / / [id number] Variable Angle [place] Implanted:Qty : 2 on 08/21/2018 by Janel Guillory MD at [facility] N/A: Spine Lumbar 07/14/2023 [id number] / / [id number] Capstone Control 10 X 22 Implanted:Qty : 1 on 08/21/2018 by Chris Gilbert MD at [facility] N/A: Spine Lumbar [employer] [id number] / / Explanted Type Area Heel Seam Rubber Device Identifier Shelf Expiration Date Model / Serial / Lot Imp Scr Set Medt Solera Break Off 5.5mm Ti [id number] Explanted:Qty: 3 on 08/21/2018 at [facility] Metallic Hardware/Anc hor N/A: Spine Lumbar [employer] [id number] / / [id number] Winters Screws Explanted:Qty: 1 on 08/21/2018 by Chris Gilbert MD at [facility] Bilateral : Spine Lumbar Description:ALL ISOLA SPINE HARDWARE REMOVED LUMBAR AND THORACIC. Procedures Procedure Name Priority Date/Time Associated Diagnosis Comments MO ARTHROCENTESIS ASPIR&/INJ MAJOR JT/BURSA W/US Routine 09/06/2023 1:21 PM CDT Primary localized osteoarthritis of left hip DEXA - HIM SCAN 09/16/2022 12:00 AM CDT MA EXTERNAL IMAGING 2D SCREENING Routine 03/12/2022 12:00 AM DEPARTMENT OF SOCIOLOGY CHAIR BASIC METABOLIC PANEL Routine 01/25/2020 10:57 AM CDT Senile osteoporosis from Last 3 Months or Most Recently Relevant to Health Maintenance Results * MO ARTHROCENTESIS ASPIR&/INJ MAJOR JT/BURSA W/US (09/06/2023 1:21 [...] External Imaging 2D Screening (03/12/2022 12:00 AM DEPARTMENT OF SOCIOLOGY CHAIR) Narrative Service Account, Ob Barbiek - 10/14/2022 3:18 PM CDT Images were obtained from an external facility. ??Click PACS Images hyperlink to view images. ??Textual results have been scanned into the media tab. Radiology Non-Fv Credentialed Provider I MG EXTERNAL IMAGING ORDERABLES * (ABNORMAL) Basic Metabolic Panel (01/25/2020 10:57 AM CDT) Sodium 139 133 - 144 mmol/L 01/25/2020 11:23 AM CDT [facility] Potassium 4.2 3.4 - 5.3 mmol/L 01/25/2020 11:23 AM CDT [facility] Chloride 108 94 - 109 mmol/L 01/25/2020 11:23 AM CDT [facility] Carbon Dioxide 24 20 - 32 mmol/L 01/25/2020 11:29 AM CDT [facility] Anion Gap 7 3 - 14 mmol/L 01/25/2020 11:29 AM CDT [facility] Glucose 106(H) 70 - 99 mg/dL 01/25/2020 11:29 AM CDT [facility] Urea Nitrogen 15 7 - 30 mg/dL 01/25/2020 11:29 AM CDT [facility] Creatinine 0.92 0.52 - 1.04 mg/dL 01/25/2020 11:29 AM CDT [facility] GFR Estimate 63 >60 mL/min/{1 .73_m2} 01/25/2020 11:29 AM CDT [facility] Comment: Non GFR Calc Starting 04/18/2018, serum creatinine based estimated GFR (eGFR) will be calculated using the Chronic Kidney Disease Epidemiology Collaboration (CKD-EPI) equation. GFR Estimate If Black 73 >60 mL/min/{1 .73_m2} 01/25/2020 11:29 AM CDT [facility] Comment: GFR Calc Starting 04/18/2018, serum creatinine based estimated GFR (eGFR) will be calculated using the Chronic Kidney Disease Epidemiology Collaboration (CKD-EPI) equation. Calcium 9.6 8.5 - 10.1 mg/dL 01/25/2020 11:29 AM CDT [facility] Blood specimen (specimen) 01/25/2020 10:57 AM CDT 01/25/2020 10:58 AM CDT Lyndsey Palacios MD PhD LAB - BLOOD OR DERABLES Performing Organization Address City/State/[facility] Co de Phone Number [facility] [address] [place] [address] from Last 3 Months or Most Recently Relevant to Health Maintenance Care Teams Appliances Sample Maker Relationship Specialty Start Date End Date Chris Toledo MD PCP - General Family Practice 12/07/[address] Beba Munoz PA-C [facility] [address] [facility] [address] [place] [address] Physician Cd Mixer Helper Physician Cd Mixer Helper 12/07/17 Chris Gilbert MD [address] [place] [address] Orthopedics 12/07/17 Ivette Rasmussen, RN Registered Nurse Nurse 01/12/18 Evelyn Alvarado MD [address] [place] [address] Family Medicine - Sports Medicine 01/08/19 Lyndsey Palacios MD PhD [address] [place] [address] Assigned PCP 08/08/20 Lyndsey Palacios MD PhD [address] [place] [address] Family Medicine 09/29/22 Ivon De Leon, [facility] [address] [facility] [address] [place] [address] Pharmacist Pharmacist 10/07/22 [place] [address] [place] [address] Assigned Musculoskeletal Provider 09/22/23
--- OUTSIDE RECORDS SUMMARY | 2023-11-25 09:17 | XMS_ITS | Encounter Summary ---
Author Organization [place] Address [address] [facility] [place] [address] Care Team Providers Care Teacher Selection Specialist Name Role Phone Chris Toledo MD Primary Care Provider [phone] Beba MunozC Unavailable [phone] Chris Gilbert MD Unavailable Ivette Rasmussen RN Unavailable Donovan Peterson RN Unavailable Evelyn Alvarado MD Unavailable [phone] Lyndsey Palacios MD PhD Unavailable + [phone] Chris Gilbert MD Unavailable [phone] Lyndsey Palacios MD PhD Unavailable + [phone] Ivon De Leon [facility] Unavailable Chris Burroughs PA-C Unavailable Sylvester Joe MD Unavailable Encounter Details Date Type Department Care Team (Late st Contact Info) Description 10/07/2022 [facility] Medical Advice [facility] PROFESSIONAL BLD [address] [place] [address] [facility] [address] [address] Social History Tobacco Use Types Packs/Day Years Used Date Smoking Tobacco: Never Smokeless Tobacco: Never Alcohol Use Standard Drinks/Week Comments Yes 0 (1 standard drink = 0.6 oz pur e alcohol) rare PHQ-2 Answer Date Recorded PHQ-2 Score 1 10/04/2022 Sex and Gender Information Value Date Recorded Sex Assigned at Female 06/26/2019 9:26 AM COLLATERAL SPECIALIST Gender Identity Female 06/26/2019 9:25 AM COLLATERAL SPECIALIST Sexual Orientation Straight 06/26/2019 9: 25 AM COLLATERAL SPECIALIST COVID-19 Exposure Response Date Recorded In the last 10 days, have yo u been in contact with someone who was confirmed or suspected to have Coronavirus/COVID-19? No / Unsure 10/04/2022 9:14 AM CDT documented as of this encounter Plan of Treatment Upcoming Encounters Date Type Department Care Team (Late st Contact Info) Description 12/03/2023 10:00 AM CDT Office Visit [facility] Sports Medicine [address] [place] [address] [place] [address] [facility] [address] [place] [address] 10/10/2024 1:30 PM CDT Office Visit [facility] [address] [phone] Lyndsey Palacios MD PhD [address] [place] [phone] documented as of this encounter Visit Diagnoses Not on filedocumented in this encounter Additional Health Concerns Assessment Noted Time PHQ-9 Depression Total Score: 4 06/04/19 20 1:21 PM COLLATERAL SPECIALIST documented as of this encounter Care Teams Teacher Selection Specialist Relationship Specialty Start Date End Date Chris Toledo MD PCP - General Family Practice 12/07/17 Beba Munoz PA-C [facility] [address] [place] [address] Physician Sorter Upholstery Parts Physician Sorter Upholstery Parts 12/07/17 Chris Gilbert MD [facility] [place] [address] Orthopedics 12/07/17 Ivette Rasmussen, RN Registered Nurse Nurse 01/12/18 Donovan Peterson, RN Specialty Information Systems Security Specialist Neurological Surgery 05/29/18 07/07/23 Evelyn Alvarado MD [address] [place] [address] [id number] Family Medicine - Sports Medicine 01/08/19 Lyndsey Palacios MD PhD [address] [place] [address] [id number] Assigned PCP 08/08/20 Chris Gilbert MD [facility] [place] [address] Assigned Musculoskeletal Provider 09/06/21 03/11/23 Lyndsey Palacios MD PhD [address] [place] [address] Family Medicine 09/29/22 Ivon De Leon, [facility] [address] [facility] [address] [place] [address] Pharmacist Pharmacist 10/07/22 Chris Burroughs PA-C [facility] [address] [address] Assigned Musculoskeletal Provider 07/15/23 09/21/23 [place] [address] [place] [address] [place] [address] Assigned Musculoskeletal Provider 09/22/23 documented as of this encounter
--- OUTSIDE RECORDS SUMMARY | 2023-11-25 09:17 | XMS_ITS | Encounter Summary ---
Author Organization [place] Address [address] [facility] [place] [address] Care Team Providers Care General Freight Agent Name Role Phone Chris Toledo MD Primary Care Provider [phone] Beba Munoz PA-C Unavailable [phone] Chris Gilbert MD Unavailable [phone] Ivette Rasmussen RN Unavailable Evelyn Alvarado MD Unavailable [phone] Lyndsey Palacios MD PhD Unavailable + [phone] Lyndsey Palacios MD PhD Unavailable + [phone] Ivon De Leon [facility] Unavailable [phone] Chris Burroughs PA-C Unavailable [phone] Encounter Details Date Type Department Care Team [...] Sex Assigned at Female 06/26/2019 9:26 AM REMOTE SENSING TECHNOLOGIST Gender Identity Female 06/26/2019 9:25 AM REMOTE SENSING TECHNOLOGIST Sexual Orientation Straight 06/26/2019 9: 25 AM REMOTE SENSING TECHNOLOGIST documented as of this encounter Plan of Treatment Upcoming Encounters Date Type Department Care Team (Late st Contact Info) Description 12/03/2023 10:00 AM CDT Office Visit [facility] [place] [address] [place] [address] [place] [address] [facility] [place] [address] [place] [address] 10/10/2024 1:30 PM CDT Office Visit [facility] [address] 4th [place] [phone] Lyndsey Palacios MD PhD [address] [place] [address]11265 documented as of this encounter Visit Diagnoses Not on filedocumented in this encounter Additional Health Concerns Assessment Noted Time PHQ-9 Depression Total Score: 4 06/04/19 20 1:21 PM REMOTE SENSING TECHNOLOGIST documented as of this encounter Care Teams General Freight Agent Relationship Specialty Start Date End Date Chris Toledo MD PCP - General Family Practice 12/07/17 Beba Munoz PA-C [facility] [address] [facility] [address] [place] [address] Physician Drafter Structural Physician Drafter Structural 12/07/17 Chris Gilbert MD [address] [place] [address] Orthopedics 12/07/17 Ivette Rasmussen, RN Registered Nurse Nurse 01/12/18 Evelyn Alvarado MD [address] [place] [address] Family Medicine - Sports Medicine 01/08/19 Lyndsey Palacios MD PhD [address] [place] [address] Assigned PCP 08/08/20 Lyndsey Palacios MD PhD [address] [place] [address] Family Medicine 09/29/22 Ivon De Leon, [facility] [address] [place] [address] Pharmacist Pharmacist 10/07/22 Chris Burroughs PA-C [address] [place] [address] Assigned Musculoskeletal Provider 07/15/23 09/21/23 documented as of this encounter
--- OUTSIDE RECORDS SUMMARY | 2023-11-25 09:17 | XMS_ITS | Encounter Summary ---
Author Organization [place] Address [address] [facility] [place] [address] Care Team Providers Care Supervisor Scenic Arts Name Role Phone Chris Toledo MD Primary Care Provider Beba Munoz PA-C Unavailable [phone] Chris Gilbert MD Unavailable [phone] Ivette Rasmussen RN Unavailable Evelyn Alvarado MD Unavailable [phone] Lyndsey Palacios MD PhD Unavailable + [phone] Lyndsey Palacios MD PhD Unavailable + [phone] Ivon De Leon [facility] Unavailable hCris Burroughs PA-C Unavailable [phone] Encounter Details Date Type Department Care Team [...] Sex Assigned at Female 06/26/2019 9:26 AM ROLLING MILL OPERATOR HELPER Gender Identity Female 06/26/2019 9:25 AM ROLLING MILL OPERATOR HELPER Sexual Orientation Straight 06/26/2019 9: 25 AM ROLLING MILL OPERATOR HELPER documented as of this encounter Plan of Treatment Upcoming Encounters Date Type Department Care Team (Late st Contact Info) Description 12/03/2023 10:00 AM CDT Office Visit [facility] [place] [address] [place] [address] [place] [address] [facility] [address] [place] [address] 10/10/2024 1:30 PM CDT Office Visit [facility] Primary Care Clinic [address] 4th [place] [phone] Lyndsey Palacios MD PhD [address] [place] [address] [phone] documented as of this encounter Visit Diagnoses Not on filedocumented in this encounter Additional Health Concerns Assessment Noted Time PHQ-9 Depression Total Score: 4 06/04/19 20 1:21 PM ROLLING MILL OPERATOR HELPER documented as of this encounter Care Teams Supervisor Scenic Arts Relationship Specialty Start Date End Date Chris Toledo MD PCP - General Family Practice 12/07/17 Beba Munoz PA-C [facility] [address] [facility] [address] [place] [address] Physician Industrial Real Estate Agent Physician Industrial Real Estate Agent 12/07/17 Chris Gilbert MD [address] [place] [address] Orthopedics 12/07/17 Ivette Rasmussen, RN Registered Nurse Nurse 01/12/18 Evelyn Alvarado MD [address] [place] [address] Family Medicine - Sports Medicine 01/08/19 Lyndsey Palacios MD PhD [address] [place] [address] Assigned PCP 08/08/20 Lyndsey Palacios MD PhD [address] [place] [address] Family Medicine 09/29/22 Ivon De Leon, [facility] [address] [place] [address] Pharmacist Pharmacist 10/07/22 Chris Burroughs PA-C [address] [place] [address] Assigned Musculoskeletal Provider 07/15/23 09/21/23 documented as of this encounter
--- OUTSIDE RECORDS SUMMARY | 2023-11-25 09:17 | XMS_ITS | Encounter Summary ---
Author Organization [place] Address [address] [facility] [address] Care Team Providers Care Rug Cleaner Name Role Phone Chris Toledo MD Primary Care Provider Beba Munoz PA-C Unavailable [phone] Chris Gilbert MD Unavailable Ivette Rasmussen RN Unavailable Kirsten Pardo RN Unavailable Donovan Peterson RN Unavailable Evelyn Alvarado MD Unavailable [phone] Lyndsey Palacios MD PhD Unavailable + [phone] Chris Gilbert MD Unavailable [phone] Lyndsey Palacios MD PhD Unavailable Ivon De Leon [facility] Unavailable [phone] Chris Burroughs PA-C Unavailable [phone] Sylvester Joe MD Unavailable Encounter Details Date [...] Sex Assigned at Female 06/26/2019 9:26 AM BENCH WORKER Gender Identity Female 06/26/2019 9:25 AM BENCH WORKER Sexual Orientation Straight 06/26/2019 9: 25 AM BENCH WORKER COVID-19 Exposure Response Date Recorded In the [...] Office Visit [facility] [address] [place] [address] [place] [address] [facility] 300 [place], [place] [address] 10/10/2024 1:30 PM CDT Office Visit [facility] Primary Care [address] 4th [place] [address] Lyndsey Palacios MD [address] [id number] documented as of this encounter Visit Diagnoses Not on filedocumented in this encounter Additional Health Concerns Assessment Noted Time PHQ-9 Depression Total Score: 4 06/04/19 20 1:21 PM BENCH WORKER documented as of this encounter Care Teams Rug Cleaner Relationship Specialty Start Date End Date Chris Toledo MD PCP - General Family Practice 12/07/17 Beba Munoz PA-C [facility] [address] [facility] 200 [place] [address] Physician Religious Education Coordinator Physician Religious Education Coordinator 12/07/17 Chris Gilbert MD [address] [place] [address] Orthopedics 12/07/17 Ivette Rasmussen, RN Registered Nurse Nurse 01/12/18 Kirsten Pardo, RN Registered Nurse Urology 04/12/18 12/01/21 Donovan Peterson, RN Specialty Cushion Maker Hand Neurological Surgery 05/29/18 07/07/23 Evelyn Alvarado MD [address] [place] [address] Family Medicine - Sports Medicine 01/08/19 Lyndsey Palacios MD PhD [address] [place] [address]783 Assigned PCP 08/08/20 Chris Gilbert MD [address] [address] Assigned Musculoskeletal Provider 09/06/21 03/11/23 Lyndsey Palacios MD PhD [address] [place] [address] Family Medicine 09/29/22 Ivon De Leon, [facility] [address] [place] [address] Pharmacist Pharmacist 10/07/22 Chris Burroughs PA-C [address] [address] Assigned Musculoskeletal Provider 07/15/23 09/21/23 [place] [address] [place] [address] Assigned Musculoskeletal Provider 09/22/23 documented as of this encounter
--- OUTSIDE RECORDS SUMMARY | 2023-11-25 09:17 | XMS_ITS | Encounter Summary ---
Author Organization [place] Address [address] [facility] [place] [address] Care Team Providers Care Bumper Machine Operator Name Role Phone Chris Toledo MD Primary Care Provider Beba Munoz PA-C Unavailable [phone] Chris Gilbert MD Unavailable [phone] Ivette Rasmussen RN Unavailable Evelyn Alvarado MD Unavailable [phone] Lyndsey Palacios MD PhD Unavailable + [phone] Lyndsey Palacios MD PhD Unavailable + [phone] Ivon De Leon [facility] Unavailable Sylvester Joe MD Unavailable Encounter Details Date Type Department Care Team (Latest Contact Info) Description 11/18/2023 Travel Social History Tobacco Use Types Packs/Day [...] Sex Assigned at Female 06/26/2019 9:26 AM DUCO POLISHER Gender Identity Female 06/26/2019 9:25 AM DUCO POLISHER Sexual Orientation Straight 06/26/2019 9: 25 AM DUCO POLISHER documented as of this encounter Plan of Treatment Upcoming Encounters Date Type Department Care Team (Late st Contact Info) Description 12/03/2023 10:00 AM CDT Office Visit [facility] Sports Medicine [facility] [address] [place] [address] [place] [address] [facility] 300 [place], [place] [address] 10/10/2024 1:30 PM CDT Office Visit [facility] Primary Care [address] 4th [place] [phone] Lyndsey Palacios MD PhD [address] [place] [address] [id number] documented as of this encounter Visit Diagnoses Not on filedocumented in this encounter Additional Health Concerns Assessment Noted Time PHQ-9 Depression Total Score: 4 06/04/19 20 1:21 PM DUCO POLISHER documented as of this encounter Care Teams Bumper Machine Operator Relationship Specialty Start Date End Date Chris Toledo MD PCP - General Family Practice 12/07/17 Beba Munoz PA-C [facility] [address] [facility] 200 [place] [address] Physician Cable Systems Installer Physician Cable Systems Installer 12/07/17 Chris Gilbert MD [address] [place], [place] 139[address] Orthopedics 12/07/17 Ivette Rasmussen, RN Registered Nurse Nurse 01/12/18 Evelyn Alvarado MD [address] [place] [address] Family Medicine - Sports Medicine 01/08/19 Lyndsey Palacios MD PhD [address] [place] [address] Assigned PCP 08/08/20 Lyndsey Palacios MD PhD [address] [place] [address] Family Medicine 09/29/22 Ivon De Leon, [facility] [address] [place] [address] Pharmacist Pharmacist 10/07/22 [place] [address] [place] [address] Assigned Musculoskeletal Provider 09/22/23 documented as of this encounter
--- OUTSIDE RECORDS SUMMARY | 2023-11-25 09:18 | XMS_ITS | Encounter Summary ---
Author Organization [place] Address [facility] [place] [address] Care Team Providers Care Tourist Home Keeper Name Role Phone Chris Toledo MD Primary Care Provider [phone] Beba Munoz PA-C Unavailable [phone] Chris Gilbert MD Unavailable Ivette Rasmussen RN Unavailable Kirsten Pardo RN Unavailable Donovan Peterson RN Unavailable Evelyn Alvarado MD Unavailable Chris Gilbert MD Unavailable [phone] Lyndsey Palacios MD PhD Unavailable [phone] Chris Gilbert MD Unavailable [phone] Lyndsey Palacios MD PhD Unavailable Ivon De Leon [facility] Unavailable Chris Burroughs PA-C Unavailable [phone] Sylvester Joe MD Unavailable Reason for Visit * Reason Onset Date Comments Prior Auth - Medication 09/05/2018 hydrOXYz ine (ATARAX) 25 MG tablet-PA approved Encounter Details Date Type Department Care Team (Late st Contact Info) Description 09/05/2018 Telephone [facility] [address] [facility] 4th [place] [address] Surendra Adams MD 909 [place], [place] [address] Prior Auth - Medication (hydrOXYzine (ATARAX) 25 [...] Sex Assigned at Female 06/26/2019 9:26 AM PAN GREASER Gender Identity Female 06/26/2019 9:25 AM PAN GREASER Sexual Orientation Straight 06/26/2019 9: 25 AM PAN GREASER documented as of this encounter Miscellaneous Notes * Telephone Encounter - Shobha Lancsater - 09/07/2018 9:10 AM CDT Images from the original note were not included. Prior Authorization Approval Authorization Effective Date: 04/30/2018 Authorization Expiration Date: 05/01/2019 Medication: hydrOXYzine (ATARAX) 25 MG tablet-PA approved Approved Dose/Quantity: Reference #: Insurance Company: [employer] - Expected CoPay: CoPay Card Available: Foundation Assistance Needed: Which Pharmacy is filling the prescription (Not needed for infusion/clinic administered): [facility] [id number] [facility] Pharmacy Notified: Yes Patient Notified: No-Pharmacy will contact * Telephone Encounter - Shobha Lancaster - 09/06/2018 2:36 PM CDT Provided additional information to insurance via phone. * Telephone Encounter - Shobha Lancaster - 09/06/2018 11:37 AM CDT Images from the original note were not included. Central Prior Authorization Team PA Initiation Medication: hydrOXYzine (ATARAX) 25 MG tablet-PA initiated Insurance Company: [employer] - Pharmacy Filling the Rx: [facility] [place] [place] [facility] [phone] [facility] Filling Pharmacy Filling Pharmacy Fax: Start Date: 09/06/2018 * Telephone Encounter - Dafne Harris - 09/05/2018 3:56 PM CDT Images from the original note were not included. Central Prior Authorization Team documented in this encounter Plan of Treatment Upcoming Encounters Date Type Department Care Team (Late st Contact Info) Description 12/03/2023 10:00 AM CDT Office Visit [facility] [address] [place] [address] [place] [address] [address] 10/10/2024 1:30 PM CDT Office Visit [facility] [address] 4th [place] [address] Lyndsey Palacios MD PhD [address] [place] [address] 885255 documented as of this encounter Visit Diagnoses Not on filedocumented in this encounter Additional Health Concerns Assessment Noted Time PHQ-9 Depression Total Score: 7 05/29/19 19 10:09 AM PAN GREASER documented as of this encounter Care Teams Tourist Home Keeper Relationship Specialty Start Date End Date Chris Toledo MD PCP - General Family Practice 12/07/17 Beba Munoz PA-C [facility] [address] [place] [address] [place] [address] Physician Tower Hoist Operator Physician Tower Hoist Operator 12/07/17 Chris Gilbert MD [address] [place] [address] Orthopedics 12/07/17 Ivette Rasmussen, RN Registered Nurse Nurse 01/12/18 Kirsten Pardo, RN Registered Nurse Urology 04/12/18 12/01/21 Donovan Peterson, JACKIE Specialty Director Skills Neurological Surgery 05/29/18 07/07/23 Evelyn Alvarado MD [address] [place] [address] 370785 Family Medicine - Sports Medicine 01/08/19 Chris Gilbert MD [address] [place] [address] Assigned Musculoskeletal Provider 02/22/20 04/25/21 Lyndsey Palacios MD PhD [address] [place] [address] [id number] Assigned PCP 08/08/20 Chris Gilbert MD [address] [address] Assigned Musculoskeletal Provider 09/06/21 03/11/23 Lyndsey Palacios MD PhD 909 [place], [place] 8[address] Family Medicine 09/29/22 Ivon De Leon, [facility] [address] [phone] Pharmacist Pharmacist 10/07/22 Chris Burroughs PA-C [address] 770764 Assigned Musculoskeletal Provider 07/15/23 09/21/23 [place] [address] [place] [address] Assigned Musculoskeletal Provider 09/22/23 documented as of this encounter
--- OUTSIDE RECORDS SUMMARY | 2023-11-25 09:18 | XMS_ITS | Encounter Summary ---
Author Organization [place] Address [address] [facility] [place] [address] Care Team Providers Care Support Coordinator Name Role Phone Chris Toledo MD Primary Care Provider Beba Munoz PA-C Unavailable [phone] Chris Gilbert MD Unavailable Ivette Rasmussen RN Unavailable Kirsten Pardo RN Unavailable Donovan Peterson RN Unavailable Evelyn Alvarado MD Unavailable Chris Gilbert MD Unavailable [phone] Lyndsey Palacios MD PhD Unavailable + [phone] Chris Gilbert MD Unavailable [phone] Lyndsey Palacios MD PhD Unavailable [phone] Ivon De Leon [facility] Unavailable Chris Burroughs PA-C Unavailable [phone] Sylvester Joe MD Unavailable Reason for Visit * Reason Onset Date Comments Appointment 04/10/2018 Urodynamics - pr e surgery Encounter Details Date Type Department Care Team (Late st Contact Info) Description 04/10/2018 Telephone [facility] Urology and Inst for Prostate and Urologic Cancers [address] [place] [address] None Appointment (Urodynamics - pre surgery) Social History Tobacco Use Types Packs/Day Years Used Date Smoking Tobacco: Never Assessed Sex and Gender Information Value Date Recorded Sex Assigned at Female 06/26/2019 9:26 AM FUSION OPERATOR Gender Identity Female 06/26/2019 9:25 AM FUSION OPERATOR Sexual Orientation Straight 06/26/2019 9: 25 AM FUSION OPERATOR documented as of this encounter Miscellaneous Notes * Telephone Encounter - Dionne Plaza - 04/10/2018 8:55 AM CST [facility] Call Center Phone Message May a detailed message be left on voicemail: yes Reason for Call: Other: Patient called in to make an appointment prior to a surgery she said she issupposed to have sometime in May with Dr. Gilbert in orthopedics. Referral for Urodynamic Flow Study Fluroscopy in [facility]. Pt asked me to send a message to the care team for any possible appts in Decor May since we are booked out a ways. Please call pt to discuss/schedule. Thank you. Action Taken: Message routed to: [facility] Urology ON OPERATOR documented in this encounter Plan of Treatment Upcoming Encounters Date Type Department Care Team (Late st Contact Info) Description 12/03/2023 10:00 AM CDT Office Visit [facility] Sports Medicine Clinic [address] [place] [address] Sylvester Joe MD [address] [place] [address] [address] 10/10/2024 1:30 PM CDT Office Visit [facility] Primary Care Clinic [address] [phone] Lyndsey Palacios MD PhD [address] [place] [address] 627365 documented as of this encounter Visit Diagnoses Not on filedocumented in this encounter Care Teams Support Coordinator Relationship Specialty Start Date End Date Chris Toledo MD PCP - General Family Practice 12/07/17 Beba Munoz PA-C [facility] [address] [place] [address] Physician Mayonnaise Mixer Physician Mayonnaise Mixer 12/07/17 Chris Gilbert MD [address] [place] [address] Orthopedics 12/07/17 Ivette Rasmussen, RN Registered Nurse Nurse 01/12/18 Kirsten Pardo, RN Registered Nurse Urology 04/12/18 12/01/21 Donovan Peterson, RN Specialty Reconciliation Accountant Neurological Surgery 05/29/18 07/07/23 Evelyn Alvarado MD [address] [place] [address] Family Medicine - Sports Medicine 01/08/19 Chris Gilbert MD [facility] [address] [address] Assigned Musculoskeletal Provider 02/22/20 04/25/21 Lyndsey Palacios MD PhD [address] [place] [address] Assigned PCP 08/08/20 Chris Gilbert MD [address] [facility] [address] [place] [address] Assigned Musculoskeletal Provider 09/06/21 03/11/23 Lyndsey Palacios MD PhD 909 [place] [address] Family Medicine 09/29/22 [facility] 2450 [facility] [address] [place] [address] Pharmacist Pharmacist 10/07/22 Chris Burroughs PA-C [address] [address] Assigned Musculoskeletal Provider 07/15/23 09/21/23 [place] [address] [place] [place] [address] Assigned Musculoskeletal Provider 09/22/23 documented as of this encounter
--- OUTSIDE RECORDS SUMMARY | 2023-11-25 09:18 | XMS_ITS | Encounter Summary ---
Author Organization [place] Address [address] [facility] [address] Care Team Providers Care Invasive Manager Name Role Phone Chris Toledo MD Primary Care Provider Beba Munoz PA-C Unavailable [phone] Chris Gilbert MD Unavailable Ivette Rasmussen RN Unavailable Kirsten Pardo RN Unavailable Donovan Peterson RN Unavailable Evelyn Alvarado MD Unavailable Chris Gilbert MD Unavailable Lyndsey Palacios MD PhD Unavailable [phone] Chris Gilbert MD Unavailable Lyndsey Palacios MD PhD Unavailable [phone] Ivon De Leon [facility] Unavailable Chris Burroughs PA-C Unavailable [phone] Sylvester Joe MD Unavailable Encounter Details Date Type Department Care Team (Late st Contact Info) Description 05/30/2018 [facility] Clinic 909 [facility] [address] [address] Lyndsey Palacios MD PhD [address] [place] [address] Social History Tobacco Use Types Packs/Day Years Used Date Smoking Tobacco: Never Smokeless Tobacco: Never PHQ-2 Answer Date Recorded PHQ-2 Score 2 05/09/2018 Sex and Gender Information Value Date Recorded Sex Assigned at Female 06/26/2019 9:26 AM DIRECTOR OF DEVELOPMENT AND MARKETING Gender Identity Female 06/26/2019 9:25 AM DIRECTOR OF DEVELOPMENT AND MARKETING Sexual Orientation Straight 06/26/2019 9: 25 AM DIRECTOR OF DEVELOPMENT AND MARKETING documented as of this encounter Plan of Treatment Upcoming Encounters Date Type Department Care Team (Late st Contact Info) Description 12/03/2023 10:00 AM CDT Office Visit [facility] [place] [address] [place] [address] [address] [place] [address] [place] [address] [facility] 300 [place] [address] 10/10/2024 1:30 PM CDT Office Visit [facility] [address] [address] Lyndsey Palacios MD PhD [address] [place] [address] documented as of this encounter Visit Diagnoses Not on filedocumented in this encounter Additional Health Concerns Assessment Noted Time PHQ-9 Depression Total Score: 7 05/29/19 19 10:09 AM DIRECTOR OF DEVELOPMENT AND MARKETING documented as of this encounter Care Teams Invasive Manager Relationship Specialty Start Date End Date Chris Toledo MD PCP - General Family Practice 12/07/17 Beba Munoz PA-C [facility] [address] [facility] 200 [place] [address] Physician Microarray Operations Vice President Physician Microarray Operations Vice President 12/07/17 Chris Gilbert MD [address] [place] [address] Orthopedics 12/07/17 Ivette Rasmussen, RN Registered Nurse Nurse 01/12/18 Kirsten Pardo, RN Registered Nurse Urology 04/12/18 12/01/21 Donovan Peterson, RN Specialty Bagging Machine Operator Neurological Surgery 05/29/18 07/07/23 Evelyn Alvarado MD [address] [place] [address] Family Medicine - Sports Medicine 01/08/19 Chris Gilbert MD [address] [address] Assigned Musculoskeletal Provider 02/22/20 04/25/21 Lyndsey Palacios MD PhD [address] [place] [address] Assigned PCP 08/08/20 Chris Gilbert MD [address] [place] [address] Assigned Musculoskeletal Provider 09/06/21 03/11/23 Lyndsey Palacios MD PhD [address] [place] [address] Family Medicine 09/29/22 Ivon De Leon, [facility] [address] [place] [address] [address] [place] [address] Pharmacist Pharmacist 10/07/22 Chris Burroughs PA-C [address] [address] Assigned Musculoskeletal Provider 07/15/23 09/21/23 [place] [address] [place] [address] Assigned Musculoskeletal Provider 09/22/23 documented as of this encounter
--- OUTSIDE RECORDS SUMMARY | 2023-11-25 09:18 | XMS_ITS | Encounter Summary ---
Author Organization [place] Address [address] [facility] [place] [address] Care Team Providers Care Tankage Supervisor Name Role Phone Chris Toledo MD Primary Care Provider Beba Munoz PA-C Unavailable [phone] Chris Gilbert MD Unavailable Ivette Rasmussen RN Unavailable Kirsten Pardo RN Unavailable Donovan Peterson RN Unavailable Evelyn Alvarado MD Unavailable [phone] Chris Gilbert MD Unavailable [phone] Lyndsey Palacios MD PhD Unavailable [phone] Chris Gilbert MD Unavailable [phone] Lyndsey Palacios MD PhD Unavailable [phone] Ivon De Leon [facility] Unavailable Chris Burroughs PA-C Unavailable [phone] Sylvester Joe MD Unavailable Reason for Visit * Reason Onset Date Comments Medication Question 01/08/2019 Patient's ph ysican wants her to start prednisone. Encounter Details Date Type Department Care Team (Late st Contact Info) Description 01/08/2019 Telephone [facility]opaedic [facility] 909 [facility] 4th [place] [address] Evelyn Alvarado MD 9 [place] [address] Medication Question (Patient's physican wants her to start prednisone.) Social History Tobacco Use Types Packs/Day Years Used Date Smoking Tobacco: Never Smokeless Tobacco: Never Alcohol Use Standard Drinks/Week Comments Yes 0 (1 standard drink = 0.6 oz pur e alcohol) rare PHQ-2 Answer Date Recorded PHQ-2 Score 1 10/04/2018 Sex and Gender Information Value Date Recorded Sex Assigned at Female 06/26/2019 9:26 AM MULTIPLE DRUM SANDER Gender Identity Female 06/26/2019 9:25 AM MULTIPLE DRUM SANDER Sexual Orientation Straight 06/26/2019 9: 25 AM MULTIPLE DRUM SANDER documented as of this encounter Miscellaneous Notes [...] Loren Alcantara - 01/08/2019 11:09 AM CDT [facility] Call Center Phone Message May a [...] 12/03/2023 10:00 AM CDT Office Visit [facility] Sports Medicine [address] [place] [address] Sylvester Joe MD [address] [place] [address] [address] 10/10/2024 1:30 PM CDT Office Visit [facility] Primary Care Clinic [address] [phone] Lyndsey Palacios MD [address] 275485 documented as of this encounter Visit Diagnoses Not on filedocumented in this encounter Additional Health Concerns Assessment Noted Time PHQ-9 Depression Total Score: 7 05/29/19 19 10:09 AM MULTIPLE DRUM SANDER documented as of this encounter Care Teams Tankage Supervisor Relationship Specialty Start Date End Date Chris Toledo MD PCP - General Family Practice 12/07/17 Beba Munoz PA-C [facility] [address] [place] [address] Physician Segment Producer Physician Segment Producer 12/07/17 Chris Gilbert MD [facility] [address] [address] Orthopedics 12/07/17 Ivette Rasmussen, RN Registered Nurse Nurse 01/12/18 Kirsten Pardo, RN Registered Nurse Urology 04/12/18 12/01/21 Donovan Peterson, RN Specialty Parts Delivery Driver Neurological Surgery 05/29/18 07/07/23 Evelyn Alvarado MD [address] [place] [address] Family Medicine - Sports Medicine 01/08/19 Chris Gilbert MD [facility] [address] [address] Assigned Musculoskeletal Provider 02/22/20 04/25/21 Lyndsey Palacios MD PhD [address] [place] [address] Assigned PCP 08/08/20 Chris Gilbert MD [address] [address] Assigned Musculoskeletal Provider 09/06/21 03/11/23 Lyndsey Palacios MD PhD [address] [place] [address] Family Medicine 09/29/22 Ivon De Leon, [facility] [address] [address] Pharmacist Pharmacist 10/07/22 hCris Burroughs PA-C [address] [place] [address] Assigned Musculoskeletal Provider 07/15/23 09/21/23 [place] [address] [place] [address] Assigned Musculoskeletal Provider 09/22/23 documented as of this encounter
--- OUTSIDE RECORDS SUMMARY | 2023-11-25 09:18 | XMS_ITS | Encounter Summary ---
Author Organization [place] Address [facility] [place] [address] Care Team Providers Care River Captain Name Role Phone Chris Toledo MD Primary Care Provider Beba Munoz PA-C Unavailable [phone] Chris Gilbert MD Unavailable Ivette Rasmussen RN Unavailable Kirsten Pardo RN Unavailable Donovan Peterson RN Unavailable Evelyn Alvarado MD Unavailable Chris Gilbert MD Unavailable [phone] Lyndsey Plaacios MD PhD Unavailable + [phone] Chris Gilbert MD Unavailable Lyndsey Palaciso MD PhD Unavailable [phone] Ivon De Leon [facility] Unavailable Chris Burroughs PA-C Unavailable [phone] Sylvester Joe MD Unavailable Reason for Visit * Reason Onset Date Comments Forms 08/16/2018 Additional clini paola information needed for PA Encounter Details Date Type Department Care Team (Late st Contact Info) Description 08/16/2018 Telephone [facility] [address] [facility] [address] 4th [place] [address] Chris Gilbert MD [address] [place] [address] Forms (Additional clinical information needed for PA) Social History Tobacco Use Types Packs/Day Years Used Date Smoking Tobacco: Never Smokeless Tobacco: Never Alcohol Use Standard Drinks/Week Comments Yes 0 (1 standard drink = 0.6 oz pur e alcohol) rare PHQ-2 Answer Date Recorded PHQ-2 Score 2 05/09/2018 Sex and Gender Information Value Date Recorded Sex Assigned at Female 06/26/2019 9:26 AM REFLESHER Gender Identity Female 06/26/2019 9:25 AM REFLESHER Sexual Orientation Straight 06/26/2019 9: 25 AM REFLESHER documented as of this encounter Miscellaneous Notes * Telephone Encounter - Alla Teixeira - 08/16/2018 3:18 PM CDT [facility] Center Phone Message May a detailed message be left on voicemail: yes Reason for Call: Other: Lillian with pt's insurance company calling to f/u on a letter they had sentearlier this week regarding a PA for pt's surgery. She states they received a request from the clinic and had needed additional information. Lillian requests their form be filled out and faxed to [facility] [phone], attn Precertification. Please advise. Action Taken: Message routed to: [facility] Ortho documented in this encounter Plan of Treatment Upcoming Encounters Date Type Department Care Team (Late st Contact Info) Description 12/03/2023 10:00 AM CDT Office Visit [facility] [place] [address] [facility] [address] [place] [address] [place] [address] [place] [address] 10/10/2024 1:30 PM CDT Office Visit [facility] [place] [address] [facility] 4th [place] [phone] Lyndsey Palacios MD PhD [address] [place] [address] documented as of this encounter Visit Diagnoses Not on filedocumented in this encounter Additional Health Concerns Assessment Noted Time PHQ-9 Depression Total Score: 7 05/29/19 19 10:09 AM REFLESHER documented as of this encounter Care Teams River Captain Relationship Specialty Start Date End Date Chris Toledo MD PCP - General Family Practice 12/07/17 Beba Munoz PA-C [facility] [address] [facility] [address] [place] [address] Physician Professor Of Architecture Physician Professor Of Architecture 12/07/17 Chris Gilbert MD [facility] [address] [address] Orthopedics 12/07/17 Ivette Rasmussen, RN Registered Nurse Nurse 01/12/18 Kirsten Pardo, RN Registered Nurse Urology 04/12/18 12/01/21 Donovan Peterson, RN Specialty Business Unit Director Neurological Surgery 05/29/18 07/07/23 Evelyn Alvarado MD [address] [place] [address] Family Medicine - Sports Medicine 01/08/19 Chris Gilbert MD [facility] [address] [address] Assigned Musculoskeletal Provider 02/22/20 04/25/21 Lyndsey Palacios MD PhD [address] [place] [address] Assigned PCP 08/08/20 Chris Gilbert MD [address] [place] [address] Assigned Musculoskeletal Provider 09/06/21 03/11/23 Lyndsey Palacios MD PhD [address] [place] [address] Family Medicine 09/29/22 Ivon De Leon, [facility] [address] [address] Pharmacist Pharmacist 10/07/22 Chris Burroughs PA-C [address] [place] [address] Assigned Musculoskeletal Provider 07/15/23 09/21/23 [place] [address] [place] [address] Assigned Musculoskeletal Provider 09/22/23 documented as of this encounter
== END 2023-11-23 09:06 | disposition home or self-care (01) ==
LOC: NFLDREF 11-25 09:13
PROVIDERS: PCP Family Medicine; Referring Provider Family Medicine; Visit Provider Family Medicine
DX: E78.2 Mixed hyperlipidemia (principal)
CPT/HCPCS: 80061

== ENCOUNTER 2024-04-06 10:12 | Outpatient (CLI) | payer MEDICARE, SELFPAY ==
--- NOTE | 2024-04-06 10:15 | CRLHL7_ITS ---
For Patients: As a result of the Cures Act, medical imaging exams and procedure reports are released immediately into your electronic medical record. You may view this report before your referring provider. If you have questions, please contact your health care provider. BILATERAL SCREENING MAMMOGRAM WITH COMPUTER-AIDED DETECTION AND TOMOSYNTHESIS TECHNIQUE: CC and MLO views were obtained. These mammographic images have been obtained using full-field digital technique. These mammographic images were interpreted with the benefit of computer-aided detection. Breast Tomosynthesis was used in this interpretation. COMPARISON FILM: 03/25/23, 03/12/22, 12/03/20. FINDINGS: There are scattered areas of fibroglandular density IMPRESSION: There is no radiographic evidence for malignancy. ASSESSMENT: BI-RADS Category 1: Negative RECOMMENDATION: Routine screening mammogram in 1 year. A lay language report of this examination will be provided to the patient. Chris Paez M.D. Diagnostic Radiologist [email or web address] Transcribed: 3:53 p.donnie smith/Dictated by: Chris Paez MD @ 04/10/2024 9:58:00 AM (Electronically Signed)
--- OUTSIDE RECORDS SUMMARY | 2024-04-06 10:15 | XMS_ITS | Encounter Summary ---
Author Organization [place] Address [address] [place] [address] Care Team Providers Care Postal Sorting Officer Name Role Phone Chris Toledo MD Primary Care Provider Beba Munoz PA-C Unavailable [phone] Chris Gilbert MD Unavailable Ivette Rasmussen RN Unavailable Kirsten Pardo RN Unavailable Donovan Peterson RN Unavailable Evelyn Alvarado MD Unavailable [phone] Lyndsey Palacios MD PhD Unavailable + [phone] Chris Gilbert MD Unavailable [phone] Lyndsey Palacios MD PhD Unavailable Ivon De Leon [facility] Unavailable Chris Burroughs PA-C Unavailable [phone] Sylvester Joe MD Unavailable Encounter Details Date [...] Answer Date Recorded PHQ-2 Score 0 08/18/2020 Comments No Sex and Gender Information Value Date Recorded Sex Assigned at Female 06/26/2019 9:26 AM HUMAN RESOURCES OPERATIONS COORDINATOR Legal Sex Female 4:16 AM HUMAN RESOURCES OPERATIONS COORDINATOR Gender Identity Female 06/26/2019 9:25 AM HUMAN RESOURCES OPERATIONS COORDINATOR Sexual Orientation Straight 06/26/2019 9: 25 AM HUMAN RESOURCES OPERATIONS COORDINATOR COVID-19 Exposure Response Date Recorded In the last 10 days, have yo u been in contact with someone who was confirmed or suspected to have Coronavirus/COVID-19? No / Unsure 08/27/2021 10:01 AM CDT documented as of this encounter Plan of Treatment Upcoming Encounters Date Type Department Care Team (Late st Contact Info) Description 10/10/2024 1:30 PM CDT Office Visit [facility] [address] [phone] Lyndsey Palacios MD PhD [address] [place] [address] documented as of this encounter Visit Diagnoses Not on filedocumented in this encounter Additional Health Concerns Assessment Noted Time PHQ-9 Depression Total Score: 4 06/04/19 20 1:21 PM HUMAN RESOURCES OPERATIONS COORDINATOR documented as of this encounter Care Teams Postal Sorting Officer Relationship Specialty Start Date End Date Chris Toledo MD PCP - General Family Practice 12/07/[address] [facility] [address] [place] [address] Physician Chocolate Maker Physician Chocolate Maker 12/07/17 Chris Gilbert MD [facility] [place][note 2][address] [place] [address] Orthopedics 12/07/17 Ivette Rasmusesn, RN Registered Nurse Nurse 01/12/18 Kirsten Pardo, RN Registered Nurse Urology 04/12/18 12/01/21 Donovan Peterson, RN Specialty System Safety Engineer Neurological Surgery 05/29/18 07/07/23 Evelyn Alvarado MD [address] [place] [address] Family Medicine - Sports Medicine 01/08/19 Lyndsey Palacios MD PhD [address] [place] [address] Assigned PCP 08/08/20 Chris Gilbert MD [facility] [place][note 2][address] [place] [address] Assigned Musculoskeletal Provider 09/06/21 03/11/23 Lyndsey Palacios MD PhD [address] [place] [address] Family Medicine 09/29/22 Ivon De Leon, [facility] [address] [place] [address] Pharmacist Pharmacist 10/07/22 Chris Burroughs PA-C [facility] [place][note 2][address] [address] Assigned Musculoskeletal Provider 07/15/23 09/21/23 [place] [address] [place] [address] Assigned Musculoskeletal Provider 09/22/23 documented as of this encounter
--- OUTSIDE RECORDS SUMMARY | 2024-04-06 10:15 | XMS_ITS | Encounter Summary ---
Author Organization [place] Address [address] [facility] [place] [address] Care Team Providers Care Transition Lead Name Role Phone Chris Toledo MD Primary Care Provider Beba MunozC Unavailable [phone] Chris Gilbert MD Unavailable [phone] Ivette Rasmussen RN Unavailable Donovan Peterson RN Unavailable Evelyn Alvarado MD Unavailable [phone] Lyndsey Palacios MD PhD Unavailable [phone] Chris Gilbert MD Unavailable [phone] Lyndsey Palacios MD PhD Unavailable [phone] Ivon De Leon [facility] Unavailable Chris Burroughs PA-C Unavailable [phone] Sylvester Joe MD Unavailable Encounter Details Date Type Department Care Team (Late st Contact Info) Description 10/07/2022 [facility] Medical Advice [facility] PROFESSIONAL BLD [address] [place] [address] [facility] [address] [facility] [address] [place] [address] Social History Tobacco Use Types Packs/Day Years Used Date Smoking Tobacco: Never Smokeless Tobacco: Never Alcohol Use Standard Drinks/Week Comments Yes 0 (1 standard drink = 0.6 oz pur e alcohol) rare PHQ-2 Answer Date Recorded PHQ-2 Score 1 10/04/2022 Comments No Sex and Gender Information Value Date Recorded Sex Assigned at Female 06/26/2019 9:26 AM ACCOUNT TECHNICIAN Legal Sex Female 4:16 AM ACCOUNT TECHNICIAN Gender Identity Female 06/26/2019 9:25 AM ACCOUNT TECHNICIAN Sexual Orientation Straight 06/26/2019 9: 25 AM ACCOUNT TECHNICIAN COVID-19 Exposure Response Date Recorded In the last 10 days, have yo u been in contact with someone who was confirmed or suspected to have Coronavirus/COVID-19? No / Unsure 10/04/2022 9:14 AM CDT documented as of this encounter Plan of Treatment Upcoming Encounters Date Type Department Care Team (Late st Contact Info) Description 10/10/2024 1:30 PM CDT Office Visit [facility] [address] [phone] Lyndsey Palacios MD PhD [address] [place] [phone] documented as of this encounter Visit Diagnoses Not on filedocumented in this encounter Additional Health Concerns Assessment Noted Time PHQ-9 Depression Total Score: 4 06/04/19 20 1:21 PM ACCOUNT TECHNICIAN documented as of this encounter Care Teams Transition Lead Relationship Specialty Start Date End Date Chris Toledo MD PCP - General Family Practice 12/07/17 Beba Munoz PA-C [facility] [address] [facility] [address] [place] [address] Physician Taxation Inspector Physician Taxation Inspector 12/07/17 Chris Gilbert MD [address] [place] [address] Orthopedics 12/07/17 Ivette Rasmussen, RN Registered Nurse Nurse 01/12/18 Donovan Peterson, RN Specialty Auto Damage Insurance Appraiser Neurological Surgery 05/29/18 07/07/23 Evelyn Alvarado MD [address] [place] [address] Family Medicine - Sports Medicine 01/08/19 Lyndsey Palacios MD PhD [address] [place] [address] Assigned PCP 08/08/20 Chris Gilbert MD [address] [place] [address] Assigned Musculoskeletal Provider 09/06/21 03/11/23 Lyndsey Palacios MD PhD [address] [place] [address] Family Medicine 09/29/22 Ivon De Leon, [facility] [address] [place] [address] Pharmacist Pharmacist 10/07/22 Chris Burroughs, PA-C [address] [place] [address] Assigned Musculoskeletal Provider 07/15/23 09/21/23 [place] [address] [facility] [place] [address] Assigned Musculoskeletal Provider 09/22/23 documented as of this encounter
--- OUTSIDE RECORDS SUMMARY | 2024-04-06 10:15 | XMS_ITS | Clinical Summary ---
Author Organization [employer] [facility] [place] [address] Care Team Providers Care Repair Supervisor Name Role Phone Chris Toledo MD [...] 137 mcg/actuation (ASTELIN) nasal spray Inhale 1 [place] in the nostril(s) 2 times daily. 1 [...] tablet 05/12/2018 Active gabapentin (NEURONTIN) 600 mg tabletIndications:Telecommunication Operator bennett bilateral low back pain without sciatica [...] 10 mg tablet 06/13/2019 Act lamar Insulin [place], Disposable, (BD INSULIN PEN NEEDLE UF MINI) [...] 05/03/2015 Issue of repeat prescriptions 12/02/2010 05/03/2015 Overview (12/02/2010): OSTEOARTHRITIS - taking Vicodin ES Routine general medical exam ination at a health care facility 10/02/2006 05/03/2015 Overview (06/12/2010): Colonoscopy due 06/18 Osteoarthrosis, unspecified whether generalized or localized, unspecified site 07/27/2006 03/31/2015 Esophageal reflux 07/27/2006 04/28/2015 Allergic rhinitis 07/27/2006 05/03/2015 Encounters Date Type Department Care Team Description 04/01/2024 10:43 AM YARDER PUNCHER - 04/01/2024 1:09 PM YARDER PUNCHER Emergency [address] [address] Mart Leyva MD Acute pain of left knee (Primary Dx) Discharge Disposition: Home Self Care 04/01/2024 Travel from Last 3 Months Immunizations Name Administration Dates Next Due AMB Influenza, IIV3 (Age 6-3 5 mos) Preserve Free (Flu Clinic Only) 02/09/2011 AMB Influenza, IIV3 (Age >=3 years)(Flu Clinic Only) 01/19/2012,02/05/2009,02/21/2008 Influenza A (H1N1), Inactiva radha (Age >=3 Years) 05/22/2009 Influenza, High-dose Inactivated 03/18/2017,09/0 09/2013 Influenza, IIV3 (Age >=3 years) 01/06/20 14,01/17/2013,02/13/2010,2009,02/22/2007,03/07/2006 [...] Sign Reading Time Taken Comments Blood Pressure 129/74 04/01/2024 10:53 AM YARDER PUNCHER Pulse 77 04/01/2024 10:53 AM YARDER PUNCHER Temperature 36.9 C (98.4 F) 04/01/2024 10:53 AM YARDER PUNCHER Respiratory Rate 14 04/01/2024 10:53 AM YARDER PUNCHER Oxygen Saturation 94% 04/01/2024 10:53 AM YARDER PUNCHER Inhaled Oxygen Concentration - - Weight 74.1 kg (163 lb 6.4 oz) 01/31/2022 12:40 PM CDT Height 149.9 cm (4' 11.02) 05/15/2018 2:[address] Body Mass Index 32.98 05/15/2018 2:17 PM YARDER PUNCHER Plan of Treatment Health Maintenance Due Date [...] history exists Tetanus booster 09/01/2022 09/01/2012, 01/30/2003 Influenza for age 65+ 2024 03/18/2017 , 02/14/2016, 01/23/2015 (Completed outside of [facility]), Additional history exists Colonoscopy through age 75 06/30/202606/30, 06/30/2016, 06/30/2016, Additional history exists Tdap Completed 09/01/2012 DEXA/DXA scan for age 65+ Completed 04/28/2015 Pneumococcal series for age 65+ Completed 7, 04/28/2015 COVID-19 vaccine series Completed 02/17/20 24, 02/02/2023, 01/05/2022, Additional history exists Goals Goal Patient Goal Type Associated Problems Recent Progress Patient-Stated? Author Housing - Increase Stability General No Lidya Taveras RN Note: Goal identified during: Initial Screening Status: In Progress Barriers to goal achievement: waiting to close on townhouse. Patient steps toward goal achievement: In process of purchasing townhouse. Navigator steps to support goal achievement: Advised [...] town home and anticipates moving into town [place] in the next 4 to 6 weeks. Date of follow up: no follow up needed. Patient will contact clinic if she has housing issues/concerns. Lidya Taveras RN ............... 12/01/2017 12:49 PM Procedures Procedure Name Priority Date/Time Associated Diagnosis Comments XR KNEE 2 VIEWS LEFT PORTABLE STAT 04/01/2024 12:07 PM YARDER PUNCHER XR MAMMO BILAT SCREENING Routine 08/08/2017 9:21 AM CDT Screening breast examination LIPID PANEL W REFLEX MEASURED LDL Routine 04/18/2017 11:23 AM YARDER PUNCHER Hyperlipidemia, unspecified hyperlipidemia type COLONOSCOPY SCREENING Routine 06/30/2016 Screening XR DXA BONE DENSITY 2 SITES AXIAL Routine 04/28/2015 10:50 AM YARDER PUNCHER Osteoporosis from Last 3 Months or Most Recently Relevant to Health Maintenance Results * XR KNEE 2 VIEWS LEFT PORTABLE (04/01/2024 12:07 PM YARDER PUNCHER) Anatomical Region Laterality Modality KNEE L Digital Radiogra phy 04/01/2024 12:3 7 PM YARDER PUNCHER Narrative 04/01/2024 12:37 PM YARDER PUNCHER For Patients: As a result of the Cures Act, medical imaging exams and procedure reports are released immediately into your electronic medical record. You may view this report before your referring provider. If you have questions, please contact your health care provider. INDICATION: Pain TECHNIQUE: TECHNIQUE:two views left knee FINDINGS/IMPRESSION: Normal alignment. No acute fracture or acute osseous abnormalities are visualized. Mild soft tissue edema mild degenerative change Dictated by Dana Echevarria MD @ 04/01/2024 12:37:45 PM (Electronically Signed) Procedure Note Dana Echevarria MD - 04/01/2024 For Patients: As a result of the Cures Act, medical imagingexams and procedure reports are released immediately into your electronicmedical record. You may view this report before your referring provider.If you have questions, please contact your health care provider. INDICATION: Pain TECHNIQUE: TECHNIQUE:two views left knee FINDINGS/IMPRESSION: Normal alignment. No acute fracture or acute osseous abnormalities arevisualized. Mild soft tissue edema mild degenerative change Dictated by Dana Echevarria MD @ 04/01/2024 12:37:45 PM (Electronically Signed) Mart Leyva MD GENERAL IMAG ING * XR MAMMO BILAT SCREENING (08/08/2017 9:21 AM CDT) Anatomical Region Laterality Modality BREASTS, Breast Left, Breast Right Bilateral Mammography Impressions 08/08/2017 1:33 PM CDT There is no radiographic evidence for malignancy. Recommend annual mammograms. A lay language report of this examination will be provided to the patient. MAMMOGRAM ASSESSMENT: ACR 2 Benign Narrative 08/08/2017 1:33 PM CDT XR MAMMO BILAT SCREENING [[id number]] CLINICAL HISTORY: This is an asymptomatic 67 y.o. patient. INDICATION FOR EXAM: Mammogram Screening. TECHNIQUE: CC & MLO views were obtained. This digital study was evaluated with the assistance of Computer-Aided Detection. COMPARISON FILMS: Yes 08/06/16 [facility] FINDINGS: Mammographically, the breast tissue is almost entirely fat. No suspicious masses or microcalcifications. Benign appearing calcifications within both breasts. Chris Toledo MD MAMMO * LIPID PANEL W REFLEX MEASURED LDL (04/18/2017 11:23 AM YARDER PUNCHER) CHOLESTEROL,TOTAL 163 100 - 199 mg/dL 04/18/2017 12:19 PM YARDER PUNCHER [facility] TRIGLYCERIDES 135 <150 mg/dL 04/18/2017 12:19 PM YARDER PUNCHER [facility] HDL CHOLESTEROL 59 >40 mg/dL 7 12:19 PM YARDER PUNCHER [facility] NON-HDL CHOLESTEROL 104 <145 mg/dl 04/18/2017 12:19 PM YARDER PUNCHER [facility] CHOL/HDL RATIO 2.76 <4.50 04/18/2017 12:19 PM YARDER PUNCHER [facility] LDL CHOLESTEROL 77 <=130 mg/dL 04/18/2017 12:19 PM YARDER PUNCHER [facility] PROVIDER ORDERED STATUS RANDOM 04/18/2017 12:19 PM YARDER PUNCHER [facility] Blood BLOOD SPECIMEN / Unknown Venipuncture / Unknown 04/18/2017 11:23 AM YARDER PUNCHER 04/18/2017 11:23 AM YARDER PUNCHER Chris Toledo MD CHEMISTRY Performing Organization Address City/State/[facility] [place] [address] * COLONOSCOPY SCREENING (06/30/2016) Edgar Acuna MD GI PROCEDURE ORD * (ABNORMAL) XR DXA BONE DENSITY 2 SITES (04/28/2015 10:50 AM YARDER PUNCHER) Anatomical Region Laterality Modality Spine, HIPS, HIPL, HIPR Bone Den sitometry Narrative 04/30/2015 1:55 PM YARDER PUNCHER Please see scanned document for results of this study. Chris Toledo MD DEXA from Last 3 Months or Most Recently Relevant to Health Maintenance Advance Directives Documents on File Type Date Recorded Patient [employer] Transport Operator Expl anation Healthcare Directive 08/18/2017 3:34 PM Healthcare Directive 06/28/2016 4:48 PM Healthcare Directive 12/21/2011 12:00 AM A DVANCED DIRECTIVE Healthcare Directive 05/29/2009 12:00 AM A DVANCE DIRECTIVE Care Teams Repair Supervisor Relationship Specialty Start Date End Date Chris Toledo MD [address] [place] [address] PCP - General Family Practice 10/11/18
--- OUTSIDE RECORDS SUMMARY | 2024-04-06 10:15 | XMS_ITS | Referral Summary ---
Author Organization [facility] Address [address] [place] [address] Care Team Providers Care Ash Conveyor Operator Name Role Phone Chris Toledo MD Primary Care Provider Beba Munoz PA-C Unavailable [phone] Chris Gilbert MD Unavailable [phone] Ivette Ramsussen RN Unavailable Evelyn Alvarado MD Unavailable [phone] Lyndsey Palacios MD PhD Unavailable [phone] Lyndsey Palacios MD PhD Unavailable + [phone] Ivon De Leon [facility] Unavailable Sylvester Joe MD Unavailable Allergies Active Allergy Reactions Criticality Noted Date Comments Other (Do Not Use) Unknown 07/08/2019 cough Shellfish Allergy 08/16/2022 Simvastatin Muscle Pain (Myalgia) 10/02/2006 Medications albuterol (PROAIR HFA/PROVENTIL HFA/VENTOLIN HFA) 108 (90 Base) MCG/ACT inhaler Inhale 2 puffs into the lungs every 4 hours as needed 4 Active azelastine (ASTELIN) 0.1 % nasal spray [place] 2 sprays into both nostrils 2 times daily 3 8 Active cetirizine (ZYRTEC) 10 MG tablet Take 10 mg by mouth every evening 1 Active cycloSPORINE (RESTASIS) 0.05 % ophthalmic emulsion Place 1 drop into both eyes every morning 4 Active EPINEPHrine (EPIPEN/ADRENAC LICK/OR ANY BX GENERIC EQUIV) 0.3 MG/0.3ML injection 2-pack Inject 0.3 mg into the muscle as needed 2 8 Active fluticasone (FLOVENT HFA) 110 MCG/ACT inhaler Inhale 1 puff into the lungs 2 times daily 6 Active fluticasone (FLONASE) 50 MCG/ACT nasal spray [place] 2 sprays into both nostrils 2 times daily 2 Active montelukast (SINGULAIR) 10 MG tablet Take 10 mg by mouth At Bedtime 3 Active omeprazole (PRILOSEC) [address] capsule Take 20 mg by mouth every morning 7 Active calcium carbonate 600 mg-vitamin D 400 units (CALTRATE) 600-400 MG-UNIT per tablet Take 1 tablet by mouth 2 times daily Active melatonin 5 MG tablet Take 5 mg by mouth At Bedtime Active [place]-3 Fatty Acids (FISH OIL) 1200 MG capsule Take 1,200 mg by mouth daily Active cholecalciferol (VITAMIN D3) 5000 units (125 mcg) capsule Take 5,000 Units by mouth every evening Active lisinopril (PRINIVIL/ZESTR IL) 10 MG tablet Take 10 mg by mouth every morning Active medical cannabis (Patient's own supply) Take 1 Dose by mouth 2 times daily (The purpose of this order is to document that the patient reports taking medical cannabis. This is not a prescription, and is not used to certify that the patient has a qualifying medical condition.) Active acetaminophen (TYLENOL) 325 MG tabletIndicatio ns:H/O Spinal surgery Take 2 tablets (650 mg) by mouth every 4 hours as needed for pain 100 tablet 1 9 Active gabapentin (NEURONTIN) 600 MG tabletIndicatio ns:H/O Spinal surgery Take 1 tablet (600 mg) by mouth 3 times daily 90 tablet 9 Active Additional Information Patient taking differently:600 mg Oral2 TIMES DAILY, Reported on 08/18/2020 HYDROcodone-lauren taminophen (NORCO) 7.5-325 MG per tablet Take 1 tablet by mouth At Bedtime 0 9 Active atorvastatin (LIPITOR) 10 MG tablet Take 10 mg by mouth daily Active diclofenac (VOLTAREN) 1 % topical gelIndications: Osteoarthritis of fingers of both hands Place 2 g onto the skin 2 times daily as needed for moderate pain (knuckles) 100 g 0 Active Additional Information Patient not taking.Reported on 07/05/2023 UNABLE TO FIND MEDICATION NAME: focous 1 tab twice daily Active fenofibrate (TRIGLIDE/LOFIB RA) 160 MG tablet Take 1 tablet by mouth daily at 2 pm 3 Active potassium 99 MG TABS 1 Active Cyanocobalamin (VITAMIN B 12) 100 MCG LOZG 1 Active celecoxib (CELEBREX) 200 MG capsule Take 200 mg by mouth 2 times daily Active predniSONE (DELTASONE) 20 MG tabletIndicatio ns:Bilateral hip pain Take 3 tabs by mouth daily x 3 days, then 2 tabs daily x 3 days, then 1 tab daily x 3 days, then 1/2 tab daily x 3 days. 20 tablet 4 Active Hospital, Clinic, or Other Facility Administered [...] of left hip 4 mL 09/06/2023 Active lidocaine 1 % injection 1 mLIndications:Trochanteric bursitis of right hip 1 mL 12/03/2023 Act lamar lidocaine 1 % injection 4 mLIndications:Primary osteoarthritis of right hip 4 mL 12/03/2023 Active methylPREDNISolone (DEPO-Medrol) injection 40 mgIndications:Primary osteoarthritis of right hip 40 mg 12/03/2023 Active methylPREDNISolone (DEPO-Medrol) injection 40 mgIndications:Trochanteric bursitis of right hip 40 mg 12/03/2023 Act lamar Active Problems Problem Noted Date Diagnosed Date [...] 12+ (Pfizer 2021) 08/08/2021 DTaP, Unspecified 09/01/2012 T3b3-54 Novel Flu 05/22/2009 Influenza (H1N1) 05/22/2009 Influenza (High Dose) Trival ent,PF (Fluzone) 02/13/2019,03/08/2018,03/18/2017,2015,01/13/2015,01/05/2014 Influenza (IIV3) PF 01/04/2014, 3,01/19/2012,2009,01/22/2010,02/05/2009,02/21/2008,1 ,03/07/2006,02/24/2005, 003 Influenza (prior to 2023) 02/09/2011,01/22/2010 Influenza Vaccine 65+ (FLUAD) 02/01/2023 ,01/05/2022,01/30/2021,2019 Influenza Vaccine >6 months,quad, PF 09/2021,01/30/2021,01/29/2020,2018,03/08/2018,03/18/2017,02/14/2016,0 12/22/2015,01/23/2015,01/13/2015, 014,01/16/2013,01/19/2012,02/09/2011,,05/22/2009,02/05/2009,02/21/20 08,02/22/2007,02/24/2005,02/20/2003 Pneumo Conj 13-V (2010&after) 10/05/2016 Pneumococcal 23 [...] by your partner or ex-partner? No 11/23/2023 Comments No Sex and Gender Information Value Date Recorded Sex Assigned at Female 06/26/2019 9:26 AM [employer] Legal Sex Female 4:16 AM [employer] Gender Identity Female 06/26/2019 9:25 AM [employer] Sexual Orientation Straight 06/26/2019 9: 25 AM [employer] Last Filed Vital Signs Vital Sign Reading Time Taken Comments Blood Pressure 124/75 12/03/2023 9:56 AM CDT Pulse 71 11/23/2023 1:42 PM CDT Temperature 36.9 C (98.4 F) 06/29/2019 8:58 AM [employer] Respiratory Rate 16 11/17/2018 1:29 PM CDT Oxygen Saturation 97% 11/23/2023 1:42 PM CDT Inhaled Oxygen Concentration - - Weight 73.5 kg (162 lb) 12/03/2023 9:56 AM CDT Height 152.4 cm (5') 08/23/2023 1:13 PM CDT Body Mass Index 31.64 08/23/2023 1:13 PM CDT Plan of Treatment Upcoming Encounters Date Type Department Care Team (Late st Contact Info) Description 10/10/2024 1:30 PM CDT Office Visit [facility] [address] [place] [address] Lyndsey Palacios MD PhD [address] [place] [address] [id number] Medical Devices Implanted Type Area Sand Screener Device Identifier Shelf Expiration Date Model / Serial / Lot Graft Bone Crush Canc 30ml [id number] Implanted:Qty : 1 on 08/21/2018 by Chris Gilbert MD at [facility] Bone/Tissu e/Biologic N/A: Spine Lumbar MUSCULOSKELETAL CAMPOS 04/28/2021 [id number] / [id number] / Graft Bone Crush Canc 30ml [id number] Implanted:Qty : 1 on 08/21/2018 by Chris Gilbert MD at [facility] Bone/Tissu e/Biologic N/A: Spine Lumbar MUSCULOSKELETAL CAMPOS 06/02/2021 [id number] / [id number] / [id number] Imp Scr Medt 5.5/6.0mm Solera 6.5x55mm Ma [id number] Implanted:Qty : 2 on 08/21/2018 by Chris Gilbert MD at [facility] Metallic Hardware/A nchor N/A: Spine Lumbar [employer] [id number] / / [id number] Imp Scr Medt 5.5/6.0mm Solera 5.5x50mm Ma [id number] Implanted:Qty : 2 on 08/21/2018 by Chris Gilbert MD at [facility] Metallic Hardware/A nchor N/A: Spine Lumbar [employer] [id number] / / [id number] Imp Scr Medt 5.5/6.0mm Solera 5.5x55mm Ma [id number] Implanted:Qty : 2 on 08/21/2018 by Chris Gilbert MD at [facility] Metallic Hardware/A nchor N/A: Spine Lumbar [employer] [id number] / / [id number] Imp Scr Medt 5.5/6.0mm Solera 6.5x45mm Ma [id number] Implanted:Qty : 2 on 08/21/2018 by Chris Gilbert MD at [facility] Metallic Hardware/A nchor N/A: Spine Lumbar [employer] [id number] / / [id number] Imp Scr Medt 5.5/6.0mm Solera 6.5x40mm Ma [id number] Implanted:Qty : 1 on 08/21/2018 by Chris Gilbert MD at [facility] Metallic Hardware/A nchor N/A: Spine Lumbar [employer] [id number] / / [id number] Imp Scr Medt 5.5/6.0mm Solera 5.5x40mm Ma [id number] Implanted:Qty : 3 on 08/21/2018 by Chris Gilbert MD at [facility] Metallic Hardware/A nchor N/A: Spine Lumbar [employer] [id number] / / [id number] Imp Scr Medt 5.5/6.0mm Solera 5.0x35mm Ma [id number] Implanted:Qty : 1 on 08/21/2018 by Chris Gilbert MD at [facility] Metallic Hardware/A nchor N/A: Spine Lumbar [employer] [id number] / / [id number] Imp Scr Medt 5.5/6.0mm Solera 4.5x35mm Ma [id number] Implanted:Qty : 1 on 08/21/2018 by Chris Gilbert MD at [facility] Metallic Hardware/A nchor N/A: Spine Lumbar [employer] [id number] / / [id number] Imp Scr Medt 5.5/6.0mm Solera 5.0x40mm Ma [id number] Implanted:Qty : 1 on 08/21/2018 by Chris Gilbert MD at [facility] Metallic Hardware/A nchor N/A: Spine Lumbar [employer] [id number] / / [id number] Imp Scr Medt 5.5/6.0mm Solera 4.5x40mm Ma [id number] Implanted:Qty : 1 on 08/21/2018 by Chris Gilbert MD at [facility] Metallic Hardware/A nchor N/A: Spine Lumbar [employer] [id number] / / [id number] Imp Dao Medt Solera Lined 5.1m132pl Chr [id number] Implanted:Qty : 3 on 08/21/2018 by Chris Gilbert MD at [facility] Metallic Hardware/A nchor N/A: Spine Lumbar [employer] [id number] / / [id number] Imp Scr Set Medt Solera Break Off 5.5mm Ti [id number] Implanted:Qty : 26 on 08/21/2018 by Chris Gilbert MD at [facility] Metallic Hardware/A nchor N/A: Spine Lumbar [employer] [id number] / [id number] / Imp Scr Medt 5.5/6.0mm Solera 7.5x40mm Ma [id number] Implanted:Qty : 2 on 08/21/2018 by Chris Gilbert MD at [facility] Metallic Hardware/A nchor N/A: Spine Lumbar [employer] [id number] / / [id number] Imp Scr Medt 5.5/6.0mm Solera 7.5x50mm Ma [id number] Implanted:Qty : 4 on 08/21/2018 by Chris Gilbert MD at [facility] Metallic Hardware/A nchor N/A: Spine Lumbar [employer] [id number] / / [id number] Imp Scr Medt 5.5/6.0mm Solera 7.5x55mm Ma [id number] Implanted:Qty : 2 on 08/21/2018 by Chris Gilbert MD at [facility] Metallic Hardware/A nchor N/A: Spine Lumbar [employer] [id number] / / [id number] Ballast Screw Implanted:Qty : 1 on 08/21/2018 by Chris Gilbert MD at [facility] N/A: Spine Lumbar [id number] / / [id number] Ballast Screw 9.5 X 90 Mm Implanted:Qty : 1 on 08/21/2018 by Chris Gilbert MD at [facility] N/A: Spine Lumbar [id number] / / [id number] Variable Angle [place] Implanted:Qty : 2 on 08/21/2018 by Janel Guillory MD at [facility] N/A: Spine Lumbar 07/14/2023 [id number] / / [id number] Capstone Control 10 X 22 Implanted:Qty : 1 on 08/21/2018 by Chris Gilbert MD at [facility] N/A: Spine Lumbar [employer] [id number] / / Explanted Type Area Sand Screener Device Identifier Shelf Expiration Date Model / Serial / Lot Imp Scr Set Medt Solera Break Off 5.5mm Ti [id number] Explanted:Qty: 3 on 08/21/2018 at [facility] Metallic Hardware/Anc hor N/A: Spine Lumbar [employer] [id number] / / [id number] [place]ley Screws Explanted:Qty: 1 on 08/21/2018 by Chris Gilbert MD at [facility] Bilateral : Spine Lumbar Description:ALL ISOLA SPINE HARDWARE REMOVED LUMBAR AND THORACIC. Procedures Procedure Name Priority Date/Time Associated Diagnosis Comments DEXA - HIM SCAN 09/16/2022 12:00 AM CDT MA EXTERNAL IMAGING 2D SCREENING Routine 03/12/2022 12:00 AM [employer]AL BASIC METABOLIC PANEL Routine 01/25/2020 10:57 AM CDT Senile osteoporosis from Last 3 Months or Most Recently Relevant to Health Maintenance Results * DEXA - HIM SCAN (09/16/2022 12:00 AM CDT) Anatomical Region Laterality Modality Other 09/16/2022 us Provider Outside IMG DEXA ORDERABLES Final Resul t * MA External Imaging 2D Screening (03/12/2022 12:00 AM [employer]) Narrative Service Account, Ob Sue - 10/14/2022 3:18 PM CDT Images were obtained from an external facility. Click PACS Images hyperlink to view images. Textual results have been scanned into the media tab. us Radiology Non-Fv Credentialed Provider IMG EXTER NAL IMAGING ORDERABLES Final Result * (ABNORMAL) Basic Metabolic Panel (01/25/2020 10:57 AM CDT) Sodium 139 133 - 144 mmol/L 01/25/2020 11:23 AM CDT [facility] Potassium 4.2 3.4 - 5.3 mmol/L 01/25/2020 11:[address] [facility] Chloride 108 94 - 109 mmol/L 01/25/2020 11:[address] [facility] Carbon Dioxide 24 20 - 32 mmol/L 01/25/2020 11:[address] [facility] Anion Gap 7 3 - 14 mmol/L 01/25/2020 11:[address] [facility] Glucose 106(H) 70 - 99 mg/dL 01/25/2020 11:[address] [facility] Urea Nitrogen 15 7 - 30 mg/dL 01/25/2020 11:[address] [facility] Creatinine 0.92 0.52 - 1.04 mg/dL 01/25/2020 11:[address] [facility] GFR Estimate 63 >60 mL/min/{1 .73_m2} 01/25/2020 11:[address] [facility] Comment: Non GFR Calc Starting 04/18/2018, serum creatinine based estimated GFR (eGFR) will be calculated using the Chronic Kidney Disease Epidemiology Collaboration (CKD-EPI) equation. GFR Estimate If Black 73 >60 mL/min/{1 .73_m2} 01/25/2020 11:[address] [facility] Comment: GFR Calc Starting 04/18/2018, serum creatinine based estimated GFR (eGFR) will be calculated using the Chronic Kidney Disease Epidemiology Collaboration (CKD-EPI) equation. Calcium 9.6 8.5 - 10.1 mg/dL 01/25/2020 11:[address] [facility] Blood specimen (specimen) 01/25/2020 10:57 AM CDT 01/25/2020 10:58 AM CDT us Lyndsey Palacios MD PhD LAB - BLOOD ORDERABLES Final Result [facility] [address] [place] [address] from Last 3 Months or Most Recently Relevant to Health Maintenance Insurance * Guarantor: AMEE MACHADO Account Type Relation to Patient Date of Phone Billing Address Personal/Family [address] [place] [address] BCBS OUT OF STATE MEDICARE REPLACEMENT * Guarantor: AMEE MACHADO Account Type Relation to Patient Date of Phone Billing Address Personal/Family [address] [place] [address] [employer]BS OUT OF STATE MEDICARE REPLACEMENT * Guarantor: Cindy Saldana Account Type Relation to Patient Date of Phone Billing Address Medication Therapy Self 06/15/1954 [address] [place] [address] [employer] OUT [place] [address] * Guarantor: Giselle Esposito Account Type Relation to Patient Date of Phone Billing Address Medication Therapy Self 1950 [address] [place] [address] [employer] OUT OF [place] [address] Care Teams Ash Conveyor Operator Relationship Specialty Start Date End Date Chris Toledo MD PCP - General Family Practice 12/07/17 Beba Munoz PA-C [facility] [address] [place] [address] Physician Spd Tech Physician Spd Tech 12/07/17 Chris Gilbert MD [address] [place] [address] Orthopedics 12/07/17 Ivette Rasmussen, RN Registered Nurse Nurse 01/12/18 Evelyn Alvarado MD [address] [place] [address] [id number] Family Medicine - Sports Medicine 01/08/19 Lyndsey Palacios MD PhD [address] [place] [address] [id number] Assigned PCP 08/08/20 Lyndsey Palacios MD PhD [address] [place] [address] [id number] Family Medicine 09/29/22 Ivon De Leon, [facility] [address] [id number] Pharmacist Pharmacist 10/07/22 [place] [address] [facility] [place] [address] Assigned Musculoskeletal Provider 09/22/23
--- OUTSIDE RECORDS SUMMARY | 2024-04-06 10:15 | XMS_ITS | Clinical Summary ---
Author Organization [place] Address [address] [facility] [place] [address] Care Team Providers Care Termite Renewal Inspector Name Role Phone Chris Toledo MD Primary Care Provider Beba Munoz PA-C Unavailable [phone] Chris Gilbert MD Unavailable [phone] Ivette Rasmussen RN Unavailable Evelyn Alvarado MD Unavailable [phone] Lyndsey Palacios MD PhD Unavailable [phone] Lyndsey Palacios MD PhD Unavailable + [phone] Ivon De Leon [facility] Unavailable Sylvester Joe MD Unavailable Allergies Active Allergy Reactions Criticality Noted Date Comments Other (Do Not Use) Unknown 07/08/2019 cough Shellfish Allergy 08/16/2022 Simvastatin Muscle Pain (Myalgia) 10/02/2006 Medications albuterol (PROAIR HFA/PROVENTIL HFA/VENTOLIN HFA) 108 (90 Base) MCG/ACT inhaler Inhale 2 puffs into the lungs every 4 hours as needed 4 Active azelastine (ASTELIN) 0.1 % nasal spray [place] 2 sprays into both nostrils 2 times [...] Active fluticasone (FLONASE) 50 MCG/ACT nasal spray [place] 2 sprays into both nostrils 2 times [...] 5 mg by mouth At Bedtime Active Burnside-3 Fatty Acids (FISH OIL) 1200 MG capsule [...] mg Oral2 TIMES DAILY, Reported on 08/18/2020 HYDROcodone-aluren taminophen (NORCO) 7.5-325 MG per tablet Take [...] 12+ (Pfizer 2021) 08/08/2021 DTaP, Unspecified 09/01/2012 A2x0-97 Novel Flu 05/22/2009 Influenza (H1N1) 05/22/2009 Influenza [...] Getting School Help Needed Not on file 10/17 /2023 Interpersonal Safety Answer Date Record ed Do [...] Sex Assigned at Female 06/26/2019 9:26 AM UNDERCOLLAR BASTER Legal Sex Female 4:16 AM UNDERCOLLAR BASTER Gender Identity Female 06/26/2019 9:25 AM UNDERCOLLAR BASTER Sexual Orientation Straight 06/26/2019 9: 25 AM UNDERCOLLAR BASTER Last Filed Vital Signs Vital Sign Reading Time Taken Comments Blood Pressure 124/75 12/03/2023 9:56 AM CDT Pulse 71 11/23/2023 1:42 PM CDT Temperature 36.9 C (98.4 F) 06/29/2019 8:58 AM UNDERCOLLAR BASTER Respiratory Rate 16 11/17/2018 1:29 PM CDT [...] Description 10/10/2024 1:30 PM CDT Office Visit [facility] [address] [place] [address] Lyndsey Palacios MD PhD [address] [place] [address] Health Maintenance Due Date Last Done Comments ADVANCE CARE PLANNING 1950 ANNUAL REVIEW OF HM ORDERS [address] COLONOGRAPHY 1950 FIT 1950 FLEX SIG 1950 LIPID 1950 sDNA (Cologuard) 1950 HEPATITIS C SCREENING 01/02/1968 MEDICARE ANNUAL WELLNESS VISIT 2015 BMP 01/24/2021 01/25/2020, 08/01, 08/22/2018, Additional history exists DTAP/TDAP/TD IMMUNIZATION (3 - Td or Tdap) 09/01/2022 09/01/2012, 09/01/2012, 02/20/2003 GLUCOSE 01/24/2023 01/25/2020, 08/01, 08/23/2018, Additional history exists COVID-19 Vaccine ( season) 2024 02/02/2023, 01/05/2022, 08/08/2021, Additional history exists INFLUENZA VACCINE (#1) 2024 , 01/05/2022, 01/05/2022, Additional history exists MAMMO SCREENING 03/12/2024 03/12/2022, 08/0 07/2020, 12/03/2019, Additional history exists FALL RISK ASSESSMENT 11/22/2024 11/23/2023 COLONOSCOPY 06/30/2026 06/30/2016 COLORECTAL CANCER SCREENING 06/30/2026 DEXA 09/16/2037 09/16/2022, 06/02, 06/12/2020, Additional history exists Pneumococcal Vaccine: 65+ Years Completed 10/05/2016, 04/28/2015 ZOSTER IMMUNIZATION Completed 01/22/2019, 11/20/2018, 08/08/2014 RSV VACCINE Completed 03/04/2023 PHQ-2 (once per calendar year) [...] this topic Medical Devices Implanted Type Area Qlikview Developer Device Identifier Shelf Expiration Date Model / Serial / Lot Graft Bone Crush Canc 30ml [id number] Implanted:Qty : 1 on 08/21/2018 by Chris Gilbert MD at [facility] Bone/Tissu e/Biologic N/A: Spine Lumbar MUSCULOSKELETAL CAMPOS 04/28/2021 [id number] / [id number] / Graft Bone Crush Canc 30ml [id number] Implanted:Qty : 1 on 08/21/2018 by Chris Gilbert MD at [facility] Bone/Tissu e/Biologic N/A: Spine Lumbar MUSCULOSKELETAL CAMPOS 06/02/2021 [id number] / [id number] / [id number] Imp Scr Medt 5.5/6.0mm Solera 6.5x55mm Ma [id number] Implanted:Qty : 2 on 08/21/2018 by Chris Gilbert MD at [facility] Metallic Hardware/A nchor N/A: Spine Lumbar [employer] [id number] / / [id number] Imp Scr Medt 5.5/6.0mm Solera 5.5x50mm Ma [id number] Implanted:Qty : 2 on 08/21/2018 by Chris Gilbert MD at [facility] Metallic Hardware/A nchor N/A: Spine Lumbar [employer] [id number] / / [id number] Imp Scr Medt 5.5/6.0mm Solera 5.5x55mm Ma [id number] Implanted:Qty : 2 on 08/21/2018 by Chris Gilbert MD at [facility] Metallic Hardware/A nchor N/A: Spine Lumbar [employer] [id number] / / [id number] Imp Scr Medt 5.5/6.0mm Solera 6.5x45mm Ma [id number] Implanted:Qty : 2 on 08/21/2018 by Chris Gilbert MD at [facility] Metallic Hardware/A nchor N/A: Spine Lumbar [employer] [id number] / / [id number] Imp Scr Medt 5.5/6.0mm Solera 6.5x40mm Ma [id number] Implanted:Qty : 1 on 08/21/2018 by Chris Gilbert MD at [facility] Metallic Hardware/A nchor N/A: Spine Lumbar [employer] [id number] / / [id number] Imp Scr Medt 5.5/6.0mm Solera 5.5x40mm Ma [id number] Implanted:Qty : 3 on 08/21/2018 by Chris Gilbert MD at [facility] Metallic Hardware/A nchor N/A: Spine Lumbar [employer] [id number] / / [id number] Imp Scr Medt 5.5/6.0mm Solera 5.0x35mm Ma [id number] Implanted:Qty : 1 on 08/21/2018 by Chris Gilbert MD at [facility] Metallic Hardware/A nchor N/A: Spine Lumbar [employer] [id number] / / [id number] Imp Scr Medt 5.5/6.0mm Solera 4.5x35mm Ma [id number] Implanted:Qty : 1 on 08/21/2018 by Chris Gilbert MD at [facility] Metallic Hardware/A nchor N/A: Spine Lumbar [employer] [id number] / / [id number] Imp Scr Medt 5.5/6.0mm Solera 5.0x40mm Ma [id number] Implanted:Qty : 1 on 08/21/2018 by Chris Gilbert MD at [facility] Metallic Hardware/A nchor N/A: Spine Lumbar [employer] [id number] / / [id number] Imp Scr Medt 5.5/6.0mm Solera 4.5x40mm Ma [id number] Implanted:Qty : 1 on 08/21/2018 by Chris Gilbert MD at [facility] Metallic Hardware/A nchor N/A: Spine Lumbar [employer] [id number] / / [id number] Imp Dao Medt Solera Lined 5.6z555jz Chr [id number] Implanted:Qty : 3 on 08/21/2018 by Chris Gilbert MD at [facility] Metallic Hardware/A nchor N/A: Spine Lumbar [employer] [id number] / / [id number] Imp Scr Set Medt Solera Break Off 5.5mm Ti [id number] Implanted:Qty : 26 on 08/21/2018 by Chris Gilbert MD at [facility] Metallic Hardware/A nchor N/A: Spine Lumbar [employer] [id number] / [id number] / Imp Scr Medt 5.5/6.0mm Solera 7.5x40mm Ma [id number] Implanted:Qty : 2 on 08/21/2018 by Chris Gilbert MD at [facility] Metallic Hardware/A nchor N/A: Spine Lumbar [employer] [id number] / / [id number] Imp Scr Medt 5.5/6.0mm Solera 7.5x50mm Ma [id number] Implanted:Qty : 4 on 08/21/2018 by Chris Gilbert MD at [facility] Metallic Hardware/A nchor N/A: Spine Lumbar [employer] [id number] / / [id number] Imp Scr Medt 5.5/6.0mm Solera 7.5x55mm Ma [id number] Implanted:Qty : 2 on 08/21/2018 by Chris Gilbert MD at [facility] Metallic Hardware/A nchor N/A: Spine Lumbar [employer] [id number] / / [id number] Ballast Screw Implanted:Qty : 1 on 08/21/2018 by Chris Gilbert MD at [facility] N/A: Spine Lumbar [id number] / / [id number] Ballast Screw 9.5 X 90 Mm Implanted:Qty : 1 on 08/21/2018 by Chris Gilbert MD at [facility] N/A: Spine Lumbar [id number] / / [id number] Variable Angle [place] Implanted:Qty : 2 on 08/21/2018 by Janel Guillory MD at [facility] N/A: Spine Lumbar 07/14/2023 [id number] / / [id number] Capstone Control 10 X 22 Implanted:Qty : 1 on 08/21/2018 by Chris Gilbert MD at [facility] N/A: Spine Lumbar [employer] [id number] / / Explanted Type Area Qlikview Developer Device Identifier Shelf Expiration Date Model / Serial / Lot Imp Scr Set Medt Solera Break Off 5.5mm Ti [id number] Explanted:Qty: 3 on 08/21/2018 at [facility] Metallic Hardware/Anc hor N/A: Spine Lumbar [employer] [id number] / / [id number] Lithia Screws Explanted:Qty: 1 on 08/21/2018 by Chris Gilbert MD at [facility] Bilateral : Spine Lumbar Description:ALL ISOLA SPINE HARDWARE REMOVED LUMBAR AND THORACIC. Procedures Procedure Name Priority Date/Time Associated Diagnosis Comments DEXA - HIM SCAN 09/16/2022 12:00 AM CDT MA EXTERNAL IMAGING 2D SCREENING Routine 03/12/2022 12:00 AM UNDERCOLLAR BASTER BASIC METABOLIC PANEL Routine 01/25/2020 10:57 AM CDT Senile osteoporosis from Last 3 Months or Most Recently Relevant to Health Maintenance Results * DEXA - HIM SCAN (09/16/2022 12:00 AM CDT) Anatomical Region Laterality Modality Other 09/16/2022 us Provider Outside IMG DEXA ORDERABLES Final Resul t * MA External Imaging 2D Screening (03/12/2022 12:00 AM UNDERCOLLAR BASTER) Narrative Service Account, Ob Stork - 10/14/2022 [...] - 144 mmol/L 01/25/2020 11:23 AM CDT [facility] Potassium 4.2 3.4 - 5.3 mmol/L 01/25/2020 11:23 AM T [facility] Chloride 108 94 - 109 mmol/L 01/25/2020 11:23 AM T [facility] Carbon Dioxide 24 20 - 32 mmol/L 01/25/2020 11:29 AM T [facility] Anion Gap 7 3 - 14 mmol/L 01/25/2020 11:29 AM T [facility] Glucose 106(H) 70 - 99 mg/dL 01/25/2020 11:29 AM T [facility] Urea Nitrogen 15 7 - 30 mg/dL 01/25/2020 11:29 AM T [facility] Creatinine 0.92 0.52 - 1.04 mg/dL 01/25/2020 11:29 AM T [facility] GFR Estimate 63 >60 mL/min/{1 .73_m2} 01/25/2020 11:29 AM T [facility] Comment: Non GFR Calc Starting 04/18/2018, serum creatinine based estimated GFR (eGFR) will be calculated using the Chronic Kidney Disease Epidemiology Collaboration (CKD-EPI) equation. GFR Estimate If Black 73 >60 mL/min/{1 .73_m2} 01/25/2020 11:29 AM T [facility] Comment: GFR Calc Starting 04/18/2018, serum creatinine based estimated GFR (eGFR) will be calculated using the Chronic Kidney Disease Epidemiology Collaboration (CKD-EPI) equation. Calcium 9.6 8.5 - 10.1 mg/dL 01/25/2020 11:29 AM T [facility] Blood specimen (specimen) 01/25/2020 10:57 AM CDT 01/25/2020 10:58 AM CDT us Lyndsey Palacios MD PhD LAB - BLOOD ORDERABLES Final Result [facility] [address] [place] [address] from Last 3 Months or Most Recently Relevant to Health Maintenance Insurance * Guarantor: AMEE MACHADO Account Type Relation to Patient Date of Phone Billing Address Personal/Family [address] [facility] [place] [address] BCBS OUT OF STATE MEDICARE REPLACEMENT * Guarantor: AMEE MACHADO Account Type Relation to Patient Date of Phone Billing Address Personal/Family [address] [facility] [place] [address] BCBS OUT OF STATE MEDICARE REPLACEMENT * Guarantor: Cindy Saldana Account Type Relation to Patient Date of Phone Billing Address Medication Therapy Self 06/15/1954 [address] [place] [address] BCBS OUT OF STATE MEDICARE REPLACEMENT * Guarantor: EspositoGiselle Account Type Relation to Patient Date of Phone Billing Address Medication Therapy Self 1950 [address] [facility] [place] [address] BCBS OUT OF STATE MEDICARE REPLACEMENT Care Teams Termite Renewal Inspector Relationship Specialty Start Date End Date Chris Toledo MD PCP - General Family Practice 12/07/17 Beba Munoz PA-C [facility] [address] [place] [address] Physician Drilling Contractor Physician Drilling Contractor 12/07/17 Chris Gilbert MD [facility] [facility] [address] [place] [address] Orthopedics 12/07/17 Ivette Rasmussen, RN Registered Nurse Nurse 01/12/18 Evelyn Alvarado MD [address] [place] [address] Family Medicine - Sports Medicine 01/08/19 Lyndsey Palacios MD PhD [address] [place] [address] Assigned PCP 08/08/20 Lyndsey Palacios MD PhD [address] [place] [address] Family Medicine 09/29/22 Ivon De Leon, [facility] [address] [address] Pharmacist Pharmacist 10/07/22 [place] [address] [address] Assigned Musculoskeletal Provider 09/22/23
--- OUTSIDE RECORDS SUMMARY | 2024-04-06 10:15 | XMS_ITS | Encounter Summary ---
Author Organization [place] Address [address] [place] [address] Care Team Providers Care Body Cleaner Name Role Phone Chris Toledo MD Primary Care Provider [phone] Beba Munoz PA-C Unavailable [phone] Chris Gilbert MD Unavailable [phone] Ivette Rasmussen RN Unavailable Kirsten Pardo RN Unavailable Donovan Peterson RN Unavailable Evelyn Alvarado MD Unavailable [phone] Lyndsey Palacios MD PhD Unavailable [phone] Chris Gilbert MD Unavailable [phone] Lyndsey Palacios MD PhD Unavailable Ivon De Leon [facility] Unavailable Chris Burroughs PA-C Unavailable [phone] Sylvester Joe MD Unavailable Encounter Details Date Type Department Care Team (Late st Contact Info) Description 08/27/2021 [facility] Orthopedic [facility] [address] [facility] [address] [place] [address] Lo Watkins LPN Social History Tobacco Use Types Packs/Day Years Used Date Smoking Tobacco: Never Smokeless Tobacco: Never Alcohol Use Standard Drinks/Week Comments Yes 0 (1 standard drink = 0.6 oz pur e alcohol) rare PHQ-2 Answer Date Recorded PHQ-2 Score 0 08/18/2020 Comments No Sex and Gender Information Value Date Recorded Sex Assigned at Female 06/26/2019 9:26 AM VICE PRESIDENT UNDERWRITING Legal Sex Female 4:16 AM VICE PRESIDENT UNDERWRITING Gender Identity Female 06/26/2019 9:25 AM VICE PRESIDENT UNDERWRITING Sexual Orientation Straight 06/26/2019 9: 25 AM VICE PRESIDENT UNDERWRITING COVID-19 Exposure Response Date Recorded In the last 10 days, have yo u been in contact with someone who was confirmed or suspected to have Coronavirus/COVID-19? No / Unsure 08/27/2021 10:01 AM CDT documented as of this encounter Plan of Treatment Upcoming Encounters Date Type Department Care Team (Late st Contact Info) Description 10/10/2024 1:30 PM CDT Office Visit [facility] [address] [place] [phone] Lyndsey Palacios MD PhD [address] [place] [address] [phone] documented as of this encounter Visit Diagnoses Not on filedocumented in this encounter Additional Health Concerns Assessment Noted Time PHQ-9 Depression Total Score: 4 06/04/19 20 1:21 PM VICE PRESIDENT UNDERWRITING documented as of this encounter Care Teams Body Cleaner Relationship Specialty Start Date End Date Chris Toledo MD PCP - General Family Practice 12/07/17 Beba Munoz PA-C [facility] [address] [place] [address] Physician Automobile Inspector Physician Automobile Inspector 12/07/17 Chris Gilbert MD [facility] [address] [place], [place] [address] Orthopedics 12/07/17 Ivette Rasmussen, RN Registered Nurse Nurse 01/12/18 Kirsten Pardo, RN Registered Nurse Urology 04/12/18 12/01/21 Donovan Peterson, RN Specialty Pipe Washer Neurological Surgery 05/29/18 07/07/23 Evelyn Alvarado MD [address] [place] [address] [id number] Family Medicine - Sports Medicine 01/08/19 Lyndsey Palacios MD PhD [address] [place] [address] [id number] Assigned PCP 08/08/20 Chris Gilbert MD [facility] [address] [id number] Assigned Musculoskeletal Provider 09/06/21 03/11/23 Lyndsey Palacios MD PhD [address] [place] [address] [phone] Family Medicine 09/29/22 Ivon De Leon, [facility] [address] [place] [address] [phone] Pharmacist Pharmacist 10/07/22 Chris Burroughs PADarronC [facility] [address] [address] Assigned Musculoskeletal Provider 07/15/23 09/21/23 [place] [address] [place] [address] Assigned Musculoskeletal Provider 09/22/23 documented as of this encounter
--- OUTSIDE RECORDS SUMMARY | 2024-04-06 10:16 | XMS_ITS | Encounter Summary ---
Author Organization [place] Address [address] [facility] [place] [address] Care Team Providers Care Peoplesoft Financials Consultant Name Role Phone Chris Toledo MD Primary Care Provider Beba Munoz PA-C Unavailable [phone] Chris Gilbert MD Unavailable Ivette Rasmussen RN Unavailable Kirsten Pardo RN Unavailable Donovan Peterson RN Unavailable Evelyn Alvarado MD Unavailable [phone] Chris Gilbert MD Unavailable [phone] Lyndsey Palacios MD PhD Unavailable + [phone] Chris Gilbert MD Unavailable [phone] Lyndsey Palacios MD PhD Unavailable [phone] Ivon De Leon [facility] Unavailable Chris Burroughs PA-C Unavailable [phone] Sylvester Joe MD Unavailable Reason for Visit * Reason Onset Date Comments Appointment 04/10/2018 Urodynamics - pr e surgery Encounter Details Date Type Department Care Team (Late st Contact Info) Description 04/10/2018 Telephone [facility] Prostate [facility] Urologic Cancers [address] [place] [address] None Appointment (Urodynamics - pre surgery) Social History Tobacco Use Types Packs/Day Years Used Date Smoking Tobacco: Never Assessed Comments Unknown Sex and Gender Information Value Date Recorded Sex Assigned at Female 06/26/2019 9:26 AM CARE SPECIALIST Legal Sex Female 4:16 AM CARE SPECIALIST Gender Identity Female 06/26/2019 9:25 AM CARE SPECIALIST Sexual Orientation Straight 06/26/2019 9: 25 AM CARE SPECIALIST documented as of this encounter Miscellaneous Notes * Telephone Encounter - [facility] - 04/10/2018 8:55 AM CST [facility] Call Center Phone Message May a [...] care team for any possible appts in May since we are booked out a ways. Please call pt to discuss/schedule. Thank you. Action Taken: Message routed to: [facility] Urology SPECIALIST documented in this encounter Plan of Treatment Upcoming Encounters Date Type Department Care Team ([facility] Contact Info) Description 10/10/2024 1:30 PM CDT Office Visit [facility] [address] [address] Lyndsey Palacios MD PhD [address] [place] [address] [phone] documented as of this encounter Visit Diagnoses Not on filedocumented in this encounter Care Teams Peoples[employer] Financials Consultant Relationship Specialty Start Date End Date Chris Toledo MD PCP - General Family Practice 12/07/17 Beba Munoz PA-C [facility] [address] [place] [address] Physician Willower Physician Willower 12/07/17 Chris Gilbert MD [address] [place] [address] Orthopedics 12/07/17 Ivette Rasmussen, RN Registered Nurse Nurse 01/12/18 Kirsten Pardo, RN Registered Nurse Urology 04/12/18 12/01/21 Donovan Peterson, RN Specialty Ecommerce Analyst Neurological Surgery 05/29/18 07/07/23 Evelyn Alvarado MD [address] [place] [address] Family Medicine - Sports Medicine 01/08/19 Chris Gilbert MD [address] [place] [address] Assigned Musculoskeletal Provider 02/22/20 04/25/21 Lyndsey Palacios MD PhD [address] [place] [address] Assigned PCP 08/08/20 Chris Gilbert MD [address] [place] [address] Assigned Musculoskeletal Provider 09/06/21 03/11/23 Lyndsey Palacios MD PhD [address] [place] [address] Family Medicine 09/29/22 Ivon De Leon, [facility] [address] [address] Pharmacist Pharmacist 10/07/22 Chris Burroughs, PA-C [address] [place] [address] Assigned Musculoskeletal Provider 07/15/23 09/21/23 [place] [address] [place] [address] Assigned Musculoskeletal Provider 09/22/23 documented as of this encounter
--- OUTSIDE RECORDS SUMMARY | 2024-04-06 10:16 | XMS_ITS | Encounter Summary ---
Author Organization [place] Address [address] [place] [address] Care Team Providers Care Cabin Agent Name Role Phone Chris Toledo MD Primary Care Provider [phone] Beba Munoz PA-C Unavailable [phone] Chris Gilbert MD Unavailable [phone] Ivette Rasmussen RN Unavailable Kirsten Pardo RN Unavailable Donovan Peterson RN Unavailable Evelyn Alvarado MD Unavailable [phone] Lyndsey Palacios MD PhD Unavailable + [phone] Chris Gilbert MD Unavailable [phone] Lyndsey Palacios MD PhD Unavailable Ivon De Leon [facility] Unavailable Chris Burroughs PA-C Unavailable [phone] Sylvester Joe MD Unavailable Reason for Visit * Reason Onset Date Comments Injections 06/25/2021 Prolia Encounter Details Date Type Department Care Team (Late st Contact Info) Description 06/25/2021 Telephone [facility] [address] 3rd Floor,[address] [place] [facility] [address] [place] [phone] Education, p [facility] Obgyn Nurse Injections (Prolia) Social History Tobacco Use Types Packs/Day Years Used Date Smoking Tobacco: Never Smokeless Tobacco: Never Alcohol Use Standard Drinks/Week Comments Yes 0 (1 standard drink = 0.6 oz pur e alcohol) rare PHQ-2 Answer Date Recorded PHQ-2 Score 0 08/18/2020 Comments No Sex and Gender Information Value Date Recorded Sex Assigned at Female 06/26/2019 9:26 AM TOE POUNDER Legal Sex Female 4:16 AM TOE POUNDER Gender Identity Female 06/26/2019 9:25 AM TOE POUNDER Sexual Orientation Straight 06/26/2019 9: 25 AM TOE POUNDER documented as of this encounter Miscellaneous Notes * Telephone Encounter - Ivette Brown - 06/25/2021 1:37 PM CST [facility] Call Center Phone Message May a detailed message be left on voicemail: yes Reason for Call: Patient would like to schedule her prolia injection. Please reach out to patient. Action Taken: Message routed to: [facility] Travel Screening: Not Applicable POUNDER documented in this encounter Plan of Treatment Upcoming Encounters Date Type Department Care Team (Late st Contact Info) Description 10/10/2024 1:30 PM CDT Office Visit [facility] [address] [place] [phone] Lyndsey Palacios MD PhD [address] [place] [address] documented as of this encounter Visit Diagnoses Not on filedocumented in this encounter Additional Health Concerns Assessment Noted Time PHQ-9 Depression Total Score: 4 06/04/19 20 1:21 PM TOE POUNDER documented as of this encounter Care Teams Cabin Agent Relationship Specialty Start Date End Date Chris Toledo MD PCP - General Family Practice 12/07/17 Beba Munoz PA-C [facility] [address] [place] [address] Physician Metal Bumper Physician Metal Bumper 12/07/17 Chris Gilbert MD [address] [place] [address] Orthopedics 12/07/17 Ivette Rasmussen, RN Registered Nurse Nurse 01/12/18 Kirsten Pardo, RN Registered Nurse Urology 04/12/18 12/01/21 Donovan Peterson, RN Specialty Personal Lines Account Manager Neurological Surgery 05/29/18 07/07/23 Evelyn Alvarado MD [address] [place] [address] Family Medicine - Sports Medicine 01/08/19 Lyndsey Palacios MD PhD [address] [place] [address] Assigned PCP 08/08/20 Chris Gilbert MD [address] [place] [address] Assigned Musculoskeletal Provider 09/06/21 03/11/23 Lyndsey Palacios MD PhD [address] [place] [address] Family Medicine 09/29/22 Ivon De Leon, [facility] [address] [place] [address] Pharmacist Pharmacist 10/07/22 Chris Burroughs PA-C [address] [place] [address] Assigned Musculoskeletal Provider 07/15/23 09/21/23 [place] [address] [place] [address] [address] Assigned Musculoskeletal Provider 09/22/23 documented as of this encounter
--- OUTSIDE RECORDS SUMMARY | 2024-04-06 10:16 | XMS_ITS | Encounter Summary ---
Author Organization [place] Address [address] [facility] [place] [address] Care Team Providers Care Manager Instrumentation Name Role Phone Chris Toledo MD Primary Care Provider Beba Munoz PA-C Unavailable [phone] Chris Gilbert MD Unavailable [phone] Ivette Rasmussen RN Unavailable Kirsten Pardo RN Unavailable Donovan Peterson RN Unavailable Evelyn Alvarado MD Unavailable Chris Gilbert MD Unavailable [phone] Lyndsey Palacios MD PhD Unavailable + [phone] Chris Gilbert MD Unavailable [phone] Lyndsey Palacios MD PhD Unavailable [phone] Ivon De Leon [facility] Unavailable Chris Burroughs PA-C Unavailable [phone] Sylvester Joe MD Unavailable Encounter Details Date Type Department Care Team (Late st Contact Info) Description 05/30/2018 [facility] [address] [facility] [address] [address] Lyndsey Palacios MD PhD [address] [place] [address] Social History Tobacco Use Types Packs/Day Years Used Date Smoking Tobacco: Never Smokeless Tobacco: Never PHQ-2 Answer Date Recorded PHQ-2 Score 2 05/09/2018 Comments Unknown Sex and Gender Information Value Date Recorded Sex Assigned at Female 06/26/2019 9:26 AM RELIEF MAN Legal Sex Female 4:16 AM RELIEF MAN Gender Identity Female 06/26/2019 9:25 AM RELIEF MAN Sexual Orientation Straight 06/26/2019 9: 25 AM RELIEF MAN documented as of this encounter Plan of Treatment Upcoming Encounters Date Type Department Care Team (Late st Contact Info) Description 10/10/2024 1:30 PM CDT Office Visit [facility] [address] [address] Lyndsey Palacios MD PhD [address] [place] [address] documented as of this encounter Visit Diagnoses Not on filedocumented in this encounter Additional Health Concerns Assessment Noted Time PHQ-9 Depression Total Score: 7 05/29/19 19 10:09 AM RELIEF MAN documented as of this encounter Care Teams Manager Instrumentation Relationship Specialty Start Date End Date Chris Toledo MD PCP - General Family Practice 12/07/17 Beba Munoz PA-C [facility] [address] [place] [address] Physician Admin Assistant Physician Admin Assistant 12/07/17 Chris Gilbert MD [address] [place] [address] Orthopedics 12/07/17 Ivette Rasmussen, RN Registered Nurse Nurse 01/12/18 Kirsten Pardo, RN Registered Nurse Urology 04/12/18 12/01/21 Donovan Peterson, RN Specialty Insole And Outsole Preparer Neurological Surgery 05/29/18 07/07/23 Evelyn Alvarado MD [address] [place] [address] Family Medicine - Sports Medicine 01/08/19 Chris Gilbert MD [address] [place] [address] Assigned Musculoskeletal Provider 02/22/20 04/25/21 Lyndsey Palacios MD PhD [address] [place] [address] 367095 Assigned PCP 08/08/20 Chris Gilbert MD [address] [place] [address] Assigned Musculoskeletal Provider 09/06/21 03/11/23 Lyndsey Palacios MD PhD [address] [place] [address] 921575 Family Medicine 09/29/22 Ivon De Leon, [facility] [address] [place] [address] Pharmacist Pharmacist 10/07/22 Chris Burroughs, PA-C [facility] [address] 227[address] Assigned Musculoskeletal Provider 07/15/23 09/21/23 [place] [address] [place] [place] [address] Assigned Musculoskeletal Provider 09/22/23 documented as of this encounter
--- OUTSIDE RECORDS SUMMARY | 2024-04-06 10:16 | XMS_ITS | Encounter Summary ---
Author Organization [place] Address [facility] [place] [address] Care Team Providers Care Patient Safety Tech Name Role Phone Chris Toledo MD Primary Care Provider Beba Munoz PA-C Unavailable [phone] Chris Gilbert MD Unavailable Ivette Rasmussen RN Unavailable Kirsten Pardo RN Unavailable Donovan Peterson RN Unavailable Evelyn Alvarado MD Unavailable [phone] Chris Gilbert MD Unavailable [phone] Lynsdey Palacios MD PhD Unavailable + [phone] Chris Glibert MD Unavailable [phone] Lyndsey Palacios MD PhD Unavailable [phone] Ivon De Leon [facility] Unavailable Chris Burroughs PA-C Unavailable [phone] Sylvester Joe MD Unavailable Reason for Visit * Reason Onset Date Comments Forms 08/16/2018 Additional clini paola information needed for PA Encounter Details Date Type Department Care Team (Late st Contact Info) Description 08/16/2018 Telephone [facility] Orthopaedic Clinic [address] [place] [address] [address] [place] [address] Chris Gilbert MD [facility] [address] [address] Forms (Additional clinical information needed for PA) Social History Tobacco Use Types Packs/Day Years Used Date Smoking Tobacco: Never Smokeless Tobacco: Never Alcohol Use Standard Drinks/Week Comments Yes 0 (1 standard drink = 0.6 oz pur e alcohol) rare PHQ-2 Answer Date Recorded PHQ-2 Score 2 05/09/2018 Comments Unknown Sex and Gender Information Value Date Recorded Sex Assigned at Female 06/26/2019 9:26 AM FOREIGN LEGAL CONSULTANT Legal Sex Female 4:16 AM FOREIGN LEGAL CONSULTANT Gender Identity Female 06/26/2019 9:25 AM FOREIGN LEGAL CONSULTANT Sexual Orientation Straight 06/26/2019 9: 25 AM FOREIGN LEGAL CONSULTANT documented as of this encounter Miscellaneous Notes * Telephone Encounter - Alla Teixeira - 08/16/2018 3:18 PM CDT [facility] Call Center Phone Message May a detailed message be left on voicemail: yes Reason for Call: Other: Lillian with pt's insurance company calling to f/u on a letter they had sentearlier this week regarding a PA for pt's surgery. She states they received a request from the clinic and had needed additional information. Lillian requests their form be filled out and faxed to them [phone], attn Precertification. Please advise. Action Taken: Message routed to: [facility] Ortho documented in this encounter Plan of Treatment Upcoming Encounters Date Type Department Care Team ([facility] st Contact Info) Description 10/10/2024 1:30 PM CDT Office Visit [facility] Primary Care Clinic [address] [phone] Lyndsey Palacios MD PhD [address] [place] [address] documented as of this encounter Visit Diagnoses Not on filedocumented in this encounter Additional Health Concerns Assessment Noted Time PHQ-9 Depression Total Score: 7 05/29/19 19 10:09 AM FOREIGN LEGAL CONSULTANT documented as of this encounter Care Teams Patient Safety Tech Relationship Specialty Start Date End Date Chris Toledo MD PCP - General Family Practice 12/07/17 Beba Munoz PA-C [facility] [address] [place] [address] Physician Wool Hanker Physician Wool Hanker 12/07/17 Chris Gilbert MD [facility] [address] [address] Orthopedics 12/07/17 Ivette Rasmussen, RN Registered Nurse Nurse 01/12/18 Kirsten Pardo, RN Registered Nurse Urology 04/12/18 12/01/21 Donovan Peterson, RN Specialty Store Administrative Assistant Neurological Surgery 05/29/18 07/07/23 Evelyn Alvarado MD [address] [place] [address] Family Medicine - Sports Medicine 01/08/19 Chris Gilbert MD [address] [place] [address] Assigned Musculoskeletal Provider 02/22/20 04/25/21 Lyndsey Palacios MD PhD [address] [place] [address] Assigned PCP 08/08/20 Chris Gilbert MD [facility] [address] [facility] [address] [place] [address] Assigned Musculoskeletal Provider 09/06/21 03/11/23 Lyndsey Palacios MD PhD [address] [place] [address] Family Medicine 09/29/22 Ivon De Leon, [facility] [address] [address] Pharmacist Pharmacist 10/07/22 Chris Burroughs, PA-C [address] [address] Assigned Musculoskeletal Provider 07/15/23 09/21/23 [place] [address] [place] [address] [place] [address] Assigned Musculoskeletal Provider 09/22/23 documented as of this encounter
--- OUTSIDE RECORDS SUMMARY | 2024-04-06 10:16 | XMS_ITS | Encounter Summary ---
Author Organization [place] Address [address] [facility] [address] Care Team Providers Care First Assistant Name Role Phone Chris Toledo MD Primary Care Provider [phone] Beba Munoz PA-C Unavailable [phone] Chris Gilbert MD Unavailable Ivette Rasmussen RN Unavailable Kirsten Pardo RN Unavailable Donovan Peterson RN Unavailable Evelyn Alvarado MD Unavailable [phone] Chris Gilbert MD Unavailable [phone] Lyndsey Palacios MD PhD Unavailable + [phone] Chris Gilbert MD Unavailable [phone] Lyndsey Palacios MD PhD Unavailable + [phone] vIon De Leon [facility] Unavailable Chris Burroughs PA-C Unavailable [phone] Syvlester Joe MD Unavailable Reason for Visit * Reason Onset Date Comments Medication Question 01/08/2019 Patient's ph ysican wants her to start prednisone. Encounter Details Date Type Department Care Team (Late st Contact Info) Description 01/08/2019 Telephone [facility] Orthopaedic Clinic [address] [facility] [address] [place] [address] Evelyn Alvarado MD [address] [place] [address] Medication Question (Patient's physican wants her to start prednisone.) Social History Tobacco Use Types Packs/Day Years Used Date Smoking Tobacco: Never Smokeless Tobacco: Never Alcohol Use Standard Drinks/Week Comments Yes 0 (1 standard drink = 0.6 oz pur e alcohol) rare PHQ-2 Answer Date Recorded PHQ-2 Score 1 10/04/2018 Comments No Sex and Gender Information Value Date Recorded Sex Assigned at Female 06/26/2019 9:26 AM TRANSITION MGR Legal Sex Female 4:16 AM TRANSITION MGR Gender Identity Female 06/26/2019 9:25 AM TRANSITION MGR Sexual Orientation Straight 06/26/2019 9: 25 AM TRANSITION MGR documented as of this encounter Miscellaneous Notes [...] Loren Alcantara - 01/08/2019 11:09 AM CDT [facility] Phone Message May a detailed message [...] Description 10/10/2024 1:30 PM CDT Office Visit [facility] Primary [facility] Clinic [address] [place] [phone] Lyndsey Palacios MD PhD [address] [place] [address] documented as of this encounter Visit Diagnoses Not on filedocumented in this encounter Additional Health Concerns Assessment Noted Time PHQ-9 Depression Total Score: 7 05/29/19 19 10:09 AM TRANSITION MGR documented as of this encounter Care Teams First Assistant Relationship Specialty Start Date End Date Chris Toledo MD PCP - General Family Practice 12/07/17 Beba Munoz PA-C [facility] [address] [place] [address] Physician Business Process Engineer Physician Business Process Engineer 12/07/17 Chris Gilbert MD [facility] [address] [place] [address] Orthopedics 12/07/17 Ivette Rasmussen, RN Registered Nurse Nurse 01/12/18 Kirsten Pardo, RN Registered Nurse Urology 04/12/18 12/01/21 Donovan Peterson, RN Specialty Bell Ringer Neurological Surgery 05/29/18 07/07/23 Evelyn Alvarado MD [address] [place] [address]67485 Family Medicine - Sports Medicine 01/08/19 Chris Gilbert MD [address] [place] [address] Assigned Musculoskeletal Provider 02/22/20 04/25/21 Lyndsey Palacios MD PhD [address] [place] [address] Assigned PCP 08/08/20 Chris Gilbert MD [address] [place] [address] Assigned Musculoskeletal Provider 09/06/21 03/11/23 Lyndsey Palacios MD PhD [address] [place] [address] Family Medicine 09/29/22 Ivon De Leon, [facility] [address] [facility] [address] [place] [address] Pharmacist Pharmacist 10/07/22 Chris Burroughs PA-C [address] [address] Assigned Musculoskeletal Provider 07/15/23 09/21/23 [place] [address] [place] [address] Assigned Musculoskeletal Provider 09/22/23 documented as of this encounter
--- OUTSIDE RECORDS SUMMARY | 2024-04-06 10:16 | XMS_ITS | Encounter Summary ---
Author Organization [place] Address [facility] [place] [address] Care Team Providers Care Casting Room Operator Name Role Phone Chris Toledo MD Primary Care Provider Beba Munoz PA-C Unavailable [phone] Chris Gilbert MD Unavailable [phone] Ivette Rasmussen RN Unavailable Kirsten Pardo RN Unavailable Donovan Peterson RN Unavailable Evelyn Alvarado MD Unavailable Chris Gilbert MD Unavailable [phone] Lyndsey Palacios MD PhD Unavailable [phone] Chris Gilbert MD Unavailable Lyndsey Palacios MD PhD Unavailable Ivon De Leon [facility] Unavailable Chris Burroughs PA-C Unavailable [phone] Sylvester Joe MD Unavailable Reason for Visit * Reason Onset Date Comments Prior Auth - Medication 09/05/2018 hydrOXYz ine (ATARAX) 25 MG tablet-PA approved Encounter Details Date Type Department Care Team (Late st Contact Info) Description 09/05/2018 Telephone [facility] [address] [facility] [address]th [place] [address] Surendra Adams MD 909 [place], [place] [phone] Prior Auth - Medication (hydrOXYzine (ATARAX) 25 MG tablet-PA approved) Social History Tobacco Use Types Packs/Day Years Used Date Smoking Tobacco: Never Smokeless Tobacco: Never Alcohol Use Standard Drinks/Week Comments Yes 0 (1 standard drink = 0.6 oz pur e alcohol) rare PHQ-2 Answer Date Recorded PHQ-2 Score 2 05/09/2018 Comments No Sex and Gender Information Value Date Recorded Sex Assigned at Female 06/26/2019 9:26 AM PICKING TECH Legal Sex Female 4:16 AM PICKING TECH Gender Identity Female 06/26/2019 9:25 AM PICKING TECH Sexual Orientation Straight 06/26/2019 9: 25 AM PICKING TECH documented as of this encounter Miscellaneous Notes [...] the prescription (Not needed for infusion/clinic administered): -[facility] [place] [place] [facility] [place] [facility] [address] [facility] Pharmacy Notified: Yes Patient Notified: No-Pharmacy will contact * Telephone Encounter - Shobha Lancaster - 09/06/2018 2:36 PM CDT Provided additional information to insurance via phone. * Telephone Encounter - Shobha Lancaster - 09/06/2018 11:37 AM CDT Images from the original note were not included. Central Prior Authorization Team PA Initiation Medication: hydrOXYzine (ATARAX) 25 MG tablet-PA initiated Insurance Company: [employer] - Pharmacy Filling the Rx: [facility], [place], [place] - [place], [place] - [address] [facility] Filling Pharmacy Filling Pharmacy Fax: Start Date: 09/06/2018 * Telephone Encounter - Dafne Harris - 09/05/2018 3:56 PM CDT Images from the original note were not included. Central Prior Authorization Team documented in this encounter Plan of Treatment Upcoming Encounters Date Type Department Care Team (Late st Contact Info) Description 10/10/2024 1:30 PM CDT Office Visit [facility] Primary Care Clinic [address] [address] Lyndsey Palacios MD PhD [address] [place] [address]145 documented as of this encounter Visit Diagnoses Not on filedocumented in this encounter Additional Health Concerns Assessment Noted Time PHQ-9 Depression Total Score: 7 05/29/19 19 10:09 AM PICKING TECH documented as of this encounter Care Teams Casting Room Operator Relationship Specialty Start Date End Date Chris Toledo MD PCP - General Family Practice 12/07/[address] Mun[address] PA-C [facility] [address] [address] Physician Motorcycle Builder Physician Motorcycle Builder 12/07/17 Chris Gilbert MD [address] [place] [address] Orthopedics 12/07/17 Ivette Rasmussen, RN Registered Nurse Nurse 01/12/18 Kirsten Pardo, RN Registered Nurse Urology 04/12/18 12/01/21 Donovan Peterson, RN Specialty Laboratory Geneticist Neurological Surgery 05/29/18 07/07/23 Evelyn Alvarado MD [address] [place] [address] Family Medicine - Sports Medicine 01/08/19 Chris Gilbert MD [address] [place] [address] Assigned Musculoskeletal Provider 02/22/20 04/25/21 Lyndsey Palacios MD PhD [address] [place] [address] Assigned PCP 08/08/20 Chris Gilbert MD [address] [place] [address] Assigned Musculoskeletal Provider 09/06/21 03/11/23 Lyndsey Palacios MD PhD [address] [place] [address] Family Medicine 09/29/22 Ivon De Leon, [facility] [address] [address] Pharmacist Pharmacist 10/07/22 Chris Burroughs PA-C [address] [place] [address] Assigned Musculoskeletal Provider 07/15/23 09/21/23 [place] [address] [place] [address] Assigned Musculoskeletal Provider 09/22/23 documented as of this encounter
== END 2024-04-06 10:13 | disposition home or self-care (01) ==
LOC: MAMMO 10:13
PROVIDERS: PCP Family Medicine; Visit Provider Family Medicine
DX: Z12.31 Encounter for screening mammogram for malignant neoplasm of breast (principal)
CPT/HCPCS: 77063; 77067

== ENCOUNTER 2024-04-10 08:34 | Outpatient (CLI) | payer MEDICARE, SELFPAY ==
--- OUTSIDE RECORDS SUMMARY | 2024-04-10 08:37 | XMS_ITS | Clinical Summary ---
Author Organization [employer] [facility] Address [place], [place] [address] Care Team Providers Care Ton Cylinder Inspector Name Role Phone Chris Toledo MD Primary Care Provider + Allergies Active Allergy Reactions Criticality Noted Date Comments Simvastatin Myalgia 10/02/2006 Medications MELATONIN 300 MCG TAB 1 at bedtime 0 7 Active PRILOSEC 20 MG CAP take 1 capsule (20 mg) by oral route once daily before a meal 0 7 Active GLUCOSAMINE-CHONDRO ITIN 500 MG-400 MG CAP twice daily 0 8 Active calcium 600 mg capsule Take 1 capsule by mouth 2 times daily with meals. 0 0 Active omega-3 fatty acids-vitamin E (FISH OIL) 1,000 mg Cap Take by mouth. 0 1 Active cetirizine (ZYRTEC) 10 mg tablet Take 1 tablet by mouth once daily. 30 tablet 12 1 Active fluticasone, 50 mcg per actuation, nasal (FLONASE) spray Inhale 2 Sprays into both nostrils 2 times daily. 1 Bottle 0 2 Active montelukast (SINGULAIR) 10 mg tabletIndications:A llergic rhinitis,Wheezing Take 1 tablet by mouth at bedtime. 30 tablet 0 3 Active cycloSPORINE (RESTASIS) 0.05 % ophthalmic emulsion 1 Drop every 12 hours. 0 4 Active albuterol HFA (VENTOLIN HFA) 90 mcg/actuation inhalerIndications: Cough Inhale 2 Puffs by mouth every 4 hours if needed. 1 Inhaler 4 4 Active azelastine 137 mcg/actuation (ASTELIN) nasal spray Inhale 1 [place] in the nostril(s) 2 times daily. 1 Bottle 2 5 Active fluticasone (FLOVENT HFA) 110 mcg/Actuation inhaler Inhale 1 Puff by mouth 2 times daily. 0 6 Active lisinopril-hydrochl orothiazide 20-12.5 mg tablet (PRINZIDE)Indicatio ns:Essential hypertension Take 0.5 tablets by mouth once daily. 45 tablet 1 8 Active HYDROcodone-acetami nophen, 7.5-325 mg, (NORCO 7.5-325) 7.5-325 mg per tabletIndications:O steoarthritis, unspecified osteoarthritis type, unspecified site Take 1 tablet by mouth every 6 hours if needed Earliest Fill Date: 05/12/18 150 tablet 9 Active gabapentin (NEURONTIN) 600 mg tabletIndications:C hronic bilateral low back pain without sciatica Take 1 tablet by mouth 3 times daily. 270 tablet 3 9 Active fenofibrate 160 mg tabletIndications:H yperlipidemia, unspecified hyperlipidemia type TAKE ONE TABLET BY MOUTH EVERY DAY WITH A MEAL 30 tablet 9 Active atorvastatin (LIPITOR) 20 mg tabletIndications:H yperlipidemia TAKE ONE TABLET BY MOUTH EVERY DAY 90 tablet 0 Active TYMLOS 80 mcg (3,120 mcg/1.56 mL) pnij 0 Active acetaminophen (TYLENOL) 325 mg tablet Take 650 mg by mouth. 9 Active calcium carbonate-vit D3, 600 mg-400 units, (CALTRATE PLUS 600 MG-400 UNIT TABLET) tablet Take 1 Tab by mouth. Active cholecalciferol (VITAMIN D3) 5,000 unit capsule Take 5,000 Units by mouth. Active EPINEPHrine (EPIPEN) 0.3 mg/0.3 mL injection Inject 0.3 mg intramuscula r. 8 Active hydroxyzine HCL (ATARAX) 25 mg tablet TAKE ONE TABLET BY MOUTH EVERY 6 HOURS NEEDED FOR ADJUVANT PAIN, MUSCLE SPASM 9 Active lisinopril (PRINIVIL; ZESTRIL) 10 mg tablet 0 Active Insulin Show Low, Disposable, (BD INSULIN PEN NEEDLE UF MINI) 31 gauge x 3/16 Use once daily as directed with Tymlos 0 Active sennosides-docusate , 8.6-50 mg, (SENOKOT S) 8.6-50 mg tablet Take 2 Tabs by mouth. 9 Active benzonatate (TESSALON) 100 mg capsuleIndications: Fever, unspecified fever cause Take 1-2 capsules by mouth 3 times daily if needed for Cough. 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 Not on file Not on file Not on file Obstetrics History Last Filed Vital Signs Vital Sign Reading Time Taken Comments Blood Pressure 129/74 04/01/2024 10:53 AM DIALYSIS PATIENT CARE TECHNICIAN Pulse 77 04/01/2024 10:53 AM DIALYSIS PATIENT CARE TECHNICIAN Temperature 36.9 C (98.4 F) 04/01/2024 10:53 AM DIALYSIS PATIENT CARE TECHNICIAN Respiratory Rate 14 04/01/2024 10:53 AM DIALYSIS PATIENT CARE TECHNICIAN Oxygen Saturation 94% 04/01/2024 10:53 AM DIALYSIS PATIENT CARE TECHNICIAN Inhaled Oxygen Concentration - - Weight 74.1 kg (163 lb 6.4 oz) 01/31/2022 12:40 PM CDT Height 149.9 cm (4' 11.02) 05/15/2018 2:[address] Body Mass Index 32.98 05/15/2018 2:17 PM DIALYSIS PATIENT CARE TECHNICIAN Plan of Treatment Health Maintenance Due Date [...] 03/18/2017 , 02/14/2016, 01/23/2015 (Completed outside of [facility]), Additional history exists RSV vaccine for adults or (1 - 1-dose 75+ series) 2025 Colonoscopy through age 75 06/30/202606/30, 06/30/2016, 06/30/2016, [...] town home and anticipates moving into town home in the next 4 to 6 weeks. Date of follow up: no follow up needed. Patient will contact clinic if she has housing issues/concerns. Lidya Taveras RN ............... 12/01/2017 12:49 PM Procedures Procedure Name Priority Date/Time Associated Diagnosis Comments XR KNEE 2 VIEWS LEFT PORTABLE STAT 04/01/2024 12:07 PM DIALYSIS PATIENT CARE TECHNICIAN XR MAMMO BILAT SCREENING Routine 08/08/2017 9:21 AM CDT Screening breast examination LIPID PANEL W REFLEX MEASURED LDL Routine 04/18/2017 11:23 AM DIALYSIS PATIENT CARE TECHNICIAN Hyperlipidemia, unspecified hyperlipidemia type COLONOSCOPY SCREENING Routine 06/30/2016 Screening XR DXA BONE DENSITY 2 SITES AXIAL Routine 04/28/2015 10:50 AM DIALYSIS PATIENT CARE TECHNICIAN Osteoporosis from Last 3 Months or Most Recently Relevant to Health Maintenance Results * XR KNEE 2 VIEWS LEFT PORTABLE (04/01/2024 12:07 PM DIALYSIS PATIENT CARE TECHNICIAN) Anatomical Region Laterality Modality KNEE L Digital Radiogra phy 04/01/2024 12:3 7 PM DIALYSIS PATIENT CARE TECHNICIAN Narrative 04/01/2024 12:37 PM DIALYSIS PATIENT CARE TECHNICIAN For Patients: As a result of the [...] PM (Electronically Signed) Mart Leyva MD GENERAL IMAGING Camila l Result * XR MAMMO BILAT SCREENING (08/08/2017 9:21 AM CDT) Anatomical Region Laterality Modality BREASTS, Breast Left, Breast Right Bilateral Mammography Impressions 08/08/2017 1:33 PM CDT There is no radiographic evidence for malignancy. Recommend annual mammograms. A lay language report of this examination will be provided to the patient. MAMMOGRAM ASSESSMENT: ACR 2 Benign Narrative 08/08/2017 1:33 PM CDT XR MAMMO BILAT SCREENING [[id number]] CLINICAL HISTORY: This is an asymptomatic 67 y.o. patient. INDICATION FOR EXAM: Mammogram Screening. TECHNIQUE: CC & MLO views were obtained. This digital study was evaluated with the assistance of Computer-Aided Detection. COMPARISON FILMS: Yes 08/06/16 [facility] FINDINGS: Mammographically, the breast tissue is almost entirely fat. No suspicious masses or microcalcifications. Benign appearing calcifications within both breasts. Result [facility] Chris Toledo MD MAMMO Final Re sult * LIPID PANEL W REFLEX MEASURED LDL (04/18/2017 11:23 AM DIALYSIS PATIENT CARE TECHNICIAN) CHOLESTEROL,TOTAL 163 100 - 199 mg/dL 04/18/2017 12:19 PM DIALYSIS PATIENT CARE TECHNICIAN [facility] TRIGLYCERIDES 135 <150 mg/dL 04/18/2017 12:19 PM DIALYSIS PATIENT CARE TECHNICIAN [facility] HDL CHOLESTEROL 59 >40 mg/dL 7 12:19 PM DIALYSIS PATIENT CARE TECHNICIAN [facility] NON-HDL CHOLESTEROL 104 <145 mg/dl 04/18/2017 12:19 PM DIALYSIS PATIENT CARE TECHNICIAN [facility] CHOL/HDL RATIO 2.76 <4.50 04/18/2017 12:19 PM DIALYSIS PATIENT CARE TECHNICIAN [facility] LDL CHOLESTEROL 77 <=130 mg/dL 04/18/2017 12:19 PM DIALYSIS PATIENT CARE TECHNICIAN [facility] PROVIDER ORDERED STATUS RANDOM 04/18/2017 12:19 PM DIALYSIS PATIENT CARE TECHNICIAN [facility] Blood BLOOD SPECIMEN / Unknown Venipuncture / Unknown 04/18/2017 11:23 AM DIALYSIS PATIENT CARE TECHNICIAN 04/18/2017 11:23 AM DIALYSIS PATIENT CARE TECHNICIAN Result [facility] Chris Toledo MD CHEMISTRY Final Re sult Performing Organization Address City/State/[facility] Co de Phone Number [facility] [address] [place] [address] * COLONOSCOPY SCREENING (06/30/2016) Result [facility] Edgar Acuna MD GI PROCEDURE ORD Final Re sult * (ABNORMAL) XR DXA BONE DENSITY 2 SITES (04/28/2015 10:50 AM DIALYSIS PATIENT CARE TECHNICIAN) Anatomical Region Laterality Modality Spine, HIPS, HIPL, HIPR Bone Den sitometry Narrative 04/30/2015 1:55 PM DIALYSIS PATIENT CARE TECHNICIAN Please see scanned document for results of this study. Chris Toledo MD DEXA Final Re sult from Last 3 Months or Most Recently Relevant to Health Maintenance Insurance MEDICARE PART B HB ONLY [facility] MEDICARE PART B HB ONLY [employer] [place] [employer]OY[employer] Advance Directives Documents on File Type Date Recorded Patient Tour Agent Expl anation Healthcare Directive 08/18/2017 3:34 PM Healthcare Directive 06/28/2016 4:48 PM Healthcare Directive 12/21/2011 12:00 AM A DVANCED DIRECTIVE Healthcare Directive 05/29/2009 12:00 AM A DVANCE DIRECTIVE Care Teams Ton Cylinder Inspector Relationship Specialty Start Date End Date Chris Toledo MD [address] [place] [address] PCP - General Family Practice 10/11/18
--- OUTSIDE RECORDS SUMMARY | 2024-04-10 08:37 | XMS_ITS | Encounter Summary ---
Author Organization [facility] Address [address] [place] [address] Care Team Providers Care Senior Technical Manager Name Role Phone Chris Toledo MD Primary Care Provider Beba Munoz PA-C Unavailable [phone] Chris Gilbert MD Unavailable Ivette Rasmussen RN Unavailable Kirsten aPrdo RN Unavailable Donovan Peterson RN Unavailable Evelyn Alvarado MD Unavailable [phone] Lyndsey Palacios MD PhD Unavailable [phone] Chris Gilbert MD Unavailable [phone] Lyndsey Palacios MD PhD Unavailable Ivon De Leon [facility] Unavailable Chris Burroughs PA-C Unavailable [phone] Sylvester Joe MD Unavailable Encounter Details [...] Sex Assigned at Female 06/26/2019 9:26 AM LAND INSPECTOR Legal Sex Female 4:16 AM LAND INSPECTOR Gender Identity Female 06/26/2019 9:25 AM LAND INSPECTOR Sexual Orientation Straight 06/26/2019 9: 25 AM LAND INSPECTOR COVID-19 Exposure Response Date Recorded In the last 10 days, have yo u been in contact with someone who was confirmed or suspected to have Coronavirus/COVID-19? No / Unsure 08/27/2021 10:01 AM CDT documented as of this encounter Plan of Treatment Upcoming Encounters Date Type Department Care Team (Late st Contact Info) Description 10/10/2024 1:30 PM CDT Office Visit [facility] [address] [phone] Lyndsey Palacios MD PhD [address] [place] [id number] documented as of this encounter Visit Diagnoses Not on filedocumented in this encounter Additional Health Concerns Assessment Noted Time PHQ-9 Depression Total Score: 4 06/04/19 20 1:21 PM LAND INSPECTOR documented as of this encounter Care Teams Senior Technical Manager Relationship Specialty Start Date End Date Chris Toledo MD PCP - General Family Practice 12/07/17 Beba Munoz PA-C [facility] [address] [place] [address] Physician Desk Assistant Physician Desk Assistant 12/07/17 Chris Glibert MD [facility] [address] [place] [address] Orthopedics 12/07/17 Ivette Rasmussen, RN Registered Nurse Nurse 01/12/18 Kirsten Pardo, RN Registered Nurse Urology 04/12/18 12/01/21 Donovan Peterson, RN Specialty Interventional Physician Neurological Surgery 05/29/18 07/07/23 Evelyn Alvarado MD [address] [place] [id number] Family Medicine - Sports Medicine 01/08/19 Lyndsey Palacios MD PhD [address] [place] [address] Assigned PCP 08/08/20 Chris Gilbert MD [facility] [address] [place] [address] Assigned Musculoskeletal Provider 09/06/21 03/11/23 Lyndsey Palacios MD PhD [address] [place] [id number] Family Medicine 09/29/22 Ivon De Leon, [facility] [address] [place] [phone] Pharmacist Pharmacist 10/07/22 Chris Burroughs PA-C [facility] [address] [address] Assigned Musculoskeletal Provider 07/15/23 09/21/23 [place] [address] [place] [address] Assigned Musculoskeletal Provider 09/22/23 documented as of this encounter
--- OUTSIDE RECORDS SUMMARY | 2024-04-10 08:37 | XMS_ITS | Encounter Summary ---
Author Organization [facility] Address [address] [facility] [place] [address] Care Team Providers Care Wiping Cloth Cutter Name Role Phone Chris Toledo MD Primary Care Provider Beba MunozC Unavailable [phone] Chris Gilbert MD Unavailable Ivette Rasmussen RN Unavailable Donovan Peterson RN Unavailable Evelyn Alvarado MD Unavailable [phone] Lyndsey Palacios MD PhD Unavailable [phone] Chris Gilbert MD Unavailable [phone] Lyndsey Palacios MD PhD Unavailable [phone] Ivon De Leon [facility] Unavailable Chris Burroughs PA-C Unavailable [phone] Sylvester Joe MD Unavailable Encounter Details Date Type Department Care Team (Late st Contact Info) Description 10/07/2022 [facility] Advice [facility] PROFESSIONAL BLD [address] [place] [address] [facility] [address] [facility] [address] [place] [address] Social History Tobacco Use Types Packs/Day Years Used Date Smoking Tobacco: Never Smokeless Tobacco: Never Alcohol Use Standard Drinks/Week Comments Yes 0 (1 standard drink = 0.6 oz pur e alcohol) rare PHQ-2 Answer Date Recorded PHQ-2 Score 1 10/04/2022 Comments No Sex and Gender Information Value Date Recorded Sex Assigned at Female 06/26/2019 9:26 AM BIOMASS PLANT TECHNICIAN Legal Sex Female 4:16 AM BIOMASS PLANT TECHNICIAN Gender Identity Female 06/26/2019 9:25 AM BIOMASS PLANT TECHNICIAN Sexual Orientation Straight 06/26/2019 9: 25 AM BIOMASS PLANT TECHNICIAN COVID-19 Exposure Response Date Recorded In the last 10 days, have yo u been in contact with someone who was confirmed or suspected to have Coronavirus/COVID-19? No / Unsure 10/04/2022 9:14 AM CDT documented as of this encounter Plan of Treatment Upcoming Encounters Date Type Department Care Team (Late st Contact Info) Description 10/10/2024 1:30 PM CDT Office Visit [facility] [address] [phone] Lnydsey Palacios MD PhD [address] [place] [phone] documented as of this encounter Visit Diagnoses Not on filedocumented in this encounter Additional Health Concerns Assessment Noted Time PHQ-9 Depression Total Score: 4 06/04/19 20 1:21 PM BIOMASS PLANT TECHNICIAN documented as of this encounter Care Teams Wiping Cloth Cutter Relationship Specialty Start Date End Date Chris Toledo MD PCP - General Family Practice 12/07/17 Beba Munoz PA-C [facility] [address] [facility] [address] [place] [address] Physician Carpet Installer Helper Physician Carpet Installer Helper 12/07/17 Chris Gilbert MD [address] [place] [address] Orthopedics 12/07/17 Ivette Rasmussen, RN Registered Nurse Nurse 01/12/18 Donovan Peterson, RN Specialty Line Tender Neurological Surgery 05/29/18 07/07/23 Evelyn Alvarado MD [address] [place] [address] Family Medicine - Sports Medicine 01/08/19 Lyndsey Palacios MD PhD [address] [place] [phone] Assigned PCP 08/08/20 Chris Gilbert MD [address] [place] [address] Assigned Musculoskeletal Provider 09/06/21 03/11/23 Lyndsey Palacios MD PhD [address] [place] [address] Family Medicine 09/29/22 Ivon De Leon, [facility] [address] [place] [phone] Pharmacist Pharmacist 10/07/22 Chris Burroughs, PA-C [address] [place] [address] [phone] Assigned Musculoskeletal Provider 07/15/23 09/21/23 [place] [address] [facility] [place] [address] Assigned Musculoskeletal Provider 09/22/23 documented as of this encounter
--- OUTSIDE RECORDS SUMMARY | 2024-04-10 08:37 | XMS_ITS | Referral Summary ---
Author Organization [place] Address [address] [place] [address] Care Team Providers Care Accounting Instructor Name Role Phone Chris Toledo MD Primary Care Provider Beba Munoz PA-C Unavailable [phone] Chris Gilbert MD Unavailable [phone] Ivette Rasmussen RN Unavailable Evelyn Alvarado MD Unavailable [phone] Lyndsey Palacios MD PhD Unavailable [phone] Lyndsey Palacios MD PhD Unavailable + [phone] Ivon De Leon [facility] Unavailable [phone] Sylvester Joe MD Unavailable Allergies Active Allergy Reactions Criticality Noted Date Comments Other (Do Not Use) Unknown 07/08/2019 cough Shellfish Allergy 08/16/2022 Simvastatin Muscle Pain (Myalgia) 10/02/2006 Medications albuterol (PROAIR HFA/PROVENTIL HFA/VENTOLIN HFA) 108 (90 Base) MCG/ACT inhaler Inhale 2 puffs into the lungs every 4 hours as needed 4 Active azelastine (ASTELIN) 0.1 % nasal spray [place] 2 sprays into both nostrils 2 times [...] Active fluticasone (FLONASE) 50 MCG/ACT nasal spray [place] 2 sprays into both nostrils 2 times [...] 5 mg by mouth At Bedtime Active [place]-3 Fatty Acids (FISH OIL) 1200 MG capsule [...] 12+ (Pfizer 2021) 08/08/2021 DTaP, Unspecified 09/01/2012 Q8k9-31 Novel Flu 05/22/2009 Influenza (H1N1) 05/22/2009 Influenza [...] Sex Assigned at Female 06/26/2019 9:26 AM [employer] Legal Sex Female 4:16 AM [employer] Gender Identity Female 06/26/2019 9:25 AM [employer] Sexual Orientation Straight 06/26/2019 9: 25 AM [employer] Last Filed Vital Signs Vital Sign Reading Time Taken Comments Blood Pressure 124/75 12/03/2023 9:56 AM CDT Pulse 71 11/23/2023 1:42 PM CDT Temperature 36.9 C (98.4 F) 06/29/2019 8:58 AM [employer] Respiratory Rate 16 11/17/2018 1:29 PM CDT [...] Description 10/10/2024 1:30 PM CDT Office Visit [facility] [address] [place] [address] Lyndsey Palacios MD PhD [address] [place] [address] 79111 Medical Devices Implanted Type Area 8Th Grade Mathematics Teacher Device Identifier Shelf Expiration Date Model / Serial / Lot Graft Bone Crush Canc 30ml [id number] Implanted:Qty : 1 on 08/21/2018 by Chris Gilbert MD at [facility] Bone/Tissu e/Biologic N/A: Spine Lumbar MUSCULOSKELETAL CAMPOS 04/28/2021 [id number] / [id number] / Graft Bone Crush Canc 30ml [id number] Implanted:Qty : 1 on 08/21/2018 by Chris Gilbert MD at [facility] Bone/Tissu e/Biologic N/A: Spine Lumbar MUSCULOSKELETAL CAMPOS 06/02/2021 [id number] / [id number] / [id number] Imp Scr Medt 5.5/6.0mm Solera 6.5x55mm Ma [id number] Implanted:Qty : 2 on 08/21/2018 by Chris Gilbert MD at [facility] Metallic Hardware/A nchor N/A: Spine Lumbar [employer] [id number] / / [id number] Imp Scr Medt 5.5/6.0mm Solera 5.5x50mm Ma [id number] Implanted:Qty : 2 on 08/21/2018 by Chris Gilbert MD at [facility] Metallic Hardware/A nchor N/A: Spine Lumbar [employer] [id number] / / [id number] Imp Scr Medt 5.5/6.0mm Solera 5.5x55mm Ma [id number] Implanted:Qty : 2 on 08/21/2018 by Chris Gilbert MD at [facility] Metallic Hardware/A nchor N/A: Spine Lumbar [employer] [id number] / / [id number] Imp Scr Medt 5.5/6.0mm Solera 6.5x45mm Ma [id number] Implanted:Qty : 2 on 08/21/2018 by Chris Gilbert MD at [facility] Metallic Hardware/A nchor N/A: Spine Lumbar [employer] [id number] / / [id number] Imp Scr Medt 5.5/6.0mm Solera 6.5x40mm Ma [id number] Implanted:Qty : 1 on 08/21/2018 by Chris Gilbert MD at [facility] Metallic Hardware/A nchor N/A: Spine Lumbar [employer] [id number] / / [id number] Imp Scr Medt 5.5/6.0mm Solera 5.5x40mm Ma [id number] Implanted:Qty : 3 on 08/21/2018 by Chris Gilbert MD at [facility] Metallic Hardware/A nchor N/A: Spine Lumbar [employer] [id number] / / [id number] Imp Scr Medt 5.5/6.0mm Solera 5.0x35mm Ma [id number] Implanted:Qty : 1 on 08/21/2018 by Chris Gilbert MD at [facility] Metallic Hardware/A nchor N/A: Spine Lumbar [employer] [id number] / / [id number] Imp Scr Medt 5.5/6.0mm Solera 4.5x35mm Ma [id number] Implanted:Qty : 1 on 08/21/2018 by Chris Gilbert MD at [facility] Metallic Hardware/A nchor N/A: Spine Lumbar [employer] [id number] / / [id number] Imp Scr Medt 5.5/6.0mm Solera 5.0x40mm Ma [id number] Implanted:Qty : 1 on 08/21/2018 by Chris Gilbert MD at [facility] Metallic Hardware/A nchor N/A: Spine Lumbar [employer] [id number] / / [id number] Imp Scr Medt 5.5/6.0mm Solera 4.5x40mm Ma [id number] Implanted:Qty : 1 on 08/21/2018 by Chris Gilbert MD at [facility] Metallic Hardware/A nchor N/A: Spine Lumbar [employer] [id number] / / [id number] Imp Dao Medt Solera Lined 5.5l419us Chr [id number] Implanted:Qty : 3 on 08/21/2018 by Chris Gilbert MD at [facility] Metallic Hardware/A nchor N/A: Spine Lumbar [employer] [id number] / / [id number] Imp Scr Set Medt Solera Break Off 5.5mm Ti [id number] Implanted:Qty : 26 on 08/21/2018 by Chris Gilbert MD at [facility] Metallic Hardware/A nchor N/A: Spine Lumbar [employer] [id number] / [id number] / Imp Scr Medt 5.5/6.0mm Solera 7.5x40mm Ma [id number] Implanted:Qty : 2 on 08/21/2018 by Chris Gilbert MD at [facility] Metallic Hardware/A nchor N/A: Spine Lumbar [employer] [id number] / / [id number] Imp Scr Medt 5.5/6.0mm Solera 7.5x50mm Ma [id number] Implanted:Qty : 4 on 08/21/2018 by Chris Gilbert MD at [facility] Metallic Hardware/A nchor N/A: Spine Lumbar [employer] [id number] / / [id number] Imp Scr Medt 5.5/6.0mm Solera 7.5x55mm Ma [id number] Implanted:Qty : 2 on 08/21/2018 by Chris Gilbert MD at [facility] Metallic Hardware/A nchor N/A: Spine Lumbar [employer] [id number] / / [id number] Ballast Screw Implanted:Qty : 1 on 08/21/2018 by Chris Gilbert MD at [facility] N/A: Spine Lumbar [id number] / / [id number] Ballast Screw 9.5 X 90 Mm Implanted:Qty : 1 on 08/21/2018 by Chris Gilbert MD at [facility] N/A: Spine Lumbar [id number] / / [id number] Variable Angle [place] Implanted:Qty : 2 on 08/21/2018 by Janel Guillory MD at [facility] N/A: Spine Lumbar 07/14/2023 [id number] / / [id number] Capstone Control 10 X 22 Implanted:Qty : 1 on 08/21/2018 by Chris Gilbert MD at [facility] N/A: Spine Lumbar [employer] [id number] / / Explanted Type Area 8Th Grade Mathematics Teacher Device Identifier Shelf Expiration Date Model / Serial / Lot Imp Scr Set Medt Solera Break Off 5.5mm Ti [id number] Explanted:Qty: 3 on 08/21/2018 at [facility] Metallic Hardware/Anc hor N/A: Spine Lumbar [employer] [id number] / / [id number] [place] Screws Explanted:Qty: 1 on 08/21/2018 by Chris Gilbert MD at [facility] Bilateral : Spine Lumbar Description:ALL ISOLA SPINE HARDWARE REMOVED LUMBAR AND THORACIC. Procedures Procedure Name Priority Date/Time Associated Diagnosis Comments DEXA - HIM SCAN 09/16/2022 12:00 AM CDT MA EXTERNAL IMAGING 2D SCREENING Routine 03/12/2022 12:00 AM [employer] BASIC METABOLIC PANEL Routine 01/25/2020 10:57 AM CDT Senile osteoporosis from Last 3 Months or Most Recently Relevant to Health Maintenance Results * DEXA - HIM SCAN (09/16/2022 12:00 AM CDT) Anatomical Region Laterality Modality Other 09/16/2022 us Provider Outside IMG DEXA ORDERABLES Final Resul t * MA External Imaging 2D Screening (03/12/2022 12:00 AM [employer]) Narrative Service Account, Ob Sue - 10/14/2022 [...] - 144 mmol/L 01/25/2020 11:23 AM CDT [facility] Potassium 4.2 3.4 - [...] - 30 mg/dL 01/25/2020 11:29 AM T [facility] Creatinine 0.92 0.52 - 1.04 mg/dL 01/25/2020 11:29 AM T [facility] GFR Estimate 63 >60 mL/min/{1 .73_m2} 01/25/2020 11:29 AM T [facility] Comment: Non GFR Calc Starting 04/18/2018, serum creatinine based estimated GFR (eGFR) will be calculated using the Chronic Kidney Disease Epidemiology Collaboration (CKD-EPI) equation. GFR Estimate If Black 73 >60 mL/min/{1 .73_m2} 01/25/2020 11:29 AM T [facility] Comment: GFR Calc Starting 04/18/2018, serum creatinine based estimated GFR (eGFR) will be calculated using the Chronic Kidney Disease Epidemiology Collaboration (CKD-EPI) equation. Calcium 9.6 8.5 - 10.1 mg/dL 01/25/2020 11:29 AM CDT [facility] Blood specimen (specimen) 01/25/2020 10:57 AM CDT 01/25/2020 10:58 AM CDT us Lyndsey Palacios MD PhD LAB - BLOOD ORDERABLES Final Result [facility] [address] [place] [address] from Last 3 Months or Most Recently Relevant to Health Maintenance Insurance * Guarantor: AMEE MACHADO Account Type Relation to Patient Date of Phone Billing Address Personal/Family [address] [place] [address] BCBS OUT OF STATE MEDICARE REPLACEMENT * Guarantor: AMEE MACHADO Account Type Relation to Patient Date of Phone Billing Address Personal/Family [address] [place] [address] BCBS OUT OF STATE MEDICARE REPLACEMENT * Guarantor: Cindy Saldana Account Type Relation to Patient Date of Phone Billing Address Medication Therapy Self 06/15/1954 [address] [place] [address] BCBS OUT OF STATE MEDICARE REPLACEMENT * Guarantor: Giselle Esposito Account Type Relation to Patient Date of Phone Billing Address Medication Therapy Self 1950 [address] [place] [address] BCBS OUT OF STATE MEDICARE REPLACEMENT Care Teams Accounting Instructor Relationship Specialty Start Date End Date Chris Toledo MD PCP - General Family Practice 12/07/17 Beba Munoz PA-C [facility] [address] [place] [address] Physician Account Analyst Physician Account Analyst 12/07/17 Chris Gilbert MD [address] [place] [address] Orthopedics 12/07/17 Ivette Rasmussen, RN Registered Nurse Nurse 01/12/18 Evelyn Alvarado MD [address] [place] [address] [id number] Family Medicine - Sports Medicine 01/08/19 Lyndsey Palacios MD PhD [address] [place] [address] [id number] Assigned PCP 08/08/20 Lyndsey Palacios MD PhD [address] [place] [address] [id number] Family Medicine 09/29/22 Ivon De Leon, [facility] [address] 984[address] Pharmacist Pharmacist 10/07/22 [place] [address] [facility] [place] [address] Assigned Musculoskeletal Provider 09/22/23
--- OUTSIDE RECORDS SUMMARY | 2024-04-10 08:37 | XMS_ITS | Clinical Summary ---
Author Organization [place] Address [address] [facility] [place] [address] Care Team Providers Care Guitar Instructor Name Role Phone Chris Toledo MD Primary Care Provider Beba Munoz PA-C Unavailable [phone] Chris Gilbert MD Unavailable [phone] Ivette Rasmussen RN Unavailable Evelyn Alvarado MD Unavailable [phone] Lyndsey Palacios MD PhD Unavailable [phone] Lyndsey Palacios MD PhD Unavailable [phone] Ivon De Leon [facility] Unavailable [phone] Sylvester Joe MD Unavailable Allergies Active Allergy Reactions Criticality Noted Date Comments Other (Do Not Use) Unknown 07/08/2019 cough Shellfish Allergy 08/16/2022 Simvastatin Muscle Pain (Myalgia) 10/02/2006 Medications albuterol (PROAIR HFA/PROVENTIL HFA/VENTOLIN HFA) 108 (90 Base) MCG/ACT inhaler Inhale 2 puffs into the lungs every 4 hours as needed 4 Active azelastine (ASTELIN) 0.1 % nasal spray [place] 2 sprays into both nostrils 2 times [...] Active fluticasone (FLONASE) 50 MCG/ACT nasal spray [place] 2 sprays into both nostrils 2 times [...] 5 mg by mouth At Bedtime Active [place]-3 Fatty Acids (FISH OIL) 1200 MG capsule [...] 12+ (Pfizer 2021) 08/08/2021 DTaP, Unspecified 09/01/2012 D8i2-53 Novel Flu 05/22/2009 Influenza (H1N1) 05/22/2009 Influenza [...] Sex Assigned at Female 06/26/2019 9:26 AM SYSTEMS INTEGRATOR Legal Sex Female 4:16 AM SYSTEMS INTEGRATOR Gender Identity Female 06/26/2019 9:25 AM SYSTEMS INTEGRATOR Sexual Orientation Straight 06/26/2019 9: 25 AM SYSTEMS INTEGRATOR Last Filed Vital Signs Vital Sign Reading Time Taken Comments Blood Pressure 124/75 12/03/2023 9:56 AM CDT Pulse 71 11/23/2023 1:42 PM CDT Temperature 36.9 C (98.4 F) 06/29/2019 8:58 AM SYSTEMS INTEGRATOR Respiratory Rate 16 11/17/2018 1:29 PM CDT [...] Description 10/10/2024 1:30 PM CDT Office Visit [facility] [address] [place] [address] Lyndsey Palacios MD PhD [address] [place] [address] Health Maintenance Due Date Last Done [...] this topic Medical Devices Implanted Type Area Pulmonary Fellow Device Identifier Shelf Expiration Date Model / Serial / Lot Graft Bone Crush Canc 30ml [id number] Implanted:Qty : 1 on 08/21/2018 by Chris Gilbert MD at [facility] Bone/Tissu e/Biologic N/A: Spine Lumbar MUSCULOSKELETAL CAMPOS 04/28/2021 [id number] / [id number] / Graft Bone Crush Canc 30ml [id number] Implanted:Qty : 1 on 08/21/2018 by Chris Gilbert MD at [facility] Bone/Tissu e/Biologic N/A: Spine Lumbar MUSCULOSKELETAL CAMPOS 06/02/2021 [id number] / [id number] / [id number] Imp Scr Medt 5.5/6.0mm Solera 6.5x55mm Ma [id number] Implanted:Qty : 2 on 08/21/2018 by Chris Gilbert MD at [facility] Metallic Hardware/A nchor N/A: Spine Lumbar [employer] [id number] / / [id number] Imp Scr Medt 5.5/6.0mm Solera 5.5x50mm Ma [id number] Implanted:Qty : 2 on 08/21/2018 by Chris Gilbert MD at [facility] Metallic Hardware/A nchor N/A: Spine Lumbar [employer] [id number] / / [id number] Imp Scr Medt 5.5/6.0mm Solera 5.5x55mm Ma [id number] Implanted:Qty : 2 on 08/21/2018 by Chris Gilbert MD at [facility] Metallic Hardware/A nchor N/A: Spine Lumbar [employer] [id number] / / [id number] Imp Scr Medt 5.5/6.0mm Solera 6.5x45mm Ma [id number] Implanted:Qty : 2 on 08/21/2018 by Chris Gilbert MD at [facility] Metallic Hardware/A nchor N/A: Spine Lumbar [employer] [id number] / / [id number] Imp Scr Medt 5.5/6.0mm Solera 6.5x40mm Ma [id number] Implanted:Qty : 1 on 08/21/2018 by Chris Gilbert MD at [facility] Metallic Hardware/A nchor N/A: Spine Lumbar [employer] [id number] / / [id number] Imp Scr Medt 5.5/6.0mm Solera 5.5x40mm Ma [id number] Implanted:Qty : 3 on 08/21/2018 by Chris Gilbert MD at [facility] Metallic Hardware/A nchor N/A: Spine Lumbar [employer] [id number] / / [id number] Imp Scr Medt 5.5/6.0mm Solera 5.0x35mm Ma [id number] Implanted:Qty : 1 on 08/21/2018 by Chris Gilbert MD at [facility] Metallic Hardware/A nchor N/A: Spine Lumbar [employer] [id number] / / [id number] Imp Scr Medt 5.5/6.0mm Solera 4.5x35mm Ma [id number] Implanted:Qty : 1 on 08/21/2018 by Chris Gilbert MD at [facility] Metallic Hardware/A nchor N/A: Spine Lumbar [employer] [id number] / / [id number] Imp Scr Medt 5.5/6.0mm Solera 5.0x40mm Ma [id number] Implanted:Qty : 1 on 08/21/2018 by Chris Gilbert MD at [facility] Metallic Hardware/A nchor N/A: Spine Lumbar [employer] [id number] / / [id number] Imp Scr Medt 5.5/6.0mm Solera 4.5x40mm Ma [id number] Implanted:Qty : 1 on 08/21/2018 by Chris Gilbert MD at [facility] Metallic Hardware/A nchor N/A: Spine Lumbar [employer] [id number] / / [id number] Imp Dao Medt Solera Lined 5.5j472qq Chr [id number] Implanted:Qty : 3 on 08/21/2018 by Chris Gilbert MD at [facility] Metallic Hardware/A nchor N/A: Spine Lumbar [employer] [id number] / / [id number] Imp Scr Set Medt Solera Break Off 5.5mm Ti [id number] Implanted:Qty : 26 on 08/21/2018 by Chris Gilbert MD at [facility] Metallic Hardware/A nchor N/A: Spine Lumbar [employer] [id number] / [id number] / Imp Scr Medt 5.5/6.0mm Solera 7.5x40mm Ma [id number] Implanted:Qty : 2 on 08/21/2018 by Chris Gilbert MD at [facility] Metallic Hardware/A nchor N/A: Spine Lumbar [employer] [id number] / / [id number] Imp Scr Medt 5.5/6.0mm Solera 7.5x50mm Ma [id number] Implanted:Qty : 4 on 08/21/2018 by Chris Gilbert MD at [facility] Metallic Hardware/A nchor N/A: Spine Lumbar [employer] [id number] / / [id number] Imp Scr Medt 5.5/6.0mm Solera 7.5x55mm Ma [id number] Implanted:Qty : 2 on 08/21/2018 by Chris Gilbert MD at [facility] Metallic Hardware/A nchor N/A: Spine Lumbar [employer] [id number] / / [id number] Ballast Screw Implanted:Qty : 1 on 08/21/2018 by Chris Gilbert MD at [facility] N/A: Spine Lumbar [id number] / / [id number] Ballast Screw 9.5 X 90 Mm Implanted:Qty : 1 on 08/21/2018 by Chris Gilbert MD at [facility] N/A: Spine Lumbar [id number] / / [id number] Variable Angle [place] Implanted:Qty : 2 on 08/21/2018 by Janel Guillory MD at [facility] N/A: Spine Lumbar 07/14/2023 [id number] / / [id number] Capstone Control 10 X 22 Implanted:Qty : 1 on 08/21/2018 by Chris Gilbert MD at [facility] N/A: Spine Lumbar [employer] [id number] / / Explanted Type Area Pulmonary Fellow Device Identifier Shelf Expiration Date Model / Serial / Lot Imp Scr Set Medt Solera Break Off 5.5mm Ti [id number] Explanted:Qty: 3 on 08/21/2018 at [facility] Metallic Hardware/Anc hor N/A: Spine Lumbar [employer] [id number] / / [id number] [place] Screws Explanted:Qty: 1 on 08/21/2018 by Chris Gilbert MD at [facility] Bilateral : Spine Lumbar Description:ALL ISOLA SPINE HARDWARE REMOVED LUMBAR AND THORACIC. Procedures Procedure Name Priority Date/Time Associated Diagnosis Comments DEXA - HIM SCAN 09/16/2022 12:00 AM CDT MA EXTERNAL IMAGING 2D SCREENING Routine 03/12/2022 12:00 AM SYSTEMS INTEGRATOR BASIC METABOLIC PANEL Routine 01/25/2020 10:57 AM CDT Senile osteoporosis from Last 3 Months or Most Recently Relevant to Health Maintenance Results * DEXA - HIM SCAN (09/16/2022 12:00 AM CDT) Anatomical Region Laterality Modality Other 09/16/2022 us Provider Outside IMG DEXA ORDERABLES Final Resul t * MA External Imaging 2D Screening (03/12/2022 12:00 AM SYSTEMS INTEGRATOR) Narrative Service Account, Ob [place] - 10/14/2022 [...] - 144 mmol/L 01/25/2020 11:23 AM CDT [facility] Potassium 4.2 3.4 - 5.3 mmol/L 01/25/2020 11:23 AM T [facility] Chloride 108 94 - 109 mmol/L 01/25/2020 11:23 AM T [facility] Carbon Dioxide 24 20 - 32 mmol/L 01/25/2020 11:29 AM T [facility] Anion Gap 7 3 - 14 mmol/L 01/25/2020 11:29 AM T [facility] Glucose 106(H) 70 - 99 mg/dL 01/25/2020 11:29 AM T [facility] Urea Nitrogen 15 7 - 30 mg/dL 01/25/2020 11:29 AM T [facility] Creatinine 0.92 0.52 - 1.04 mg/dL 01/25/2020 11:29 AM T [facility] GFR Estimate 63 >60 mL/min/{1 .73_m2} 01/25/2020 11:29 AM T [facility] Comment: Non GFR Calc Starting 04/18/2018, serum creatinine based estimated GFR (eGFR) will be calculated using the Chronic Kidney Disease Epidemiology Collaboration (CKD-EPI) equation. GFR Estimate If Black 73 >60 mL/min/{1 .73_m2} 01/25/2020 11:29 AM T [facility] Comment: GFR Calc Starting 04/18/2018, serum creatinine based estimated GFR (eGFR) will be calculated using the Chronic Kidney Disease Epidemiology Collaboration (CKD-EPI) equation. Calcium 9.6 8.5 - 10.1 mg/dL 01/25/2020 11:29 AM T [facility] Blood specimen (specimen) 01/25/2020 10:57 AM CDT 01/25/2020 10:58 AM CDT us Lyndsey Palacios MD PhD LAB - BLOOD ORDERABLES Final Result [facility] [address] [place] [address] from Last 3 Months or Most Recently Relevant to Health Maintenance Insurance * Guarantor: AMEE MACHADO Account Type Relation to Patient Date of Phone Billing Address Personal/Family [address] [facility] [place] [address] BCBS OUT OF STATE MEDICARE REPLACEMENT * Guarantor: AMEE MACHADO Account Type Relation to Patient Date of Phone Billing Address Personal/Family [address] [facility] [place] [address] BCBS OUT OF STATE MEDICARE REPLACEMENT * Guarantor: Cindy Saldana Account Type Relation to Patient Date of Phone Billing Address Medication Therapy Self 06/15/1954 [address] [place] [address] BCBS OUT OF STATE MEDICARE REPLACEMENT * Guarantor: EspositoGiselle Account Type Relation to Patient Date of Phone Billing Address Medication Therapy Self 1950 [address] [facility] [address] BCBS OUT OF STATE MEDICARE REPLACEMENT Care Teams Guitar Instructor Relationship Specialty Start Date End Date Chris Toledo MD PCP - General Family Practice 12/07/17 Beba Munoz PA-C [facility] [address] [place] [address] Physician Safety Equipment Tester Physician Safety Equipment Tester 12/07/17 Chris Gilbert MD [facility] [facility] [address] [place] [address] Orthopedics 12/07/17 Ivette Rasmussen, RN Registered Nurse Nurse 01/12/18 Evelyn Alvarado MD [address] [place] [address] Family Medicine - Sports Medicine 01/08/19 Lyndsey Palacios MD PhD [address] [place] [address] Assigned PCP 08/08/20 Lyndsey Palacios MD PhD [address] [place] [address] Family Medicine 09/29/22 Ivon De Leon, [facility] [address] [address] Pharmacist Pharmacist 10/07/22 [place] [address] [address] Assigned Musculoskeletal Provider 09/22/23
--- OUTSIDE RECORDS SUMMARY | 2024-04-10 08:38 | XMS_ITS | Encounter Summary ---
Author Organization [place] Address [facility] [place] [address] Care Team Providers Care Building Illuminating Engineer Name Role Phone Chris Toledo MD Primary Care Provider [phone] Beba Munoz PA-C Unavailable [phone] Chris Gilbert MD Unavailable [phone] Ivette Rasmussen RN Unavailable Kirsten Pardo RN Unavailable Donovan Peterson RN Unavailable Evelyn Alvarado MD Unavailable [phone] Chris Gilbert MD Unavailable [phone] Lyndsey Palacios MD PhD Unavailable + [phone] Chris Gilbert MD Unavailable [phone] Lyndsey Palacios MD PhD Unavailable [phone] Ivon De Leon [facility] Unavailable Chris Burroughs PA-C Unavailable [phone] Sylvester Joe MD Unavailable Reason for Visit * Reason Onset Date Comments Forms 08/16/2018 Additional clini paola information needed for PA Encounter Details Date Type Department Care Team (Late st Contact Info) Description 08/16/2018 Telephone [facility] [address] [place] [address] [address] [place] [address] Chris Gilbert MD [facility] [address] Forms (Additional clinical information needed for PA) Social History Tobacco Use Types Packs/Day Years Used Date Smoking Tobacco: Never Smokeless Tobacco: Never Alcohol Use Standard Drinks/Week Comments Yes 0 (1 standard drink = 0.6 oz pur e alcohol) rare PHQ-2 Answer Date Recorded PHQ-2 Score 2 05/09/2018 Comments Unknown Sex and Gender Information Value Date Recorded Sex Assigned at Female 06/26/2019 9:26 AM GRADE RECORDER Legal Sex Female 4:16 AM GRADE RECORDER Gender Identity Female 06/26/2019 9:25 AM GRADE RECORDER Sexual Orientation Straight 06/26/2019 9: 25 AM GRADE RECORDER documented as of this encounter Miscellaneous Notes * Telephone Encounter - Alla Teixeira - 08/16/2018 3:18 PM CDT [facility] Call Center Phone Message May [...] be filled out and faxed to them [phone], attn Precertification. Please advise. Action Taken: Message routed to: [facility] Ortho documented in this encounter Plan of Treatment Upcoming Encounters Date Type Department Care Team ([facility] st Contact Info) Description 10/10/2024 1:30 PM CDT Office Visit [facility] [address] [phone] Lyndsey Palacios MD PhD [address] [place] [address] documented as of this encounter Visit Diagnoses Not on filedocumented in this encounter Additional Health Concerns Assessment Noted Time PHQ-9 Depression Total Score: 7 05/29/19 19 10:09 AM GRADE RECORDER documented as of this encounter Care Teams Building Illuminating Engineer Relationship Specialty Start Date End Date Chris Toledo MD PCP - General Family Practice 12/07/17 Beba Munoz PA-C [facility] [address] [place] [address] Physician Wheelchair Van Driver Physician Wheelchair Van Driver 12/07/17 Chris Gilbert MD [facility] [address] [address] Orthopedics 12/07/17 Ivette Rasmussen, RN Registered Nurse Nurse 01/12/18 Kirsten Pardo, RN Registered Nurse Urology 04/12/18 12/01/21 Donovan Peterson, RN Specialty Manager Inspection Neurological Surgery 05/29/18 07/07/23 Evelyn Alvarado MD [address] [place] [address] Family Medicine - Sports Medicine 01/08/19 Chris Gilbert MD [address] [place] [address] Assigned Musculoskeletal Provider 02/22/20 04/25/21 Lyndsey Palacios MD PhD [address] [place] [address] Assigned PCP 08/08/20 Chris Gilbert MD [facility] [address] [facility] [address] [place] [address] Assigned Musculoskeletal Provider 09/06/21 03/11/23 Lyndsey Palacios MD PhD [address] [place] [address] Family Medicine 09/29/22 Ivon De Leon, [facility] [address] [address] Pharmacist Pharmacist 10/07/22 Chris Burroughs, PA-C [address] [address] Assigned Musculoskeletal Provider 07/15/23 09/21/23 [place] [address] [place] [address] Assigned Musculoskeletal Provider 09/22/23 documented as of this encounter
--- OUTSIDE RECORDS SUMMARY | 2024-04-10 08:38 | XMS_ITS | Encounter Summary ---
Author Organization [place] Address [address] [facility] [place] [address] Care Team Providers Care Avionics Electrical Engineer Name Role Phone Chris Toledo MD Primary Care Provider Beba Munoz PA-C Unavailable [phone] Chris Gilbert MD Unavailable [phone] Ivette Rasmussen RN Unavailable Kirsten Pardo RN Unavailable Donovan Peterson RN Unavailable Evelyn Alvarado MD Unavailable Chris Gilbert MD Unavailable [phone] Lyndsey Palacios MD PhD Unavailable + [phone] Chris Gilbert MD Unavailable [phone] Lyndsey Palacios MD PhD Unavailable [phone] Ivon De Leon [facility] Unavailable Chris Burroughs PA-C Unavailable [phone] Sylvester Joe MD Unavailable Encounter Details Date Type Department Care Team (Late st Contact Info) Description 05/30/2018 [facility] [address] [facility] [address] [address] Lyndsey Palacios MD PhD [address] [place] [address] Social History Tobacco Use Types Packs/Day Years Used Date Smoking Tobacco: Never Smokeless Tobacco: Never PHQ-2 Answer Date Recorded PHQ-2 Score 2 05/09/2018 Comments Unknown Sex and Gender Information Value Date Recorded Sex Assigned at Female 06/26/2019 9:26 AM QUALITY ASSURANCE MONITOR Legal Sex Female 4:16 AM QUALITY ASSURANCE MONITOR Gender Identity Female 06/26/2019 9:25 AM QUALITY ASSURANCE MONITOR Sexual Orientation Straight 06/26/2019 9: 25 AM QUALITY ASSURANCE MONITOR documented as of this encounter Plan of Treatment Upcoming Encounters Date Type Department Care Team (Late st Contact Info) Description 10/10/2024 1:30 PM CDT Office Visit [facility] [address] [address] Lyndsey Palacios MD PhD [address] [place] [address] documented as of this encounter Visit Diagnoses Not on filedocumented in this encounter Additional Health Concerns Assessment Noted Time PHQ-9 Depression Total Score: 7 05/29/19 19 10:09 AM QUALITY ASSURANCE MONITOR documented as of this encounter Care Teams Avionics Electrical Engineer Relationship Specialty Start Date End Date Chris Toledo MD PCP - General Family Practice 12/07/17 Beba Munoz PA-C [facility] [address] [place] [address] Physician Sheet Metal Duct Installer Physician Sheet Metal Duct Installer 12/07/17 Chris Gilbert MD [address] [place] [address] Orthopedics 12/07/17 Ivette Rasmussen, RN Registered Nurse Nurse 01/12/18 Kirsten Pardo, RN Registered Nurse Urology 04/12/18 12/01/21 Donovan Peterson, RN Specialty Assayer Helper Neurological Surgery 05/29/18 07/07/23 Evelyn Alvarado MD [address] [place] [address] Family Medicine - Sports Medicine 01/08/19 Chris Gilbert MD [address] [place] [address] Assigned Musculoskeletal Provider 02/22/20 04/25/21 Lyndsey Palacios MD PhD [address] [place] [address] Assigned PCP 08/08/20 Chris Gilbert MD [address] [place] [address] Assigned Musculoskeletal Provider 09/06/21 03/11/23 Lyndsey Palacios MD PhD [address] [place] [address]25 Family Medicine 09/29/22 Ivon De Leon, [facility] [address] [place] [address] Pharmacist Pharmacist 10/07/22 Chris Burroughs, PA-C [facility] [address] [address]67[address] Assigned Musculoskeletal Provider 07/15/23 09/21/23 [place] [address] [place] [address] Assigned Musculoskeletal Provider 09/22/23 documented as of this encounter
--- OUTSIDE RECORDS SUMMARY | 2024-04-10 08:38 | XMS_ITS | Encounter Summary ---
Author Organization [place] Address [address] [facility] [place] [address] Care Team Providers Care Bell Spinner Name Role Phone Chris Toledo MD Primary Care Provider Beba Munoz PA-C Unavailable [phone] Chris Gilbert MD Unavailable Ivette Rasmussen RN Unavailable Kirsten Pardo RN Unavailable Donovan Peterson RN Unavailable Evelyn Alvarado MD Unavailable [phone] Chris Gilbert MD Unavailable [phone] Lyndsey Palacios MD PhD Unavailable + [phone] Chris Gilbert MD Unavailable [phone] Lyndsey Palacios MD PhD Unavailable [phone] Ivon De Leon [facility] Unavailable Chris Burroughs PA-C Unavailable [phone] Sylvester Joe MD Unavailable Reason for Visit * Reason Onset Date Comments Appointment 04/10/2018 Urodynamics - pr e surgery Encounter Details Date Type Department Care Team (Late st Contact Info) Description 04/10/2018 Telephone [facility]state [facility] Urologic [facility] [address] [place] [phone] None Appointment (Urodynamics - pre surgery) Social History Tobacco Use Types Packs/Day Years Used Date Smoking Tobacco: Never Assessed Comments Unknown Sex and Gender Information Value Date Recorded Sex Assigned at Female 06/26/2019 9:26 AM SUPERVISOR Legal Sex Female 4:16 AM SUPERVISOR Gender Identity Female 06/26/2019 9:25 AM SUPERVISOR Sexual Orientation Straight 06/26/2019 9: 25 AM SUPERVISOR documented as of this encounter Miscellaneous Notes * Telephone Encounter - Dionne Plaza - 04/10/2018 8:55 AM CST [facility] Call Center Phone Message May a detailed message be left on voicemail: yes Reason for Call: Other: Patient called in to make an appointment prior to a surgery she said she issupposed to have sometime in May with Dr. Gilbert in orthopedics. Referral for Urodynamic Flow [facility]. Pt asked me to send a message to the care team for any possible appts in May since we are booked out a ways. Please call pt to discuss/schedule. Thank you. Action Taken: Message routed to: [facility] Urology RVISOR documented in this encounter Plan of Treatment Upcoming Encounters Date Type Department Care Team ([facility] Contact Info) Description 10/10/2024 1:30 PM CDT Office Visit [facility] Primary [facility] Clinic [address] [phone] Lyndsey Palacios MD PhD [address] [place] [address] documented as of this encounter Visit Diagnoses Not on filedocumented in this encounter Care Teams Bell Spinner Relationship Specialty Start Date End Date Chris Toledo MD PCP - General Family Practice 12/07/17 Beba Munoz PA-C [facility] [address] [place] [address] Physician Bill Sorter Physician Bill Sorter 12/07/17 Chris Gilbert MD [address] [place] [address] Orthopedics 12/07/17 Ivette Rasmussen, RN Registered Nurse Nurse 01/12/18 Kirsten Pardo, RN Registered Nurse Urology 04/12/18 12/01/21 Donovan Peterson, RN Specialty Continuous Mining Operator Neurological Surgery 05/29/18 07/07/23 Evelyn Alvarado MD [address] [place] [address] Family Medicine - Sports Medicine 01/08/19 Chris Gilbert MD [address] [place] [address] Assigned Musculoskeletal Provider 02/22/20 04/25/21 Lyndsey Palacios MD PhD [address] [place] [address] Assigned PCP 08/08/20 Chris Gilbert MD [address] [place] [address] Assigned Musculoskeletal Provider 09/06/21 03/11/23 Lyndsey Palaciso MD PhD [address] [place] [address] Family Medicine 09/29/22 Ivon De Leon, [facility] [address] [address] Pharmacist Pharmacist 10/07/22 Chris Burroughs, PA-C [address] [place] [address] Assigned Musculoskeletal Provider 07/15/23 09/21/23 [place] [address] [place] [address] Assigned Musculoskeletal Provider 09/22/23 documented as of this encounter
--- OUTSIDE RECORDS SUMMARY | 2024-04-10 08:38 | XMS_ITS | Encounter Summary ---
Author Organization [place] Address [address] [place] [address] Care Team Providers Care Winchman/Crane Operator Name Role Phone Chris Toledo MD Primary Care Provider Beba Munoz PA-C Unavailable [phone] Chris Gilbert MD Unavailable Ivette Rasmussen RN Unavailable Kirsten Pardo RN Unavailable Donovan Peterson RN Unavailable Evelyn Alvarado MD Unavailable Lyndsey Palacios MD PhD Unavailable [phone] Chris Gilbert MD Unavailable [phone] Lyndsey Palacios MD PhD Unavailable [phone] Ivon De Leon [facility] Unavailable Chris Burroughs PA-C Unavailable [phone] Sylvester Joe MD Unavailable Encounter Details Date Type Department Care Team (Late st Contact Info) Description 08/27/2021 [facility] [address] [facility] [address] 4th [place] [address] Lo Watkins LPN Social History Tobacco Use Types Packs/Day Years Used Date Smoking Tobacco: Never Smokeless Tobacco: Never Alcohol Use Standard Drinks/Week Comments Yes 0 (1 standard drink = 0.6 oz pur e alcohol) rare PHQ-2 Answer Date Recorded PHQ-2 Score 0 08/18/2020 Comments No Sex and Gender Information Value Date Recorded Sex Assigned at Female 06/26/2019 9:26 AM FITTER / WELDER Legal Sex Female 4:16 AM FITTER / WELDER Gender Identity Female 06/26/2019 9:25 AM FITTER / WELDER Sexual Orientation Straight 06/26/2019 9: 25 AM FITTER / WELDER COVID-19 Exposure Response Date Recorded In the [...] Visit [facility] [address] [place] [phone] Lyndsey Palacios MD PhD [address] [place] [phone] documented as of this encounter Visit Diagnoses Not on filedocumented in this encounter Additional Health Concerns Assessment Noted Time PHQ-9 Depression Total Score: 4 06/04/19 20 1:21 PM FITTER / WELDER documented as of this encounter Care Teams Winchman/Crane Operator Relationship Specialty Start Date End Date Chris Toledo MD PCP - General Family Practice 12/07/17 Beba Munoz PA-C [facility] [address] [place] [address] Physician Impregnating Helper Physician Impregnating Helper 12/07/17 Chris Gilbert MD [facility] [address] [place], [place] [address] Orthopedics 12/07/17 Ivette Rasmussen, RN Registered Nurse Nurse 01/12/18 Kirsten Pardo, RN Registered Nurse Urology 04/12/18 12/01/21 Donovan Peterson, RN Specialty Privacy Compliance Manager Neurological Surgery 05/29/18 07/07/23 Evelyn Alvarado MD [address] [place] [address] 533925 Family Medicine - Sports Medicine 01/08/19 Lyndsey Palacios MD PhD [address] [place] [address]995 Assigned PCP 08/08/20 Chris Gilbert MD [facility] [address] 071784 Assigned Musculoskeletal Provider 09/06/21 03/11/23 Lyndsey Palacios MD PhD [address] [place] [address] 8025[address] Family Medicine 09/29/22 Ivon De Leon, [facility] [address] [place] [address] Pharmacist Pharmacist 10/07/22 Chris Burroughs PADarronC [facility]2 [address] [address] Assigned Musculoskeletal Provider 07/15/23 09/21/23 [place] [address] [place] [address] Assigned Musculoskeletal Provider 09/22/23 documented as of this encounter
--- OUTSIDE RECORDS SUMMARY | 2024-04-10 08:38 | XMS_ITS | Encounter Summary ---
Author Organization [place] Address [address] [facility] [address] Care Team Providers Care Program Aide Group Work Name Role Phone Chris Toledo MD Primary Care Provider Beba Munoz PA-C Unavailable [phone] Chris Gilbert MD Unavailable [phone] Ivette Rasmussen RN Unavailable Kirsten Pardo RN Unavailable Donovan Peterson RN Unavailable Evelyn Alvarado MD Unavailable Lyndsey Palacios MD PhD Unavailable [phone] Chris Gilbert MD Unavailable [phone] Lyndsey Palacios MD PhD Unavailable Ivon De Leon [facility] Unavailable Chris Burroughs PA-C Unavailable [phone] Sylvester Joe MD Unavailable Reason for Visit * Reason Onset Date Comments Injections 06/25/2021 Prolia Encounter Details Date Type Department Care Team (Late st Contact Info) Description 06/25/2021 Telephone [facility] [address] [place] [facility] [address] [place] [phone] Education, p [facility] Obgyn Nurse Injections (Prolia) Social History Tobacco Use Types Packs/Day Years Used Date Smoking Tobacco: Never Smokeless Tobacco: Never Alcohol Use Standard Drinks/Week Comments Yes 0 (1 standard drink = 0.6 oz pur e alcohol) rare PHQ-2 Answer Date Recorded PHQ-2 Score 0 08/18/2020 Comments No Sex and Gender Information Value Date Recorded Sex Assigned at Female 06/26/2019 9:26 AM INTERNET SALES REPRESENTATIVE Legal Sex Female 4:16 AM INTERNET SALES REPRESENTATIVE Gender Identity Female 06/26/2019 9:25 AM INTERNET SALES REPRESENTATIVE Sexual Orientation Straight 06/26/2019 9: 25 AM INTERNET SALES REPRESENTATIVE documented as of this encounter Miscellaneous Notes * Telephone Encounter - Ivette Brown - 06/25/2021 1:37 PM CST [facility] Call Center Phone Message May a detailed message be left on voicemail: yes Reason for Call: Patient would like to schedule her prolia injection. Please reach out to patient. Action Taken: Message routed to: [facility] Travel Screening: Not Applicable RNET SALES REPRESENTATIVE documented in this encounter Plan of Treatment Upcoming Encounters Date Type Department Care Team (Late st Contact Info) Description 10/10/2024 1:30 PM CDT Office Visit [facility] Primary Care Clinic [address] [place] [phone] Lyndsey Palacios MD PhD [address] [place] [address] documented as of this encounter Visit Diagnoses Not on filedocumented in this encounter Additional Health Concerns Assessment Noted Time PHQ-9 Depression Total Score: 4 06/04/19 20 1:21 PM INTERNET SALES REPRESENTATIVE documented as of this encounter Care Teams Program Aide Group Work Relationship Specialty Start Date End Date Chris Toledo MD PCP - General Family Practice 12/07/17 Beba Munoz PA-C [facility] [address] [place] [address] Physician Rn Neonatal Physician Rn Neonatal 12/07/17 Chris Gilbert MD [address] [place] [address] Orthopedics 12/07/17 Ivette Rasmussen, RN Registered Nurse Nurse 01/12/18 Kirsten Pardo, RN Registered Nurse Urology 04/12/18 12/01/21 Donovan ePterson, RN Specialty Mirror Machine Feeder Neurological Surgery 05/29/18 07/07/23 Evelyn Alvarado MD [address] [place] [address] Family Medicine - Sports Medicine 01/08/19 Lyndsey Palacios MD PhD [address] [place] [address] Assigned PCP 08/08/20 Chris Gilbert MD [address] [place] [address] Assigned Musculoskeletal Provider 09/06/21 03/11/23 Lyndsey Palacios MD PhD [address] [place] [address] Family Medicine 09/29/22 Ivon De Leon, [facility] [address] [facility] [address] [place] [address] Pharmacist Pharmacist 10/07/22 Chris Burroughs PA-C [address] [place] [address] Assigned Musculoskeletal Provider 07/15/23 09/21/23 [place] [address] [address] [address] Assigned Musculoskeletal Provider 09/22/23 documented as of this encounter
--- OUTSIDE RECORDS SUMMARY | 2024-04-10 08:38 | XMS_ITS | Encounter Summary ---
Author Organization [place] Address [facility] [place] [address] Care Team Providers Care Armoring Machine Operator Name Role Phone Chris Toledo MD Primary Care Provider [phone] Beba Munoz PA-C Unavailable [phone] Chris Gilbert MD Unavailable Ivette Rasmussen RN Unavailable Kirsten Pardo RN Unavailable Donovan Peterson RN Unavailable Evelyn Alvarado MD Unavailable Chris Gilbert MD Unavailable [phone] Lyndsey Palacios MD PhD Unavailable [phone] Chris Gilbert MD Unavailable Lyndsey Palacios MD PhD Unavailable Ivon De Leon [facility] Unavailable Chris Burroughs PA-C Unavailable [phone] Sylvester oJe MD Unavailable Reason for Visit * Reason Onset Date Comments Prior Auth - Medication 09/05/2018 hydrOXYz ine (ATARAX) 25 MG tablet-PA approved Encounter Details Date Type Department Care Team (Late st Contact Info) Description 09/05/2018 Telephone [facility] [address] [facility] [address] [place] [address] Surendra Adams MD [address] [place], [place] [address] Prior Auth - Medication (hydrOXYzine (ATARAX) 25 [...] Sex Assigned at Female 06/26/2019 9:26 AM PLUG MAKER Legal Sex Female 4:16 AM PLUG MAKER Gender Identity Female 06/26/2019 9:25 AM PLUG MAKER Sexual Orientation Straight 06/26/2019 9: 25 AM PLUG MAKER documented as of this encounter Miscellaneous Notes [...] needed for infusion/clinic administered): [facility] [place] [place] [facility] [place] [facility] [address] [facility] Pharmacy Notified: Yes Patient Notified: No-Pharmacy will contact * Telephone Encounter - Shobha Lancaster - 09/06/2018 2:36 PM CDT Provided additional information to insurance via phone. * Telephone Encounter - Shobha Lancaster - 09/06/2018 11:37 AM CDT Images from the original note were not included. Central Prior Authorization Team PA Initiation Medication: hydrOXYzine (ATARAX) 25 MG tablet-PA initiated Insurance Company: [employer] - Pharmacy Filling the Rx: [facility], [place], [place] - [place], [place] - [address] [facility] Filling Pharmacy Filling Pharmacy Fax: Start Date: 09/06/2018 * Telephone Encounter - Dafne Harris - 09/05/2018 3:56 PM CDT Images from the original note were not included. Central Prior Authorization Team documented in this encounter Plan of Treatment Upcoming Encounters Date Type Department Care Team (Late st Contact Info) Description 10/10/2024 1:30 PM CDT Office Visit [facility] [address] [address] Lyndsey Palacios MD PhD [address] [place] [id number] documented as of this encounter Visit Diagnoses Not on filedocumented in this encounter Additional Health Concerns Assessment Noted Time PHQ-9 Depression Total Score: 7 05/29/19 19 10:09 AM PLUG MAKER documented as of this encounter Care Teams Armoring Machine Operator Relationship Specialty Start Date End Date Chris Toledo MD PCP - General Family Practice 12/07/17 Beba Munoz PA-C [facility] [address] [address] Physician Credit Union Field Examiner Physician Credit Union Field Examiner 12/07/17 Chris Gilbert MD [address] [place] [address] Orthopedics 12/07/17 Ivette Rasmussen, RN Registered Nurse Nurse 01/12/18 Kirsten Pardo, RN Registered Nurse Urology 04/12/18 12/01/21 Donovan Peterson, RN Specialty Senior Animator Neurological Surgery 05/29/18 07/07/23 Evelyn Alvarado MD [address] [place] [address] Family Medicine - Sports Medicine 01/08/19 Chris Gilbert MD [address] [place] [address] Assigned Musculoskeletal Provider 02/22/20 04/25/21 Lyndsey Palacios MD PhD [address] [place] [address] Assigned PCP 08/08/20 Chris Gilbert MD [address] [place] [address] Assigned Musculoskeletal Provider 09/06/21 03/11/23 Lyndsey Palacios MD PhD [address] [place] [address] Family Medicine 09/29/22 Ivon De Leon, [facility] [address] [address] Pharmacist Pharmacist 10/07/22 Chris Burroughs PA-C [address] [place] [address] Assigned Musculoskeletal Provider 07/15/23 09/21/23 [place] [address] [place] [address] Assigned Musculoskeletal Provider 09/22/23 documented as of this encounter
--- OUTSIDE RECORDS SUMMARY | 2024-04-10 08:38 | XMS_ITS | Encounter Summary ---
Author Organization [place] Address [address] [facility] [place] [address] Care Team Providers Care Author Name Role Phone Chris Toledo MD Primary Care Provider Beba Munoz PA-C Unavailable [phone] Chris Gilbert MD Unavailable Ivette Rasmussen RN Unavailable Kirsten Pardo RN Unavailable Donovan Peterson RN Unavailable Evelyn Alvarado MD Unavailable [phone] Chris Gilbert MD Unavailable [phone] Lyndsey Palacios MD PhD Unavailable [phone] Chris Gilbert MD Unavailable [phone] Lyndsey Palacios MD PhD Unavailable [phone] Ivon De Leon [facility] Unavailable Chris Burroughs PA-C Unavailable [phone] Sylvester Joe MD Unavailable Reason for Visit * Reason Onset Date Comments Medication Question 01/08/2019 Patient's ph ysican wants her to start prednisone. Encounter Details Date Type Department Care Team (Late st Contact Info) Description 01/08/2019 Telephone [facility] [address] [facility] [address] [place] [address] Evelyn Alvarado MD [address] [place] [address] Medication Question (Patient's physican wants her to [...] Sex Assigned at Female 06/26/2019 9:26 AM AUTO CLUTCH REBUILDER Legal Sex Female 4:16 AM AUTO CLUTCH REBUILDER Gender Identity Female 06/26/2019 9:25 AM AUTO CLUTCH REBUILDER Sexual Orientation Straight 06/26/2019 9: 25 AM AUTO CLUTCH REBUILDER documented as of this encounter Miscellaneous Notes [...] Loren Alcantara - 01/08/2019 11:09 AM CDT [facility] Center Phone Message May a detailed [...] Description 10/10/2024 1:30 PM CDT Office Visit [facility] [address] [place] [id number] Lyndsey Palacios MD PhD [address] [place] [address] [id number] documented as of this encounter Visit Diagnoses Not on filedocumented in this encounter Additional Health Concerns Assessment Noted Time PHQ-9 Depression Total Score: 7 05/29/19 19 10:09 AM AUTO CLUTCH REBUILDER documented as of this encounter Care Teams Author Relationship Specialty Start Date End Date Chris Toledo MD PCP - General Family Practice 12/07/17 Beba Munoz PA-C [facility] [address] [place] [address] Physician Radiation Technician Physician Radiation Technician 12/07/17 Chris Gilbert MD [facility] [address] [place] [address] Orthopedics 12/07/17 Ivette Rasmussen, RN Registered Nurse Nurse 01/12/18 Kirsten Pardo, RN Registered Nurse Urology 04/12/18 12/01/21 Donovan Peterson, RN Specialty Curing Pickling Packer Neurological Surgery 05/29/18 07/07/23 Evelyn Alvarado MD [address] [place] [address] [id number] Family Medicine - Sports Medicine 01/08/19 Chris Gilbert MD [address] [place] [address] Assigned Musculoskeletal Provider 02/22/20 04/25/21 Lyndsey Palacios MD PhD [address] [place] [address] Assigned PCP 08/08/20 Chris Gilbert MD [address] [place] [address] Assigned Musculoskeletal Provider 09/06/21 03/11/23 Lyndsey Palacios MD PhD [address] [place] [address] Family Medicine 09/29/22 Ivon De Leon, [facility] [address] [facility] [address] [place] [address] Pharmacist Pharmacist 10/07/22 Chris Burroughs PA-C [address] [address] Assigned Musculoskeletal Provider 07/15/23 09/21/23 [place] [address] [place] [address] Assigned Musculoskeletal Provider 09/22/23 documented as of this encounter
== END 2024-04-10 08:35 | disposition home or self-care (01) ==
PROVIDERS: PCP Family Medicine; Visit Provider Family Medicine
DX: R25.2 Cramp and spasm (principal); M16.11 Unilateral primary osteoarthritis, right hip
CPT/HCPCS: 80048; 83735

== ENCOUNTER 2024-05-24 08:29 | Outpatient (CLI) | payer MEDICARE, SELFPAY ==
--- NOTE | 2024-05-24 10:12 | P.ANES_ITS ---
Anesthesia Charges Start Date/Time Anesthesia Start Date: 05/24/24 Anesthesia Start Time: 09:38 Stop Date/Time Anesthesia Stop Date: 05/24/24 Anesthesia Stop Time: 10:15 Summary Extremes of Age - Over 70 or under 1: MDA Coding CPT Codes CPT Codes: ANES LWR INTST NDSC NOS - 19960 ([id number]) P2 - PATIENT W/MILD SYST DISEASE, QK - ATTENDANT COIN OPERATED LAUNDRY 2-4 CNCRNT ANES PROC, QX - POPCORN ATTENDANT SVC W/ MD MED DIRECTION Additional Codes: Summary - Extremes of Age - Over 70 or under 1: MDA ([id number])
--- NOTE | 2024-05-24 10:12 | W.ANESCHARGE ---
Anesthesia Charges Start Date/Time Anesthesia Start Date: 05/24/24 Anesthesia Start Time: 09:38 Stop Date/Time Anesthesia Stop Date: 05/24/24 Anesthesia Stop Time: 10:15 Summary Extremes of Age - Over 70 or under 1: MDA Coding CPT Codes CPT Codes: ANES LWR INTST NDSC NOS - 71396 ([id number]) P2 - PATIENT W/MILD SYST DISEASE, QK - ADVISORY INTERN 2-4 CNCRNT ANES PROC, QX - AREA COORDINATOR SVC W/ MD MED DIRECTION Additional Codes: Summary - Extremes of Age - Over 70 or under 1: MDA ([id number])
--- NOTE | 2024-05-24 10:14 | P.ANES_ITS ---
Anesthesia Charges Start Date/Time Anesthesia Start Date: 05/24/24 Anesthesia Start Time: 09:38 Stop Date/Time Anesthesia Stop Date: 05/24/24 Anesthesia Stop Time: 10:15 Coding CPT Codes CPT Codes: PILAR LWR INTST NDSC NOS - 70632 ([id number]) P2 - PATIENT W/MILD SYST DISEASE, QK - INVESTMENT ACCOUNTANT 2-4 CNCRNT ANES PROC, QX - ASSISTANT GOLF COURSE SUPERINTENDENT SVC W/ MD MED DIRECTION
--- NOTE | 2024-05-24 10:14 | W.ANESCHARGE ---
Anesthesia Charges Start Date/Time Anesthesia Start Date: 05/24/24 Anesthesia Start Time: 09:38 Stop Date/Time Anesthesia Stop Date: 05/24/24 Anesthesia Stop Time: 10:15 Coding CPT Codes CPT Codes: PILAR LWR INTST NDSC NOS - 35330 ([id number]) P2 - PATIENT W/MILD SYST DISEASE, QK - LMFT 2-4 CNCRNT ANES PROC, QX - DISBURSING AGENT SVC W/ MD MED DIRECTION
== END 2024-05-24 08:30 | disposition home or self-care (01) ==
LOC: OP CLINIC 08:32
PROVIDERS: PCP Family Medicine; Visit Provider Surgery
DX: Z12.11 Encounter for screening for malignant neoplasm of colon (principal); D12.0 Benign neoplasm of cecum; D12.3 Benign neoplasm of transverse colon; K57.30 Diverticulosis of large intestine without perforation or abscess without bleeding; Z86.0100 Personal history of colon polyps, unspecified
CPT/HCPCS: 00811; 45385; 88305; 99100; J2704

== ENCOUNTER 2025-01-03 09:24 | Outpatient (CLI) | payer MEDICARE, SELFPAY | END 2025-01-03 09:25 | disposition home or self-care (01) | PROVIDERS: PCP Family Medicine; Visit Provider Family Medicine | DX: E11.9 Type 2 diabetes mellitus without complications (principal); E78.2 Mixed hyperlipidemia | CPT/HCPCS: 80048; 80061; 84460 ==

== ENCOUNTER 2025-03-26 12:00 | Outpatient (CLI) | payer MEDICARE, SELFPAY ==
--- NOTE | 2025-03-26 12:15 | MR_ITS ---
[address] [address] Phone:?[phone] Fax:?[phone] Referring Physician Information: John Paul Peng M.D. [address] [facility] [address] Phone:?[phone] Fax:?[phone] Patient:Liset Esposito Raul.Joni.B:?1950 Sex:?Female Phone:?[phone] [facility] MRN:?[id number] Exam Date:?03/26/2025 EXAM: MRI EXAMINATION OF THE RIGHT HIP CLINICAL INFORMATION: Right hip pain. No specific injury. No history of surgery to this area. Evaluate gluteus medius tear. TECHNICAL INFORMATION: Large dkrrh-sm-[id number] coronal T1 and STIR images were obtained. Thin section coronal and sagittal proton density and T2-weighted spin echo sequences were obtained through the right hip followed by oblique axial proton density and axial fat saturation proton density images. There are no prior studies available for comparison. INTERPRETATION: Hip joint: There is no evidence of hip joint effusion or loose body. No subchondral edema signal or cystic change. No discrete lesion identified to indicate AVN. No evidence of marrow edema pattern to indicate fracture or stress reaction of the femoral neck. 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 No other advanced hip joint chondromalacia identified. Thickening, deformity and tearing involves the superior labrum. There is additional thickening and poorly defined tearing through the anterosuperior labrum. Tendinopathy with thickening, irregularity and deformity as well as poorly defined partial tearing involving the gluteus medius tendon. There is poorly defined incomplete tearing involving the posterior fibers of the gluteus minimus tendon insertion. Thickening with partial tearing/stripping involving the mid to anterior tendon insertion. No evidence of fluid signal abnormality to indicate trochanteric bursitis. Intact appearance of the iliopsoas muscle and tendon insertions. No evidence for iliopsoas bursitis. Attenuated, increased signal intensity appearance of the quadratus femoris muscle belly between the lesser trochanter and ischial tuberosity with associated soft tissue fluid and edema signal. Bones and joints: Surgical changes of the lumbar spine and SI joints. No occult fracture/stress reaction involves the sacrum. 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 No evidence for a fracture. No abnormal marrow edema pattern to indicate occult stress reaction or stress fracture. Musculotendinous structures: Complete rupture is identified involving the entirety of the right common hamstring tendon origin. Retraction is measuring approximately 3.1 cm. Moderate to marked fluid signal within the site of the disruption. Additional high-grade partial tearing involves the contralateral, left common hamstring tendon origin. No acute muscle belly strain injury. No other muscle belly edema pattern. Intrapelvic contents: No free fluid seen within the pelvis. No discrete intrapelvic mass is identified. Neurovascular structures: No discrete cyst, mass or other compression upon the portions visualized of sciatic or femoral nerves. CONCLUSION: 1. Complete rupture of the entirety of the right common hamstring tendon origin with retraction of 3.1 cm. Moderate to marked fluid signal within the site of disruption. 2. MRI appearance as would be in keeping with ischiofemoral impingement. 3. Tendinopathy with thickening, irregularity and deformity as well as poorly defined partial tearing of the gluteus medius tendon insertion. 4. Poorly defined, incomplete tearing of the posterior fibers of the gluteus minimus tendon insertion. Thickening with partial tearing/stripping involving the insertion with the more mid to anterior fibers. No evidence for trochanteric bursitis. 5. Thickening, deformity and tearing through the superior acetabular labrum. Additional thickening and poorly defined tear involves the anterosuperior labrum. 6. 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 KES Electronically signed on 03/26/2025 1:44:00 PM by Dirk Ron M.D.
== END 2025-03-26 12:01 | disposition home or self-care (01) ==
LOC: MRI 12:00
PROVIDERS: PCP Family Medicine; Visit Provider Orthopaedic Surgery Sports Medicine
DX: S76.311A Strain of muscle, fascia and tendon of the posterior muscle group at thigh level, right thigh, initial encounter (principal); M76.01 Gluteal tendinitis, right hip; M76.02 Gluteal tendinitis, left hip; S73.191A Other sprain of right hip, initial encounter; M94.251 Chondromalacia, right hip; M24.851 Other specific joint derangements of right hip, not elsewhere classified; M79.89 Other specified soft tissue disorders
CPT/HCPCS: 73721

== ENCOUNTER 2025-04-17 14:29 | Outpatient (CLI) | payer MEDICARE, SELFPAY ==
--- NOTE | 2025-04-17 14:40 | CRLHL7_ITS ---
For Patients: As a result of the Century Cures Act, medical imaging exams and procedure reports are released immediately into your electronic medical record. You may view this report before your referring provider. If you have questions, please contact your health care provider. INDICATION: BILATERAL SCREENING MAMMOGRAM, ASYMPTOMATIC 75 Y/O FEMALE COMPARISON: 04/06/2024, 03/25/2023, 03/12/2022 TECHNIQUE: Digital mammogram in CC and MLO projections including computer-aided detection (CAD) and tomosynthesis. BREAST COMPOSITION: There are scattered areas of fibroglandular density. FINDINGS: No suspicious findings. ASSESSMENT: BI-RADS 2 Benign RECOMMENDATION: Annual screening mammogram. A lay language report of this examination will be provided to the patient. Dictated by: Chris Paez MD @ 04/18/2025 09:53:13 (Electronically Signed)
== END 2025-04-17 14:30 | disposition home or self-care (01) ==
PROVIDERS: PCP Family Medicine; Visit Provider Family Medicine
DX: Z12.31 Encounter for screening mammogram for malignant neoplasm of breast (principal)
CPT/HCPCS: 77063; 77067